=== PATIENT | female | born 1965 | race Two or more races ===

== ENCOUNTER → 2022-01-16 15:04 | Outpatient (BNVA) | payer OTHER, SELFPAY | PROVIDERS: PCP Internal Medicine; Referring Provider Internal Medicine; Visit Provider Internal Medicine | DX: R07.2 Precordial pain (principal); R00.2 Palpitations; I10 Essential (primary) hypertension; E11.8 Type 2 diabetes mellitus with unspecified complications; E78.5 Hyperlipidemia, unspecified; G47.33 Obstructive sleep apnea (adult) (pediatric); E66.01 Morbid (severe) obesity due to excess calories; Z68.31 Body mass index [BMI] 31.0-31.9, adult | CPT/HCPCS: 93005 ==

== ENCOUNTER 2022-09-25 13:35 | Outpatient (REF) | payer OTHER, SELFPAY ==
--- NOTE | ~2022-09-25 | US_ITS ---
EXAMINATION: US ABDOMEN COMPLETE CLINICAL INFORMATION: Right upper quadrant pain, flank pain. COMPARISON: X-ray abdomen complete 04/15/2018. US abdomen complete with liver elastography 12/25/2016. Ultrasound abdomen complete 10/18/2013. TECHNIQUE: Real-time imaging of the abdominal viscera. FINDINGS: PANCREAS: Normal. ABDOMINAL AORTA: The proximal, mid, and distal segments are normal in caliber. INFERIOR VENA CAVA: Visualized portions are normal. LIVER: Liver is enlarged measuring 18.0 cm. The liver contour is normal. Diffuse increased echogenicity of the liver parenchyma. No focal hepatic lesion. There is no intrahepatic biliary duct dilatation seen. GALLBLADDER: The gallbladder is contracted.. Multiple mobile gallstones are present. No evidence of gallbladder wall thickening or pericholecystic fluid. COMMON BILE DUCT: Normal in caliber measuring 0.7 cm in diameter. RIGHT KIDNEY: Punctate 4 mm cortical calcification. No hydronephrosis. No renal calculi or focal parenchymal lesions. The kidney measures 11.2 cm in maximum dimension. LEFT KIDNEY: Normal. No hydronephrosis. No renal calculi or focal parenchymal lesions. The kidney measures 10.8 cm in maximum dimension. SPLEEN: Normal. The spleen measures 12.1 cm in maximum dimension. FREE FLUID: None. US/US abdomen complete IMPRESSION: Hepatic steatosis with hepatomegaly. Next Cholelithiasis, no sonographic findings findings of acute cholecystitis.
== END 2022-09-25 13:36 | disposition home or self-care (01) ==
LOC: HO.US 13:35
PROVIDERS: Visit Provider Internal Medicine
DX: R10.11 Right upper quadrant pain (principal)
CPT/HCPCS: 76700

== ENCOUNTER 2023-02-19 10:47 | Outpatient (REF) | payer OTHER, SELFPAY ==
[2023-02-20 08:12] LABS: Hepatitis A Antibody IgG REACTIVE (Nonreactive); ~Hepatitis A Antibody IgG 10.84 S/CO (0.00-0.99)
[2023-02-20 08:13] LABS: HBsAGNum1 0.38 S/CO (0.00-0.99); Hepatitis B Core Antibody Nonreactive (Nonreactive); Hepatitis B Surface Antigen Negative (Negative); ~HepC Num1 0.31 S/CO (0.00-0.79); ~Hepatitis B Surface Antibody REACTIVE (Nonreactive); ~Hepatitis C Antibody Nonreactive (Nonreactive)
[2023-02-23 15:48] LABS: Anti Nuclear Antibody Screen NEGATIVE (NEGATIVE)
[2023-02-23 15:52] LABS: FIB-ALT 27 U/L (6-29); FIB-Alpha-2-Macroglobulin 163 mg/dL (106-279); FIB-Apolipoprotein A1 177 mg/dL (101-198); FIB-GGT 167 U/L (3-70); FIB-Haptoglobin 183 mg/dL (43-212); FIB-Total Bilirubin 0.8 mg/dL (0.2-1.2); Liver Fibrosis Score 0.24; Liver Fibrosis Stage F0-F1; Nec Inflam Act Grade A0; Nec Inflam Act Score 0.12
[2023-02-23 19:03] LABS: Alpha 1 Anti-trypsin 132 mg/dL (83-199)
[2023-02-24 11:08] LABS: Mitochondrial Antibodies NEGATIVE (NEGATIVE)
== END 2023-02-19 10:48 | disposition home or self-care (01) ==
LOC: HO.LAB 10:47
PROVIDERS: PCP Internal Medicine; Visit Provider Internal Medicine
DX: R79.89 Other specified abnormal findings of blood chemistry (principal)
CPT/HCPCS: 36415; 80076; 81596; 82103; 82728; 83540; 85025; 85610; 86038; 86255; 86256; 86704; 86706; 86708; 86803; 87340

== ENCOUNTER 2023-02-26 11:30 | Outpatient (AMB) | payer OTHER, SELFPAY ==
--- NOTE | 2023-02-26 11:38 | A.OFFVIS_ITS ---
Intake Vital Signs 02/26/23 11:40 Height 5 ft 6 in Weight 172 lb BMI 27.8 BP 118/64 Blood Pressure Location Rt brachial Position Sitting Pulse 80 Intake Visit Reasons: gallstones Intake Note: This patient presents for an assessment for gallstones. Patient c/o; intermittent RUQ pain radiates towards back, occasional nausea, denies vomiting, describes diarrhea. Beauty Counselor Required: No Accompanied by: Self / Same As Patient Allergies No Known Allergies [No Known Allergies*] Allergy (Verified 02/26/23 11:39) Medication List - Last Reconciled 02/26/23 by Steve Armas MD atorvastatin 20 mg PO DAILY cholecalciferol (vitamin D3) 50 mcg PO DAILY empagliflozin (Jardiance) 10 mg PO DAILY gabapentin 600 mg PO BEDTIME hydrochlorothiazide 50 mg PO DAILY metformin 1,000 mg PO BID propranolol ER 60 mg PO BEDTIME rizatriptan 10 mg PO DAILY PRN ropinirole 0.5 mg PO BEDTIME tirzepatide (Mounjaro) mg subcut QWEEK HPI gallstones HPI Details A 58-year-old female referred for gallstones. She had an ultrasound last September, showing gallstones without cholecystitis. She says that since August,, she has been having right-sided abdominal pain, radiating to the back. She thinks that this worse with intake of particular heavy meals.. She denies any other GI complaints. She had a history of morbid obesity had undergone gastric bypass in 2018. She also had a tummy tuck after that. [facility] Medical History (Updated 02/26/23 @ 11:51 by Steve Armas MD) Essential hypertension Gallstones Morbid obesity ARLEY (obstructive sleep apnea) Other and unspecified hyperlipidemia RUQ pain Type 2 diabetes mellitus with unspecified complications Surgical History History of bilateral knee replacement Family History Mother Asthma Father Hypertension Social History Alcohol intake: current Alcohol intake frequency: holidays/special occasions only Patient Tobacco Use Status: Never used Tobacco Review of Systems Const Denies chills and Denies fever(s) Card Denies chest pain, Denies dyspnea and Denies dyspnea on exertion Resp Denies cough, Denies dyspnea and Denies dyspnea on exertion GI Denies hematochezia and Denies change in bowel habits Denies hematuria Musc Denies back pain and Denies limited range of motion Neuro Denies focal weakness and Denies convulsions Psych Denies depression and Denies mood swings Physical Exam Vital Signs: Last Vital Signs Pulse 80 02/26/23 11:40 BP 118/64 02/26/23 11:40 BMI result Body Mass Index 27.8 Const General: comfortable and no acute distress Orientation/consciousness: patient oriented x3 Neck Neck: Yes no lymphadenopathy Resp Auscultation: clear to auscultation bilaterally Cardio Rhythm: regular rhythm GI Palpation (GI): Soft to palpation, nontender and no guarding Neuro General: patient oriented x3 Assessment & Plan Assessment & Plan (1) RUQ pain: Code(s): R10.11 - Right upper quadrant pain (2) Gallstones: Code(s): K80.20 - Calculus of gallbladder without cholecystitis without obstruction Plan: She has had right upper quadrant pain radiating to the back for about 6 months. She says that this does not happen often. She had gallstones on ultrasound last September. I explained to her the option of proceeding with cholecystectomy. I discussed the technique of laparoscopic cholecystectomy and possible open cholecystectomy. I reviewed the risks including but not limited to bleeding, infection, bile leak, retained stones, inherent risks of anesthesia, as well as the benefits and alternatives. She says that she had been told that she had some liver disease . She is quite anxious about proceeding with surgery at this time and says she would like to repeat imaging studies. I told her that we may be able to schedule her for a CT scan to evaluate her liver as well. She had some abnormal LFTs on blood tests last week but she does fatty liver disease from before. I will discuss her CAT scan findings with her and review her option of surgery. Orders: Orders CT abdomen pelvis w IV con 02/26/23 R10.11 - Right upper quadrant pain Blood Urea Nitrogen 02/26/23 R10.11 - Right upper quadrant pain Creatinine 02/26/23 R10.11 - Right upper quadrant pain Coding Level of Care Code New Pt Level 3 (62847) Diagnoses RUQ pain R10.11 Gallstones K80.20
[2023-02-26 11:40] VITALS: BP 118/64; PULSE 80; BMI 27.8
== END 2023-02-26 11:55 | disposition home or self-care (01) ==
PROVIDERS: PCP Internal Medicine; Referring Provider Internal Medicine; Visit Provider Surgery
DX: R10.11 Right upper quadrant pain (principal); K80.20 Calculus of gallbladder without cholecystitis without obstruction
CPT/HCPCS: 99203

== ENCOUNTER 2023-02-26 11:30 | Outpatient (REF) | payer OTHER, SELFPAY ==
[2023-02-26 14:23] LABS: Blood Urea Nitrogen 14 mg/dL (9-16); Estimated Glomerular Filt Rate > 60
== END 2023-02-26 11:31 | disposition home or self-care (01) ==
LOC: HO.LAB 11:30
PROVIDERS: PCP Internal Medicine; Referring Provider Internal Medicine; Visit Provider Surgery
DX: R10.11 Right upper quadrant pain (principal); K80.20 Calculus of gallbladder without cholecystitis without obstruction; E66.01 Morbid (severe) obesity due to excess calories; Z98.84 Bariatric surgery status; Z79.899 Other long term (current) drug therapy
CPT/HCPCS: 36415; 82565; 84520

== ENCOUNTER 2023-04-13 13:25 | Outpatient (REF) | payer OTHER, SELFPAY ==
[2023-04-13 14:28] LABS: Blood Urea Nitrogen 11 mg/dL (9-16); Estimated Glomerular Filt Rate > 60
== END 2023-04-13 13:26 | disposition home or self-care (01) ==
LOC: HO.LAB 13:25
PROVIDERS: PCP Internal Medicine; Visit Provider Surgery
DX: K80.20 Calculus of gallbladder without cholecystitis without obstruction (principal); R10.11 Right upper quadrant pain
CPT/HCPCS: 36415; 82565; 84520

== ENCOUNTER 2023-04-14 09:27 | Outpatient (REF) | payer OTHER, SELFPAY ==
--- NOTE | ~2023-04-14 | CT_ITS ---
EXAMINATION: CT ABDOMEN WITH CONTRAST CLINICAL INFORMATION: Right upper quadrant pain COMPARISON: Previous abdominal ultrasound most recent from September 2022 TECHNIQUE: Contiguous axial thin section helical images of the abdomen were performed following the administration of oral contrast and 85 mL of Omnipaque 350 intravenous contrast. The data set was reformatted in the coronal and sagittal planes and reviewed on an independent workstation. This CT examination was performed using dose optimization techniques as appropriate, variously including the following: *Automated exposure control *Adjustment of mA and/or kV according to patient size (this includes techniques or standardized protocols for targeted exams where dose is matched to indication/reason for exam; i.e. extremities or head) *Use of iterative reconstruction technique DLP: 211 mGy-cm FINDINGS: LUNG BASES: The lung bases are clear. LIVER, GALLBLADDER, AND BILIARY TREE: There is intra and extrahepatic biliary duct dilatation. The common bile duct is dilated measuring up to 1.4 cm. The common bile left is dilated down to the head of the pancreas. No common bile duct stone is appreciated by CT. The gallbladder is normal in size. There is increased attenuation seen in the fundus of the gallbladder questionable for small stones or possibly polyps or sludge. The gallbladder wall is upper normal in thickness. There is question of increased enhancement of the gallbladder wall. No pericholecystic fluid is seen. The fat surrounding the gallbladder is normal. The liver is normal in size, shape and attenuation. PANCREAS: Normal SPLEEN: Normal ADRENAL GLANDS AND KIDNEYS: There is a small 1 cm left adrenal nodule. The right adrenal gland is normal. No imaging follow-up recommended.. There is a small cyst in the right kidney. No imaging follow-up recommended. The kidneys are otherwise normal. BOWEL LOOPS: There are postsurgical changes from gastric bypass. There is mild diverticulosis of the colon. LYMPH NODES: Normal. VASCULAR: Unremarkable. BONES: Degenerative changes of the spine. CT/CT abdomen w IV con IMPRESSION: Intra and extrahepatic biliary duct dilatation. The common bile duct measures up to 1.4 cm and is dilated down to the head of the pancreas. No common bile duct stone seen by CT. Increased attenuation in the gallbladder. Differential would include gallstones, polyps and sludge. Question increased gallbladder wall enhancement. Postoperative changes from gastric bypass. Fleischner guidelines were followed.
[2023-04-14] MEDS: iohexoL 350 MG/ML 100 ML INFUS..BTL IV (10:04)
== END 2023-04-14 09:28 | disposition home or self-care (01) ==
LOC: HO.CT 09:27
PROVIDERS: Visit Provider Surgery
DX: R10.11 Right upper quadrant pain (principal); K80.20 Calculus of gallbladder without cholecystitis without obstruction
CPT/HCPCS: 74160; Q9967

== ENCOUNTER 2023-04-27 10:58 | Outpatient (AMB) | payer OTHER, SELFPAY ==
--- NOTE | 2023-04-27 11:02 | MHC.OFFVIS ---
Intake Intake Visit Reasons: Follow Up CT scan Intake Note: This patient presents for follow-up assessment for Ct-Scan results. Patient c/o; reports no changes or complaints at this time. It Sales Executive Required: No Accompanied by: Self / Same As Patient Allergies No Known Allergies [No Known Allergies*] Allergy (Verified 04/27/23 11:07) Medication List - Last Reconciled 04/27/23 by Steve Armas MD atorvastatin 20 mg PO DAILY cholecalciferol (vitamin D3) 50 mcg PO DAILY empagliflozin (Jardiance) 10 mg PO DAILY gabapentin 600 mg PO BEDTIME hydrochlorothiazide 50 mg PO DAILY metformin 1,000 mg PO BID propranolol ER 60 mg PO BEDTIME rizatriptan 10 mg PO DAILY PRN ropinirole 0.5 mg PO BEDTIME tirzepatide (Mounjaro) mg subcut QWEEK HPI Follow Up CT scan HPI Details She is here for a follow-up after her CT scan. I had actually seen her in February, as she had been referred because of gallstones seen on ultrasound. She was being followed by GI because of her a fatty liver. She otherwise says that she feels well overall. She says that she has occasional mild right-sided pain. She has good oral intake. [facility] Medical History Gallstones RUQ pain Morbid obesity ARLEY (obstructive sleep apnea) Other and unspecified hyperlipidemia Essential hypertension Type 2 diabetes mellitus with unspecified complications Surgical History History of bilateral knee replacement Family History Mother Asthma Father Hypertension Social History Alcohol intake: current Alcohol intake frequency: holidays/special occasions only Patient Tobacco Use Status: Never used Tobacco Review of Systems Const Denies chills and Denies fever(s) Card Denies chest pain, Denies dyspnea and Denies dyspnea on exertion Resp Denies cough, Denies dyspnea and Denies dyspnea on exertion GI Denies hematochezia and Denies change in bowel habits Denies hematuria Musc Denies back pain, Reports arthralgias and Reports limited range of motion Neuro Denies focal weakness and Denies convulsions Psych Denies depression and Denies mood swings Physical Exam Const General: comfortable and no acute distress Orientation/consciousness: patient oriented x3 Eyes Other: Nonicteric sclerae Neck Neck: Yes no lymphadenopathy Resp Auscultation: clear to auscultation bilaterally Cardio Rhythm: regular rhythm GI Palpation (GI): Soft to palpation, nontender and no guarding Neuro General: patient oriented x3 Assessment & Plan Assessment & Plan (1) Gallstones: Code(s): K80.20 - Calculus of gallbladder without cholecystitis without obstruction Plan: She describes mild occasional right upper quadrant pain. I have reviewed her CAT scan and this shows to 1.[address] to the head of the pancreas She does have a history of slightly abnormal LFTs in the past I am going to send her for an MRI to rule out a etiology that may explain her CBD dilatation She overall looks well. I will see her in the office after her MRI to discuss the findings and to decide on the next step in her care. She understands and is comfortable with the plan. Orders: Orders MR MRCP Today K80.20 - Calculus of gallbladder without cholecystitis without obstruction Coding Level of Care Code Est Pt Level 3 (10258) Diagnoses Gallstones K80.20
== END 2023-04-27 11:14 | disposition home or self-care (01) ==
PROVIDERS: PCP Internal Medicine; Visit Provider Surgery
DX: K80.20 Calculus of gallbladder without cholecystitis without obstruction (principal)
CPT/HCPCS: 99213

== ENCOUNTER → 2023-04-27 10:58 | Outpatient (BNVA) | payer OTHER, SELFPAY | PROVIDERS: PCP Internal Medicine; Visit Provider Surgery ==

== ENCOUNTER 2023-05-07 09:20 | Outpatient (REF) | payer OTHER, SELFPAY ==
--- NOTE | ~2023-05-07 | XR_ITS ---
EXAMINATION: XR CHEST CLINICAL INFORMATION: Hypertension COMPARISON: 04/15/2018 TECHNIQUE: 2 views of the chest were obtained. FINDINGS: Heart size normal. Central pulmonary vascular congestion seen previously is no longer present. There is no evidence of CHF. No infiltrates, effusions or lung masses are seen. Again seen are multiple surgical clips in the left upper quadrant XR/XR chest 2V IMPRESSION: No acute intrathoracic disease.
--- NOTE | ~2023-05-07 | XR_ITS ---
EXAMINATION: XR HAND, BILATERAL CLINICAL INFORMATION: Bilateral hand pain COMPARISON: Right hand 03/28/2019 TECHNIQUE: 3 views of each hand FINDINGS: Right hand: Severe osteoarthritis of the 1st CMC joint. Moderate arthritis of the 2nd and 5th DIP joints, possibly chronic erosive osteoarthritis. Overall, no significant change. Left hand: Severe 1st CMC joint osteoarthritis. 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 Cannot exclude an active inflammatory component at the 2nd DIP joint. Correlate clinically. XR/XR hand LT min 3V IMPRESSION: RIGHT HAND: Severe 1st CMC joint osteoarthritis. 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 Cannot exclude active inflammation of the 2nd DIP joint. Correlate clinically.
--- NOTE | ~2023-05-07 | XR_ITS ---
EXAMINATION: XR HAND, BILATERAL CLINICAL INFORMATION: Bilateral hand pain COMPARISON: Right hand 03/28/2019 TECHNIQUE: 3 views of each hand FINDINGS: Right hand: Severe osteoarthritis of the 1st CMC joint. Moderate arthritis of the 2nd and 5th DIP joints, possibly chronic erosive osteoarthritis. Overall, no significant change. Left hand: Severe 1st CMC joint osteoarthritis. 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 Cannot exclude an active inflammatory component at the 2nd DIP joint. Correlate clinically. XR/XR hand RT min 3V IMPRESSION: RIGHT HAND: Severe 1st CMC joint osteoarthritis. 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 Cannot exclude active inflammation of the 2nd DIP joint. Correlate clinically.
[2023-05-08 08:20] LABS: ~Hepatitis B Surface Antibody REACTIVE (Nonreactive)
[2023-05-09 06:24] LABS: Varicella IgG Antibody >4000.00 index
[2023-05-09 16:28] LABS: TS Negative Control Passed; TS Panel A 3; TS Panel B 1; TS Positive Control Passed; TSpotTB Negative (Negative)
== END 2023-05-07 09:21 | disposition home or self-care (01) ==
LOC: HO.HMGCX 09:20
PROVIDERS: PCP Internal Medicine; Visit Provider Internal Medicine
DX: Z11.1 Encounter for screening for respiratory tuberculosis (principal); I10 Essential (primary) hypertension; M79.641 Pain in right hand; M79.642 Pain in left hand; Z00.00 Encounter for general adult medical examination without abnormal findings
CPT/HCPCS: 36415; 71046; 73130; 86481; 86706; 86762; 86787

== ENCOUNTER 2023-05-20 07:25 | Outpatient (REF) | payer OTHER, SELFPAY | END 2023-05-20 07:26 | disposition home or self-care (01) | LOC: HO.MRI 07:25 | PROVIDERS: PCP Internal Medicine; Visit Provider Surgery | DX: K80.20 Calculus of gallbladder without cholecystitis without obstruction (principal) | CPT/HCPCS: 74181 ==

== ENCOUNTER 2023-06-08 15:37 | Outpatient (AMB) | payer OTHER, SELFPAY ==
--- NOTE | 2023-06-08 15:41 | A.OFFVIS_ITS ---
Intake Vital Signs 06/08/23 15:41 Height 5 ft 6 in Intake Visit Reasons: Gallstones - MRCP results Intake Note: This patient presents for a follow-up for MRCP results. Patient c/o; reports no changes. Blacksmith Assistant Required: No Accompanied by: Grand Child Allergies No Known Allergies [No Known Allergies*] Allergy (Verified 06/23/23 12:33) Medication List - Last Reconciled 06/09/23 by Steve Armas MD atorvastatin 20 mg PO DAILY cholecalciferol (vitamin D3) 50 mcg PO DAILY empagliflozin (Jardiance) 10 mg PO DAILY gabapentin 600 mg PO BEDTIME hydrochlorothiazide 50 mg PO DAILY metformin 1,000 mg PO BID propranolol ER 60 mg PO BEDTIME rizatriptan 10 mg PO DAILY PRN ropinirole 0.5 mg PO BEDTIME tirzepatide (Mounjaro) mg subcut QWEEK HPI Gallstones - MRCP results HPI Details 58-year-old female here for follow-up fo r gallstones. I had sent her for an MRCP because of a dilated common bile duct on previous imaging. She does state that she has occasional symptoms of her gallstones with right upper quadrant pain. She has good oral intake. She does have a history of laparoscopic gastric bypass in 2018. She also had a panniculectomy at that time. [facility] Medical History Gallstones RUQ pain Morbid obesity ARLEY (obstructive sleep apnea) Other and unspecified hyperlipidemia Essential hypertension Type 2 diabetes mellitus with unspecified complications Surgical History History of bilateral knee replacement Family History Mother Asthma Father Hypertension Social History Alcohol intake: current Alcohol intake frequency: holidays/special occasions only Patient Tobacco Use Status: Never used Tobacco Review of Systems Const Denies chills and Denies fever(s) Card Denies chest pain, Denies dyspnea and Denies dyspnea on exertion Resp Denies cough, Denies dyspnea and Denies dyspnea on exertion GI Denies hematochezia and Denies change in bowel habits Denies hematuria Musc Denies back pain and Denies limited range of motion Neuro Denies focal weakness and Denies convulsions Psych Denies depression and Denies mood swings Physical Exam Const General: comfortable and no acute distress Orientation/consciousness: patient oriented x3 Neck Neck: Yes no lymphadenopathy Resp Auscultation: clear to auscultation bilaterally Cardio Rhythm: regular rhythm GI Palpation (GI): Soft to palpation, nontender and no guarding Neuro General: patient oriented x3 Assessment & Plan Assessment & Plan (1) Gallstones: Code(s): K80.20 - Calculus of gallbladder without cholecystitis without obstruction Plan: I have reviewed her MRCP. Despite the common bile duct dilatation, there is no filling defect nor any mass that may suggest common bile duct obstruction. I have ordered for her to undergo follow-up liver panel. I explained to her the technique of laparoscopic cholecystectomy and possible conversion to open. I reviewed with her the risks including but not limited to bleeding, infections, injury to other organs including bowel, liver and the bile duct, blood clots, pneumonia, inherent risks of anesthesia, retained stones, leak, as well as the benefits and alternatives. Orders: Orders Liver Panel 06/08/23 K80.20 - Calculus of gallbladder without cholecystitis without obstruction Coding Level of Care Code Est Pt Level 3 (98368) Diagnoses Gallstones K80.20
== END 2023-06-08 16:00 | disposition home or self-care (01) ==
PROVIDERS: PCP Internal Medicine; Referring Provider Internal Medicine; Visit Provider Surgery
DX: K80.20 Calculus of gallbladder without cholecystitis without obstruction (principal)
CPT/HCPCS: 99213

== ENCOUNTER → 2023-06-08 15:37 | Outpatient (BNVA) | payer OTHER, SELFPAY | PROVIDERS: PCP Internal Medicine; Visit Provider Surgery ==

== ENCOUNTER 2023-06-23 10:59 | Outpatient (AMB) | payer OTHER, SELFPAY ==
[2023-06-23 12:11] VITALS: BP 120/82; PULSE 90; TEMP 36.7; O2SAT 97; BMI 27.3
--- NOTE | 2023-06-23 12:11 | AM.OFFWIN_ITS ---
Intake Vital Signs 06/23/23 12:11 Height 5 ft 6 in Weight 169 lb BMI 27.3 BP 120/82 Blood Pressure Location Rt brachial Position Sitting Pulse 90 Pulse Source Pulse Oximeter Temp 98.1 F Temp Source Oral Pulse Oximetry (%) 97 Oxygen Delivery Method Room Air Intake Visit Reasons: EP, hearing plug stuck, burning with urination Patient Tobacco Use Status: Never used Tobacco Allergies No Known Allergies [No Known Allergies*] Allergy (Verified 06/23/23 12:33) Medication List - Last Reconciled 06/23/23 by Tr Norris MD atorvastatin 20 mg PO DAILY cholecalciferol (vitamin D3) 50 mcg PO DAILY empagliflozin (Jardiance) 10 mg PO DAILY gabapentin 600 mg PO BEDTIME hydrochlorothiazide 50 mg PO DAILY metformin 1,000 mg PO BID propranolol ER 60 mg PO BEDTIME ropinirole 0.5 mg PO BEDTIME tirzepatide (Mounjaro) mg subcut QWEEK Do you need a note to return to daycare/school/sports/work: No HPI EP, hearing plug stuck, burning with urination HPI Details 58-year-old female presents to the [facility] for a sick visit. She has 2 complaints. Patient has a stuck hearing aid tip in the left ear. When she removed the hearing aid at night, she realized the tip is still remaining. Also reporting symptoms of increased frequency of urination and burning. Patient is a known diabetic. Symptoms of burning and increased frequency present for the past few days. [facility] Medical History Gallstones RUQ pain Morbid obesity ARLEY (obstructive sleep apnea) Other and unspecified hyperlipidemia Essential hypertension Type 2 diabetes mellitus with unspecified complications Surgical History History of bilateral knee replacement Family History Mother Asthma Father Hypertension Social History Alcohol intake: current Alcohol intake frequency: holidays/special occasions only Patient Tobacco Use Status: Never used Tobacco Physical Exam Vital Signs: Last Vital Signs Temp 98.1 F 06/23/23 12:11 Pulse 90 06/23/23 12:11 BP 120/82 06/23/23 12:11 Pulse Ox 97 06/23/23 12:11 Oxygen Delivery Method Room Air 06/23/23 12:11 BMI result Body Mass Index 27.3 Const General: cooperative and healthy appearing Nutritional Appearance: well nourished Orientation/consciousness: patient oriented x3 Limitations: no limitations HEENT Other: Left ear: Ear canal: Plastic foreign body seen. Head: Yes normal to inspection Eyes General: appearance normal, both eyes and all related structures Neck Neck: Yes normal visual inspection Chest Chest palpation & inspection: normal palpation of entire chest wall Resp Effort & Inspection: normal respiratory effort General: Yes bladder normal to palpation and Yes no CVA tenderness Bimanual exam- vagina & uterus: bladder normal to palpation Back/Spine/Pelvis Back: no CVA tenderness Neuro General: patient oriented x3 Office Procedures Foreign Body Removal 21953-[id number] body removal, simple 66305 - Foreign body removal, external auditory canal Additional procedure code (CPT) needed Results AMB Urinalysis, Automated UA Leukoctes 125 Noemy/uL Last Edit by Yudi Winchester CMA on 06/23/23 12:21 UA Nitrite Negative Last Edit by Yudi Winchester CMA on 06/23/23 12:21 UA Urobilinogen 0.2 mg/dL Last Edit by Yudi Winchester CMA on 06/23/23 12:21 UA Protein 100 mg/dL Last Edit by Yudi Winchester CMA on 06/23/23 12:21 UA pH 6.0 Last Edit by Yudi Winchester CMA on 06/23/23 12:21 UA Blood 200 Moy/uL Last Edit by Yudi Winchester CMA on 06/23/23 12:21 UA Specific Silvis 1.030 Last Edit by Yudi Winchester CMA on 06/23/23 12:21 UA Ketone Negative Last Edit by Yudi Winchester CMA on 06/23/23 12:21 UA Bilirubin 1 mg/dL Last Edit by Yudi Winchester CMA on 06/23/23 12:21 UA Glucose 1000 mg/dL Last Edit by Yudi Winchester CMA on 06/23/23 12:21 Results Reviewed Results Reviewed: Laboratory Last Values Urine pH (Auto) 6.0 06/23/23 12:18 Specific Silvis (Auto) 1.030 06/23/23 12:18 Urine Protein (Auto) 100 mg/dL 06/23/23 12:18 Glucose (UA)(Auto) 1000 mg/dL 06/23/23 12:18 Urine Ketones (Auto) Negative 06/23/23 12:18 Urine Blood (Auto) 200 Moy/uL 06/23/23 12:18 Urine Nitrite (Auto) Negative 06/23/23 12:18 Urine Bilirubin (Auto) 1 mg/dL 06/23/23 12:18 Urine Urobilinogen (Auto) 0.2 mg/dL 06/23/23 12:18 Leukocyte Esterase (Auto) 125 Noemy/uL 06/23/23 12:18 Assessment & Plan Assessment & Plan (1) Foreign body in ear: Code(s): T16.9XXA - Foreign body in ear, unspecified ear, initial encounter Plan: Patient tolerated the procedure well (2) Urinary tract infection: Code(s): N39.0 - Urinary tract infection, site not specified Plan: Take antibiotics and Pyridium as directed. Increase fluid intake. If symptoms of burning persist, new onset of fever or lower back pain, to follow-up at the [facility]. Orders: Orders AMB Urinalysis Automated Today Z13.9 - Encounter for screening, unspecified Ruel Cronin MD AMB Removal of foreign body Today T16.9XXA - Foreign body in ear, unspecified ear, initial encounter Tr Norris MD Coding Level of Care Code Est Pt Level 4 (64884) Diagnoses Foreign body in ear T16.9XXA Urinary tract infection N39.0 CPT Codes Details - Foreign body simple: [id number] body removal, simple ([id number])
== END 2023-06-23 12:46 | disposition home or self-care (01) ==
PROVIDERS: PCP Internal Medicine; Visit Provider Internal Medicine
DX: T16.2XXA Foreign body in left ear, initial encounter (principal); N39.0 Urinary tract infection, site not specified; R35.0 Frequency of micturition
CPT/HCPCS: 10120; 81003; 99214

== ENCOUNTER 2023-10-26 12:23 | Outpatient (REF) | payer OTHER, SELFPAY ==
[2023-10-26 12:51] LABS: MANUAL DIFF FLAG NO
[2023-10-26 13:32] LABS: Basophils Percent Auto 0.5 % (0-2); Eosinophils Absolute Auto 0.1 X10*3/uL (0.0-0.4); Eosinophils Percent Auto 1.7 % (0-4); Hematocrit 34.4 % (37.0-47.0); Hemoglobin 11.1 g/dl (12.0-16.0); Imm Gran Abs Auto 0.03 X10*3/uL (0.00-0.03); Imm Gran Pct Auto 0.5 % (0.0-0.4); Lymphocytes Absolute Auto 1.9 X10*3/uL (1.2-4.9); Lymphocytes Percent Auto 31.9 % (20-40); Mean Corpuscular HGB Conc 32.3 g/dl (31.0-35.0); Mean Corpuscular Hemoglobin 26.2 pg (27.0-33.0); Mean Corpuscular Volume 81.3 fL (80.0-98.0); Mean Platelet Volume 10.9 fL (9.4-12.3); Monocytes Absolute Auto 0.4 X10*3/uL (0.1-1.2); Monocytes Percent Auto 5.8 % (2-11); Neutrophils Absolute Auto 3.6 x10*3/uL (2.0-8.3); Neutrophils Percent Auto 59.6 % (45-73); Platelet Count 263 X10*3/uL (160-400); Red Blood Count 4.23 X10*6/uL (4.20-5.50); Red Cell Distribution Width 14.6 % (11.0-16.0); White Blood Count 6.1 X10*3/uL (4.8-10.8)
[2023-10-26 14:34] LABS: Alanine Aminotransferase 13 U/L (0-31); Albumin Level 3.9 g/dL (3.5-5.0); Alkaline Phosphatase 144 U/L (39-117); Aspartate Amino Transferase 15 U/L (5-31); Bilirubin Direct 0.3 mg/dL (0.0-0.5); Bilirubin Total 0.8 mg/dL (0.0-1.0); Gamma Glutamyl Transpeptidase 70 U/L (7-33); Iron 36 mcg/dL (30-160); Percent Iron Saturation 9 % (15-50); Total Iron Binding Capacity 380 mcg/dL (228-428); Total Protein 7.3 g/dL (6.5-8.0); Unsaturated Iron Binding 344 ug/dL
[2023-10-26 14:50] LABS: Ferritin 6 ng/mL (10-250)
[2023-10-26 14:51] LABS: Folate 12.5 ng/mL (> or = 4.0); Vitamin B12 161 pg/mL (200-900)
[2023-10-31 06:09] LABS: Alk.Phos Iso. Macrohepatic 0 % (<=0); Alk.Phos Isoenzymes Bone 31 % (28-66); Alk.Phos Isoenzymes Intest 0 % (1-24); Alk.Phos Isoenzymes Liver 69 % (25-69); Alk.Phos Isoenzymes Placental 0 % (<=0); Alk.Phos Isoenzymes Total 133 U/L (37-153)
== END 2023-10-26 12:24 | disposition home or self-care (01) ==
LOC: HO.LAB 12:23
PROVIDERS: PCP Internal Medicine; Visit Provider Internal Medicine
DX: R74.8 Abnormal levels of other serum enzymes (principal); D50.9 Iron deficiency anemia, unspecified
CPT/HCPCS: 36415; 80076; 82607; 82728; 82746; 82977; 83540; 84080; 85025

== ENCOUNTER 2023-10-28 09:04 | Outpatient (AMB) | payer OTHER, SELFPAY ==
[2023-10-28 13:13] VITALS: BMI 27.9
--- NOTE | 2023-10-28 13:13 | MHC.OFFVISWM ---
Intake VS Expanded 10/28/23 13:13 Height 5 ft 6 in Weight 173 lb BMI 27.9 Intake Visit Reasons: TV Gallstones - PO LRYGB 04/14/18 Allergies No Known Allergies [No Known Allergies*] Allergy (Verified 10/28/23 13:14) Medication List - Last Reconciled 10/28/23 by Bon Mac MD atorvastatin 20 mg PO DAILY cholecalciferol (vitamin D3) 50 mcg PO DAILY empagliflozin (Jardiance) 10 mg PO DAILY gabapentin 600 mg PO BEDTIME metformin 500 mg PO BID propranolol ER 60 mg PO BEDTIME ropinirole 0.5 mg PO BEDTIME tirzepatide (Mounjaro) mg subcut QWEEK HPI TV Gallstones - PO LRYGB 04/14/18 HPI Details Start time: 1.07pm, End time: 1.37pm ?I spent 25 minutes speaking with the patient on the phone plus an additional 5 minutes reviewing and updating records for a total of 30 minutes HPI Comments History of Present Illness Details Has peristent RUQ pain Abdominal US from 10/09 is consistent with choelithiasis and hepatomegaly MRCP was performed on 06/08 due to CBD dilation but no CBD stones were found. [facility] Medical History (Updated 10/28/23 @ 13:30 by Bon Mac MD) Neuropathy Gallstones RUQ pain Morbid obesity ARLEY (obstructive sleep apnea) Other and unspecified hyperlipidemia Essential hypertension Type 2 diabetes mellitus with unspecified complications Surgical History (Updated 10/28/23 @ 13:18 by Bon Mac MD) S/P panniculectomy Gastric bypass status for obesity History of bilateral knee replacement Family History Mother Asthma Father Hypertension Social History Alcohol intake: current Alcohol intake frequency: holidays/special occasions only Patient Tobacco Use Status: Never used Tobacco Assessment & Plan Assessment & Plan (1) Gallstones: Code(s): K80.20 - Calculus of gallbladder without cholecystitis without obstruction Plan: 1. The patient has symptomatic cholelithiasis with right upper quadrant pain. We discussed in detail the importance of this finding in relation to the type of bariatric surgery that will be chosen. Because gastric bypass alters the anatomy of the UGI tract, it will limit our ability for non-surgical interventions related to potential complications of cholelithiasis or cholecystectomy such as ERCP and for this reason we recommend elective removal. We discussed in detail the potential complications and their management including bleeding, bile leak, pancreatitis and major bile duct injury. 2. Avoid any aspirin, motrin, aleve, naproxyn, advil and similar medications 3. Stop food and bars as of tomorrow 10/29/23 and continue with 2 Celebrate REBUILD protein shakes (HALF scoop EACH in 8oz almond milk) at 8am-10am and 11am-1pm and 2 Celebrate protein bars at 2pm-4pm and 5pm-7pm and one more Celebrate protein shake with ONE scoop in 8oz of almond milk at 8pm-10pm. Orders: Orders Type and Screen Today K80.20 - Calculus of gallbladder without cholecystitis without obstruction Prothrombin Time INR Today K80.20 - Calculus of gallbladder without cholecystitis without obstruction Partial Thromboplastin Time Today K80.20 - Calculus of gallbladder without cholecystitis without obstruction ECG 12 lead EKG Today K80.20 - Calculus of gallbladder without cholecystitis without obstruction Telehealth Telehealth Location of provider rendering services: practice address Location of patient: address on file Patient Identification confirmed using: Name, : Yes Telehealth method: voice only Patient verbally consented to treatment: Yes Patient verbally consented to billing insurance company: Yes Patient informed of any privacy concerns related to visit: Yes Minutes spent on Phone/Video with Pt.: 30 Coding Level of Care Code Tele Est Pt Level 4 (11401) Diagnoses Gallstones K80.20 Time Spent (min) 30
== END 2023-10-28 13:39 | disposition home or self-care (01) ==
LOC: HO.HBS 09:05
PROVIDERS: PCP Internal Medicine; Visit Provider Surgery
DX: K80.20 Calculus of gallbladder without cholecystitis without obstruction (principal); Z98.84 Bariatric surgery status
CPT/HCPCS: 99214

== ENCOUNTER → 2023-10-28 09:04 | Outpatient (BNVA) | payer OTHER, SELFPAY | PROVIDERS: PCP Internal Medicine; Visit Provider Surgery ==

== ENCOUNTER → 2023-11-04 10:23 | Outpatient (BNV) | payer OTHER, SELFPAY | PROVIDERS: PCP Internal Medicine; Visit Provider Internal Medicine | DX: I10 Essential (primary) hypertension (principal) | CPT/HCPCS: 93010 ==

== ENCOUNTER 2023-11-10 10:37 | Day surgery (SDC) | payer OTHER, SELFPAY ==
--- NOTE | 2023-11-04 10:23 | ECG_ITS ---
Test Reason : calculus of kidney Blood Pressure : / mmHG Vent. Rate : 078 BPM Atrial Rate : 078 BPM P-R Int : 192 ms QRS Dur : 082 ms QT Int : 380 ms P-R-T Axes : 060 035 054 degrees QTc Int : 433 ms Normal sinus rhythm Normal ECG When compared with ECG of 14-APR-2018 23:05, No significant change was found Referred By: Bon Mac Electronically Signed By:MONIE JACOB
--- NOTE | 2023-11-06 15:18 | HO.ANESPROP2 ---
Documented by User: Zuleyka Robins NP 11/06/23 15:20 HPI - Anesthesia Eval Consult details Narrative: 58yo F for Cholecystectomy Laparoscopic Anesthesia Pre-Procedure Meds Is the patient on any of the following meds?: Any other SGL-1 drugs or drugs that delay gastric emptying (Jardiance, Tirzepatide) PMFSH Active Problems Active Problems: All Active Problems (Updated 10/28/23 @ 13:30 by Bon Mac MD) Neuropathy (Acute) Overweight (Acute) Gallstones (Acute) RUQ pain (Acute) Morbid obesity (Acute) ARLEY (obstructive sleep apnea) (Acute) Other and unspecified hyperlipidemia (Acute) Essential hypertension (Acute) Type 2 diabetes mellitus with unspecified complications (Acute) Palpitations (Acute) Precordial chest pain (Acute) Past Medical History Medical History Neuropathy Gallstones RUQ pain Morbid obesity ARLEY (obstructive sleep apnea) Other and unspecified hyperlipidemia Essential hypertension Type 2 diabetes mellitus with unspecified complications Family History Family History Mother Asthma Father Hypertension Surgical History Surgical History S/P panniculectomy Gastric bypass status for obesity History of bilateral knee replacement Social History Social History Alcohol intake: current Alcohol intake frequency: holidays/special occasions only Patient Tobacco Use Status: Never used Tobacco Use of substances other than those prescribed or required for medical reasons: No Are you DNR?: No Advance Directives: No Advance Directives Information Provided: Yes Meds Allergies Allergy/AdvReac Type Severity Reaction Status Date / Time No Known Allergies Allergy Verified 11/10/23 11:25 [No Known Allergies*] Home Medications Medication Instructions Recorded Confirmed Last Taken Type atorvastatin 20 mg tablet 20 mg PO DAILY 01/16/22 11/10/23 11/09/23 History cholecalciferol (vitamin D3) 50 50 mcg PO DAILY 01/16/22 11/10/23 11/09/23 History mcg (2,000 unit) capsule gabapentin 300 mg capsule 600 mg PO BEDTIME 01/16/22 11/10/23 11/09/23 History propranolol 60 mg capsule,24 60 mg PO BEDTIME 01/16/22 11/10/23 11/09/23 History hr,extended release ropinirole 0.5 mg tablet 0.5 mg PO BEDTIME 01/16/22 11/10/23 11/09/23 History empagliflozin 10 mg tablet 10 mg PO DAILY 07/08/22 11/10/23 11/07/23 History (Jardiance) tirzepatide 5 mg/0.5 mL 5 mg subcut QWEEK 07/08/22 11/10/23 11/03/23 History subcutaneous pen injector (Mounjaro) metformin 1,000 mg tablet 500 mg PO BID 10/28/23 11/10/23 11/09/23 History Exam Pertinent Lab Results Pertinent Lab Results: Laboratory Tests 11/04/23 10:20 PT 12.0 INR 1.0 APTT 32.0 Blood Type A Negative Antibody Screen NEGATIVE Laboratory Tests 10/26/23 12:49 WBC 6.1 Hgb 11.1 L Hct 34.4 L Plt Count 263 Narrative Narrative: EKG 10/2023 Vent. Rate : 078 BPM Atrial Rate : 078 BPM P-R Int : 192 ms QRS Dur : 082 ms QT Int : 380 ms P-R-T Axes : 060 035 054 degrees QTc Int : 433 ms Normal sinus rhythm Normal ECG When compared with ECG of 14-APR-2018 23:05, No significant change was found Assessment and Plan Assessment Anesthesia Assessment: Chart Reviewed Documented by User: Noelle Moon MD 11/10/23 14:07 HPI - Anesthesia Eval Anesthesia Pre-Procedure Meds If Yes to any meds - educate patient: Pt education - increased risk of aspiration and Pt education - possibility of cancelled proc at provider's discretion PMFSH Past Medical History Medical History Neuropathy Gallstones RUQ pain Morbid obesity ARLEY (obstructive sleep apnea) Other and unspecified hyperlipidemia Essential hypertension Type 2 diabetes mellitus with unspecified complications Family History Family History Mother Asthma Father Hypertension Family history of problems with anesthesia: No Surgical History Surgical History S/P panniculectomy Gastric bypass status for obesity History of bilateral knee replacement History of Problems with Anesthesia: No Social History Social History Alcohol intake: current Alcohol intake frequency: holidays/special occasions only Patient Tobacco Use Status: Never used Tobacco Use of substances other than those prescribed or required for medical reasons: No Are you DNR?: No Advance Directives: No Advance Directives Information Provided: Yes Meds Allergies Allergy/AdvReac Type Severity Reaction Status Date / Time No Known Allergies Allergy Verified 11/10/23 11:25 [No Known Allergies*] Home Medications Medication Instructions Recorded Confirmed Last Taken Type atorvastatin 20 mg tablet 20 mg PO DAILY 01/16/22 11/10/23 11/09/23 History cholecalciferol (vitamin D3) 50 50 mcg PO DAILY 01/16/22 11/10/23 11/09/23 History mcg (2,000 unit) capsule gabapentin 300 mg capsule 600 mg PO BEDTIME 01/16/22 11/10/23 11/09/23 History propranolol 60 mg capsule,24 60 mg PO BEDTIME 01/16/22 11/10/23 11/09/23 History hr,extended release ropinirole 0.5 mg tablet 0.5 mg PO BEDTIME 01/16/22 11/10/23 11/09/23 History empagliflozin 10 mg tablet 10 mg PO DAILY 07/08/22 11/10/23 11/07/23 History (Jardiance) tirzepatide 5 mg/0.5 mL 5 mg subcut QWEEK 07/08/22 11/10/23 11/03/23 History subcutaneous pen injector (Mounjaro) metformin 1,000 mg tablet 500 mg PO BID 10/28/23 11/10/23 11/09/23 History Exam Airway Heart: rrr Lungs: cta Assessment and Plan Assessment Anesthesia Assessment: Anesthesia Plan Discussed Final Anesthetic Review Family History of Problems with Anesthesia: No History of Problems with Anesthesia: No NPO: Yes ASA Class: III Final Preanesthetic Review: No Changes in Pt Med Stat, Meds/Allgs Chart Reviewed, Consent Obtained/Reviewed and Anes Risks/Benef Reviewed Patient Risk: Intermediate Procedure Risk: Intermediate Anesthetic Plan Anesthetic Plan: GA Disposition: Standard PACU
[2023-11-10] VITALS (17 sets, daily range): BP systolic 123–141; BP diastolic 52–82; PULSE 89–105; RESP 16–20; TEMP 35.8–37.4; O2SAT 94–100; BMI 29.0
[2023-11-10] MEDS: Lactated Ringers 1,000 ML 100 ML IVCONT (11:14)
[2023-11-10 11:50] LABS: Glucose, Whole Blood 80 mg/dL (60-115)
--- NOTE | 2023-11-10 12:43 | P.BOP_ITS ---
Brief Operative Note Date of Service: 11/10/23 Pre-op diagnosis: Symptomatic cholelithiasis Post-op diagnosis: same Procedure: PROCEDURE DATE: 11/10/2023 PREOPERATIVE DIAGNOSIS: Symptomatic cholelithiasis, mid epigastric and right upper quadrant abdominal pain POSTOPERATIVE DIAGNOSIS: Same as above. PROCEDURE: Upper endoscopy and laparoscopic cholecystectomy Surgeon: Ajay Mac M.D.. Ph.D. Turbo Electric Operator: Gianna Overton PA-C Anesthesia: General endotracheal anesthesia Estimated blood loss: Minimal FINDINGS AND PROCEDURE: OPERATIVE INDICATIONS: The patient is a 58 year old female known to me who underwent a laparoscopic Michelle-en-Y gastric bypass. The patient had remarkable weight loss so far and had a completely uneventful recovery. The patient was doing very well but has recently been complaining of persistent mid epigastric and right upper quadrant abdominal pain which is mostly postprandial. Ultrasound of the abdomen and pelvis was consistent with cholelithiasis. Based on this information we recommended laparoscopic cholecystectomy, upper endoscopy to evaluate the patient's symptoms. In addition to that the plan was also to examine the gastric bypass at the same time. Risks and complications of the surgery were discussed with the patient in advance particularly the possibility of conversion to an open surgery, bleeding, infection, obstruction, deep vein thrombosis or pulmonary embolism, bile leak or major bile duct injury that may require surgical intervention. The patient understood the risks and was in agreement with the plan. PROCEDURE: After informed consent was obtained by the patient, the patient was transferred to the Operating Room and was placed in the supine position. The patient was given preoperative antibiotics and after successful induction of general anesthesia, pneumatic compression devices were placed. An upper endoscopy was performed next, the oropharynx and esophagus appeared within the normal limits. There was no hiatal hernia. The small pouch was entered, appeared to be of normal size, there was no gastritis and the gastrojejunostomy was patent, there was no anastomotic ulcer. The proximal Michelle limb appeared to be normal as well. At that point the Michelle limb and the pouch was decompressed and the scope was withdrawn from the patient's mouth. The patient was then prepped and draped in the usual sterile manner and abdominal access was established with the Jose technique. The abdomen was insufflated with C02 to a pressure of 15 mmHg. A 5 mm Versi-step port was placed, slightly to the right and superior from the umbilicus. The 5 mm camera was introduced. We inspected the area where the port had been placed and there was no injury. The patient was then placed initially in a steep reverse Trendelenburg position and three additional ports were placed, specifically a 12 mm Versi-step port just to the right of the midline below the xiphoid process and two 5 mm Versi-step ports at the right upper quadrant and right flank. The patient was then placed back in the supine position and we examined the bypass by retracting the transverse mesocolon and the omentum cephalad. The jejunostomy was identified, it appeared to be normal. There was no dilation of the anastomosis. The small bowel mesenteric defect was closed and there was no internal hernia. The biliopancreatic limb was traced back to the ligament of Treitz and the Rodrigues's defect was completely closed as well as the mesocolic defect. At that point we positioned back the transverse colon and the omentum above the small intestine and then the patient was placed in a steep reverse Trendelenburg position tilted to the left side. The gallbladder was retracted cephalad and laterally. There were adhesions between the omentum and thegallbladder wall that were taken down. The peritoneal attachments of the gallbladder at the triangle of Calot posteriorly and anteriorly were taken down. The cystic duct and artery were both seen. They were completely dissected free, skeletonized all the way to the infundibulum of the gallbladder . In a similar fashion we also cleaned the liver bed just behind the cystic artery to make sure there was no additional structures in this area. Once we confirmed that both structures were entering into the gallbladder and there were no other structures in the area, they were both clipped with two clips proximally, one distally and were cut in-between. We then using the electrocautery we slowly took down the gallbladder from the liver bed. Small areas of bleeding from the liver parenchyma were controlled with the cautery. There was a small vein at the mid-body of the gallbladder which was clipped with one clip distally and one proximally and was cut in between. After the gallbladder was completely detached from the liver bed, it was placed in an EndoCatch bag and was removed without difficulty from the xyphoid port. We then inspected the clips at the cystic duct and artery and were both in place. There was no active bleeding from the liver bed. We thoroughly irrigated the right upper quadrant and we removed all fluid until clear. At that point the patient was placed in supine position, we deflated the abdomen and we removed all ports under direct vision and no bleeding was noted from any of the port sites. The fascia of the 12 mm port was closed using a #1 Polysorb suture. 30cc of Ropivacaine plain were used to infiltrate the fascial closure as well as all skin incisions. The wounds were irrigated with saline mixed with antibiotic solution and then the skin was closed with 4-0 Monocryl subcuticular sutures antibiotic-coated. Steri-strips and OpSites were used to cover all incisions. The patient extubated and was transferred in stable condition to the Recovery Room for further care. I was present and performed all steps of the procedure. Ms. Carrollson was the virtual assistant. There were no residents to assist with this case. Ajay Mac M.D., Ph.D., F.A.C.S. Surgeon: Bon Mac MD Anesthesia: GETA and local Was an Turbo Electric Operator used for this Procedure?: No Turbo Electric Operator: Gianna Overton Estimated blood loss (mL): 20 IV fluids (mL): 1,500 Urine output (mL): 0 (No Madrigal to record output) Pathology: other (Gallbladder) Condition: stable Disposition: PACU
--- NOTE | 2023-11-10 12:43 | MHC.SHP ---
Pre-Procedural Eval Section A - 24 Hr Update-Section A only Date of Service: 11/10/23 The patient is an INPATIENT: No The patient has been examined within 24 hours of the surgical procedure. The History & Physical has been completed within 30 days and I have reviewed it.: Yes Section B - Complete if H&P > 30 days Chief Complaint: Calculus of gallbladder without cholecystitis with Relevant Family History (Specify if Yes): No Relevant Social History: None Present Medications: None Medical History: No relevant PMH History of Previous Operations: Relevant previous surgery/procedure and date(s) (Laparoscopic gastric bypass) Allergies: Allergies Allergy/AdvReac Type Severity Reaction Status Date / Time No Known Allergies Allergy Verified 11/10/23 11:25 [No Known Allergies*] Review of Systems Sugical H&P ROS: Negative: Constitution, Cardiovascular, Respiratory, Neurological, Psychiatric, Hem-Onc, Allergic/Immunologic, Genitourinary, Musculoskeletal, Integumentary, Endocrine and Eyes/Ears/Nose/Throat and Yes, Specify: Gastrointestinal (abdominal pain) Exam Surgical H&P Exam: Normal: HEENT, Normal: Heart, Normal: Lungs, Normal: Extremities, Normal: Abdomen, Normal: Skin and Normal: Neurological Plan Diagnosis/Plan: Unchanged I have reviewed the history and physical and performed a pertinent physical examination on my patient. No changes have occurred unless specified. Time Spent With Patient Time: Total time managing care of this patient today ____ minutes.
[2023-11-10 12:46] LABS: Anion Gap 12 (12-20); Blood Urea Nitrogen 9 mg/dL (9-16); Calcium 9.5 mg/dL (8.4-10.2); Carbon Dioxide 26 mmol/L (22-29); Chloride 106 mmol/L (96-108); Creatinine Clr Calc Pharmacy 98.3; Estimated Glomerular Filt Rate > 60; Glucose Fasting 82 mg/dL (60-99); Potassium 3.7 mmol/L (3.3-5.1); Sodium 140 mmol/L (135-145)
[2023-11-10] MEDS: Cyanocobalamin (Vitamin B-12) 1,000 MCG/ML VIAL 1000 MCG IM (15:20)
[2023-11-10] MEDS: HYDROmorphone HCl 0.5 MG/0.5 ML SYRINGE 0.25 MG IVPUSH ×2 (15:45→15:55)
[2023-11-10] MEDS: Iron Sucrose Complex 400 MG in 0.9 % Sodium Chloride 250 ML 180 MG IV (16:03)
== END 2023-11-10 18:00 | disposition home or self-care (01) ==
PROVIDERS: Nurse Practitioner; PCP Internal Medicine; Visit Provider Surgery
PROC: 0FT44ZZ Resection of Gallbladder, Percutaneous Endoscopic Approach (ICD-10-PCS; CPT 47562; principal; 2023-11-10 12:30)
DX: K80.10 Calculus of gallbladder with chronic cholecystitis without obstruction (principal); K82.8 Other specified diseases of gallbladder; R10.13 Epigastric pain; Z98.84 Bariatric surgery status; E66.9 Obesity, unspecified; Z68.27 Body mass index [BMI] 27.0-27.9, adult; G62.9 Polyneuropathy, unspecified; G47.33 Obstructive sleep apnea (adult) (pediatric); I10 Essential (primary) hypertension; E78.5 Hyperlipidemia, unspecified; E11.9 Type 2 diabetes mellitus without complications; Z79.84 Long term (current) use of oral hypoglycemic drugs; Z79.899 Other long term (current) drug therapy
CPT/HCPCS: 47562; 43235; 36415; 80048; 82947; 85610; 85730; 86850; 86900; 86901; 88304; 93005; J0131; J0690; J1100; J1170; J1756; J2250; J2371; J2405; J2704; J2795; J3010; J3420

== ENCOUNTER → 2023-11-10 10:37 | Outpatient (BNV) | payer OTHER, SELFPAY | PROVIDERS: PCP Internal Medicine; Visit Provider Surgery | DX: K80.20 Calculus of gallbladder without cholecystitis without obstruction (principal); Z98.84 Bariatric surgery status; K66.0 Peritoneal adhesions (postprocedural) (postinfection) | CPT/HCPCS: 43239; 47562 ==

== ENCOUNTER 2023-11-18 12:51 | Outpatient (AMB) | payer OTHER, SELFPAY ==
--- NOTE | 2023-11-18 13:07 | MHC.OFFVISWM ---
Intake VS Expanded 11/18/23 13:12 BP 121/61 Blood Pressure Location Rt brachial Blood Pressure Position Sitting Pulse Source Pulse Oximeter Temp 97.0 F Temperature Source Tympanic Pulse Oximetry 94 Oxygen Delivery Method Room Air Weight 169 lb 5.04 oz Intake Visit Reasons: (OV) PO Lap Franci 11/10/23 Allergies No Known Allergies [No Known Allergies*] Allergy (Verified 11/10/23 11:25) HPI HPI Comments History of Present Illness Details Pleasant 58-year-old female, status post gastric bypass in 2017 presented with abdominal pain, found to have cholelithiasis. She underwent laparoscopic cholecystectomy on 11/10/2023. Pathology revealed: Chronic cholecystitis with focal cholesterolosis, and cholelithiasis. She has been following the meal plan as directed by Dr. Mac. She offers no complaints at today's visit. [facility] Medical History Neuropathy Gallstones RUQ pain Morbid obesity ARLEY (obstructive sleep apnea) Other and unspecified hyperlipidemia Essential hypertension Type 2 diabetes mellitus with unspecified complications Surgical History S/P panniculectomy Gastric bypass status for obesity History of bilateral knee replacement Family History Mother Asthma Father Hypertension Social History Alcohol intake: current Alcohol intake frequency: holidays/special occasions only Patient Tobacco Use Status: Never used Tobacco Physical Exam GI Inspection: Yes incision (Incisions are clean, dry, intact.) Assessment & Plan Assessment & Plan (1) S/P cholecystectomy: Code(s): Z90.49 - Acquired absence of other specified parts of digestive tract Plan: Patient is doing well. She was educated on gallbladder physiology as well as potential for loose stools with fatty foods post cholecystectomy. She has been encouraged to continue to follow the plans as laid out by Dr. Mac. She will follow up in the office for her history of gastric bypass performed in March 2018. She was instructed no lifting greater than 10 lb for 2 weeks and she will return to work in approximately 1 month. Coding Level of Care Code Global (85491) Diagnoses S/P cholecystectomy Z90.49
[2023-11-18 13:12] VITALS: BP 121/61; TEMP 36.1; O2SAT 94
== END 2023-11-18 13:25 | disposition home or self-care (01) ==
PROVIDERS: PCP Internal Medicine; Visit Provider Physician Assistant Surgical
DX: Z90.49 Acquired absence of other specified parts of digestive tract (principal)
CPT/HCPCS: 99024

== ENCOUNTER → 2023-11-18 12:51 | Outpatient (BNVA) | payer OTHER, SELFPAY | PROVIDERS: PCP Internal Medicine; Visit Provider Physician Assistant Surgical ==

== ENCOUNTER 2023-12-21 10:42 | Outpatient (AMB) | payer OTHER, SELFPAY ==
--- NOTE | 2023-12-21 10:35 | A.OFFVIS_ITS ---
Intake Visit Reasons: (TV) PO LRYGB 04/14/18 Allergies No Known Allergies [No Known Allergies*] Allergy (Verified 11/10/23 11:25) Medication List - Last Reconciled 12/21/23 by GUS Alvarez atorvastatin 20 mg PO DAILY cholecalciferol (vitamin D3) 50 mcg PO DAILY empagliflozin (Jardiance) 10 mg PO DAILY gabapentin 600 mg PO BEDTIME metformin 500 mg PO BID propranolol ER 60 mg PO BEDTIME ropinirole 0.5 mg PO BEDTIME tirzepatide (Mounjaro) 5 mg subcut QWEEK HPI Comments Details: Pt is 6 weeks s/p cholecystectomy 11/10/2023. Since last visit pt has done well. No pain, N/V. No fevers at home. Has resumed her usual meal plan- will have shakes and regular food as well. Takes [facility]. [facility] Medical History Neuropathy Gallstones RUQ pain Morbid obesity ARLEY (obstructive sleep apnea) Other and unspecified hyperlipidemia Essential hypertension Type 2 diabetes mellitus with unspecified complications Surgical History S/P panniculectomy Gastric bypass status for obesity History of bilateral knee replacement Family History Mother Asthma Father Hypertension Social History Alcohol intake: current Alcohol intake frequency: holidays/special occasions only Patient Tobacco Use Status: Never used Tobacco Telehealth Telehealth Telehealth Platform: Telephone Location of provider rendering services: practice address Location of patient: address on file Patient Identification confirmed using: Name, : Yes Telehealth method: voice only Patient verbally consented to treatment: Yes Patient verbally consented to billing insurance company: Yes Patient informed of any privacy concerns related to visit: Yes Minutes spent on Phone/Video with Pt.: 12 Assessment & Plan Assessment & Plan (1) S/P cholecystectomy: Code(s): Z90.49 - Acquired absence of other specified parts of digestive tract Category: Surgical (2) Overweight: Code(s): E66.3 - Overweight Category: Medical Plan Pt doing well after cholecystectomy with no recurrence of pain. Tolerating her usual meal plan. Will follow up in March for her annual visit, check labs at that time. Patient is s/p lap aris and is considered stable at this time. I spent a total of 30 minutes reviewing/updating records, examining the patient and counseling the patient on weight management as detailed above.
== END 2023-12-21 11:13 | disposition home or self-care (01) ==
LOC: HO.HBS 10:42
PROVIDERS: PCP Internal Medicine; Visit Provider Physician Assistant Surgical
DX: E66.3 Overweight (principal); Z90.49 Acquired absence of other specified parts of digestive tract
CPT/HCPCS: 99024

== ENCOUNTER → 2023-12-21 10:42 | Outpatient (BNVA) | payer OTHER, SELFPAY | PROVIDERS: PCP Internal Medicine; Visit Provider Physician Assistant Surgical ==

== ENCOUNTER 2024-01-25 09:38 | Day surgery (SDC) | payer OTHER, SELFPAY ==
[2024-01-21 14:28] VITALS: BMI 28.2
--- NOTE | 2024-01-22 10:03 | HO.ANESPROP2 ---
Documented by User: Zuleyka Robins NP 01/22/24 10:03 HPI - Anesthesia Eval Consult details Narrative: 59yo F for Upper Endoscopy and Colonoscopy Anesthesia Pre-Procedure Meds Is the patient on any of the following meds?: GLP1/DPP4 and SGLT2 Inhib PMFSH Active Problems Active Problems: All Active Problems S/P cholecystectomy (Acute) Overweight (Acute) Palpitations (Acute) Precordial chest pain (Acute) Neuropathy (Acute) Gallstones (Acute) RUQ pain (Acute) Morbid obesity (Acute) ARLEY (obstructive sleep apnea) (Acute) Other and unspecified hyperlipidemia (Acute) Essential hypertension (Acute) Type 2 diabetes mellitus with unspecified complications (Acute) Past Medical History Medical History Neuropathy Gallstones RUQ pain Morbid obesity ARLEY (obstructive sleep apnea) Other and unspecified hyperlipidemia Essential hypertension Type 2 diabetes mellitus with unspecified complications Family History Family History Mother Asthma Father Hypertension Family history of problems with anesthesia: No Surgical History Surgical History (Updated 01/21/24 @ 14:27 by Poornima Alvarez RN) Hx laparoscopic cholecystectomy S/P panniculectomy Gastric bypass status for obesity History of bilateral knee replacement History of Problems with Anesthesia: No Social History Social History Alcohol intake: current Alcohol intake frequency: holidays/special occasions only Patient Tobacco Use Status: Never used Tobacco Use of substances other than those prescribed or required for medical reasons: No Are you DNR?: No Advance Directives: No Advance Directives Information Provided: Yes Meds Allergies Allergy/AdvReac Type Severity Reaction Status Date / Time No Known Allergies Allergy Verified 11/10/23 11:25 [No Known Allergies*] Home Medications ?Medication ?Instructions ?Recorded ?Confirmed ?Last Taken ?Type atorvastatin 20 mg tablet 20 mg PO DAILY 01/16/22 01/21/24 01/23/24 History cholecalciferol (vitamin D3) 50 50 mcg PO DAILY 01/16/22 01/21/24 01/23/24 History mcg (2,000 unit) capsule gabapentin 300 mg capsule 600 mg PO BEDTIME 01/16/22 01/21/24 01/23/24 History propranolol 60 mg capsule,24 60 mg PO BEDTIME 01/16/22 01/21/24 01/23/24 History hr,extended release ropinirole 0.5 mg tablet 0.5 mg PO BEDTIME 01/16/22 01/21/24 01/23/24 History empagliflozin 10 mg tablet 10 mg PO DAILY 07/08/22 01/25/24 01/21/24 History (Jardiance) tirzepatide 5 mg/0.5 mL 5 mg subcut QWEEK 07/08/22 01/21/24 01/17/24 History subcutaneous pen injector (Mounjaro) metformin 1,000 mg tablet 500 mg PO BID 10/28/23 01/21/24 01/23/24 History ferrous sulfate 325 mg PO DAILY 01/25/24 01/25/24 01/21/24 History Exam Height,Weight and Vital Signs: Height 5 ft 5 in Weight 76.827 kg Assessment and Plan Assessment Anesthesia Assessment: Chart Reviewed Final Anesthetic Review Family History of Problems with Anesthesia: No History of Problems with Anesthesia: No Documented by User: Abdi Hamm MD 01/25/24 11:14 PMFSH Past Medical History Medical History Neuropathy Gallstones RUQ pain Morbid obesity ARLEY (obstructive sleep apnea) Other and unspecified hyperlipidemia Essential hypertension Type 2 diabetes mellitus with unspecified complications Family History Family History Mother Asthma Father Hypertension Surgical History Surgical History (Updated 01/21/24 @ 14:27 by Poornima Alvarez RN) Hx laparoscopic cholecystectomy S/P panniculectomy Gastric bypass status for obesity History of bilateral knee replacement Social History Social History Alcohol intake: current Alcohol intake frequency: holidays/special occasions only Patient Tobacco Use Status: Never used Tobacco Use of substances other than those prescribed or required for medical reasons: No Are you DNR?: No Advance Directives: No Advance Directives Information Provided: Yes Meds Allergies Allergy/AdvReac Type Severity Reaction Status Date / Time No Known Allergies Allergy Verified 11/10/23 11:25 [No Known Allergies*] Home Medications ?Medication ?Instructions ?Recorded ?Confirmed ?Last Taken ?Type atorvastatin 20 mg tablet 20 mg PO DAILY 01/16/22 01/21/24 01/23/24 History cholecalciferol (vitamin D3) 50 50 mcg PO DAILY 01/16/22 01/21/24 01/23/24 History mcg (2,000 unit) capsule gabapentin 300 mg capsule 600 mg PO BEDTIME 01/16/22 01/21/24 01/23/24 History propranolol 60 mg capsule,24 60 mg PO BEDTIME 01/16/22 01/21/24 01/23/24 History hr,extended release ropinirole 0.5 mg tablet 0.5 mg PO BEDTIME 01/16/22 01/21/24 01/23/24 History empagliflozin 10 mg tablet 10 mg PO DAILY 07/08/22 01/25/24 01/21/24 History (Jardiance) tirzepatide 5 mg/0.5 mL 5 mg subcut QWEEK 07/08/22 01/21/24 01/17/24 History subcutaneous pen injector (Mounjaro) metformin 1,000 mg tablet 500 mg PO BID 10/28/23 01/21/24 01/23/24 History ferrous sulfate 325 mg PO DAILY 01/25/24 01/25/24 01/21/24 History Exam Airway Mallampati Class: I TM Dist: >3cm Neck ROM: Full Loose/Missing/Broken Teeth: No Heart: rrr Lungs: cta Assessment and Plan Assessment Anesthesia Assessment: Anesthesia Plan Discussed and Chart Reviewed Final Anesthetic Review NPO: Yes ASA Class: III Final Preanesthetic Review: No Changes in Pt Med Stat, Meds/Allgs Chart Reviewed, Consent Obtained/Reviewed and Anes Risks/Benef Reviewed Patient Risk: Intermediate Procedure Risk: Intermediate Anesthetic Plan Anesthetic Plan: TIVA Disposition: Standard PACU
[2024-01-25 09:44] VITALS: BMI 26.6
[2024-01-25 10:06] VITALS: BP 122/65; PULSE 83; RESP 16; TEMP 36.1; O2SAT 100
[2024-01-25] MEDS: Lactated Ringers 1,000 ML 100 ML IVCONT (10:08)
[2024-01-25 10:15] LABS: Glucose, Whole Blood 92 mg/dL (60-115)
[2024-01-25 12:20] VITALS: BP 110/64; PULSE 80; RESP 17; TEMP 36.2; O2SAT 97
--- NOTE | 2024-01-25 12:27 | PM.OP ---
Brief Operative Note Date of Service: 01/25/24 Pre-op diagnosis: Anemia, Screening Post-op diagnosis: other (R/O celiac disease, Diverticulosis) Procedure: EGD with biopsies, Colonoscopy to the cecum and TI Surgeon: Dmitri Torres MD Anesthesia: MAC Was an Licensed Esthetician used for this Procedure?: No Licensed Esthetician: Gianna Overton Estimated blood loss (mL): 2.0 IV fluids (mL): 1,500 Urine output (mL): 0 (No Madrigal to record output) Pathology: other (A. Small intestine) Condition: stable Disposition: PACU
[2024-01-25 12:35] VITALS: BP 135/78; PULSE 76; RESP 20; TEMP 36.4; O2SAT 100
--- NOTE | 2024-01-25 13:06 | OP_ITS ---
DATE OF SERVICE: 01/25/2024 SURGEON: Dmitri Torres MD INDICATIONS: The patient presents for evaluation of iron-deficiency anemia, B12 deficiency, and colorectal cancer screening. Full consent has been obtained from her for this, including risks of bleeding and perforation. PREOPERATIVE DIAGNOSIS: POSTOPERATIVE DIAGNOSIS: PROCEDURE PERFORMED: Esophagogastroduodenoscopy with biopsies, and colonoscopy to cecum and terminal ileum. ESTIMATED BLOOD LOSS: COMPLICATIONS: ANESTHESIA: Monitored anesthesia care. ASSISTANTS: SPECIMENS: PREOPERATIVE DIAGNOSES: Iron-deficiency anemia, B12 deficiency, and colorectal cancer screening. POSTOPERATIVE DIAGNOSES: Iron-deficiency anemia, B12 deficiency, colorectal cancer screening, minimal hiatal hernia, normal gastric bypass anastomosis, rule out celiac disease, diverticulosis, and internal hemorrhoids. DESCRIPTION OF PROCEDURE: The patient was placed in the left lateral decubitus position. The Olympus video gastroscope was passed in the posterior oropharynx and upper esophagus under direct vision. The scope was passed slowly into the distal esophagus. The gastroesophageal junction appeared at 36 cm. This appeared normal without any sign of esophagitis nor Rubio esophagus. The scope entered the stomach. There was a minimal hiatal hernia. The anastomosis from her previous gastric bypass was seen at approximately 40 cm. The anastomosis appeared normal without ulceration nor stricture. The small bowel was easily cannulated and appeared normal for at least 20 cm. Biopsies were obtained. The scope was withdrawn back into the gastric remnant. The gastric remnant appeared normal both in the forward viewing and retroflexed positions. Again, the anastomosis was normal and widely patent. The scope was withdrawn back in the esophagus. The esophageal mucosa appeared normal. The scope was withdrawn from the patient. She was turned around for the colonoscopy. The digital rectal exam revealed no abnormalities. The Olympus video pediatric colonoscope was then entered into the rectum and advanced easily to the cecum. Once in the cecum, I did identify normal-appearing cecal pouch with appendiceal orifice and a normal-appearing ileocecal valve. The terminal ileum was cannulated and appeared normal. The scope was withdrawn back in the colon. The entire cecum and ileocecal valve appeared normal. The scope was slowly withdrawn assessing all mucosal surfaces carefully. Preparation was excellent. I did not visualize any sign of polyps, colitis, or angiodysplasias. There was a scattering of diverticula in the ascending and transverse colon. There was a mild diverticulosis in the sigmoid colon. In the rectum, the scope was retroflexed visualizing internal hemorrhoids, but no other pathology. The rectal mucosa appeared normal. The scope was straightened and withdrawn from the patient. She tolerated the procedure well and was returned to the recovery area in stable condition. IMPRESSION: 1. Diverticulosis. 2. Internal hemorrhoids. 3. Minimal hiatal hernia. 4. Rule out celiac disease. PLAN: The results of the pathology will be checked. I would recommend a repeat colonoscopy in 10 years for further screening given the negative colonoscopy. She will continue her iron. She will, otherwise, see me on a p.r.n. basis. MD RABIA Burnham/MAGED / [phone]
== END 2024-01-25 13:10 | disposition home or self-care (01) ==
PROVIDERS: PCP Internal Medicine; Visit Provider Internal Medicine
PROC: (CPT 45378; principal; 2024-01-25 09:40)
DX: Z12.11 Encounter for screening for malignant neoplasm of colon (principal); K57.30 Diverticulosis of large intestine without perforation or abscess without bleeding; K64.8 Other hemorrhoids; D50.9 Iron deficiency anemia, unspecified; E53.8 Deficiency of other specified B group vitamins; K44.9 Diaphragmatic hernia without obstruction or gangrene; I10 Essential (primary) hypertension; E11.9 Type 2 diabetes mellitus without complications; Z98.84 Bariatric surgery status
CPT/HCPCS: 45378; 43239; 82947; 88305; J2704

== ENCOUNTER 2024-01-27 14:27 | Outpatient (REF) | payer OTHER, SELFPAY ==
--- NOTE | ~2024-01-27 | XR_ITS ---
EXAMINATION: XR CHEST CLINICAL INFORMATION: Cough for 2 months COMPARISON: Chest x-ray on 05/07/2023 TECHNIQUE: 2 views of the chest were obtained. FINDINGS: No significant abnormality is noted involving the heart, lungs, mediastinum, bony thorax or soft tissues. XR/XR chest 2V IMPRESSION: Unremarkable examination.
--- NOTE | 2024-01-27 14:52 | ECG_ITS ---
Test Reason : TYPE II DM Blood Pressure : / mmHG Vent. Rate : 068 BPM Atrial Rate : 068 BPM P-R Int : 198 ms QRS Dur : 082 ms QT Int : 394 ms P-R-T Axes : 062 045 060 degrees QTc Int : 418 ms Normal sinus rhythm Normal ECG When compared with ECG of 04-NOV-2023 10:25, No significant change was found Referred By: Dmitri Armas Electronically Signed By:MONIE JACOB
[2024-01-27 14:53] LABS: MANUAL DIFF FLAG NO
[2024-01-27 15:27] LABS: Prothrombin Time 11.9 SEC (11.1-13.3)
[2024-01-27 15:28] LABS: Estimated Average Glucose 114 mg/dL; Hemoglobin A1C 121.9326 umol/L; Hemoglobin A1c % 5.6 % (<6.0)
[2024-01-27 15:29] LABS: Partial Thromboplastin Time 32.7 SEC (26.0-36.8)
[2024-01-27 15:56] LABS: Basophils Absolute Auto 0.1 X10*3/uL (0.0-0.2); Basophils Percent Auto 0.8 % (0-2); Eosinophils Absolute Auto 0.2 X10*3/uL (0.0-0.4); Eosinophils Percent Auto 2.1 % (0-4); Hematocrit 35.5 % (37.0-47.0); Hemoglobin 11.7 g/dl (12.0-16.0); Imm Gran Abs Auto 0.02 X10*3/uL (0.00-0.03); Imm Gran Pct Auto 0.3 % (0.0-0.4); Lymphocytes Absolute Auto 2.7 X10*3/uL (1.2-4.9); Lymphocytes Percent Auto 37.1 % (20-40); Mean Corpuscular Hemoglobin 27.8 pg (27.0-33.0); Mean Corpuscular Volume 84.3 fL (80.0-98.0); Mean Platelet Volume 10.9 fL (9.4-12.3); Monocytes Absolute Auto 0.4 X10*3/uL (0.1-1.2); Neutrophils Absolute Auto 3.9 x10*3/uL (2.0-8.3); Neutrophils Percent Auto 54.7 % (45-73); Platelet Count 279 X10*3/uL (160-400); Red Blood Count 4.21 X10*6/uL (4.20-5.50); Red Cell Distribution Width 13.8 % (11.0-16.0); White Blood Count 7.2 X10*3/uL (4.8-10.8)
[2024-01-27 16:01] LABS: Alanine Aminotransferase 62 U/L (0-31); Albumin Level 3.9 g/dL (3.5-5.0); Alkaline Phosphatase 270 U/L (39-117); Anion Gap 9 (12-20); Aspartate Amino Transferase 26 U/L (5-31); Bilirubin Total 0.7 mg/dL (0.0-1.0); Blood Urea Nitrogen 11 mg/dL (9-16); Calcium 9.7 mg/dL (8.4-10.2); Carbon Dioxide 29 mmol/L (22-29); Chloride 106 mmol/L (96-108); Estimated Glomerular Filt Rate > 60; Glucose Random 83 mg/dL (60-115); HCG Quantitative < 2 mIU/mL; Potassium 3.6 mmol/L (3.3-5.1); Sodium 140 mmol/L (135-145); Total Protein 7.2 g/dL (6.5-8.0)
[2024-01-28 08:08] LABS: HIV AB/AG Nonreactive (Nonreactive); HIV Num 1 0.05 S/CO (0.00-0.99)
== END 2024-01-27 14:28 | disposition home or self-care (01) ==
LOC: HO.LAB 14:27
PROVIDERS: PCP Internal Medicine; Visit Provider Internal Medicine
DX: E11.40 Type 2 diabetes mellitus with diabetic neuropathy, unspecified (principal); I10 Essential (primary) hypertension
CPT/HCPCS: 36415; 71046; 80053; 83036; 84702; 85025; 85610; 85730; 87389; 93005

== ENCOUNTER → 2024-01-27 14:52 | Outpatient (BNV) | payer OTHER, SELFPAY | PROVIDERS: PCP Internal Medicine; Visit Provider Internal Medicine | DX: E11.40 Type 2 diabetes mellitus with diabetic neuropathy, unspecified (principal) | CPT/HCPCS: 93010 ==

== ENCOUNTER 2024-04-29 08:39 | Outpatient (REF) | payer OTHER, SELFPAY ==
[2024-04-29 08:58] LABS: MANUAL DIFF FLAG NO
[2024-04-29 09:24] LABS: Basophils Absolute Auto 0.1 X10*3/uL (0.0-0.2); Basophils Percent Auto 0.8 % (0-2); Eosinophils Absolute Auto 0.2 X10*3/uL (0.0-0.4); Eosinophils Percent Auto 2.3 % (0-4); Hematocrit 36.3 % (37.0-47.0); Hemoglobin 11.9 g/dl (12.0-16.0); Imm Gran Abs Auto 0.03 X10*3/uL (0.00-0.03); Imm Gran Pct Auto 0.4 % (0.0-0.4); Lymphocytes Absolute Auto 2.4 X10*3/uL (1.2-4.9); Lymphocytes Percent Auto 30.5 % (20-40); Mean Corpuscular HGB Conc 32.8 g/dl (31.0-35.0); Mean Corpuscular Hemoglobin 28.4 pg (27.0-33.0); Mean Corpuscular Volume 86.6 fL (80.0-98.0); Mean Platelet Volume 10.5 fL (9.4-12.3); Monocytes Absolute Auto 0.4 X10*3/uL (0.1-1.2); Neutrophils Absolute Auto 4.8 x10*3/uL (2.0-8.3); Platelet Count 279 X10*3/uL (160-400); Red Blood Count 4.19 X10*6/uL (4.20-5.50); Red Cell Distribution Width 13.2 % (11.0-16.0); White Blood Count 7.8 X10*3/uL (4.8-10.8)
[2024-04-29 09:55] LABS: Alanine Aminotransferase 28 U/L (0-31); Albumin Level 3.9 g/dL (3.5-5.0); Alkaline Phosphatase 282 U/L (39-117); Amylase 36 U/L (28-100); Aspartate Amino Transferase 16 U/L (5-31); Bilirubin Direct 0.5 mg/dL (0.0-0.5); Bilirubin Total 1.1 mg/dL (0.0-1.0); Lipase 21 U/L (8-78); Total Protein 7.2 g/dL (6.5-8.0)
== END 2024-04-29 08:40 | disposition home or self-care (01) ==
LOC: HO.LAB 08:39
PROVIDERS: PCP Internal Medicine; Visit Provider Internal Medicine
DX: R79.89 Other specified abnormal findings of blood chemistry (principal); R10.10 Upper abdominal pain, unspecified; Z90.49 Acquired absence of other specified parts of digestive tract
CPT/HCPCS: 36415; 80076; 82150; 83690; 85025

== ENCOUNTER 2024-05-02 10:03 | Outpatient (AMB) | payer OTHER, SELFPAY ==
--- NOTE | 2024-05-02 10:07 | A.OFFVIS_ITS ---
VS Expanded 05/02/24 10:12 BP 135/78 Blood Pressure Location Rt brachial Blood Pressure Position Sitting Pulse 87 Pulse Source Pulse Oximeter Temp 97.4 F Temperature Source Temporal Artery Scan Pulse Oximetry 94 Oxygen Delivery Method Room Air Height 5 ft 5 in Weight 159 lb 6.4 oz BMI 26.5 Body Fat % 31.5 Body Fat Mass 50.2 Fat Free Mass 109.2 Visceral Fat Rating 8.0 Body Water % 48.4 Body Water Mass 77.2 Muscle Mass/Score 103.6 Basal Metabolic Rate/Score 1,459 Intake Visit Reasons: OV PO LRYGB 04/14/18 Allergies No Known Allergies [No Known Allergies*] Allergy (Verified 05/02/24 10:14) Medication List - Last Reconciled 05/02/24 by GUS Alvarez atorvastatin 20 mg PO DAILY cholecalciferol (vitamin D3) 50 mcg PO DAILY empagliflozin (Jardiance) 10 mg PO DAILY [ferrous sulfate 325 mg PO DAILY] gabapentin 600 mg PO BEDTIME propranolol ER 60 mg PO BEDTIME ropinirole 0.5 mg PO BEDTIME tirzepatide (Mounjaro) 5 mg subcut QWEEK HPI Comments Details: This?is a?59?yo female who is s/p RYGB 04/14/2018. Presents for 6 year post op visit. Also underwent lap aris 6 months ago. No complaints of nausea, emesis, a bdominal pain or reflux, or constipation. Pt reports she recently was worked up for residual stones after cholecystectomy. She had MRCP imaging done which confirmed stones still present in ducts. They are planning on a procedure soon to resolve this. Pt on Mounjaro for about a year, was started on it for blood sugar control. Also stopped metformin. Present meal plan includes: 1 protein shake per day 2 food based meals takes MVI Exercise routine includes: walking every other day PFSH Medical History Neuropathy Gallstones RUQ pain Morbid obesity ARLEY (obstructive sleep apnea) Other and unspecified hyperlipidemia Essential hypertension Type 2 diabetes mellitus with unspecified complications Surgical History Hx laparoscopic cholecystectomy S/P panniculectomy Gastric bypass status for obesity History of bilateral knee replacement Family History Mother Asthma Father Hypertension Social History Alcohol intake: current Alcohol intake frequency: holidays/special occasions only Patient Tobacco Use Status: Never used Tobacco Physical Exam Vital Signs: Last Vital Signs Temp 97.4 F 05/02/24 10:12 Pulse 87 05/02/24 10:12 BP 135/78 05/02/24 10:12 Pulse Ox 94 05/02/24 10:12 Oxygen Delivery Method Room Air 05/02/24 10:12 BMI result Body Mass Index 26.5 Assessment & Plan Assessment & Plan (1) Overweight: Code(s): E66.3 - Overweight Category: Medical (2) History of gastric bypass: Code(s): Z98.84 - Bariatric surgery status Category: Surgical (3) S/P cholecystectomy: Code(s): Z90.49 - Acquired absence of other specified parts of digestive tract Category: Surgical Plan Pt will let us know if her pain does not resolve after GI procedure- may also need endoscopy. In the meantime advised her to stick to high protein choices like shakes which are less likely to cause episodes of pain. Labs ordered. RTC 1 year. I spent a total of 30 minutes reviewing/updating records, examining the patient and counseling the patient on weight management as detailed above. Orders: Orders Hemoglobin A1c Today Z98.84 - Bariatric surgery status IRON PROFILE Today Z98.84 - Bariatric surgery status Comprehensive Met. Panel Today Z98.84 - Bariatric surgery status Vitamin B12 and Folate Today Z98.84 - Bariatric surgery status Zinc Today Z98.84 - Bariatric surgery status C Reactive Protein Today Z98.84 - Bariatric surgery status Vitamin B1 Today Z98.84 - Bariatric surgery status Vitamin A Today Z98.84 - Bariatric surgery status TSH reflex Free T4 Today Z98.84 - Bariatric surgery status Insulin Today Z98.84 - Bariatric surgery status Complete Blood Count Auto Diff Today Z98.84 - Bariatric surgery status Lipid Panel Today Z98.84 - Bariatric surgery status Ferritin Today Z98.84 - Bariatric surgery status Vitamin D 25-OH Total Today Z98.84 - Bariatric surgery status
[2024-05-02 10:12] VITALS: BP 135/78; PULSE 87; TEMP 36.3; O2SAT 94; BMI 26.5
== END 2024-05-02 10:38 | disposition home or self-care (01) ==
PROVIDERS: PCP Internal Medicine; Visit Provider Physician Assistant Surgical
DX: E66.3 Overweight (principal); Z98.84 Bariatric surgery status; Z90.49 Acquired absence of other specified parts of digestive tract
CPT/HCPCS: 99214

== ENCOUNTER → 2024-05-02 10:03 | Outpatient (BNVA) | payer OTHER, SELFPAY | PROVIDERS: PCP Internal Medicine; Visit Provider Physician Assistant Surgical ==

== ENCOUNTER 2024-10-26 09:41 | Outpatient (AMB) | payer OTHER, SELFPAY ==
--- NOTE | 2024-10-26 09:26 | A.OFFPC_ITS ---
Vital Signs 10/26/24 09:42 Height 5 ft 3.75 in Weight 165 lb BMI 28.5 BP 122/62 Blood Pressure Location Rt brachial Position Left Lateral Pulse 92 Pulse Source Pulse Oximeter Temp 97.2 F Pulse Oximetry (%) 97 Intake Visit Reasons: 6 month follow up Intake Note: seeing Dr. Cabrera for her stomach but no other issues Allergies No Known Allergies [No Known Allergies*] Allergy (Verified 10/26/24 13:24) Medication List - Last Reconciled 10/26/24 by Graciela Goddard PA-C amoxicillin 500 mg PO Q8H 10 days atorvastatin 20 mg PO DAILY cholecalciferol (vitamin D3) 50 mcg PO DAILY empagliflozin (Jardiance) 10 mg PO DAILY gabapentin 600 mg PO BEDTIME hyoscyamine sulfate 0.125 mg PO QID lisinopril 10 mg PO DAILY ondansetron 4 mg PO Q6H propranolol ER 60 mg PO BEDTIME rizatriptan take 1 tab at onset of headache; if no relief may repeat 1 tab after at least 2 hrs; max = 3 tabs/24 hr PO ropinirole 0.5 mg PO BEDTIME tirzepatide (Mounjaro) 5 mg subcut QWEEK PFSH Medical History (Updated 10/26/24 @ 13:27 by Graciela Goddard PA-C) Anemia Deviated septum General medical exam Asthma Neuropathy Gallstones RUQ pain Morbid obesity ARLEY (obstructive sleep apnea) Other and unspecified hyperlipidemia Essential hypertension Type 2 diabetes mellitus with unspecified complications Surgical History Hx laparoscopic cholecystectomy S/P panniculectomy Gastric bypass status for obesity History of bilateral knee replacement Family History Mother Asthma Father Hypertension Social History Alcohol intake: current Alcohol intake frequency: holidays/special occasions only Patient Tobacco Use Status: Never used Tobacco Physical exam (Primary Care) Vital Signs: Last Vital Signs Temp 97.2 F 10/26/24 09:42 Pulse 92 10/26/24 09:42 BP 122/62 10/26/24 09:42 Pulse Ox 97 10/26/24 09:42 Care Plan Goal for BP management: <130/80 at Goal BMI result Body Mass Index 28.5 BMI Assessment/Plan discussion: High BMI High, discussed plan: lifestyle, weight reduction, dietary, physical activity and alcohol moderation Tobacco/Smoking Status: Tobacco use Status Patient Tobacco Use Status Never used Tobacco 10/26/24 09:44 Coding Level of Care Code Est Pt Level 4 (91316) Complex EM visit Add On G2211 Diagnoses Neuropathy G62.9 Morbid obesity E66.01 Essential hypertension I10 Type 2 diabetes mellitus with unspecified complications E11.8 ARLEY (obstructive sleep apnea) G47.33 Asthma J45.909 History of gastric bypass Z98.84 Other and unspecified hyperlipidemia E78.5 Anemia D64.9 Assessment & Plan Assessment & Plan (1) Neuropathy: Code(s): G62.9 - Polyneuropathy, unspecified Category: Medical Plan: Patient to continue gabapentin 600 mg at bedtime. Condition is chronic and stable continue to monitor. (2) Morbid obesity: Code(s): E66.01 - Morbid (severe) obesity due to excess calories Category: Medical Plan: Patient is a improve her diet and exercise regimen. Condition is chronic and stable continue to monitor. (3) Essential hypertension: Code(s): I10 - Essential (primary) hypertension Category: Medical Plan: Patient to continue atorvastatin 20 mg daily, lisinopril 10 mg daily, propranolol 60 mg extended release at bedtime. Condition is chronic and stable continue to monitor. (4) Type 2 diabetes mellitus with unspecified complications: Code(s): E11.8 - Type 2 diabetes mellitus with unspecified complications Category: Medical Plan: Go A1c level less than 7.0. Last A1c was on 01/27/2024 of 5.6. Will continue current regimen of Jardiance 10 mg daily, along with monitor 5 mg subQ weekly. Condition is chronic and stable will continue to monitor. (5) ARLEY (obstructive sleep apnea): Code(s): G47.33 - Obstructive sleep apnea (adult) (pediatric) Category: Medical Plan: Patient with obstructive sleep apnea. Condition is chronic and stable continue to monitor. (6) Asthma: Code(s): J45.909 - Unspecified asthma, uncomplicated Category: Medical Plan: Condition is chronic and stable continue to monitor. (7) History of gastric bypass: Code(s): Z98.84 - Bariatric surgery status Category: Surgical Plan: Patient to continue being followed by GI and continue hyoscyamine sulfate 0.125 mg p.o. q.i.d.. Along with Zofran 4 mg as needed. Condition is chronic and stable continue to monitor. (8) Other and unspecified hyperlipidemia: Code(s): E78.5 - Hyperlipidemia, unspecified Category: Medical Plan: LDL level goal <70. Patient to continue atorvastatin 20 mg daily. Condition is chronic and stable continue to monitor. (9) Anemia: Code(s): D64.9 - Anemia, unspecified Category: Medical Plan: Patient with H&H on 04/29/2020 12/04/2010 0.9 and 36.3. Condition is chronic and stable continue to monitor. Plan Plan Patient was informed and verbally consented to the use of an ambient scribe for clinic note documentation during this visit. 1. Gastroesophageal Reflux Disease Gerd Persist with acid suppression therapy and dietary/lifestyle adjustments to manage symptoms. 2. Chronic Abdominal Pain Manage symptomatically with hyoscyamine; consult if needed for inadequate pain control. 3. Hearing Loss ENT evaluation to address restored hearing, devising suitable interventions. 4. Anemia, Unspecified Conduct iron studies; address underlying causes or supplement iron as warranted. 5. Bariatric surgery status Monitor for and prevent nutritional deficiencies and postsurgical complications. 6. Restless Legs Syndrome Continue gabapentin, prioritize regular sleep routines to alleviate symptoms. 7. Obstructive Sleep Apnea Schedule comprehensive sleep evaluation and CPAP therapy renewal with quality improvement specialist consult. 8. Essential Hypertension Maintain antihypertensive regimen with follow-up for medication optimization and lifestyle assessment. 9. Migraine Headaches Continue therapeutic regimen, with reevaluation contingent on headache frequency or severity. 10. High Cholesterol Continue atorvastatin, highlighting the importance of continued lipid monitoring and dietary adjustments. 11. Osteoarthritis Continue NSAID therapy; include potential physical therapy if necessary. 13. Diabetes Mellitus Type 2 Continue metabolic therapy; emphasize routine glycemic management and parameter monitoring. Discussion Notes During the visit, we addressed the patient?s management plan for her chronic conditions, which includes hypertension, hyperlipidemia, obstructive sleep apnea, and diabetes. I discussed the uses and side effects of her current medications and the importance of routine follow-ups to monitor their effectiveness. The need for a new pulmonology referral for her sleep apnea and updated sleep study was emphasized, with agreement on pursuing corrective actions for her obstructive sleep issues. Her ENT and GI follow-ups regarding abdominal pain and hearing deficits were also elaborated where she agreed to facilitate further evaluation and potential therapeutic adjustments. We also discussed the requisite lab work, involving comprehensive panels to assess her diabetes control, anemia status, and other health metrics. She was advised to ensure differentiation in the lab communication reflecting her specific blood work requests. Preventative screenings, such as mammograms and colonoscopy, were encouraged, recognizing the schedules for existing screenings. Orders: Orders Comprehensive [place]. Panel Fast Today Z00.00 - Encounter for general adult medical examination without abnormal findings C Reactive Protein Today Z00.00 - Encounter for general adult medical examination without abnormal findings Hemoglobin A1c Today Z00.00 - Encounter for general adult medical examination without abnormal findings Lipid Panel Today Z00.00 - Encounter for general adult medical examination without abnormal findings Magnesium Today Z00.00 - Encounter for general adult medical examination without abnormal findings Vitamin D 25-OH Total Today Z00.00 - Encounter for general adult medical examination without abnormal findings Microalbumin, Random (w Creat) Today E11.9 - Type 2 diabetes mellitus without complications Lyme IgG/IgM w/reflex to WB Today Z00.00 - Encounter for general adult medical examination without abnormal findings Complete Blood Count Auto Diff Today Z00.00 - Encounter for general adult medical examination without abnormal findings Liver Panel Today Z00.00 - Encounter for general adult medical examination without abnormal findings Vitamin B12 and Folate Today Z00.00 - Encounter for general adult medical examination without abnormal findings TSH reflex Free T4 Today Z00.00 - Encounter for general adult medical examination without abnormal findings Vitamin B1 Today Z00.00 - Encounter for general adult medical examination without abnormal findings IRON PROFILE Today D64.9 - Anemia, unspecified Zinc Today Z00.00 - Encounter for general adult medical examination without abnormal findings Referrals Ear/Nose/Throat Referral J34.2 - Deviated nasal septum Medications: New hyoscyamine sulfate 0.125 mg PO QID 90 days 360 tabs 1RF tirzepatide (Mounjaro) 5 mg (0.5 mL) subcut QWEEK 2 mL 3RF Refilled amoxicillin 500 mg PO Q8H 10 days 30 tabs 1RF Patient Instructions: Patient Instructions - Take all medications as prescribed. - Schedule a sleep study and bioinformatics associate visit to address obstructive sleep apnea issues. - Keep track of blood pressure regularly and report any significant changes. - Continue taking atorvastatin and maintain healthy dietary habits to manage cholesterol. - Follow up with your ENT specialist regarding hearing issues and possible sept um complications. - Complete the ordered lab tests and communicate they are for Graciela's bloodwork. - Maintain regular appointments with specialists, including GI and OB. - Go for mammograms and colonoscopy as per schedule. - Ensure regular diabetic follow-up with monitoring of glucose levels. - Return for follow-up visit in six months unless symptoms change or worsen sooner. Scribe Plan - Not visible on output: History of Present Illness The patient is a 59-year-old female presenting for a six-month follow-up of her chronic medical conditions. She has a well-documented history of essential hypertension, for which she is under active management. Her history includes obstructive sleep apnea, previously managed with CPAP, though she has expe rienced a disruption in care. Her chronic abdominals issues follow gastric bypass and cholecystectomy with ongoing medical oversight. The patient manages hyperlipidemia with atorvastatin, supported by dietary and lifestyle amendments. Additionally, she suffers from type 2 diabetes, effectively regulated with oral hypoglycemics like Jardiance, with regular assessments of her metabolic and glycemic control. Her medical history further includes GERD and osteoarthritis, which she consistently manages with medications. Chronic anemia remains under surveillance with periodic blood work. Restless legs syndrome impacts her quality of sleep; gabapentin is part of her therapeutic regimen. Historical procedures such as cholecystectomy and repairment of her deviated nasal septum continue to influence her current medical conditions, notably the chronic abdominal and nasal complaints. The patient's preliminary ENT and GI referrals are considered but no updates were noted since the referrals. Disc ussion of essential further diagnostics for anemia, diabetics, and monitoring of her current status aligned with routine engagement in clinical follow-up settings. Social History - Denies smoking - Use of hearing aids - Due for a dentist appointment - Regular follow-up with OB, GI, and former bioinformatics associate - Ensures regular mammogram and colonoscopy screening Review of Systems - HEENT: Reports none - Respiratory: Denies COPD, reports no difficulty breathing, though congested from deviated septum - Cardiovascular: Denies chest pain - Gastrointestinal: Reports chronic abdominal pain - Musculoskeletal: Denies leg swelling, has history of plantar fasciitis Physical Exam Appearance: Alert. Oriented X3. No acute distress. Head: Normal external exam. Normocephalic. Atraumatic. Eyes: Pupils are equal, round, and reactive to light. Extraocular movements intact. Conjunctiva and sclera normal. Eyelids normal. Ears: External auditory canal normal. Tympanic membranes normal. Patient reports using hearing aids. Throat: Pharynx normal. Uvula midline. Moist mucous membranes. Neck: Normal inspection. Neck supple. Full range of motion. No adenopathy. Thyroid Normal. No meningeal signs. No neck mass noted. Cardiovascular: Normal heart rate and rhythm. Heart sound normal. No murmurs noted. Pulses normal throughout. Respiratory: No respiratory distress. Painless inspiration. Breath sounds nor mal. No wheezes/rales/rhonchi noted. Chest nontender. No accessory muscle usage noted or decreased air movement noted. Abdomen: Soft and nontender. Bowel sounds normal in all 4 quadrants. No distention noted. No organomegaly noted. No visible injury noted. Back: No costovertebral angle tenderness. Full range of motion noted. Skin: Skin warm and dry. Normal skin color. Normal skin turgor. No rashes /lesions/lacerations noted. Extremities: No lower extremity edema. Extremities exhibit normal range of motion. Extremities nontender. No leg swelling noted. Neuro: Oriented X 3. No motor deficit. No sensory deficit. Reflexes normal. Results - Labs: Recent hemoglobin A1c at 5.6, prior elevated liver enzymes - Tests and Diagnostics: Blood work in April indicative of anemia, awaiting updated comprehensive metabolic panels
[2024-10-26 09:42] VITALS: BP 122/62; PULSE 92; TEMP 36.2; O2SAT 97; BMI 28.5
--- OUTSIDE RECORDS SUMMARY | 2024-10-26 10:40 | XMS_ITS | Clinical Summary ---
Author Organization [employer] [facility] Address [address] [place] [id number] Care Team Providers Care Repair Specialist Name Role Phone Dmitri Armas DO Primary Care Provider [phone] Allergies No known active allergies Medications Medication Sig Dispensed Refills Start Date End Date Status lisinopril (PRINIVIL,ZESTRIL) tablet 10 mg Take 10 mg by mouth daily. 0 Active dulaglutide (Trulicity) 0.75 MG/0.5ML subcutaneous pen-injector Inject under the skin once a week. 0 Active VITAMIN D PO Take by mouth daily. 0 Active metFORMIN (GLUCOPHAGE) tablet 1000 mg Take 1,000 mg by mouth 2 (two) times a day with meals. 0 Active hydroCHLOROthiazide (HYDRODIURIL) 50 MG tablet Take 50 mg by mouth daily. 0 Active propranolol (INDERAL LA) 60 MG 24 hr capsule Take 60 mg by mouth every night at bedtime. 0 Active atorvastatin (LIPITOR) tablet 10 mg Take 10 mg by mouth daily. 0 Active gabapentin (NEURONTIN) 300 MG capsule Take 300 mg by mouth every night at bedtime. 0 Active empagliflozin (JARDIANCE) tablet 10 mg Take by mouth daily. 0 Active Social History Tobacco Use Types Packs/Day Years Used Date Smoking Tobacco: Never Smokeless Tobacco: Never Alcohol Use Standard Drinks/Week Comments Yes 0 (1 standard drink = 0.6 oz pur e alcohol) 2x/year Sex and Gender Information Value Date Recorded Sex Assigned at Female 04/14/2022 3:27 PM EDT Gender Identity Not on file Sexual Orientation Not on file Job Start Date Occupation Industry Not on file Not on file Not on file Last Filed Vital Signs Vital Sign Reading Time Taken Comments Blood Pressure 126/70 04/30/2022 4:12 PM EDT Pulse 107 04/30/2022 4:12 PM EDT Temperature 36.7 ??C (98 ??F) 04/30/2022 4:12 PM EDT Respiratory Rate 22 04/30/2022 4:12 PM EDT Oxygen Saturation 97% 04/30/2022 4:12 PM EDT Inhaled Oxygen Concentration - - Weight 72.8 kg (160 lb 9.6 oz) 04/29/2022 8:37 P M EDT Height 165.1 cm (5' 5 ) 04/29/2022 8:37 PM EDT Body Mass Index 26.73 04/29/2022 8:37 PM EDT Plan of Treatment Health Maintenance Due Date Last Done Comments Hepatitis C Screening 1965 COVID-19 Vaccine (#1) 1965 Depression Screening 1976 BMI Counseling 01/18/1982 Preventative Health Evaluation 01/18/1982 DTap / Tdap / Td (1 - Tdap) 01/18/1983 Cervical Cancer Screening (P ap Smear) 01/18/1985 Colon Cancer Screening (Colonoscopy) 01/18/2009 Breast Cancer Screening (Mammogram) 01/18/2014 Shingrix-Zoster Vaccine (1 of 2) 01/18/2014 Influenza Vaccine (#1) 2024 RSV Adult > 60+ Yrs or Pregn ant (1 - 1-dose 75+ series) 01/18/2039 Hepatitis B Vaccines Aged Out No long er eligible based on patient's age to complete this topic Pneumococcal Vaccine Aged Out No long er eligible based on patient's age to complete this topic RSV Ped < 20 months Aged Out No longe r eligible based on patient's age to complete this topic Medical Devices Implanted Type Area Mission Manager Device Identifier Shelf Expiration Date Model / Serial / Lot Sealant Fibrin Vistaseal 4[facility] [id number] - [id number] Implanted:Qt y: 2 on 04/29/2022 by Bryon Blevins MD at [facility] Hemostatic Agent N/A: Abdomen [facility] [employer] 10/23/2023 [id number] / / [id number] Sealant Fibrin Vistaseal 4ml [facility] [id number] - [id number] Implanted:Qt y: 1 on 04/29/2022 by Bryon Blevins MD at [facility] Hemostatic Agent N/A: Abdomen [employer] 10/16/2023 VST04 / / [id number] Advance Directives For more information, please contact: [phone] Latest Code Status on File Code Status Date Activated Date Inactivated Comments Full Code 04/29/2022 7:32 PM 05/01/2022 1:25 AM This code status was ascertained in the following way: discussion with patient . Care Teams Repair Specialist Relationship Specialty Start Date End Date Dmitri Armas DO [address] [place] [phone] PCP - General Internal Medicine 04/14/22
--- OUTSIDE RECORDS SUMMARY | 2024-10-26 10:40 | XMS_ITS ---
Author Organization [facility] Address [address] [place] [id number] Care Team Providers Care Boxing And Pressing Supervisor Name Role Phone Chanda (RETIRED) Dmitri MILLER Primary Care Provid er Unavailable Dmitri Torres Unavailable [phone] REASON FOR VISIT Common bile duct stone Problems Problem Type SNOMED Code ICD Code Onset Dates Problem Status W/U Status Risk Notes Problem Elevated liver enzymes level (802761884) Elevated LFTs (R79.89) Active confirmed Problem Upper abdominal pain (79295824) Upper abdominal pain (R10.10) Active confirmed Problem History of excision of intestinal structure (982881377) History of laparoscopic cholecystectomy (Z90.49) Active confirmed Encounters Encounter Location Date Provider Diagnosis [facility] [address] [place] [phone] 04/21/2024 Dmitri Torres Elevated LFTs R79.89 ; Upper abdominal pain R10.10 and History of laparoscopic cholecystectomy Z90.49 Assessments Encounter Date Diagnosis (ICD Code) Assessment Notes Treatment Notes Treatment Clinical Notes Section Notes 04/21/2024 Elevated LFTs (ICD-10 - R79.89) 04/21/2024 Upper abdominal pain (ICD-10 - R10.10) 04/21/2024 History of laparoscopic cholecystectomy (ICD-10 - Z90.49) Plan Of Treatment Pending Test Test Name Order Date LIVER PROFILE 04/21/2024 CBC w DIFF 04/21/2024 MRI ABD NO CONTRAST (MRCP) 04/21/2024 Amylase 04/21/2024 Lipase 04/21/2024 Progress Notes * ARNOLDO IBARRASHELLEYADOB:11/1964 (59 yo F)Acc No.[id number]:04/21/2024 Patient:?YUNIOR MILLER :1965???Age:59 Y???Sex:Female Address:[address] [place] [address], [place], [address] Subjective: * Chief Complaints: * ???Common bile duct stone * Medical History:? * Surgical History:? * Hospitalization/Major Diagno stic Procedure:? * Medications:? Objective: Assessment: * Assessment: 1.?Elevated LFTs - R79.89?2. ?Upper abdominal pain - R10.10?3.?History of laparoscopic cholecystectomy - Z90.49? Plan: * Treatment: * 2.?Upper abdominal pain?LAB: LIVER PROFILE ?LAB: CBC w DIFF ?LAB: Amylase ?LAB: Lipase ?Imaging: MRI ABD NO CONTRAST (MRCP)* R/O CBD stones, STAT reading approval -[id number],Evelyn 04/22/2024 10:02:09 AM EDT > sched at [facility] for 04/28/24 arrival at 8:30 pm w/ STAT read, they will call pt with sooner appt per [facility] * 3.?History of laparoscopic cholecystectomy?LAB: LIVER PROFILE ?LAB: CBC w DIFF ?LAB: Amylase ?LAB: Lipase ?Imaging: MRI ABD NO CONTRAST (MRCP)* R/O CBD stones, STAT reading approval -[id number],Evelyn 04/22/2024 10:02:09 AM EDT > sched at [facility] for 04/28/24 arrival at 8:30 pm w/ STAT read, they will call pt with sooner appt per [facility] * * Procedure Codes:? * true * Date:? Generated for Davyi ng/Faxing/eTransmitting on:?10/26/2024 10:40 AM EDT
--- OUTSIDE RECORDS SUMMARY | 2024-10-26 10:40 | XMS_ITS ---
Author Organization [facility] Address [address] [place] [address] Care Team Providers Care Sas Programmer Name Role Phone Dmitri Armas DO Primary Care Provider Unavail able Mony Munoz Unavailable [phone] Allergies No Known Allergies Results Component Value Reference Range Notes Urinalysis Reviewed date:12/30/2023 10:34:12 AM Interpretation: Performing Lab: Notes/Report: PH 5.0 PROTEIN Trace WBC Large GLUCOSE Large BLOOD Large Urinalysis, Complete-[id number] Reviewed date:01/12/2024 11:32:57 AM Interpretation: Performing Lab:[facility], [address] [facility], Phone - [phone], Director - Edward Notes/Report: Specific [place] 1.027 1.005-1.030 pH 5.5 5.0-7.5 Urine-Color Yellow Yellow Appearance Cloudy Clear WBC Esterase 2+ Negative Protein Trace Negative/Trace Glucose 2+ Negative Ketones Negative Negative Occult Blood 2+ Negative Bilirubin Negative Negative Urobilinogen,Semi-Qn 0.2 0.2-1.0 mg/dL Nitrite, Urine Positive Negative Microscopic Examination See below: Micr oscopic was indicated and was performed. WBC 11-30 0 - 5 /hpf RBC 3-10 0 - 2 /hpf Epithelial Cells (non renal) 0-10 0 - 10 /hpf Casts None seen None seen /lpf Bacteria Many None seen/Few Urine Culture, Routine-[id number] Reviewed date:01/04/2024 09:12:16 AM Interpretation: Performing Lab:[facility], [address] [facility], [place], Phone - [phone], Director - Edward Notes/Report: Clinical Information:SRC:UR Clinical Information:SRC:UR Urine Culture, Routine Final report Result 1 Greater than 2 organisms recovered, none predominant. Please submit another sample if clinically indicated. 50,000-100,000 colony forming units per mL [id number] IGP No Culture 30 Plus Reviewed date:01/05/2024 09:14:57 AM Interpretation: Performing Lab:Yuri Mann, [address], [address], [place], Phone - [phone], Director - [facility] Notes/Report: Clinical Information:Vaginal/Cervical, LMP: Non e with IUD Source.............Cervix;Vagina Dates / Results....06/24/21 NIL, Neg HPV Other..............IUD No. of containers..01 ThinPrep Vial DIAGNOSIS: NEGATIVE FOR IN TRAEPITHELIAL LESION OR MALIGNANCY. Specimen adequacy: Satisfact ory for evaluation. No endocervical component is identified. Clinician provided ICD10: Z0 1.419 Performed by: Blas funes [employer] Recovery Shift Engineer ([facility]) . . Note: The Pap smear is a screening test designed to aid in the detection of premalignant and malignant conditions of the uterine cervix. It is not a diagnostic procedure and should not be used as the sole means of detecting cervical cancer. Both false-positive and false-negative reports do occur. . Test Methodology: This liquid based ThinPrep(R) pap test was screened with the use of an image guided system. HPV Aptima Negative Negative This nucleic acid amplification test detects fourteen high-risk HPV types (16,18,31,33,35,39,45,51,52,56 ,58,59,66,68) without differentiation. HPV Genotype Reflex Criteria not met, HPV Genotype not performed. PDF Report Reviewed date:12/31/2023 08:25:05 AM Interpretation: Performing Lab:Yuri Velazquez, [address] [facility], Phone - [phone], Director - Edward Notes/Report: FSH+LH+E2 Reviewed date:01/01/2024 09:16:07 AM Interpretation: Performing Lab:Yuri Velazquez, [address] [facility], Phone - [phone], Director - Edward Notes/Report: LH 25.4 Adult Female Range Follicular phase 2.4 - 12.6 Ovulation phase 14.0 - 95.6 Luteal phase 1.0 - 11.4 Postmenopausal 7.7 - 58.5 FSH 37.8 Adult Female Range Follicular phase 3.5 - 12.5 Ovulation phase 4.7 - 21.5 Luteal phase 1.7 - 7.7 Postmenopausal 25.8 - 134.8 Estradiol 7.8 Adult Female Range Follicular phase 12.5 - 166.0 Ovulation phase 85.8 - 498.0 Luteal phase 43.8 - 211.0 Postmenopausal <6.0 - 54.7 1st trimester 215.0 - >4300.0 Yonas ECLIA methodology REASON FOR VISIT Annual AUTOGRAPHER Physical, Annual AUTOGRAPHER Physical 50-59* Medications Medication SIG (Take, Route, Frequency, Duration) Notes Start Date End Date Status Bactrim DS 800-160 MG 1 tablet Orally TW ICE A DAY for 7 days 12/30/2023 Active Lisinopril 12/30/2023 Active Gabapentin 300 MG 1 capsule Orally Onc e a day for 90 days Active Vitamin B12 1000 MCG 1 tablet Orally Onc e a day for 30 day(s) Active Atorvastatin Calcium 20 MG 1 tablet Orally Once a day Active Mounjaro 5 MG/0.5ML 1 INJECTION UNDER TH E SKIN EVERY WEEK DIRECTED Subcutaneous for 28 Active rOPINIRole HCl 0.5 MG 1 tablet 1 to 3 ho urs before bedtime Orally Once a day for 30 day(s) 12/30/2023 Active metFORMIN HCl 500 MG 1 Orally twice daily 10/25/19 14 Active Jardiance 10 MG TAKE 1 TABLET BY MOUTH EVERY DAY Oral for 90 Active Vitamin D3 Active Mirena 20 MCG/24HR Intrauterine inserted 12/01/2016 Active Iron Active Social History Tobacco Use: Social History Observation Description Date Details (start date - stop date) Never Smoker NA - NA Tobacco Use/Smoking Question Answer Notes Are you a nonsmoker Alcohol Screen (Audit-C) Question Answer Notes Did you have a drink containing alcohol in the p ast year? No Points 0 Interpretation Negative AUDIT-C (Standard) Question Answer Notes Did you have a drink contain ing alcohol in the past year? Yes How often did you have six o r more drinks on one occasion in the past year? Never (0 point) How many drinks did you have on a typical day when you were drinking in the past year? 1 or 2 drinks (0 point) How often did you have a dri nk containing alcohol in the past year? Monthly or less (1 point) Points 1 Interpretation Negative Problems Problem Type SNOMED Code ICD Code Onset Dates Problem Status W/U Status Risk Notes Problem Type II diabetes mellitus without complication (708567056) Type 2 diabetes mellitus without complications (E11.9) Active confirmed Vital Signs Temperature 97.9 degrees Fahrenheit 12/30/19 24 Blood pressure systolic 140 mm Hg 12/30/19 24 Blood pressure diastolic 86 mm Hg 024 Height 64.5 in 12/30/2023 Weight 174 lbs 12/30/2023 BMI 29.4 kg/m2 12/30/2023 Encounters Encounter Location Date Provider Diagnosis [address] [address] 12/30/2023 Mony Munoz Encounter for gynecological examination (general) (routine) without abnormal findings Z01.419 ; Encounter for screening mammogram for malignant neoplasm of breast Z12.31 ; Menopausal and female climacteric states N95.1 ; Urinary tract infection, site not specified N39.0 ; Unspecified urinary incontinence R32 ; Encounter for routine checking of intrauterine contraceptive device Z30.431 ; Dense breasts, unspecified R92.30 and Type 2 diabetes mellitus without complications E11.9 Assessments Encounter Date Diagnosis (ICD Code) Assessment Notes Treatment Notes Treatment Clinical Notes Section Notes 12/30/2023 Encounter for gynecological examination (general) (routine) without abnormal findings (ICD-10 - Z01.419) PAP TEST WITH HPV TYPING WAS OBTAINED. 12/30/2023 Encounter for screening mammogram for malignant neoplasm of breast (ICD-10 - Z12.31) REGULAR MAMMOGRAMS AND SBE'S WERE RECOMMENDED. 12/30/2023 Menopausal and female climacteric states (ICD-10 - N95.1) DISCUSSED MENOPAUSE AND SYMPTOMS ASSOCIATED WITH THIS. CHECK FSH, LH AND ESTRADIOL AND IF MENOPAUSE IS CONFIRMED, PAT WILL RETURN FOR IUD REMOVAL. 12/30/2023 Urinary tract infection, site not specified (ICD-10 - N39.0) OFFICIAL UA AND URINE C/S. WILL TREAT PAT WITH BACTRIM DS. IF BETTER IN 3 DAYS, DECEMBER D/C. RX AND INSTRUCTIONS WERE GIVEN. 12/30/2023 Unspecified urinary incontinence (ICD-10 - R32) DISCUSSED COMMON TYPES OF URINARY INCONTINENCE INCLUDING STRESS INCONTINENCE AND ITS PATHOPHYSIOLOGY. REFER TO DR PARRA FOR FURTHER EVALUATION AND MX. 12/30/2023 Encounter for routine checking of intrauterine contraceptive device (ICD-10 - Z30.431) DISCUSSED MIRENA IUD AND HOW THIS HAS HELPED STOP HER HEAVY BLEEDING AND ALLOWED HER TO ENTER MENOPAUSE GRACEFULLY. CHECK FSH, LH AND ESTRADIOL LEVELS AND IF MENOPAUSE IS CONFIRMED, WILL REMOVE IUD. 12/30/2023 Dense breasts, unspecified (ICD-10 - R92.30) DISCUSSED DENSE BREASTS ON MAMMOGRAM AND ITS IMPLICATIONS. 3D MAMMOGRAMS WERE RECOMMENDED. 12/30/2023 Type 2 diabetes mellitus without complications (ICD-10 - E11.9) CONTINUE CARE WITH PCP. Plan Of Treatment Medication Medication Name Sig Start Date Stop Date Notes Bactrim DS 800-160 MG 1 tablet Orally TW ICE A DAY for 7 days 12/30/2023 Treatment Notes Assessment Notes Encounter for gynecological examination (general) (routine) without abnormal findings PAP TEST WITH HPV TYPING WAS OBTAINED. Encounter for screening mamm ogram for malignant neoplasm of breast REGULAR MAMMOGRAMS AND SBE'S WERE RECOMMENDED. Menopausal and female climacteric states DISCUSSED MENOPAUSE AND SYMPTOMS ASSOCIATED WITH THIS. CHECK FSH, LH AND ESTRADIOL AND IF MENOPAUSE IS CONFIRMED, PAT WILL RETURN FOR IUD REMOVAL. Urinary tract infection, site not specif ied OFFICIAL UA AND URINE C/S. WILL TREAT PAT WITH BACTRIM DS. IF BETTER IN 3 DAYS, DECEMBER D/C. RX AND INSTRUCTIONS WERE GIVEN. Unspecified urinary incontinence DISCUSSED COMMON TYPES OF URINARY INCONTINENCE INCLUDING STRESS INCONTINENCE AND ITS PATHOPHYSIOLOGY. REFER TO DR PARRA FOR FURTHER EVALUATION AND MX. Encounter for routine checki ng of intrauterine contraceptive device DISCUSSED MIRENA IUD AND HOW THIS HAS HELPED STOP HER HEAVY BLEEDING AND ALLOWED HER TO ENTER MENOPAUSE GRACEFULLY. CHECK FSH, LH AND ESTRADIOL LEVELS AND IF MENOPAUSE IS CONFIRMED, WILL REMOVE IUD. Dense breasts, unspecified DISCUSSED DENSE BREASTS ON MAMMOGRAM AND ITS IMPLICATIONS. 3D MAMMOGRAMS WERE RECOMMENDED. Type 2 diabetes mellitus wit hout complications CONTINUE CARE WITH PCP. Pending Test Test Name Order Date MM Digital Mammo Screening 12/30/2023 Next Appt Details Follow Up: 1 Year, Reason: Provider Name:Mony dumont, 01/04/2025 09:00:00 AM, [address], [address], [place], [address], Progress Notes * SHELLEY MILLERADOB:11/1964 (58 yo F)Acc No.[id number]:12/30/2023 PROGRESS NOTES Patient:?YUNIOR MILLER Appointment Provider:?Mony dumont M.D. :1965???Age:58 Y???Sex:Female D ate:12/30/2023 Address:[address] [place], [place] [id number] Pcp:Dmitri Armas, DO Subjective: * Chief Complaints: * ???Annual AUTOGRAPHER PhysicalAnnual AUTOGRAPHER Physical 50-59* * HPI: ???New/Follow-up Patient Consult:? MIRENA IUD WAS INSERTED IN NOVEMBER 2016 TO DECREASE MENORRHAGIA.? SHE HAS NOT HAD ANY BLEEDING SINCE THEN.? SHE HAS NOTED TOLERABLE HOT FLASHES AND NIGHT SWEATS.?? SHE? C/O DYSURIA, URGENCY AND FREQUENCY OF A FEW DAYS DURATION. SHE C/O WORSENING URINARY INCONTINENCE.? SHE LOSES URINE WHEN SHE COUGHS OR LAUGHS AND HAS TO WEAR PADS CONSTANTLY.? SHE HAS BEEN PERFORMING KEGEL EXERCISES WITH NO RELIEF OF SYMPTOMS. SHE IS KNOWN TO HAVE TYPE 2 DIABETES AND HAS BEEN ON JARDIANCE FOR SEVERAL MONTHS.?? SHE HAD GASTRIC BYPASS SURGERY IN 2017 AND LOST MORE THAN 50 LBS AND HAS KEPT THIS OFF.? SHE HAD RIGHT KNEE REPLACEMENT IN 2019 AND ALSO HAD RIGHT BREAST BIOPSY WITH BENIGN FINDINGS ON THE SAME YEAR.? SHE HAD ABDOMINOPLATY DONE IN 2021 AND HAD CHOLECYSTECTOMY DONE IN OCTOBER 2023. HER LAST MAMMOGRAM DONE IN JANUARY 2023 SHOWED DENSE BREASTS AND WAS NORMAL.? SHE HAS NO FAMILY HX OF BREAST, OVARIAN, COLON OR UTERINE CA. HER LAST PAP TEST IN 2020 WAS NEGATIVE AND HPV NEGATIVE. SHE HAD A COLONOSCOPY DONE IN 2013 AND HAS AN APPT FOR COLONOSCOPY IN JANUARY 2024. MODERNA? X 3. ???Annual:? Patient presents for annual exam, ages 50-59. ?General Health Maintenance:?Current breast complaints:?no breast pain, mass, discharge, or skin changes ?Urinary problems:?patient reports no urinary health problems or bowel health problems ?Calcium intake:?takes adequate calcium via diet and supplementation ?Significant AUTOGRAPHER problems:?no significant data management consultant symptoms or problems * ROS:?general:?no?chest pain.?no?palpitations.?no?headache.?no?cough.?no?shortness of breath.?no?fever.?no?unexplained weight loss.?no?nausea/vomiting.?no?change in bowel movements.?no blood in stool.?no?genitourinary complaints.?no?skin complaints.? * Medical History:? 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 02/02/14, 50-75% density.?LMP and menses?No Menses with IUD, Inserted 11/21/16.? Control:?Mirena intrauterine device.?Colonoscopy?2013.? * OB History:?Total pregnancies?3.?Total living children?3.?NVD?3.? * Surgical History:?Right Knee Surgery/Total Knee Replacement Colonoscopy Right Breast Biopsy 08/31/19Cholecystectomy 10/2023 * Hospitalization/Major Diagno stic Procedure:?3 Vaginal Deliveries See Surgical Hx * Family History:?Mother: sindi denis, well.?Father: .?Paternal aunt: Lung Cancer, Smoker.? * Social History:?Tobacco Use:?Tobacco Use/Smoking?Are you a?nonsmoker ???Sexual History:?Sexual History?Had sex in the past 12 months (vaginal, oral, or anal)?: Yes, Prevention strategies discussed:: Other.?Details of Sexual History?Are you sexually active??Yes ???Drugs/Alcohol:?Drugs?Have you used drugs other than those for medical reasons in the past 12 months??No ?Alcohol Screen (Audit-C)?Did you have a drink containing alcohol in the past year??No ?Points?0 ?Interpretation?Negative ???Drug/Alcohol:?AUDIT-C (Standard)?Did you have a drink containing alcohol in the past year??Yes ?How often did you have six or more drinks on one occasion in the past year??Never (0 point) ?How many drinks did you have on a typical day when you were drinking in the past year??1 or 2 drinks (0 point) ?How often did you have a drink containing alcohol in the past year??Monthly or less (1 point) ?Points?1 ?Interpretation?Negative * Medications:?TakingIron Tea min D3 Mirena 20 MCG/24HR Intrauterine Device Intrauterine , Notes to Pharmacist: inserted 12/01/2016metFORMIN HCl 500 MG Tablet 1 Orally twice daily Jardiance 10 MG Tablet TAKE 1 TABLET BY MOUTH EVERY DAY Oral Mounjaro 5 MG/0.5ML Solution Pen-injector 1 INJECTION UNDER THE SKIN EVERY WEEK DIRECTED Subcutaneous rOPINIRole HCl 0.5 MG Tablet 1 tablet 1 to 3 hours before bedtime Orally Once a day Atorvastatin Calcium 20 MG Tablet 1 tablet Orally Once a day Gabapentin 300 MG Capsule 1 capsule Orally Once a day Vitamin B12 1000 MCG Tablet Extended Release 1 tablet Orally Once a day Lisinopril Taking Iron Taking Vitamin D3 Taking Mirena 20 MCG/24HR Intrauterine Device Intrauterine , Notes to Pharmacist: inserted 12/01/2016Taking metFORMIN HCl 500 MG Tablet 1 Orally twice daily Taking Jardiance 10 MG Tablet TAKE 1 TABLET BY MOUTH EVERY DAY Oral Taking Mounjaro 5 MG/0.5ML Solution Pen-injector 1 INJECTION UNDER THE SKIN EVERY WEEK DIRECTED Subcutaneous Taking rOPINIRole HCl 0.5 MG Tablet 1 tablet 1 to 3 hours before bedtime Orally Once a day Taking Atorvastatin Calcium 20 MG Tablet 1 tablet Orally Once a day Taking Gabapentin 300 MG Capsule 1 capsule Orally Once a day Taking Vitamin B12 1000 MCG Tablet Extended Release 1 tablet Orally Once a day Taking Lisinopril DiscontinuedhydroCHLOROthiazide 50 MG Tablet 1 tablet Orally Once a day Propranolol HCl ER 60 MG Capsule Extended Release 24 Hour TAKE ONE CAPSULE BY MOUTH EVERY DAY Oral Rizatriptan Benzoate 10 MG Tablet Oral Multivitamins 30 1 ORAL daily Vitamin C 500 MG Capsule as directed Orally Terazol 3 0.8 % Cream 1 application at bedtime Vaginal EVERY NIGHT X 3 Medication List reviewed and reconciled with the patientDiscontinued hydroCHLOROthiazide 50 MG Tablet 1 tablet Orally Once a day Discontinued Propranolol HCl ER 60 MG Capsule Extended Release 24 Hour TAKE ONE CAPSULE BY MOUTH EVERY DAY Oral Discontinued Rizatriptan Benzoate 10 MG Tablet Oral Discontinued Multivitamins 30 1 ORAL daily Discontinued Vitamin C 500 MG Capsule as directed Orally Discontinued Terazol 3 0.8 % Cream 1 application at bedtime Vaginal EVERY NIGHT X 3 Medication List reviewed and reconciled with the patient * Allergies:?N.K.D.A.no[Allerg ies Verified] Objective: * Vitals:?Ht: 64.5 in, Wt:174l bs, BMI:29.4Index, BP:140/86mm Hg, Temp:97.9F. * Examination: ???General Exam: ?CONSTITUTIONAL:?General Appearance:?alert, in no acute distress, normal, well nourished ?NECK/THYROID:?Inspection/Palpation:?normal ?Thyroid:?normal size and shape ?RESPIRATORY:?Auscultation: clear to auscultation bilaterally, Respiratory Effort: normal.?CARDIOVASCULAR:?Auscultation: regular rate and rhythm.?BREAST, Right:?Inspection/Palpation:?no discharge, no masses present, no nipple retraction, no skin changes, no skin dimpling, no tenderness, no lymphadenopathy, no axillary mass, no axillary tenderness ?BREAST, Left:?Inspection/Palpation:?no discharge, no masses present, no nipple retraction, no skin changes, no skin dimpling, no tenderness, no lymphadenopathy, no axillary mass, no axillary tenderness ?GASTROINTESTINAL:?Abdomen:?no masses, nontender, nondistended ?Liver and Spleen:?normal ?Hernias:?no hernias present, no inguinal adenopathy ?MUSCULOSKELETAL:?Inspection/Palpation:?no clubbing, cyanosis, or edema ?SKIN:?Skin:?normal ?NEURO/PSYCH:?Orientation:?time , place, person ?Mood/Affect:?normal?Genitourinary: ?EXTERNAL GENITALIA:?External Genitalia:?normal, no lesions ?VAGINA:?Vagina:?normal appearance, no abnormal discharge, no lesions ?BLADDER:?Bladder:?no mass, nontender ?URETHRA:?Urethra:?no erythema or lesions present ?CERVIX:?Cervix:?no lesions, nontender ?UTERUS:?Uterus:?nontender, normal contour, normal mobility, normal size ?ADNEXA:?Adnexa:?no masses, no tenderness ?ANUS AND PERINEUM:?Anus/Perineum:?visually normal??? Assessment: * Assessment: 1.?Encounter for gynecologic al examination (general) (routine) without abnormal findings - Z01.419?2.?Encounter for screening mammogram for malignant neoplasm of breast - Z12.31?3.?Menopausal and female climacteric states - N95.1?4.?Urinary tract infection, site not specified - N39.0?5.?Unspecified urinary incontinence - R32?6.?Encounter for routine checking of intrauterine contraceptive device - Z30.431?7.?Dense breasts, unspecified - R92.30?8.?Type 2 diabetes mellitus without complications - E11.9? Plan: * Treatment: ? Value Reference Range ?PH 5.0 * ?PROTEIN Trace * ?WBC Large * ?GLUCOSE Large * ?BLOOD Large * DEZRA Crabtree 12/30/2023 10:02:17 AM EDT > On Jardiance Notes: PAP TEST WITH HPV TYPING WAS OBTAINED.??2.?Encounter for screening mammogram for malignant neoplasm of breast?Imaging: MM Digital Mammo Screening Notes: REGULAR MAMMOGRAMS AND SBE'S WERE RECOMMENDED.??3.?Menopausal and female climacteric states?LAB: FSH+LH+E2 Notes: DISCUSSED MENOPAUSE AND SYMPTOMS ASSOCIATED WITH THIS. CHECK FSH, LH AND ESTRADIOL AND IF MENOPAUSE IS CONFIRMED, PAT WILL RETURN FOR IUD REMOVAL.? 4.?Urinary tract infection, site not specified? Start Bactrim DS Tablet, 800-160 MG, 1 tablet, Orally, TWICE A DAY, 7 days, 14 Tablet, Refills 0. ? Notes: OFFICIAL UA AND URINE C/S. WILL TREAT PAT WITH BACTRIM DS. IF BETTER IN 3 DAYS, MAY D/C. RX AND INSTRUCTIONS WERE GIVEN.??5.?Unspecified urinary incontinence? Notes: DISCUSSED COMMON TYPES OF URINARY INCONTINENCE INCLUDING STRESS INCONTINENCE AND ITS PATHOPHYSIOLOGY. REFER TO DR PARRA FOR FURTHER EVALUATION AND MX.??6.?Encounter for routine checking of intrauterine contraceptive device? Notes: DISCUSSED MIRENA IUD AND HOW THIS HAS HELPED STOP HER HEAVY BLEEDING AND ALLOWED HER TO ENTER MENOPAUSE GRACEFULLY. CHECK FSH, LH AND ESTRADIOL LEVELS AND IF MENOPAUSE IS CONFIRMED, WILL REMOVE IUD.??7.?Dense breasts, unspecified? Notes: DISCUSSED DENSE BREASTS ON MAMMOGRAM AND ITS IMPLICATIONS. 3D MAMMOGRAMS WERE RECOMMENDED.??8.?Type 2 diabetes mellitus without complications? Notes: CONTINUE CARE WITH PCP.?? * Labs:? * ?Lab: Urinalysis, Ortega -[id number] ?Lab: Urine Culture, Haim stephens-[id number] * Procedure Codes:? * Preventive Medicine:? ??YOUR PREVENTIVE WELLNESS PLAN:?Osteoporosis prevention?Calcium, D, strength training.?Breast Cancer Screening (Mammogram):?annually.?Cervical Cancer Screening (Pap Smear):?q 3 years with HPV screen.?Colorectal Cancer Screening:?q 10 years.? * Follow Up:?1 Year * Images: Billing Information: * Visit Code:? 78799 Preventive Care New Pt. Age 40-64. 87078 Preventive Care Est Pt. Age 40-64. * Procedure Codes:? * Sign off status: Completed true * Appointment Provider:?Mony Munoz M.D. Date:?12/30/2023 Generated for Siomara navarro/Taylor/eTphillysmitting on:?10/26/2024 10:39 AM EDT History and Physical Notes * HPI (History of Present Illness) Category Sub-Category Detail Notes Category Not es New/Follow-up Patient Consult MIRENA IUD WAS INSERTED IN NOVEMBER 2016 TO DECREASE MENORRHAGIA. SHE HAS NOT HAD ANY BLEEDING SINCE THEN. SHE HAS NOTED TOLERABLE HOT FLASHES AND NIGHT SWEATS. SHE C/O DYSURIA, URGENCY AND FREQUENCY OF A FEW DAYS DURATION. SHE C/O WORSENING URINARY INCONTINENCE. SHE LOSES URINE WHEN SHE COUGHS OR LAUGHS AND HAS TO WEAR PADS CONSTANTLY. SHE HAS BEEN PERFORMING KEGEL EXERCISES WITH NO RELIEF OF SYMPTOMS. SHE IS KNOWN TO HAVE TYPE 2 DIABETES AND HAS BEEN ON JARDIANCE FOR SEVERAL MONTHS. SHE HAD GASTRIC BYPASS SURGERY IN 2017 AND LOST MORE THAN 50 LBS AND HAS KEPT THIS OFF. SHE HAD RIGHT KNEE REPLACEMENT IN 2019 AND ALSO HAD RIGHT BREAST BIOPSY WITH BENIGN FINDINGS ON THE SAME YEAR. SHE HAD ABDOMINOPLATY DONE IN 2021 AND HAD CHOLECYSTECTOMY DONE IN OCTOBER 2023. HER LAST MAMMOGRAM DONE IN JANUARY 2023 SHOWED DENSE BREASTS AND WAS NORMAL. SHE HAS NO FAMILY HX OF BREAST, OVARIAN, COLON OR UTERINE CA. HER LAST PAP TEST IN 2020 WAS NEGATIVE AND HPV NEGATIVE. SHE HAD A COLONOSCOPY DONE IN 2013 AND HAS AN APPT FOR COLONOSCOPY IN JANUARY 2024. MODERNA X 3. Annual General Health Maintenance: Current breast complaints:: no breast pain, mass, discharge, or skin changes Urinary problems:: patient r eports no urinary health problems or bowel health problems Calcium intake:: takes adequ ate calcium via diet and supplementation Significant AUTOGRAPHER problems:: n o significant data management consultant symptoms or problems Examination Category Sub-Category Detail Notes Category Not es General Exam CONSTITUTIONAL: General Appearan ce:: alert, in no acute distress, normal, well nourished NECK/THYROID: Thyroid:: normal size and shape Inspection/Palpation:: normal RESPIRATORY: Auscultation: clear to auscultation bilaterally, Respiratory Effort: normal CARDIOVASCULAR: Auscultation: regula r rate and rhythm GASTROINTESTINAL: Hernias:: no hernias present, no inguinal adenopathy Liver and Spleen:: normal Abdomen:: no masses, nontender, nondiste nded MUSCULOSKELETAL: Inspection/Palpation:: no clubb ing, cyanosis, or edema SKIN: Skin:: normal NEURO/PSYCH: Mood/Affect:: normal Orientation:: time , place, person BREAST, Right: Inspection/Palpation :: no discharge, no masses present, no nipple retraction, no skin changes, no skin dimpling, no tenderness, no lymphadenopathy, no axillary mass, no axillary tenderness BREAST, Left: Inspection/Palpation :: no discharge, no masses present, no nipple retraction, no skin changes, no skin dimpling, no tenderness, no lymphadenopathy, no axillary mass, no axillary tenderness Genitourinary EXTERNAL GENITALIA: External Genitalia:: nor mal, no lesions VAGINA: Vagina:: normal appearance, no a bnormal discharge, no lesions BLADDER: Bladder:: no mass, nontender URETHRA: Urethra:: no erythema or lesions present CERVIX: Cervix:: no lesions, nontender UTERUS: Uterus:: nontender, normal conto ur, normal mobility, normal size ADNEXA: Adnexa:: no masses, no tendernes s ANUS AND PERINEUM: Anus/Perineum:: visually norm al
--- OUTSIDE RECORDS SUMMARY | 2024-10-26 10:40 | XMS_ITS | Patient Health Record ---
Author Organization [facility] Address [address] [place] [address] Care Team Providers Care Out And Out Cigar Maker Hand Name Role Phone Dmitri Armas DO Primary Care Provider Unavail able Mony Munoz Unavailable [phone] Allergies No Known Allergies Results Component Value Reference Range Notes Urinalysis Reviewed date:12/30/2023 10:34:12 AM Interpretation: Performing Lab: Notes/Report: PH 5.0 PROTEIN Trace WBC Large GLUCOSE Large BLOOD Large Urinalysis, Complete-[id number] Reviewed date:01/12/2024 11:32:57 AM Interpretation: Performing Lab:[facility], [address] [facility], Phone - [phone], Director - Edward Notes/Report: Specific Holcomb 1.027 1.005-1.030 pH 5.5 5.0-7.5 Urine-Color Yellow [...] /lpf Bacteria Many None seen/Few Urine Culture, Routine-[id number] Reviewed date:01/04/2024 09:12:16 AM Interpretation: Performing Lab:[facility], [address] [facility], [place], Phone - [phone], Director - Edward Notes/Report: Clinical Information:SRC:UR Clinical Information:SRC:UR Urine Culture, Routine Final report Result 1 Greater than 2 organisms recovered, none predominant. Please submit another sample if clinically indicated. 50,000-100,000 colony forming units per mL [id number] IGP No Culture 30 Plus Reviewed date:01/05/2024 09:14:57 AM Interpretation: Performing Lab:Yuri Mann, Radha Patel, [address], [place], Phone - [phone], Director - [facility] Notes/Report: Clinical Information:Vaginal/Cervical, LMP: Non e with IUD Source.............Cervix;Vagina Dates / Results....06/24/21 NIL, Neg HPV Other..............IUD No. of containers..01 ThinPrep Vial DIAGNOSIS: NEGATIVE FOR IN TRAEPITHELIAL LESION OR MALIGNANCY. Specimen adequacy: Satisfact ory for evaluation. No endocervical component is identified. Clinician provided ICD10: Z0 1.419 Performed by: Blas funes, Asphalt Screed Operator (ASCP) . . Note: The Pap smear is [...] 08:25:05 AM Interpretation: Performing Lab:Yuri Velazquez, [address] [facility], [place], Phone - [phone], Director - Edward Notes/Report: FSH+LH+E2 Reviewed date:01/01/2024 09:16:07 AM Interpretation: Performing Lab:Yuri Velazquez, [address] [facility], [place], Phone - [phone], Director - Edward Notes/Report: LH 25.4 Adult [...] trimester 215.0 - >4300.0 Yonas ECLIA methodology Urinalysis Reviewed date:01/04/2024 11:47:35 AM Interpretation: Performing Lab: Notes/Report: NITRITE NEG PH 5.0 PROTEIN MOD S.G 1.025 WBC LG GLUCOSE LG KETONES NEG UROBILINOGEN NEG BILIRUBIN TR BLOOD LG Urinalysis, Complete-[id number] Reviewed date:01/13/2024 01:51:39 PM Interpretation: Performing Lab:Mape Marcus, [address] [place] [address], Phone - [phone], Director - MDJodry Notes/Report: Specific Holcomb >=1.030 1.005-1.030 pH 5.5 5.0-7.5 Urine-Color Yellow Yellow Appearance Clear Clear WBC Esterase Negative Negative Protein 1+ Negative/Trace Glucose 3+ Negative Ketones Negative Negative Occult Blood Trace Negative Bilirubin Negative Negative Urobilinogen,Semi-Qn 0.2 0.2-1.0 mg/dL Nitrite, Urine Negative Negative Microscopic Examination See below: Micr oscopic was indicated and was performed. WBC 0-5 0 - 5 /hpf RBC 11-30 0 - 2 /hpf Epithelial Cells (non renal) 0-10 0 - 10 /hpf Casts None seen None seen /lpf Bacteria None seen None seen/Few Urine Culture, Routine-[id number] Reviewed date:01/06/2024 08:24:06 AM Interpretation: Performing Lab:[facility]az[facility], [address] [place] [address], [place], Phone - [phone], Director - Edward Notes/Report: Urine Culture, Routine Final report Result 1 No growth PDF Report Reviewed date:01/06/2024 08:23:56 AM Interpretation: Performing Lab:Mape Marcus, [address] [place] [address], Phone - [phone], Director - Edward Notes/Report: Urine Culture, Routine-[id number] Reviewed date:01/06/2024 02:51:50 PM Interpretation: Performing Lab:[facility], [address] [place] [address], Phone - [phone], Director - Edward Notes/Report: Urine Culture, Routine Final report Result 1 Mixed urogenital charito 25,000-50,000 colony forming units per mL PDF Report Reviewed date:01/01/2024 08:27:05 AM Interpretation: Performing Lab:[facility] [place], [address] [place] [address], Phone - [phone], Director - Edward Notes/Report: Clinical Information:SRC:UR PDF Report Reviewed date:01/05/2024 09:16:42 AM Interpretation: Performing Lab:[facility], Radha Patel, [address], [place], Phone - [phone], Director - Collin Notes/Report: Clinical Information:Vaginal/Cervical, LMP: Non e with IUD Source.............Cervix;Vagina Dates / Results....06/24/21 NIL, Neg HPV Other..............IUD No. of containers..01 ThinPrep Vial PDF Report Reviewed date:01/06/2024 02:54:02 PM Interpretation: Performing Lab:[facility], [address] [place] [address], Phone - [phone], Director Yared Leon Notes/Report: Reason For Referral No Information Medications Medication SIG (Take, Route, Frequency, Duration) Notes Start Date End Date Status Vitamin D3 Active Mirena 20 MCG/24HR Intrauterine inserted 12/01/2016 Active Lisinopril 12/30/2023 Active Iron Active Bactrim DS 800-160 MG 1 tablet Orally TW ICE A DAY for 7 days 12/30/2023 Active Gabapentin 300 MG 1 capsule Orally Onc e a day for 90 days Active Vitamin B12 1000 MCG 1 tablet Orally Onc e a day for 30 day(s) Active rOPINIRole HCl 0.5 MG 1 tablet 1 to 3 ho urs before bedtime Orally Once a day for 30 day(s) 12/30/2023 Active Atorvastatin Calcium 20 MG 1 tablet Orally Once a day Active Jardiance 10 MG TAKE 1 TABLET BY MOUTH EVERY DAY Oral for 90 Active Mounjaro 5 MG/0.5ML 1 INJECTION UNDER TH E SKIN EVERY WEEK DIRECTED Subcutaneous for 28 Active metFORMIN HCl 500 MG 1 Orally twice daily 10/25/19 14 Active Social History Tobacco Use: Social History [...] Problem Status W/U Status Risk Notes Problem Urinary incontinence (911583286) Unspecified urinary incontinence (R32) Active confirmed Problem Type II diabetes mellitus without complication (111072163) Type 2 diabetes mellitus without complications (E11.9) Active confirmed Problem Unspecified menopausal and perimenopausal disorder (N95.9) Active confirmed Problem Menopause (745711124) Menopausal and female climacteric states (N95.1) Active confirmed Problem Candidal vulvovaginitis (61596617) Candidiasis of vulva and vagina (112.1) Active confirmed Diag Problem Migraine (disorder) (83255184) Migraine, unspecified without mention of intractable migraine without mention of status migrainosus (346.90) Active confirmed Major Problem Benign essential hypertension (9533110) Essential hypertension, benign (401.1) Active confirmed Major Problem Excessive and frequent menstruation (847081282) Excessive or frequent menstruation (626.2) Active confirmed Major Problem Gynecological examination normal (755982081077462) Routine gynecological examination (V72.31) Active confirmed Major Problem Insertion of intrauterine contraceptive device (24618489) Insertion of intrauterine contraceptive device (V25.1) Active confirmed Major Problem Surveillance of intrauterine device contraception done (697119505634462) Surveillance of previously prescribed intrauterine contraceptive device (V25.42) Active confirmed Other Problem Dietary management surveillance (005923625) Dietary surveillance and counseling (V65.3) Active confirmed Diag Vital Signs Temperature 97.3 degrees Fahrenheit 01/04/2024 Blood pressure diastolic 82 mm Hg 01/04/2024 Height 64.5 in 01/04/2024 Blood pressure systolic 130 mm Hg 01/04/2024 Weight 174 lbs 01/04/2024 BMI 29.4 kg/m2 01/04/2024 Encounters Encounter Location Date Provider Diagnosis Total [place] [address] [facility] [address] [address] 12/30/2023 Mony Munoz Encounter for gynecological examination [...] Type 2 diabetes mellitus without complications E11.9 [place] [address] [facility] [address] [address] 01/04/2024 Mony Munoz Encounter for routin e checking of intrauterine contraceptive device Z30.431 and Menopausal and female climacteric states N95.1 [address] [address] 01/22/2024 Mony Munoz Frequency of micturition R35.0 Assessments Encounter Date Diagnosis (ICD Code) Assessment Notes Treatment Notes Treatment Clinical Notes Section Notes 12/30/2023 Encounter for gynecological examination (general) (routine) without abnormal findings (ICD-10 - Z01.419) PAP TEST WITH HPV TYPING WAS OBTAINED. 01/04/2024 Encounter for routine checking of intrauterine contraceptive device (ICD-10 - Z30.431) REASSURED PAT THAT IUD IS IN PLACE AND SINCE THIS CAN SAFELY STAY IN PLACE OFR 8 YEARS, WE WILL REMOVE NEXT YEAR. 01/04/2024 Menopausal and female climacteric states (ICD-10 - N95.1) DISCUSSED MENOPAUSE AND SYMPTOMS ASSOCIATED WITH THIS. 01/22/2024 Frequency of micturition (ICD-10 - R35.0) 12/30/2023 Encounter for screening mammogram for malignant [...] CONTINUE CARE WITH PCP. Plan Of Treatment Pending Test Test Name Order Date Test, Urine 11/21/2016 MAMMOGRAM, SCREENING 05/25/2015 Urinalysis 06/15/2020 COMPLETE URINALYSIS 07/01/2021 THIN PREP,HPV,LAURY IF HPV+ (>29YR)(SCRN) 12/23/2017 URINE CULTURE 07/01/2021 MM Digital Mammo Screening 02/18/2019 MM Digital Mammo Screening 06/24/2021 MM Digital Mammo Screening 09/25/2022 MM Digital Mammo Screening 12/30/2023 US Breast Left Limited 08/07/2017 Urinalysis, Complete-[id number] 01/22/2024 Urine Culture, Routine-[id number] 01/22/2024 Next Appt Details Provider Name:Mony dumont, 01/04/2025 09:00:00 AM, [address], [address], [place], [address], Insurance Providers Payer Name Payer Address Payer Phone Subscriber Number Group Number Insured Name Patient Relationship to Insured Coverage Start Date Coverage End Date [employer] [address] PRIYANKA DEVRIES [id number] GREGORIO MILLER Self - patient is the insured Medical (General) History Medical History History ICD Code Excessive and frequent menstruation with regular cycle N92.0 Essential (primary) hypertension I10 Migraine, unspecified, not intractable, without status migrainosus G43.909 Type 2 diabetes mellitus with unspecifie d complications E11.8 Solitary cyst of left breast N60.02 Inconclusive mammogram R92.2 Unspecified urinary incontinence R32 Unspecified lump in the right breast, up per outer quadrant N63.11 Unspecified menopausal and perimenopausa l disorder N95.9 Mammographic heterogeneous density, bila teral breasts R92.333 Surgical History Surgery Date(Month/Year) Right Knee Surgery/Total Knee Replacemen t Colonoscopy Right Breast Biopsy 08/31/19 Cholecystectomy 10/2023 Hospitalization History Reason Date(Month/Year) See Surgical Hx 3 Vaginal Deliveries
--- OUTSIDE RECORDS SUMMARY | 2024-10-26 10:40 | XMS_ITS ---
Author Organization [facility] Address [address] [facility] [facility] [address] [place] [address] Care Team Providers Care Scientific Informatics Analyst Name Role Phone Dmitri Armas DO Primary Care Provider Unavail able Mony Munoz Unavailable [phone] Allergies No Known Allergies Results Component Value Reference Range Notes Urinalysis Reviewed date:01/04/2024 11:47:35 AM Interpretation: Performing Lab: Notes/Report: NITRITE NEG PH 5.0 PROTEIN MOD S.G 1.025 WBC LG GLUCOSE LG KETONES NEG UROBILINOGEN NEG BILIRUBIN TR BLOOD LG Urinalysis, Complete-[id number] Reviewed date:01/13/2024 01:51:39 PM Interpretation: Performing Lab:Yuri Velazquez, [address] [place] [address], Phone - [phone], Director - Edward Notes/Report: Specific Walton >=1.030 1.005-1.030 pH 5.5 5.0-7.5 Urine-Color Yellow [...] Bacteria None seen None seen/Few Urine Culture, Routine-[id number] Reviewed date:01/06/2024 08:24:06 AM Interpretation: Performing Lab:Yuri Velazquez, [address] [place] [address], Phone - [phone], Director - Edward Notes/Report: Urine Culture, Routine Final report Result 1 No growth PDF Report Reviewed date:01/06/2024 08:23:56 AM Interpretation: Performing Lab:[facility], [place], Phone - [phone], Director - Edward Notes/Report: REASON FOR VISIT IUD REMOVAL/Repeat UA/C+S Medications Medication SIG (Take, Route, Frequency, Duration) Notes Start Date End Date Status Vitamin D3 Active Mirena 20 MCG/24HR Intrauterine inserted 12/01/2016 Active Iron Active Bactrim DS 800-160 MG 1 tablet Orally TW ICE A DAY for 7 days 12/30/2023 Active metFORMIN HCl 500 MG 1 Orally twice daily 10/25/19 14 Active Lisinopril 12/30/2023 Active Gabapentin 300 MG [...] EVERY WEEK DIRECTED Subcutaneous for 28 Active Social History Tobacco Use: Social History [...] less (1 point) Points 1 Interpretation Negative Vital Signs Temperature 97.3 degrees Fahrenheit 01/04/20 24 Blood pressure systolic 130 mm Hg 01/04/20 24 Blood pressure diastolic 82 mm Hg 024 Height 64.5 in 01/04/2024 Weight 174 lbs 01/04/2024 BMI 29.4 kg/m2 01/04/2024 Encounters Encounter Location Date Provider Diagnosis Total [facility] [address] [facility] [address] [place] [address] 01/04/2024 Mony Munoz Encounter for routin e checking of intrauterine contraceptive device Z30.431 and Menopausal and female climacteric states N95.1 Assessments Encounter Date Diagnosis (ICD Code) Assessment Notes Treatment Notes Treatment Clinical Notes Section Notes 01/04/2024 Encounter for routine checking of intrauterine contraceptive device (ICD-10 - Z30.431) REASSURED PAT THAT IUD IS IN PLACE AND SINCE THIS CAN SAFELY STAY IN PLACE OFR 8 YEARS, WE WILL REMOVE NEXT YEAR. 01/04/2024 Menopausal and female climacteric states (ICD-10 - N95.1) DISCUSSED MENOPAUSE AND SYMPTOMS ASSOCIATED WITH THIS. Plan Of Treatment Treatment Notes Assessment Notes Encounter for routine checki ng of intrauterine contraceptive device REASSURED PAT THAT IUD IS IN PLACE AND SINCE THIS CAN SAFELY STAY IN PLACE OFR 8 YEARS, WE WILL REMOVE NEXT YEAR. Menopausal and female climacteric states DISCUSSED MENOPAUSE AND SYMPTOMS ASSOCIATED WITH THIS. Next Appt Details Follow Up: 1 Year, Reason: Provider Name:Mony dumont, 01/04/2025 09:00:00 AM, [address] [facility] [facility], [address], [place], [address], Progress Notes * JAMIR MILLERB:11/1964 (58 yo F)Acc No.[id number]:01/04/2024 Progress Note Patient:?ARNOLDO YUNIOR IBARRA Appointment Provider:?Mony dumont M.D. :1965???Age:58 Y???Sex:Female D ate:01/04/2024 Address:[address] [place], [place] [id number] Pcp:Dmitri Armas, DO Subjective: * Chief Complaints: * ???IUD REMOVAL/Repeat UA/C+S * HPI: ???New/Follow-up Patient Consult:? MIRENA IUD WAS INSERTED IN NOVEMBER 2016 TO DECREASE MENORRHAGIA.? SHE HAS NOT HAD ANY BLEEDING SINCE THEN AND EVEN HER MENOPAUSAL SYMPTOMS WERE VERY MILD.? HORMONE EVALUATION SHOWED SHE IS POST MENOPAUSE.? SHE IS HERE FOR IUD REMOVAL BUT ON QUESTIONING PAT, SHE IS WORRIED THAT HER HOT FLASHES AND NIGHT SWEATS WILL WORSEN WHEN WE REMOVE THE IUD, WE DECIDED TO KEEP THE IUD ANOTHER YEAR SINCE MIRENA IUD NOW CAN BE KEPT IN PLACE FOR 8 YEARS. OFFICIAL UA AND URINE C/S WERE DONE AGAIN.? HER PREVIOUS SAMPLE WAS CONTAMINATED. * ROS:?general:?no?chest pain.?no?palpitations.?no?headache.?no?cough.?no?shortness of breath.?no?fever.?no?unexplained weight loss.?no?nausea/vomiting.?no?change in bowel movements.?no blood in stool.?no?genitourinary complaints.?no?skin complaints.? * Medical History:? * Engine Repair Supervisor History:?/ Para?10/17.?Sexual activity?currently sexually active.?Last Pap Smear:?12/30/23 (Pending) 06/24/21 NIL, NEG HPV, 12/23/17 NIL NEG HRHPV, [...] alcohol in the past year??No ?Points?0 ?Interpretation?Negative ???Miscellaneous:?Children: yes, 3. ?Domestic violence: no. ?Exercise: no. ?Home smoke detector use: yes. ?Living with: spouse. ?Marital status: . ?Natural support system: yes. ?Occupation: Retired law Inforcement. ?Sexual abuse: no. ?Sexually active: yes, monogamous relationship. ?Verbal abuse: no. ???Drug/Alcohol:?AUDIT-C (Standard)?Did you have a drink containing [...] 1 tablet Orally Once a day Lisinopril Bactrim DS 800-160 MG Tablet 1 tablet Orally TWICE A DAY Medication List reviewed and reconciled with the patientTaking Iron Taking Vitamin D3 Taking Mirena 20 [...] tablet Orally Once a day Taking Lisinopril Taking Bactrim DS 800-160 MG Tablet 1 tablet Orally TWICE A DAY Medication List reviewed and reconciled with the patient * Allergies:?N.K.D.A.no[Allerg ies Verified] Objective: * Vitals:?Ht: 64.5 in, Wt:174l bs, BMI:29.4Index, BP:130/82mm Hg, Temp:97.3F. * Examination: ???SOLAR SALES ADVISOR exam: ?EXTERNAL GENITALIA:?Normal female. No lesions, erythema or discharge.?VAGINA:?pink horne. No discharge or lesions. No cystocele or rectocele.?CERVIX:?No cervical motion tenderness, discharge or lesions, IUD strings are in place.? Assessment: * Assessment: 1.?Encounter for routine atilio cking of intrauterine contraceptive device - Z30.431 (Primary)?2.?Menopausal and female climacteric states - N95.1? Plan: * Treatment: 2.?Menopausal and female cli macteric states? Notes: DISCUSSED MENOPAUSE AND SYMPTOMS ASSOCIATED WITH THIS.?? * Labs:? * ?Lab: Urinalysis, Ortega -[id number] ?Lab: Urine Culture, Haim stephens-[id number] ?[facility] - [facility] ? Value Reference Range ?NITRITE NEG * ?PH 5.0 * ?PROTEIN MOD * ?S.G 1.025 * ?WBC LG * ?GLUCOSE LG * ?KETONES NEG * ?UROBILINOGEN NEG * ?BILIRUBIN TR * ?BLOOD LG * Procedure Codes:? * Follow Up:?1 Year * Images: Billing Information: * Visit Code:? * Procedure Codes:? * Sign off status: Completed true * Appointment Provider:?Mony Munoz M.D. Date:?01/04/2024 Generated for Siomara navarro/Taylor/eTkenishaitting on:?10/26/2024 10:39 AM EDT History and Physical Notes * HPI (History of Present Illness) Category Sub-Category Detail Notes Category Not es New/Follow-up Patient Consult MIRENA IUD WAS INSERTED IN NOVEMBER 2016 TO DECREASE MENORRHAGIA. SHE HAS NOT HAD ANY BLEEDING SINCE THEN AND EVEN HER MENOPAUSAL SYMPTOMS WERE VERY MILD. HORMONE EVALUATION SHOWED SHE IS POST MENOPAUSE. SHE IS HERE FOR IUD REMOVAL BUT ON QUESTIONING PAT, SHE IS WORRIED THAT HER HOT FLASHES AND NIGHT SWEATS WILL WORSEN WHEN WE REMOVE THE IUD, WE DECIDED TO KEEP THE IUD ANOTHER YEAR SINCE MIRENA IUD NOW CAN BE KEPT IN PLACE FOR 8 YEARS. OFFICIAL UA AND URINE C/S WERE DONE AGAIN. HER PREVIOUS SAMPLE WAS CONTAMINATED. Examination Category Sub-Category Detail Notes Category Not es SOLAR SALES ADVISOR exam CERVIX: No cervical chris on tenderness, discharge or lesions, IUD strings are in place VAGINA: pink horne. No disch arge or lesions. No cystocele or rectocele EXTERNAL GENITALIA: Normal female. No le sions, erythema or discharge
--- OUTSIDE RECORDS SUMMARY | 2024-10-26 10:40 | XMS_ITS ---
Author Organization [facility] Address [address] [place] [address] Care Team Providers Care Mine Car Repairer Name Role Phone Chanda (RETIRED) Dmitri MILLER Primary Care Provid er Unavailable Dmitri Torres Unavailable [phone] REASON FOR VISIT r/s for jul 20 Encounters Encounter Location Date Provider Diagnosis [facility] [address] [place] [address] 07/09/2024 Dmitri Torres Plan Of Treatment No Information Progress Notes * SHELLEY MILLERADOB:11/1964 (59 yo F)Acc No.[id number]:07/09/2024 Patient:?YUNIOR MILLER :1965???Age:59 Y???Sex:Female Address:[address] [place] [address] [place], [address] * true * Date:? Generated for Siomara navarro/Taylor/eTransmitting on:?10/26/2024 10:39 AM EDT
--- OUTSIDE RECORDS SUMMARY | 2024-10-26 10:40 | XMS_ITS | Patient Health Record ---
Author Organization [facility] Address [address] [place] [address] Care Team Providers Care Lamp Replacer Name Role Phone Chanda (RETIRED) Dmitri MILLER Primary Care Provid er Unavailable Dmitri Torres Unavailable [phone] Allergies No Known Allergies Results Component Value Reference Range Notes Glucose, Whole Blood Reviewed date:01/25/2024 11:38:43 PM Interpretation: Performing Lab:[facility], [address] [place] [phone] Notes/Report: Glucose, Whole Blood 92 60-115 mg/dL METER # : [id number] Pathology Reviewed date:04/28/2024 07:06:32 PM Interpretation: Performing Lab:[facility], [address] [place] [phone] Notes/Report: Name: Gregorio Miller Age/Sex: 59/F : 1965 Unit#: [id number] Attend Dr: Dmitri Torres Re01/25/24 Status: [facility] Location: [facility] Disch: SPEC : [id number] RECD: 01/25/24 STATUS: ROBBIE ADORNO NUM: [id number] RAMO: 01/25/[address] [facility] [address]: Dmitri Torres ENTERED: 01/25/24 SP TYPE: Surgical OTHR DR: Dmitri Armas DO ORDERED: HE Stain/3, Gross Micro L4 Diagnosis Small bowel, biopsy: Small intestinal mucosa within normal limits; negative for celiac disease. Clinical History Pre-Op Dx: Screening, anemia Post-Op Dx: Upper: hiatal hernia; Lower: diverticulosis, hemorrhoids Microscopic Description Microscopic sections reviewed. Material Received Biopsy of small intestine, r/o celiac disease Gross Description Received in formalin labeled ?biopsy of small intestine, rule out celiac disease? are 6 velvety, schultz-pink irregular tissue fragments ranging from 0.2 to 0.35 cm, submitted in toto in a cassette labeled A. CEDS Copies To: Dmitri Armas DO [address] [place] [phone] Dmitri Torres [address] [place] [address] [phone] PRIYANKA Mann [id number] Signed (signature on file) Christos Swan MD 01/26/24 0430 END OF REPORT Complete Blood Count Auto Di ff Reviewed date:05/01/2024 05:13:29 PM Interpretation: Performing Lab:[facility], [address] [place] [phone] Notes/Report: White Blood Count 7.8 4.8-10.8 X10*3/uL Red Blood Count 4.19 4.20-5.50 X10*6/uL Hemoglobin 11.9 12.0-16.0 g/dl Hematocrit 36.3 37.0-47.0 % Mean Corpuscular Volume 86.6 80.0-98.0 fL Mean Corpuscular Hemoglobin 28.4 27.0-33.0 pg Mean Corpuscular HGB Conc 32.8 31.0-35.0 g/dl Red Cell Distribution Width 13.2 11.0-16.0 % Platelet Count 279 160-400 X10*3/uL Mean Platelet Volume 10.5 9.4-12.3 fL Neutrophils Percent Auto 61.0 45-73 % Imm Gran Pct Auto 0.4 0.0-0.4 % Lymphocytes Percent Auto 30.5 20-40 % Monocytes Percent Auto 5.0 2-11 % Eosinophils Percent Auto 2.3 0-4 % Basophils Percent Auto 0.8 0-2 % NRBC Pct Auto 0.0 0.0-0.2 /100WBC Neutrophils Absolute Auto 4.8 2.0-8.3 x10*3/u L Imm Gran Abs Auto 0.03 0.00-0.03 X10*3/uL Lymphocytes Absolute Auto 2.4 1.2-4.9 X10*3/u L Monocytes Absolute Auto 0.4 0.1-1.2 X10*3/uL Eosinophils Absolute Auto 0.2 0.0-0.4 X10*3/u L Basophils Absolute Auto 0.1 0.0-0.2 X10*3/uL NRBC Abs Auto 0.000 0.0-0.012 X10*3/uL Liver Panel Reviewed date:05/01/2024 05:13:40 PM Interpretation: Performing Lab:[facility], [address] [place] [phone] Notes/Report: Bilirubin Total 1.1 0.0-1.0 mg/dL Bilirubin Direct 0.5 0.0-0.5 mg/dL Aspartate Amino Transferase 16 5-31 U/L Alanine Aminotransferase 28 0-31 U/L Total Protein 7.2 6.5-8.0 g/dL Albumin Level 3.9 3.5-5.0 g/dL Alkaline Phosphatase 282 39-117 U/L Amylase Reviewed date:05/01/2024 05:13:46 PM Interpretation: Performing Lab:[facility], [address] [place] [phone] Notes/Report: Amylase 36 28-100 U/L Lipase Reviewed date:05/01/2024 05:13:57 PM Interpretation: Performing Lab:[facility], [address] [place] [phone] Notes/Report: Lipase 21 8-78 U/L Reason For Referral Referring Provider First Name Dmitri Referring Provider Last Name Chanda (RE TIRED) Referring Provider Speciality Internal M edicine Referred Organization [facility] Referred Provider Dmitri Torres Referred Address [address] [place] [address],[address],[address], Referred Provider Specialty Gastroentero logy General Notes Robina Garcia 024 11:38:23 AM EDT > [phone] Armas's to request a [facility] referral for egd/colon with Dr. Torres on 2024 Referral Priority Routine Medications Medication SIG (Take, Route, Frequency, Duration) Notes Start Date End Date Status Jardiance 10 MG Oral for 90 Ac tive Rizatriptan Benzoate 10 MG Oral for 30 Active Atorvastatin Calcium 20 MG Oral for 90 Active metFORMIN HCl 1000 MG Oral for 90 Active Lisinopril 10 MG Oral for 90 A ctive Vitamin D3 50 MCG (1999) Oral for 90 Active Biotin Active Mounjaro 5 MG/0.5ML Subcutaneous for 28 Active rOPINIRole HCl 0.5 MG Oral for 29 Active Propranolol HCl ER 60 MG Oral for 90 Active Gabapentin 300 MG Oral for 90 Active Immunizations Vaccine Route Administration Date Status Comme nts Influenza Unknown 07/17/2023 Administered Social History Tobacco Use: Social History Observation Description Date Details (start date - stop date) Never Smoker NA - NA Tobacco Use/Smoking Question Answer Notes Patient is a nonsmoker Alcohol Screen Question Answer Notes Did you have a drink contain ing alcohol in the past year? Yes How often did you have a dri nk containing alcohol in the past year? Monthly or less (1 point) How many drinks did you have on a typical day when you were drinking in the past year? 1 or 2 drinks (0 point) How often did you have 6 or more drinks on one occasion in the past year? 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 confirmed Problem Diverticular disease of colon (904077337) Diverticulosis of large intestine without perforation or abscess without bleeding (K57.30) Active confirmed Problem 96620737 Calculus of gallbladder without cholecystitis without obstruction (K80.20) Active confirmed Problem History of gastrointestinal tract bypass (001493449) Intestinal bypass and anastomosis status (Z98.0) Active confirmed Problem Elevated liver enzymes level (811863967) Elevated LFTs (R79.89) Active confirmed Problem 312887880 Elevated liver function tests (R79.89) Active confirmed Problem 574012836 Elevated liver enzymes (R74.8) Active confirmed Problem 205011378 Fatty liver (K76.0) Active confirmed Problem 282426212 Gallstones (K80.20) Active confirmed Problem 813616225 B12 deficiency (E53.8) Active confirmed Problem 98365264 Iron deficiency anemia, unspecified iron deficiency anemia type (D50.9) Active confirmed Problem Upper abdominal pain (81893692) Upper abdominal pain (R10.10) Active confirmed Problem History of excision of intestinal structure (082386357) History of laparoscopic cholecystectomy (Z90.49) Active confirmed Encounters Encounter Location Date Provider Diagnosis [facility] [address] [place] [phone] 01/25/2024 Dmitri Torres Encounter for screen ing colonoscopy Z12.11 ; Diverticulosis of large intestine without perforation or abscess without bleeding K57.30 ; Other hemorrhoids K64.8 ; Iron deficiency anemia secondary to blood loss (chronic) D50.0 ; Hiatal hernia K44.9 and Intestinal bypass and anastomosis status Z98.0 [facility] [address] [place] [address] 11/06/2023 Dmitri Torres Iron deficiency anem ia, unspecified iron deficiency anemia type D50.9 [facility] [address] [place] [address] 11/16/2023 Dmitri Torres B12 deficiency E53.8 [facility] [address] [place] [address] 11/23/2023 Dmitri Torres B12 deficiency E53.8 [facility] [address] [place] [address] 12/09/2023 Dmitri Torres B12 deficiency E53.8 [facility] [address] [place] [address] 02/05/2024 Dmitri Torres [facility] [address] [place] [address] 08/08/2024 Dmitri Torres B12 deficiency E53.8 [facility] [address] [place] [address] 11/02/2023 Dmitri Torres [facility] [address] [place] [address] 04/21/2024 Dmitri Torres Elevated LFTs R79.89 ; Upper abdominal pain R10.10 and History of laparoscopic cholecystectomy Z90.49 [facility] [address] [place] [address] 07/09/2024 Dmitri Torres Assessments Encounter Date Diagnosis (ICD Code) Assessment Notes Treatment Notes Treatment Clinical Notes Section Notes 01/25/2024 Encounter for screening colonoscopy (ICD-10 - Z12.11) 01/25/2024 Diverticulosis of large intestine without perforation or abscess without bleeding (ICD-10 - K57.30) 11/06/2023 Iron deficiency anemia, unspecified iron deficiency anemia type (ICD-10 - D50.9) Start a daily Iron pill for the anemia 11/16/2023 B12 deficiency (ICD-10 - E53.8) 11/23/2023 B12 deficiency (ICD-10 - E53.8) 12/09/2023 B12 deficiency (ICD-10 - E53.8) 08/08/2024 B12 deficiency (ICD-10 - E53.8) 04/21/2024 Elevated LFTs (ICD-10 - R79.89) 01/25/2024 Other hemorrhoids (ICD-10 - K64.8) 04/21/2024 Upper abdominal pain (ICD-10 - R10.10) 01/25/2024 Iron deficiency anemia secondary to blood loss (chronic) (ICD-10 - D50.0) 04/21/2024 History of laparoscopic cholecystectomy (ICD-10 - Z90.49) 01/25/2024 Hiatal hernia (ICD-10 - K44.9) 01/25/2024 Intestinal bypass and anastomosis status (ICD-10 - Z98.0) Plan Of Treatment Pending Test Test Name Order Date LIVER PROFILE 08/13/2023 LIVER PROFILE 04/21/2024 LIVER PROFILE 02/13/2023 IRON + IBC (FE) 08/13/2023 IRON + IBC (FE) 02/13/2023 VITAMIN B12 AND FOLATE 08/13/2023 CBC w DIFF 02/13/2023 CBC w DIFF 08/13/2023 CBC w DIFF 04/21/2024 MRI ABD NO CONTRAST (MRCP) 04/21/2024 FLUOR. ANTINUCLEAR AB SCREEN (MELVA) 01/17 Prothrombin Time INR 02/13/2023 Ferritin 08/13/2023 Ferritin 02/13/2023 Gamma Glutamyl Transpeptidase 08/13/2023 Amylase 04/21/2024 Lipase 04/21/2024 Alpha 1 Anti-trypsin 02/13/2023 Alkaline Phosphatase Isoenzyme Liver Fibrosis Pnl 02/13/2023 Mitochondrial Antibody 02/13/2023 Smooth Muscle Antibody 02/13/2023 Hepatitis B,C Profile 02/13/2023 Future Test Test Name Order Date UPPER GI ENDOSCOPY 08/13/2023 COLONOSCOPY 08/13/2023 Insurance Providers Payer Name Payer Address Payer Phone Subscriber Number Group Number Insured Name Patient Relationship to Insured Coverage Start Date Coverage End Date [employer] [address] PRIYANKA DEVRIES [phone] [id number] GREGORIO MILLER Self - patient is the insured Medications Administered Medication Instructions Date of Administration Dosage Notes B12 11/06/2023 1000 ug B12 11/16/2023 1000 ug B-12 11/23/2023 1000 ug B-12 12/09/2023 1000 ug B12 08/08/2024 1000 mL Medical (General) History Medical History History ICD Code NIDDM HTN Gallstones--she did have anna e borderline extrahepatic bile duct dilatation, but MRCP was negative for choledocholithiasis--she was referred to see Dr. Armas and Dr. Mac in regard to surgery in 2022 Obesity for which she underw ent gastric bypass surgery in 2017 and lost 60 pounds Hyperlipidemia Denies [place],CVA,Lung disease,renal disease Fatty liver with an otherwis e negative liver workup in 2022, including iron studies, alpha-1 antitrypsin level, viral serologies, and autoimmune studies. Her liver fibrosis or score was between F0-F1. Imaging studies were negative for any sign of significant liver disease nor portal hypertension Surgical History Surgery Date(Month/Year) Left/right knee replacement Gastric bypass with Dr. Mac 03/18 Panniculectomy
--- OUTSIDE RECORDS SUMMARY | 2024-10-26 10:40 | XMS_ITS ---
Author Organization [facility] Address [address] [place] [address] Care Team Providers Care Spectral Scientist Name Role Phone Chanda (RETIRED) Dmitri MILLER Primary Care Provid er Unavailable Dmitri Torres Unavailable [phone] REASON FOR VISIT b12 Medications Medication SIG (Take, Route, Frequency, Duration) Notes Start Date End Date Status metFORMIN HCl 1000 MG Oral for 90 Active Lisinopril 10 MG Oral for 90 A ctive Vitamin D3 50 MCG (1999) Oral for 90 Active Biotin Active Mounjaro 5 MG/0.5ML Subcutaneous for 28 Active Jardiance 10 MG Oral for 90 Ac tive Rizatriptan Benzoate 10 MG Oral for 30 Active Atorvastatin Calcium 20 MG Oral for 90 Active Propranolol HCl ER 60 MG Oral for 90 Active Gabapentin 300 MG Oral for 90 Active rOPINIRole HCl 0.5 MG Oral for 29 Active Encounters Encounter Location Date Provider Diagnosis [facility] [address] [place] [address] 08/08/2024 Dmitri Torres B12 deficiency E53.8 Assessments Encounter Date Diagnosis (ICD Code) Assessment Notes Treatment Notes Treatment Clinical Notes Section Notes 08/08/2024 B12 deficiency (ICD-10 - E53.8) Plan Of Treatment No Information Medications Administered Medication Instructions Date of Administration Dosage Notes B12 08/08/2024 1000 mL Progress Notes * ALICJA MILLERNENOADOB:11/1964 (59 yo F)Acc No.[id number]:08/08/2024 SHOT Patient:?FRANC YUNIOR IBARRA DA Provider:?Dmitri Torres MD :1965???Age:59 Y???Sex:Female D ate:08/08/2024 Address:[address] [place] [address], [place] Pcp:Dmitri Armas, DO Subjective: * Chief Complaints: * ???1. B12. * Medical History:? * Medications:?Taking Biotin , Taking Mounjaro 5 MG/0.5ML Solution Pen-injector Subcutaneous , Taking rOPINIRole HCl 0.5 MG Tablet Oral , Taking Propranolol HCl ER 60 MG Capsule Extended Release 24 Hour Oral , Taking Gabapentin 300 MG Capsule Oral , Taking Jardiance 10 MG Tablet Oral , Taking Rizatriptan Benzoate 10 MG Tablet Oral , Taking Atorvastatin Calcium 20 MG Tablet Oral , Taking metFORMIN HCl 1000 MG Tablet Oral , Taking Lisinopril 10 MG Tablet Oral , Taking Vitamin D3 50 MCG (1999) Capsule Oral Objective: Assessment: * Assessment: 1.?B12 deficiency - E53.8? Plan: * Treatment: * Therapeutic Injections:? B12 : 1000 mL (Dose No:1) (Route: Intramuscular) given by Zuleyka Montgomery on right arm intramuscular * Procedure Codes:?J3420 INJ V IT B-12 CYNOCOBLMN TO 1000 MCG, [address] THER/PROPH/DIAG INJ, SC/IM * * Sign off status: Completed true * Provider:?Dmitri Torres MD Date:? 024 Generated for Siomara navarro/Taylor/eTransmitting on:?10/26/2024 10:40 AM EDT
--- OUTSIDE RECORDS SUMMARY | 2024-10-26 10:40 | XMS_ITS | Clinical Summary ---
Author Organization [address] Address [address] [place] [phone] Phone Care Team Providers Care Icu Staff Nurse Name Role Phone Dmitri Armas DO Primary Care Provider [phone] Encounters Date Type Department Care Team Description 10/19/2024 Lab Requisition [facility] [address] [place] [phone] Prince Fonseca MD Urinary tract infection, site not specified from Last 3 Months Surgical History Surgery Date Site/Laterality Comments TOTAL KNEE ARTHROPLASTY Bilateral PROCEDURE:TOTAL KNEE ARTHROPLASTY BARIATRIC SURGERY 2017 PROCEDURE:BARIATRIC SURGERY;COMMENT:gastric bypass RHINOPLASTY 04/29/2022 Bilateral PROCEDURE:RHINOPLASTY;COMMENT:Proce dure: SECONDARY EXTERNAL RHINOPLASTY; Surgeon: Bryon Blevins MD; Location: [facility] MAIN OPERATING ROOM; Service: Plastics; Laterality: Bilateral; OTHER SURGICAL HISTORY 04/29/2022 Bilateral PROCEDURE:ABDOMINOPLASTY;COMMENT:Pr ocedure: ABDOMINOPLASTY, MONSPLASTY; Surgeon: Bryon Blevins MD; Location: [facility] MAIN OPERATING ROOM; Service: Plastics; Laterality: Bilateral; Medical History Medical History Date Comments Osteoporosis DX:Osteoporosis Prophylactic antibiotic DX:Proph ylactic antibiotic;COMMENT: knee replacement 2014 Hypertension DX:Hypertension Hyperlipidemia DX:Hyperlipidemi a Migraine headache DX:Migraine he adache Sleep apnea, obstructive DX:Slee p apnea, obstructive;COMMENT:tested but never treated Snores DX:Snores Diabetes mellitus, type II (CMS/HCC) DX:Diabetes mellitus, type II (HCC) Social History Tobacco Use Types Packs/Day Years Used Date Smoking Tobacco: Never Smokeless Tobacco: Never Alcohol Use Standard Drinks/Week Comments Yes 0 (1 standard drink = 0.6 oz pur e alcohol) Comments Unknown Sex and Gender Information Value Date Recorded Sex Assigned at Not on file Legal Sex Female 6:12 AM EST Gender Identity Not on file Sexual Orientation Not on file Obstetrics History Plan of Treatment Health Maintenance Due Date Last Done Comments Breast Cancer Screening 1965 DTaP,Tdap,and Td Vaccines (1 - Tdap) 01/18/1983 Cervical Cancer Screening: P ap Smear 01/18/1985 Pneumococcal Vaccine: 50+ Ye ars (1 of 1 - PCV) 01/18/2014 Zoster Vaccines (1 of 2) 01/18/2014 Colorectal Cancer Screening: Colonoscopy 07/20/2022 Depression Screening 07/20/2022 HIV Screening 07/20/2022 Hepatitis C Screening 07/20/2022 Medicare Annual Wellness Visit 07/20/2022 Social Influencers of Health Screening 07/20/2022 COVID-19 Vaccine ( - 2023-2 5 season) 2024 Influenza Vaccine (#1) 2024 RSV Immunization Patients 60 + Years Old (1 - 1-dose 75+ series) 01/18/2039 HIB Vaccines Aged Out No longer eligi ble based on patient's age to complete this topic HPV Vaccines Aged Out No longer eligi ble based on patient's age to complete this topic Hepatitis A Vaccines Aged Out No long er eligible based on patient's age to complete this topic Hepatitis B Vaccines Aged Out No long er eligible based on patient's age to complete this topic IPV Vaccines Aged Out No longer eligi ble based on patient's age to complete this topic MMR Vaccines Aged Out No longer eligi ble based on patient's age to complete this topic Meningococcal ACWY Vaccine Aged Out N o longer eligible based on patient's age to complete this topic Meningococcal B Vacine Aged Out No lo nger eligible based on patient's age to complete this topic Pneumococcal Vaccine: Pediat rics (0 to 5 Years) and At-Risk Patients (6 to 64 Years) Aged Out No longer eligible b ased on patient's age to complete this topic RSV Immunization Patients Un domingo 20 months Aged Out No longer eligible b ased on patient's age to complete this topic Varicella Vaccines Aged Out No longer eligible based on patient's age to complete this topic Medical Devices Implanted Type Area Cost Consultant Device Identifier Shelf Expiration Date Model / Serial / Lot Sealant Fibrin Vistaseal 4ml [facility] [id number] Implanted:Qty : 2 on 04/29/2022 by Bryon Blevins MD Implants N/A: Abdomen [employer] 10/23/2023 VST04 / / [id number] Sealant Fibrin Vistaseal 4ml [facility] [id number] Implanted:Qty : 1 on 04/29/2022 by Bryon Blevins MD Implants N/A: Abdomen [employer] 10/16/2023 VST04 / / [id number] Procedures Procedure Name Priority Date/Time Associated Diagnosis Comments CULTURE URINE Routine 10/19/2024 12:00 AM EST Urinary tract infection, site not specified from Last 3 Months Results * (ABNORMAL) Culture urine (10/19/2024 12:00 AM EST) Culture, Urine 10,000-49,000 CFU/mL Klebsiella pneumoniae ssp pneumoniae(A) CARYN 10/22/2024 11:44 AM EST [facility] Comment: The organism value for this result has been updated. These results have been appended to the previously preliminary verified report. This is an edited result. Previous organism was Gram negative bacilli on 10/21/2024 at 1418 EST. Urine Urine specimen obtained by clean catch procedure / Unknown 10/19/2024 10/19/2024 2:28 PM EST Narrative [facility] - 10/22/2024 11:44 AM EST Additional colony types present in insignificant amounts. Organism Antibiotic Method Susceptibility Klebsiella pneumoniae ssp pneumoniae Amoxicillin/Clavulanate CARYN 8 ug/ml: Susceptible Klebsiella pneumoniae ssp pneumoniae Ampicillin/Sulbactam CARYN 8 ug/ml: Susceptible Klebsiella pneumoniae ssp pneumoniae Piperacillin/Tazobactam CARYN <=4 ug/ml: Susceptible Klebsiella pneumoniae ssp pneumoniae Cefazolin (Urine) CARYN 2 ug/ml: Susceptible Klebsiella pneumoniae ssp pneumoniae Cefoxitin CARYN <=4 ug/ml: Susceptible Klebsiella pneumoniae ssp pneumoniae Ceftazidime CARYN <=0.5 ug/ml: Susceptible Klebsiella pneumoniae ssp pneumoniae Ceftriaxone CARYN <=0.25 ug/ml: Susceptible Klebsiella pneumoniae ssp pneumoniae Cefepime CARYN <=0.12 ug/ml: Susceptible Klebsiella pneumoniae ssp pneumoniae Meropenem CARYN <=0.25 ug/ml: Susceptible Klebsiella pneumoniae ssp pneumoniae Amikacin CARYN <=1 ug/ml: Susceptible Klebsiella pneumoniae ssp pneumoniae Gentamicin CARYN <=1 ug/ml: Susceptible Klebsiella pneumoniae ssp pneumoniae Ciprofloxacin CARYN <=0.06 ug/ml: Susceptible Klebsiella pneumoniae ssp pneumoniae Levofloxacin CARYN <=0.12 ug/ml: Susceptible Klebsiella pneumoniae ssp pneumoniae Nitrofurantoin CARYN 32 ug/ml: Susceptible Klebsiella pneumoniae ssp pneumoniae Trimethoprim/Sulfamethoxazo le CARYN <=20 ug/ml: Susceptible us Prince Fonseca MD LAB MICROBIOLOGY - NERAL ORDERABLES Final Result [facility] [address] [place] [address], [place] [phone] from Last 3 Months Insurance [employer] MEDICARE [facility] Care Teams Icu Staff Nurse Relationship Specialty Start Date End Date Dmitri Armas DO [address] [place] [phone] PCP - General Internal Medicine 04/14/22
--- OUTSIDE RECORDS SUMMARY | 2024-10-26 10:40 | XMS_ITS ---
Author Organization [employer] [facility] [address] [address] Care Team Providers Care Lmft Name Role Phone Dmitri Armas DO Primary Care Provider Mony Angeles Unavailable [phone] REASON FOR VISIT MEDS/UTI Encounters Encounter Location Date Provider Diagnosis [employer] [facility] [address] 01/22/2024 Mony Munoz Frequency of micturition R35.0 Assessments Encounter Date Diagnosis (ICD Code) Assessment Notes Treatment Notes Treatment Clinical Notes Section Notes 01/22/2024 Frequency of micturition (ICD-10 - R35.0) Plan Of Treatment Pending Test Test Name Order Date Urinalysis, Complete-[id number] 01/22/2024 Urine Culture, Routine-[id number] 01/22/2024 Next Appt Details Provider Name:Mony dumont, 01/04/2025 09:00:00 AM, [address] [place] [address], [place], [address], Progress Notes * SHELLEY MILLERADOB:11/1964 (59 yo F)Acc No.[id number]:01/22/2024 Patient:?YUNIOR MILLER :1965???Age:59 Y???Sex:Female Address:[address] [place] [address], [address] Subjective: * Chief Complaints: * ???MEDS/UTI * Medical History:? * Surgical History:? * Hospitalization/Major Diagno stic Procedure:? * Medications:? Objective: * Vitals:? * Physical Examination:? Assessment: * Assessment: 1.?Frequency of micturition - R35.0? Plan: * Treatment: * Procedure Codes:? * true * Date:? Generated for Siomara navarro/Taylor/Morales on:?10/26/2024 10:40 AM EDT
--- OUTSIDE RECORDS SUMMARY | 2024-10-26 10:40 | XMS_ITS | Encounter Summary ---
Author Organization [facility] Address [address] [place] [address] Care Team Providers Care Exhibit Designer Name Role Phone Dmitri Armas DO Primary Care Provider [phone] Encounter Details Date Type Department Care Team (Late st Contact Info) Description 10/19/2024 Lab Requisition [facility] - Main Lab 299 [facility] [place] [phone] Prince Fonseca MD [address] [facility] 120 [place], [place] [phone] Urinary tract infection, site not specified Social History Tobacco Use Types Packs/Day Years Used Date Smoking Tobacco: Never Smokeless Tobacco: Never Alcohol Use Standard Drinks/Week Comments Yes 0 (1 standard drink = 0.6 oz pur e alcohol) Comments Unknown Sex and Gender Information Value Date Recorded Sex Assigned at Not on file Legal Sex Female 6:12 AM EST Gender Identity Not on file Sexual Orientation Not on file documented as of this encounter Plan of Treatment Not on file documented as of this encounter Procedures Procedure Name Priority Date/Time Associated Diagnosis Comments CULTURE URINE Routine 10/19/2024 12:00 AM EST Urinary tract infection, site not specified documented in this encounter Results * (ABNORMAL) Culture urine (10/19/2024 12:00 AM EST) Culture, Urine 10,000-49,000 CFU/mL Klebsiella pneumoniae ssp pneumoniae(A) CARYN 10/22/2024 11:44 AM EST [facility] Comment: The organism value for this result has been updated. These results have been appended to the previously preliminary verified report. This is an edited result. Previous organism was Gram negative bacilli on 10/21/2024 at 1418 EST. Urine Urine specimen obtained by clean catch procedure / Unknown 10/19/2024 10/19/2024 2:28 PM EST Narrative [facility] [place] ([facility] - 10/22/2024 11:44 AM EST [...] pneumoniae Trimethoprim/Sulfamethoxazo le CARYN <=20 ug/ml: Susceptible Prince Fonseca MD LAB MICROBIOLOGY - [facility] ORDERABLES Final Result [facility] [address] [place] [address], documented in this encounter Visit Diagnoses Diagnosis Urinary tract infection, site not specified documented in this encounter Care Teams Exhibit Designer Relationship Specialty Start Date End Date Dmitri Armas DO [address] [place] [phone] PCP - General Internal Medicine 04/14/22 documented as of this encounter
== END 2024-10-26 10:09 | disposition home or self-care (01) ==
LOC: HO.HMCSH 09:41
PROVIDERS: PCP Internal Medicine; Visit Provider Physician Assistant Medical
DX: G62.9 Polyneuropathy, unspecified (principal); E66.01 Morbid (severe) obesity due to excess calories; I10 Essential (primary) hypertension; E11.8 Type 2 diabetes mellitus with unspecified complications; G47.33 Obstructive sleep apnea (adult) (pediatric); J45.909 Unspecified asthma, uncomplicated; Z98.84 Bariatric surgery status; E78.5 Hyperlipidemia, unspecified; D64.9 Anemia, unspecified

== ENCOUNTER → 2024-10-26 09:41 | Outpatient (BNVA) | payer OTHER, SELFPAY | PROVIDERS: PCP Internal Medicine; Visit Provider Physician Assistant Medical ==

== ENCOUNTER 2024-11-25 08:56 | Outpatient (REF) | payer OTHER, SELFPAY ==
--- OUTSIDE RECORDS SUMMARY | 2024-11-25 09:10 | XMS_ITS | Encounter Summary ---
Author Organization [facility] Address [address] [place] [address] Care Team Providers Care Stringing Machine Tender Name Role Phone Dmitri Armas DO Primary Care Provider [phone] Encounter Details Date Type Department Care Team (Late st Contact Info) Description 10/19/2024 Lab Requisition [facility] - Main Lab 299 [facility] [place] [phone] Prince Fonseca MD [address] [facility] 120 [place], [place] [phone] Urinary tract infection, site not specified Social [...] ssp pneumoniae(A) CARYN 10/22/2024 11:44 AM EST [facility] Comment: The organism value for this result has been updated. These results have been appended to the previously preliminary verified report. This is an edited result. Previous organism was Gram negative bacilli on 10/21/2024 at 1418 EST. Urine Urine specimen obtained by clean catch procedure / Unknown 10/19/2024 10/19/2024 2:28 PM EST Narrative [facility] [place] ([facility]) [facility] - 10/22/2024 11:44 AM EST Additional [...] Susceptible Prince Fonseca MD LAB MICROBIOLOGY - [facility] ORDERABLES Final Result [facility] [address] [place] [address], documented in this encounter Visit Diagnoses Diagnosis Urinary tract infection, site not specified documented in this encounter Care Teams Stringing Machine Tender Relationship Specialty Start Date End Date Dmitri Armas DO [address] [place] [phone] PCP - General Internal Medicine 04/14/22 documented as of this encounter
--- OUTSIDE RECORDS SUMMARY | 2024-11-25 09:10 | XMS_ITS | Clinical Summary ---
Author Organization [employer] [facility] Address [address] [place] [address] Care Team Providers Care Real Estate Account Executive Name Role Phone Dmitri Armas DO Primary Care Provider [phone] Allergies No known active allergies Medications Medication [...] this topic Medical Devices Implanted Type Area Slot Machine Department Floorperson Device Identifier Shelf Expiration Date Model / Serial / Lot Sealant Fibrin Vistaseal [facility]ml [facility] [id number] - [id number] Implanted:Qt y: 2 on 04/29/2022 by Bryon Blevins MD at [facility] Med Hemostatic Agent N/A: Abdomen [facility] [employer] 10/23/2023 VST04 / / [id number] Sealant Fibrin Vistaseal 4ml [facility] [id number] - [id number] Implanted:Qt y: 1 on 04/29/2022 by Bryon Blevins MD at [facility] and Med Hemostatic Agent N/A: Abdomen [employer] 10/16/2023 VST04 / / [id number] Advance Directives For more information, please contact: [phone] Latest Code Status on File Code Status Date Activated Date Inactivated Comments Full Code 04/29/2022 7:32 PM 05/01/2022 1:25 AM This code status was ascertained in the following way: discussion with patient . Care Teams Real Estate Account Executive Relationship Specialty Start Date End Date Dmitri Armas DO [address] [place] [phone] PCP - General Internal Medicine 04/14/22
--- OUTSIDE RECORDS SUMMARY | 2024-11-25 09:11 | XMS_ITS ---
Author Organization [facility] Address [address] [place] [address] Care Team Providers Care Body Maker Machine Setter Name Role Phone Chanda (RETIRED) Dmitri MILLER Primary Care Provid er Unavailable Dmitri Torres Unavailable [phone] REASON FOR VISIT b12 Medications Medication SIG [...] Active Encounters Encounter Location Date Provider Diagnosis [facility] [address] [place] [address] 08/08/2024 Dmitri Torres B12 deficiency E53.8 Assessments Encounter Date Diagnosis (ICD Code) Assessment Notes Treatment Notes Treatment Clinical Notes Section Notes 08/08/2024 B12 deficiency (ICD-10 - E53.8) Plan Of Treatment No Information Medications Administered Medication Instructions Date of Administration Dosage Notes B12 08/08/2024 1000 mL Progress Notes * ALICJA MILLERNENOADOB:11/1964 (59 yo F)Acc No.[id number]:08/08/2024 SHOT Patient:?FRANC YUNIOR IBARRA DA Provider:?Dmitri Torres MD :1965???Age:59 Y???Sex:Female D ate:08/08/2024 Address:[address] [place] [address], [phone] Pcp:Dmitri Armas, DO Subjective: * Chief Complaints: [...] V IT B-12 CYNOCOBLMN TO [address] [place], [address] THER/PROPH/DIAG INJ, SC/IM * * Sign off status: Completed true * Provider:?Dmitri Torres MD Date:? 024 Generated for Siomara navarro/Taylor/eTransmitting on:?11/25/2024 09:11 AM EDT
--- OUTSIDE RECORDS SUMMARY | 2024-11-25 09:11 | XMS_ITS | Clinical Summary ---
Author Organization [address] Address [address] [place] [phone] Phone Care Team Providers Care Drawing Tender Name Role Phone Dmitri Armas DO Primary Care Provider [phone] Encounters Date Type Department Care Team Description 10/19/2024 Lab Requisition [facility] - Main Lab 299 [place] [phone] Prince Fonseca MD Urinary tract infection, site not specified from Last 3 Months Surgical History Surgery Date Site/Laterality Comments TOTAL KNEE ARTHROPLASTY Bilateral PROCEDURE:TOTAL KNEE ARTHROPLASTY BARIATRIC SURGERY 2017 PROCEDURE:BARIATRIC SURGERY;COMMENT:gastric bypass RHINOPLASTY 04/29/2022 Bilateral PROCEDURE:RHINOPLASTY;COMMENT:Proce dure: SECONDARY EXTERNAL RHINOPLASTY; Surgeon: Bryon Blevins MD; Location: [facility] MAIN OPERATING ROOM; Service: Plastics; Laterality: Bilateral; OTHER SURGICAL HISTORY 04/29/2022 Bilateral PROCEDURE:ABDOMINOPLASTY;COMMENT:Pr ocedure: ABDOMINOPLASTY, MONSPLASTY; Surgeon: Bryon Blevins MD; Location: [facility] MAIN OPERATING ROOM; Service: Plastics; Laterality: Bilateral; Medical History Medical History Date Comments Osteoporosis DX:Osteoporosis Prophylactic antibiotic DX:Proph ylactic antibiotic;COMMENT: knee replacement 2014 Hypertension DX:Hypertension Hyperlipidemia DX:Hyperlipidemi a Migraine headache DX:Migraine he adache Sleep apnea, obstructive DX:Slee p apnea, obstructive;COMMENT:tested but never treated Snores DX:Snores Diabetes mellitus, type II ( CMS/HCC V24, CMS/HCC V28) DX:Diabetes mellitus, type I I ([facility]) Social History Tobacco Use Types Packs/Day Years [...] - 2023-2 5 season) 2024 Influenza Vaccine (Season Ended) 2025 RSV Immunization Adult Patie nts (1 - 1-dose 75+ series) 01/18/2039 HIB [...] age to complete this topic Meningococcal B Vaccine Aged Out No l onger eligible based on patient's age to complete [...] this topic Medical Devices Implanted Type Area Rolling Machine Operator Automatic Device Identifier Shelf Expiration Date Model / Serial / Lot Sealant Fibrin Vistaseal 4ml [facility] [id number] Implanted:Qty : 2 on 04/29/2022 by Bryon Blevins MD Implants N/A: Abdomen [employer] 10/23/2023 VST04 / / [id number] Sealant Fibrin Vistaseal 4ml [facility] [id number] Implanted:Qty : 1 on 04/29/2022 by Bryon Blveins MD Implants N/A: Abdomen [employer] 10/16/2023 VST04 / / [id number] Procedures Procedure Name Priority Date/Time Associated Diagnosis Comments CULTURE URINE Routine 10/19/2024 12:00 AM EST Urinary tract infection, site not specified from Last 3 Months Results * (ABNORMAL) Culture urine (10/19/2024 12:00 AM EST) Culture, Urine 10,000-49,000 CFU/mL Klebsiella pneumoniae ssp pneumoniae(A) CARYN 10/22/2024 11:44 AM EST [facility] Comment: The organism value for this result has been updated. These results have been appended to the previously preliminary verified report. This is an edited result. Previous organism was Gram negative bacilli on 10/21/2024 at 1418 EST. Urine Urine specimen obtained by clean catch procedure / Unknown 10/19/2024 10/19/2024 2:28 PM EST Narrative [facility] - 10/22/2024 11:44 AM EST Additional [...] Susceptible Prince Fonseca MD LAB MICROBIOLOGY - [facility] ORDERABLES Final Result [facility] ([facility]) [facility] [address] [place] [address], from Last 3 Months Insurance [employer] MED[employer]ARE [facility] Care Teams Drawing Tender Relationship Specialty Start Date End Date Dmitri Armas DO [address] [place] [phone] PCP - General Internal Medicine 04/14/22
--- OUTSIDE RECORDS SUMMARY | 2024-11-25 09:11 | XMS_ITS ---
Author Organization [facility] Address [address] [place] [address] Care Team Providers Care Cow Tester Name Role Phone Chanda (RETIRED) Dmitri MILLER Primary Care Provid er Unavailable Dmitri Torres Unavailable [phone] REASON FOR VISIT Common bile duct stone Problems Problem Type SNOMED Code ICD Code Onset Dates Problem Status W/U Status Risk Notes Problem Elevated liver enzymes level (866092866) Elevated LFTs (R79.89) Active confirmed Problem Upper abdominal pain (20910336) Upper abdominal pain (R10.10) Active confirmed Problem History of excision of intestinal structure (897865146) History of laparoscopic cholecystectomy (Z90.49) Active confirmed Encounters Encounter Location Date Provider [facility] [address] [place] [phone] 04/21/2024 Dmitri Torres Elevated LFTs R79.89 ; [...] Notes * ARNOLDO IBARRASHELLEYADOB:11/1964 (59 yo F)Acc No.[id number]:04/21/2024 Patient:?YUNIOR MILLER :1965???Age:59 Y???Sex:Female Address:[address] [place] [address], [place], [address] Subjective: * Chief Complaints: * ???Common bile [...] (MRCP)* R/O CBD stones, STAT reading approval -[id number],Evelyn 04/22/2024 10:02:09 AM EDT > sched at [facility] MRI for 04/28/24 arrival at 8:30 pm w/ STAT read, they will call pt with sooner appt per Hilton * 3.?History of laparoscopic cholecystectomy?LAB: LIVER PROFILE ?LAB: CBC w DIFF ?LAB: Amylase ?LAB: Lipase ?Imaging: MRI ABD NO CONTRAST (MRCP)* R/O CBD stones, STAT reading approval -[id number],Evelyn 04/22/2024 10:02:09 AM EDT > sched at [facility] for 04/28/24 arrival at 8:30 pm w/ STAT read, they will call pt with sooner appt per Hilton * * Procedure Codes:? * true * Date:? Generated for Davyi ng/Fakarig/eTransmitting on:?11/25/2024 09:10 AM EDT
--- OUTSIDE RECORDS SUMMARY | 2024-11-25 09:11 | XMS_ITS ---
Author Organization [facility] Address [address] [place] [phone] Care Team Providers Care Salon Designer Name Role Phone Chanda (RETIRED) Dmitri MILLER Primary Care Provid er Unavailable Dmitri Torres Unavailable [phone] REASON FOR VISIT r/s for jul 20 Encounters Encounter Location Date Provider Diagnosis [facility] [address] [place] [phone] 07/09/2024 Dmitri Torres Plan Of Treatment No Information Progress Notes * SHELLEY MILLERADOB:11/1964 (59 yo F)Acc No.[id number]:07/09/2024 Patient:?YUNIOR MILLER :1965???Age:59 Y???Sex:Female Address:[address] [place] [address] [place], [address] * true * Date:? Generated for Siomara navarro/Taylor/eTransmitting on:?11/25/2024 09:11 AM EDT
--- OUTSIDE RECORDS SUMMARY | 2024-11-25 09:11 | XMS_ITS | Patient Health Record ---
Author Organization [facility] Address [address] [place] [address] Care Team Providers Care Specialized Developer Name Role Phone Chanda (RETIRED) Dmitri MILLER Primary Care Provid er Unavailable Dmitri Torres Unavailable [phone] Allergies No Known Allergies Results Component Value Reference Range Notes Glucose, Whole Blood Reviewed date:01/25/2024 11:38:43 PM Interpretation: Performing Lab:[facility], [address] [place] [phone] Notes/Report: Glucose, Whole Blood 92 60-115 mg/dL METER # : [id number] Pathology Reviewed date:04/28/2024 07:06:32 PM Interpretation: Performing Lab:[facility], [address] [place] [phone] Notes/Report: Name: Gregorio Miller Age/Sex: 59/F : 1965 Unit#: [id number] Attend Dr: Dmitri Torres Re01/25/24 Status: [facility] Location: [facility] Disch: SPEC : [id number] RECD: 01/25/24 STATUS: ROBBIE ADORNO NUM: [id number] RAMO: 01/25/[address] [facility] [address]: Dmitri Torres ENTERED: 01/25/24 SP TYPE: [...] A. CEDS Copies To: Dmitri Armas DO [address] [place] [phone] Dmitri Torres [address] [place] [address] [phone] [place] [phone] Signed (signature on file) Christos Swan MD 01/26/24 2480 END OF REPORT Complete Blood Count Auto Di ff Reviewed date:05/01/2024 05:13:29 PM Interpretation: Performing Lab:[facility], [address] [place] [phone] Notes/Report: White Blood Count 7.8 4.8-10.8 X10*3/uL [...] Panel Reviewed date:05/01/2024 05:13:40 PM Interpretation: Performing Lab:[facility], [address] [place] [phone] Notes/Report: Bilirubin Total 1.1 0.0-1.0 mg/dL Bilirubin Direct 0.5 0.0-0.5 mg/dL Aspartate Amino Transferase 16 5-31 U/L Alanine Aminotransferase 28 0-31 U/L Total Protein 7.2 6.5-8.0 g/dL Albumin Level 3.9 3.5-5.0 g/dL Alkaline Phosphatase 282 39-117 U/L Amylase Reviewed date:05/01/2024 05:13:46 PM Interpretation: Performing Lab:[facility], [address] [place] [phone] Notes/Report: Amylase 36 28-100 U/L Lipase Reviewed date:05/01/2024 05:13:57 PM Interpretation: Performing Lab:[facility], [address] [place] [phone] Notes/Report: Lipase 21 8-78 U/L Reason For Referral Referring Provider First Name Dmitri Referring Provider Last Name Chanda (RE TIRED) Referring Provider Speciality Internal M edicine Referred Organization [facility] Referred Provider Dmitri Torres Referred Address [address] [place] [address],[address],[phone], Referred Provider Specialty Gastroentero logy General Notes Robina Garcia 024 11:38:23 AM EDT > [phone] Armas's to request a [facility] referral for egd/colon with Dr. Torres on [...] Problem Status W/U Status Risk Notes Problem 706908038 Colon cancer screening (Z12.11) Active confirmed Problem Anemia due to chronic blood loss (disorder) (960477736) Iron deficiency anemia secondary to blood loss (chronic) (D50.0) Active confirmed Problem Diverticular disease of colon (967162286) Diverticulosis of large intestine without perforation or abscess without bleeding (K57.30) Active confirmed Problem 29073271 Calculus of gallbladder without cholecystitis without obstruction (K80.20) Active confirmed Problem History of gastrointestinal tract bypass (649606177) Intestinal bypass and anastomosis status (Z98.0) Active confirmed Problem Elevated liver enzymes level (177434457) Elevated LFTs (R79.89) Active confirmed Problem 407644718 Elevated liver function tests (R79.89) Active confirmed Problem 709278576 Elevated liver enzymes (R74.8) Active confirmed Problem 089076820 Fatty liver (K76.0) Active confirmed Problem 210202515 Gallstones (K80.20) Active confirmed Problem 595182679 B12 deficiency (E53.8) Active confirmed Problem 22835095 Iron deficiency anemia, unspecified iron deficiency anemia type (D50.9) Active confirmed Problem Upper abdominal pain (95259960) Upper abdominal pain (R10.10) Active confirmed Problem History of excision of intestinal structure (980931498) History of laparoscopic cholecystectomy (Z90.49) Active confirmed Encounters Encounter Location Date Provider Diagnosis [facility] Outpatient [address] [place] [phone] 01/25/2024 Dmitri Torres Encounter for screen ing colonoscopy Z12.11 ; Diverticulosis of large intestine without perforation or abscess without bleeding K57.30 ; Other hemorrhoids K64.8 ; Iron deficiency anemia secondary to blood loss (chronic) D50.0 ; Hiatal hernia K44.9 and Intestinal bypass and anastomosis status Z98.0 [facility] [address] [place] [phone] 12/09/2023 Dmitri Torres B12 deficiency E53.8 [facility] [address] [place] [phone] 02/05/2024 Dmitri Torres [facility] [address] [place] [phone] 08/08/2024 Dmitri Torres B12 deficiency E53.8 [facility] [address] [place] [phone] 04/21/2024 Dmitri Torres Elevated LFTs R79.89 ; Upper abdominal pain R10.10 and History of laparoscopic cholecystectomy Z90.[address] [address] 07/09/2024 Dmitri Torres Assessments Encounter Date Diagnosis (ICD Code) Assessment Notes Treatment Notes Treatment Clinical Notes Section Notes 01/25/2024 Encounter for screening colonoscopy (ICD-10 - Z12.11) 01/25/2024 Diverticulosis of large intestine without perforation or abscess without bleeding (ICD-10 - K57.30) 12/09/2023 B12 deficiency (ICD-10 - E53.8) 08/08/2024 [...] Test Name Order Date LIVER PROFILE 04/21/2024 LIVER PROFILE 02/13/2023 LIVER PROFILE 08/13/2023 IRON + IBC (FE) 08/13/2023 IRON + IBC (FE) 02/13/2023 VITAMIN B12 AND FOLATE 08/13/2023 CBC w DIFF 08/13/2023 CBC w DIFF 04/21/2024 CBC w DIFF 02/13/2023 MRI ABD NO CONTRAST (MRCP) 04/21/2024 FLUOR. ANTINUCLEAR AB SCREEN (MELVA) 01/17 Prothrombin Time INR 02/13/2023 Ferritin 02/13/2023 Ferritin 08/13/2023 Gamma Glutamyl Transpeptidase 08/13/2023 Amylase 04/21/2024 Lipase [...] Insured Coverage Start Date Coverage End Date [place] [employer] [id number] [place]IYANKA DEVRIES [phone] [id number] GREGORIO MILLER Self - patient is the [...] she underw ent gastric bypass surgery in 2018 and lost 60 pounds Hyperlipidemia Denies [place],CVA,Lung disease,renal disease Fatty liver with an otherwis [...]
[2024-11-25 10:45] LABS: MANUAL DIFF FLAG NO
[2024-11-25 10:48] LABS: Creatinine Urine 83.67 mg/dL; Microalbum/Creatinine Ratio Ur 87.2 ug/mg cr (<30)
[2024-11-25 10:54] LABS: Basophils Absolute Auto 0.1 X10*3/uL (0.0-0.2); Eosinophils Absolute Auto 0.2 X10*3/uL (0.0-0.4); Eosinophils Percent Auto 2.9 % (0-4); Hematocrit 38.9 % (37.0-47.0); Hemoglobin 13.1 g/dl (12.0-16.0); Imm Gran Abs Auto 0.02 X10*3/uL (0.00-0.03); Imm Gran Pct Auto 0.3 % (0.0-0.4); Lymphocytes Absolute Auto 2.1 X10*3/uL (1.2-4.9); Lymphocytes Percent Auto 35.6 % (20-40); Mean Corpuscular HGB Conc 33.7 g/dl (31.0-35.0); Mean Corpuscular Hemoglobin 27.8 pg (27.0-33.0); Mean Corpuscular Volume 82.6 fL (80.0-98.0); Mean Platelet Volume 10.6 fL (9.4-12.3); Monocytes Absolute Auto 0.4 X10*3/uL (0.1-1.2); Monocytes Percent Auto 6.7 % (2-11); Neutrophils Absolute Auto 3.2 x10*3/uL (2.0-8.3); Neutrophils Percent Auto 53.5 % (45-73); Platelet Count 242 X10*3/uL (160-400); Red Blood Count 4.71 X10*6/uL (4.20-5.50); Red Cell Distribution Width 13.2 % (11.0-16.0)
[2024-11-25 11:07] LABS: Estimated Average Glucose 126 mg/dL; Hemoglobin A1C 147.6244 umol/L; Total Hemoglobin (HGBA1C) 3511.8205 umol/L
[2024-11-25 11:19] LABS: Alanine Aminotransferase 28 U/L (0-31); Albumin Level 4.2 g/dL (3.5-5.0); Alkaline Phosphatase 163 U/L (39-117); Anion Gap 11 (12-20); Aspartate Amino Transferase 30 U/L (5-31); Bilirubin Direct 0.3 mg/dL (0.0-0.5); Bilirubin Total 1.2 mg/dL (0.0-1.0); Blood Urea Nitrogen 14 mg/dL (9-16); C Reactive Protein 0.39 mg/dL (< or = 0.50); Calcium 9.5 mg/dL (8.4-10.2); Carbon Dioxide 27 mmol/L (22-29); Chloride 107 mmol/L (96-108); Cholesterol 141 mg/dL (<200); Estimated Glomerular Filt Rate > 60; Glucose Fasting 111 mg/dL (60-99); HDL Cholesterol 61 mg/dL (>40); Iron 73 mcg/dL (30-160); LDL Cholesterol Calculated 66 mg/dL (<100); Percent Iron Saturation 20 % (15-50); Sodium 141 mmol/L (135-145); Total Iron Binding Capacity 366 mcg/dL (228-428); Total Protein 7.4 g/dL (6.5-8.0); Triglycerides 73 mg/dL (<150); Unsaturated Iron Binding 293 ug/dL
[2024-11-25 11:34] LABS: TSH reflex Free T4 0.62 uIU/mL (0.32-4.0); Vitamin D 25-OH Total 35.4 ng/mL (>30)
[2024-11-25 11:41] LABS: Folate 14.3 ng/mL (> or = 4.0); Vitamin B12 564 pg/mL (200-900)
[2024-11-28 17:18] LABS: Lyme Abs Screen <0.90 index
[2024-11-28 23:43] LABS: Zinc 65 mcg/dL (60-130)
[2024-12-06 15:18] LABS: Vitamin B1 12 nmol/L (8-30)
== END 2024-11-25 08:57 | disposition home or self-care (01) ==
LOC: HO.HMGCLDS 08:56
PROVIDERS: PCP Internal Medicine; Visit Provider Physician Assistant Medical
DX: Z00.00 Encounter for general adult medical examination without abnormal findings (principal); E11.9 Type 2 diabetes mellitus without complications; D64.9 Anemia, unspecified
CPT/HCPCS: 36415; 80053; 80061; 80076; 82043; 82248; 82306; 82570; 82607; 82746; 83036; 83540; 83735; 84425; 84443; 84630; 85025; 86140; 86617; 86618

== ENCOUNTER 2024-12-15 10:04 | Outpatient (AMB) | payer OTHER, SELFPAY ==
--- NOTE | 2024-12-15 10:07 | A.OFFVIS_ITS ---
Vital Signs 12/15/24 10:08 Height 5 ft 5 in Weight 168 lb 10.458 oz BMI 28.1 BP 120/74 Blood Pressure Location Rt brachial Position Sitting Pulse 96 Pulse Source Pulse Oximeter Pulse Oximetry (%) 100 Oxygen Delivery Method Room Air Intake Visit Reasons: Obstructive sleep apnea Allergies No Known Allergies [No Known Allergies*] Allergy (Verified 12/15/24 10:32) Medication List - Last Reconciled 12/15/24 by Raisa Regan MD atorvastatin 20 mg PO DAILY cholecalciferol (vitamin D3) 50 mcg PO DAILY empagliflozin (Jardiance) 10 mg PO DAILY gabapentin 600 mg PO BEDTIME hyoscyamine sulfate 0.125 mg PO QID 90 days lisinopril 10 mg PO DAILY ondansetron 4 mg PO Q6H propranolol ER 60 mg PO BEDTIME rizatriptan take 1 tab at onset of headache; if no relief may repeat 1 tab after at least 2 hrs; max = 3 tabs/24 hr PO ropinirole 0.5 mg PO BEDTIME tirzepatide (Mounjaro) 5 mg (0.5 mL) subcut QWEEK Do you need a note to return to daycare/school/sports/work: No HPI HPI Obstructive sleep apnea: Details: GREGORIO IS 59 YEARS OLD FEMALE, BEING SEEN FOR THE 1ST TIME, FOR POSSIBLE SLEEP APNEA. SHE HAS HISTORY OF BEING DIAGNOSED TO HAVE OBSTRUCTIVE SLEEP APNEA ABOUT 20 YEARS AGO BY A LAB BASED SLEEP STUDY IN [place]. SHE WAS STARTED ON THE CPAP THERAPY, WHICH SHE USED FOR A FEW YEARS AND THEN HER SLEEP DOCTOR HAD RETIRED AND SHE DID NOT GO TO ANYONE ELSE FOR FOLLOW-UP. HER CPAP DEVICE BROKE DOWN AND SHE HAS NOT USED IT FOR MANY YEARS. SHE HAS ALWAYS HAD SNORING AT NIGHT HAS TOLD BY HER , BUT LATELY HER SNORING IS WORSE . SHE DOES WAKE UP A FEW TIMES DURING THE NIGHT WITH SOME SHORTNESS OF BREATH, NOT REALLY GASPING FOR AIR. SHE THINKS SHE IS NOT GETTING ENOUGH SLEEP AT NIGHT SO SHE REMAINS SLEEPY AND TIRED DURING THE DAYTIME. SHE TENDS TO DOZE OFF IF SHE IS READING A BOOK OR NEWSPAPER OR WATCHING TV OR SITTING IN A PUBLIC PLACE. A PASSENGER IN THE CAR GOING ON A LONG DISTANCE SHE DEFINITELY GOES TO SLEEP. IN THE AFTERNOON ESPECIALLY AFTER LUNCH SHE HAS A DESIRE TO FALL ASLEEP AND TAKE A NAP. EPWORTH SLEEPINESS SCALE IS CHECKED AND IT COMES TO . SHE IS SLIGHTLY OVERWEIGHT, HAS TYPE 2 DIABETES MELLITUS, HYPERTENSION AND HISTORY OF RESTLESS LEGS, WHICH MAY BE DUE TO PERIPHERAL NEUROPATHY. CURRENTLY SHE HAS BEEN STARTED ON MOUNJARO INJECTION Q 1 WEEK. PATIENT IS NONSMOKER AND ALSO DENIES ANY DRINKING OF ALCOHOL. SHE HAS HAD NO CHRONIC PULMONARY DISEASE. [facility] Medical History (Updated 12/15/24 @ 10:50 by Raisa Regan MD) Somnolence, daytime Restless leg syndrome Plantar fasciitis Osteoarthritis Migraine headache Mild hypercholesterolemia GERD (gastroesophageal reflux disease) History of mammogram (~12/19/21) Anemia Deviated septum General medical exam Asthma Neuropathy Gallstones RUQ pain Morbid obesity ARLEY (obstructive sleep apnea) Other and unspecified hyperlipidemia Essential hypertension Type 2 diabetes mellitus with unspecified complications Surgical History History of colonoscopy (~01/25/24) Hx laparoscopic cholecystectomy S/P panniculectomy Gastric bypass status for obesity History of bilateral knee replacement Family History Mother Asthma Father Hypertension Social History Alcohol intake: current Alcohol intake frequency: holidays/special occasions only Patient Tobacco Use Status: Never used Tobacco Review of Systems Eyes Reports no additional complaints ENT Reports nasal congestion (MILD CONGESTION OF AND ON) and Reports other (HISTORY OF SEPTOPLASTY IN THE PAST) Card Denies chest pain, Denies syncope, Denies irregular heart rhythm and Denies leg edema Resp Reports as per HPI GI Reports no additional complaints Reports nocturia Musc Reports no additional complaints Skin/Breast Reports system reviewed and no additional complaints, except as documented Neuro Reports no additional complaints and Denies syncope Psych Reports no additional complaints Endo Reports other (BEING TREATED FOR DIABETES MELLITUS) Aller/Immun Reports no additional complaints Physical Exam Vital Signs: Last Vital Signs Pulse 96 12/15/24 10:08 BP 120/74 12/15/24 10:08 Pulse Ox 100 12/15/24 10:08 Oxygen Delivery Method Room Air 12/15/24 10:08 BMI result Body Mass Index 28.1 Const General: healthy appearing, comfortable, no acute distress, alert and awake Orientation/consciousness: patient oriented x3 HEENT Head: Yes normal to inspection General nose exam: No nasal polyps present and No nasal discharge present Face and sinus: Yes sinuses nontender Mouth: oropharynx abnormals (TONGUE BASE IS CONVEX ,MODERATE NARROWING AND CROWDING, MALLAMPATI -3) Teeth and gingiva: other (MILD DEGREE OF RETROGNATHIA OF THE LOWER JAW IS NOTED.) Throat: Yes posterior oropharynx normal Eyes General: appearance normal, both eyes and all related structures Neck Neck: Yes normal visual inspection, Yes no lymphadenopathy, Yes trachea midline and Yes no JVD Thyroid: Thyroid normal Chest Chest palpation & inspection: normal inspection of the chest, normal palpation of entire chest wall and no tenderness Resp Effort & Inspection: normal respiratory effort Auscultation: clear to auscultation bilaterally, no crackles, no rales and no wheezes Cardio Palpation: normal PMI Rate: regular rate Rhythm: regular rhythm Heart sounds: no gallops and no murmurs Peripheral pulses: Peripheral pulses 2+ throughout GI Palpation (GI): Soft to palpation, nontender, No hepatosplenomegaly present and no masses Auscultation: normal bowel sounds Back/Spine/Pelvis Thoracic/Lumbar Spine: thoracic and lumbar spine normal to inspection Skin General skin exam: no rashes or lesions noted Neuro General: patient oriented x3 and no focal motor deficits Cranial nerves: Yes CN's II-XII intact bilaterally Extrem General: Yes normal to inspection, Yes no clubbing, cyanosis or edema and Yes no calf tenderness Psych Appearance: grossly normal Speech and movement: Normal speech and movement present Results Reviewed Results Reviewed: EPWORTH SLEEPINESS SCALE = 13/24 Assessment & Plan Assessment & Plan (1) Overweight: Comment: THIS PATIENT IS SLIGHTLY OVERWEIGHT AT THIS TIME WITH BMI 28. SHE HAS HISTORY OF BEING OBESE IN THE PAST. SHE HAS HISTORY OF GASTRO-PLASTY IN THE PAST. CURRENTLY BEING TREATED WITH TIRZEPATIDE ( MOUNJARO ) Code(s): E66.3 - Overweight Category: Medical Plan: MADE AWARE OF BEING OVERWEIGHT. SHE COULD LOSE ABOUT 10 LB OF WEIGHT AND WOULD FEEL BETTER. (2) ARLEY (obstructive sleep apnea): Comment: SHE HAS HISTORY VERY MUCH SUGGESTIVE OF OBSTRUCTIVE SLEEP APNEA DIAGNOSED ABOUT 20 YEARS AGO. SHE LOST FOLLOW-UP FOR SLEEP APNEA, AND LOST HER CPAP DEVICE MANY YEARS AGO. SHE MAY HAVE OBSTRUCTIVE SLEEP APNEA ON BASIS OF MILD OBESITY AND ALSO CONTRIBUTED BY MILD DEGREE OF RETROGNATHIA OF THE LOWER JAW Code(s): G47.33 - Obstructive sleep apnea (adult) (pediatric) Category: Medical Plan: EXPLAINED THAT SHE WOULD NEED A SLEEP STUDY, WHICH CAN BE DONE AT HOME. SHE IS HAPPY ABOUT DOING THIS OUTPATIENT. I A.M. PUTTING AN ORDER FOR HOME-BASED SLEEP STUDY. (3) Asthma: Comment: THERE IS A MENTION OF POSSIBLE ASTHMA THAT SHE MAY HAVE HAD IN THE PAST. BUT CURRENTLY SHE DENIES ANY COUGH OR WHEEZING. Code(s): J45.909 - Unspecified asthma, uncomplicated Category: Medical Plan: NO TREATMENT NEEDED FOR ASTHMA (4) Somnolence, daytime: Comment: SHE DOES HAVE DAYTIME SLEEPINESS. ESS SCORE IS 13/24 Code(s): R40.0 - Somnolence Category: Medical Plan: NOTED ABOVE SHE WOULD NEED A HOME-BASED SLEEP STUDY TO CHECK FOR SLEEP APNEA Orders: Orders RT home sleep study Today G47.33 - Obstructive sleep apnea (adult) (pediatric), R40.0 - Somnolence Coding Level of Care Code New Pt Level 4 (40269) Diagnoses Overweight E66.3 ARLEY (obstructive sleep apnea) G47.33 Asthma J45.909 Somnolence, daytime R40.0
[2024-12-15 10:08] VITALS: BP 120/74; PULSE 96; O2SAT 100; BMI 28.1
--- OUTSIDE RECORDS SUMMARY | 2024-12-15 11:23 | XMS_ITS | Encounter Summary ---
Author Organization [facility] Address [address] [place] [address] Care Team Providers Care Pulverizer Operator Name Role Phone Dmitri Armas DO Primary Care Provider [phone] Encounter Details Date Type Department Care Team (Late st Contact Info) Description 10/19/2024 Lab Requisition [facility] Main Lab [address] [facility] [place] [id number] Prince Fonseca MD [address] [facility] [address] [place], [place] [id number] Urinary tract infection, site not specified Social [...] pneumoniae(A) CARYN 10/22/2024 11:44 AM EST [facility] ([facility] Comment: The organism value for this result has been updated. These results have been appended to the previously preliminary verified report. This is an edited result. Previous organism was Gram negative bacilli on 10/21/2024 at 1418 EST. Urine Urine specimen obtained by clean catch procedure / Unknown 10/19/2024 10/19/2024 2:28 PM EST Narrative [facility] ([facility]) [facility] - 10/22/2024 11:44 AM EST Additional [...] Susceptible Prince Fonseca MD LAB MICROBIOLOGY - [facility] ORDERABLES Final Result [facility] [address] [place] [address], documented in this encounter Visit Diagnoses Diagnosis Urinary tract infection, site not specified documented in this encounter Care Teams Pulverizer Operator Relationship Specialty Start Date End Date Dmitri Armas DO [address] [place] [phone] PCP - General Internal Medicine 04/14/22 documented as of this encounter
--- OUTSIDE RECORDS SUMMARY | 2024-12-15 11:23 | XMS_ITS ---
Author Organization [employer] [facility] Address [address] [facility] [address] [place] [address] Care Team Providers Care Lip Cutter And Scorer Name Role Phone Dmitri Armas DO Primary Care Provider Unavail able Mony Munoz Unavailable [phone] Allergies No Known Allergies Results Component Value Reference Range Notes Urinalysis Reviewed date:01/04/2024 11:47:35 AM Interpretation: Performing Lab: Notes/Report: NITRITE NEG PH 5.0 PROTEIN MOD S.G 1.025 WBC LG GLUCOSE LG KETONES NEG UROBILINOGEN NEG BILIRUBIN TR BLOOD LG Urinalysis, Complete-[id number] Reviewed date:01/13/2024 01:51:39 PM Interpretation: Performing Lab:Yuri Velazquez, [address] [place] [address], Phone - [phone], Director - Edward Notes/Report: Specific [place] >=1.030 1.005-1.030 pH 5.5 5.0-7.5 Urine-Color Yellow [...] Bacteria None seen None seen/Few Urine Culture, Routine-[id number] Reviewed date:01/06/2024 08:24:06 AM Interpretation: Performing Lab:Yuri Velazquez, [address] [place] [address], Phone - [phone], Director - Edward Notes/Report: Urine Culture, Routine Final report Result 1 No growth PDF Report Reviewed date:01/06/2024 08:23:56 AM Interpretation: Performing Lab:[facility] [place], [place], Phone - [phone], Director - Edward Notes/Report: REASON FOR VISIT [...] Encounters Encounter Location Date Provider Diagnosis [facility] [address] [facility] [address] [place] [address] 01/04/2024 Mony Munoz Encounter for routin e [...] dumont, 01/04/2025 09:00:00 AM, [address] [facility], [address], [place], [address], Progress Notes * JAMIR MILLERB:11/1964 (58 yo F)Acc No.[id number]:01/04/2024 Progress Note Patient:?ARNOLDO YUNIOR IBARRA Appointment Provider:?Mony dumont M.D. :1965???Age:58 Y???Sex:Female D ate:01/04/2024 Address:[address] [place], [place] [id number] Pcp:Dmitri Armas, DO Subjective: * Chief Complaints: [...] stool.?no?genitourinary complaints.?no?skin complaints.? * Medical History:? * Splitting Machine Operator History:?/ Para?10/17.?Sexual activity?currently sexually active.?Last Pap Smear:?12/30/23 [...] bs, BMI:29.4Index, BP:130/82mm Hg, Temp:97.3F. * Examination: ???ROAD PRODUCTION GENERAL MANAGER exam: ?EXTERNAL GENITALIA:?Normal female. No lesions, erythema [...] THIS.?? * Labs:? * ?Lab: Urinalysis, Ortega -[id number] ?Lab: Urine Culture, Haim stephens-[id number] ?[facility] [...] Munoz M.D. Date:?01/04/2024 Generated for Siomara navarro/Taylor/eTkenishaitting on:?12/15/2024 11:22 AM EDT History and Physical Notes * [...] Category Sub-Category Detail Notes Category Not es ROAD PRODUCTION GENERAL MANAGER exam CERVIX: No cervical chris on tenderness, discharge or lesions, IUD strings are in place VAGINA: pink horne. No disch arge or lesions. No cystocele or rectocele EXTERNAL GENITALIA: Normal female. No le sions, erythema or discharge
--- OUTSIDE RECORDS SUMMARY | 2024-12-15 11:23 | XMS_ITS | Patient Health Record ---
Author Organization [employer] [facility] Address [address] [facility] [address] [place] [address] Care Team Providers Care Telecommunication Equipment Repairer Name Role Phone Dmitri Armas DO Primary Care Provider Unavail able Mony Munoz Unavailable [phone] Allergies No Known Allergies Results Component Value Reference Range Notes PDF Report Reviewed date:12/31/2023 08:25:05 AM Interpretation: Performing Lab:[facility], [address] [facility], Phone - [phone], Director - Edward Notes/Report: Urinalysis Reviewed date:01/04/2024 11:47:35 AM Interpretation: Performing Lab: Notes/Report: NITRITE NEG PH 5.0 PROTEIN MOD S.G 1.025 WBC LG GLUCOSE LG KETONES NEG UROBILINOGEN NEG BILIRUBIN TR BLOOD LG Urinalysis, Complete-[id number] Reviewed date:01/13/2024 01:51:39 PM Interpretation: Performing Lab:[facility] [place], [address] [facility], Phone - [phone], Director - Edward Notes/Report: Specific [place] >=1.030 1.005-1.030 pH 5.5 5.0-7.5 Urine-Color Yellow [...] Bacteria None seen None seen/Few Urine Culture, Routine-[id number] Reviewed date:01/06/2024 08:24:06 AM Interpretation: Performing Lab:Yuri Velazquez, [facility], Phone - [phone], Director - Edward Notes/Report: Urine Culture, Routine Final report Result 1 No growth PDF Report Reviewed date:01/06/2024 08:23:56 AM Interpretation: Performing Lab:Yuri Velazquez, [address] [place] [address], Phone - [phone], Director - Edward Notes/Report: Urine Culture, Routine-[id number] Reviewed date:01/06/2024 02:51:50 PM Interpretation: Performing Lab:Yuri Velazquez [address] [place] [address] [place], Phone - [phone], Director - Edward Notes/Report: Urine Culture, Routine Final report Result 1 Mixed urogenital charito 25,000-50,000 colony forming units per mL PDF Report Reviewed date:01/01/2024 08:27:05 AM Interpretation: Performing Lab:Yuri Velazquez, [address] [place] [address], Phone - [phone], Director - Edward Notes/Report: Clinical Information:SRC:UR PDF Report Reviewed date:01/05/2024 09:16:42 AM Interpretation: Performing Lab:Radha Saavedra, [address], [place], Phone - [phone], Director - [facility] Notes/Report: Clinical Information:Vaginal/Cervical, LMP: Non e with IUD Source.............Cervix;Vagina Dates / Results....06/24/21 NIL, Neg HPV Other..............IUD No. of containers..01 ThinPrep Vial PDF Report Reviewed date:01/06/2024 02:54:02 PM Interpretation: Performing Lab:Yuri Velazquez Al[facility], [place], Phone - [phone], - Edward Notes/Report: FSH+LH+E2 Reviewed date:01/01/2024 09:16:07 AM Interpretation: Performing Lab:[facility], Phone - [phone], Director - Edward Notes/Report: LH 25.4 Adult [...] trimester 215.0 - >4300.0 Yonas ECLIA methodology [id number] IGP No Culture 30 Plus Reviewed date:01/05/2024 09:14:57 AM Interpretation: Performing Lab:[facility] [place], Radha Patel, [address], [place], Phone - [phone], Director - [facility] Notes/Report: Clinical Information:Vaginal/Cervical, LMP: Non e with IUD Source.............Cervix;Vagina Dates / Results....06/24/21 NIL, Neg HPV Other..............IUD No. of containers..01 ThinPrep Vial DIAGNOSIS: NEGATIVE FOR IN TRAEPITHELIAL LESION OR MALIGNANCY. Specimen adequacy: Satisfact ory for evaluation. No endocervical component is identified. Clinician provided ICD10: Z0 1.419 Performed by: Blas funes, Orthoptist ([facility]) . . Note: The Pap smear [...] Criteria not met, HPV Genotype not performed. Urine Culture, Routine-[id number] Reviewed date:01/04/2024 09:12:16 AM Interpretation: Performing Lab:[facility] [place], [address] [facility], [place], Phone - [phone], Director - Edward Notes/Report: Clinical Information:SRC:UR Clinical Information:SRC:UR Urine Culture, Routine Final report Result 1 Greater than 2 organisms recovered, none predominant. Please submit another sample if clinically indicated. 50,000-100,000 colony forming units per mL Urinalysis, Complete-[id number] Reviewed date:01/12/2024 11:32:57 AM Interpretation: Performing Lab:[facility] [place], [address] [facility], [place], Phone - [phone], Director - Edward Notes/Report: Specific [place] 1.027 1.005-1.030 pH 5.5 5.0-7.5 Urine-Color Yellow [...] None seen /lpf Bacteria Many None seen/Few Urinalysis Reviewed date:12/30/2023 10:34:12 AM Interpretation: Performing Lab: Notes/Report: PH 5.0 PROTEIN Trace WBC Large GLUCOSE Large BLOOD Large Reason For Referral No Information Medications Medication [...] W/U Status Risk Notes Problem Urinary incontinence (734760154) Unspecified urinary incontinence (R32) Active confirmed Problem Type II diabetes mellitus without complication (025631831) Type 2 diabetes mellitus without complications (E11.9) Active confirmed Problem Unspecified menopausal and perimenopausal disorder (N95.9) Active confirmed Problem Menopause (644166133) Menopausal and female climacteric states (N95.1) Active confirmed Problem Candidal vulvovaginitis (68432334) Candidiasis of vulva and vagina (112.1) Active confirmed Diag Problem Migraine (disorder) (31844432) Migraine, unspecified without mention of intractable migraine without mention of status migrainosus (346.90) Active confirmed Major Problem Benign essential hypertension (8488169) Essential hypertension, benign (401.1) Active confirmed Major Problem Excessive and frequent menstruation (590165509) Excessive or frequent menstruation (626.2) Active confirmed Major Problem Gynecological examination normal (863777325088007) Routine gynecological examination (V72.31) Active confirmed Major Problem Insertion of intrauterine contraceptive device (74946768) Insertion of intrauterine contraceptive device (V25.1) Active confirmed Major Problem Surveillance of intrauterine device contraception done (175955916704331) Surveillance of previously prescribed intrauterine contraceptive device (V25.42) Active confirmed Other Problem Dietary management surveillance (833459315) Dietary surveillance and counseling (V65.3) Active confirmed Diag Vital Signs Temperature 97.3 degrees Fahrenheit 01/04/2024 Blood pressure diastolic 82 mm Hg 01/04/2024 Height 64.5 in 01/04/2024 Blood pressure systolic 130 mm Hg 01/04/2024 Weight 174 lbs 01/04/2024 BMI 29.4 kg/m2 01/04/2024 Encounters Encounter Location Date Provider Diagnosis [facility] [place] [address] [facility] [address] [address] 12/30/2023 Mony Munoz Encounter for gynecological examination [...] Type 2 diabetes mellitus without complications E11.9 [place] [address] [facility] [address] [address] 01/04/2024 Mony Munoz Encounter for routin e checking of intrauterine contraceptive device Z30.431 and Menopausal and female climacteric states N95.1 [address] [address] 01/22/2024 Mony Munoz Frequency of micturition R35.0 [...] 12/30/2023 US Breast Left Limited 08/07/2017 Urinalysis, Complete-[id number] 01/22/2024 Urine Culture, Routine-[id number] 01/22/2024 Next Appt Details Provider Name:Mony dumont, 01/04/2025 09:00:00 AM, [address], [address], [place], [address], Insurance Providers Payer Name Payer Address Payer Phone Subscriber Number Group Number Insured Name Patient Relationship to Insured Coverage Start Date Coverage End Date [employer] [address] PRIYANKA DEVRIES [id number] GREGORIO MILLER Self - patient is the [...]
--- OUTSIDE RECORDS SUMMARY | 2024-12-15 11:23 | XMS_ITS ---
Author Organization [employer] Address [facility] [address] [address] Care Team Providers Care Sharepoint Administrator Name Role Phone Dmitri Armas DO Primary Care Provider Mony Angeles Unavailable [phone] REASON FOR VISIT MEDS/UTI Encounters Encounter Location Date Provider Diagnosis [employer] [facility] [address] [address] 01/22/2024 Mony Munoz Frequency of micturition R35.0 Assessments Encounter Date Diagnosis (ICD Code) Assessment Notes Treatment Notes Treatment Clinical Notes Section Notes 01/22/2024 Frequency of micturition (ICD-10 - R35.0) Plan Of Treatment Pending Test Test Name Order Date Urinalysis, Complete-[id number] 01/22/2024 Urine Culture, Routine-[id number] 01/22/2024 Next Appt Details Provider Name:Mony dumont, 01/04/2025 09:00:00 AM, [address] [place] [address], [place], [address], Progress Notes * SHELLEY MILLERADOB:11/1964 (59 yo F)Acc No.[id number]:01/22/2024 Patient:?YUNIOR MILLER :1965???Age:59 Y???Sex:Female Address:[address] [place] [address], [address] Subjective: * Chief Complaints: * ???MEDS/UTI * Medical History:? * Surgical History:? * Hospitalization/Major Diagno stic Procedure:? * Medications:? Objective: * Vitals:? * Physical Examination:? Assessment: * Assessment: 1.?Frequency of micturition - R35.0? Plan: * Treatment: * Procedure Codes:? * true * Date:? Generated for Siomara navarro/Taylor/Morales on:?12/15/2024 11:23 AM EDT
--- OUTSIDE RECORDS SUMMARY | 2024-12-15 11:23 | XMS_ITS | Clinical Summary ---
Author Organization [address] Address [address] [place] [phone] Phone Care Team Providers Care Instructor Physical Name Role Phone Dmitri Armas DO Primary Care Provider [phone] Encounters Date Type Department Care Team Description 10/19/2024 Lab Requisition [facility] - Main Lab [address] [place] [phone] Prince Fonseca MD Urinary tract infection, site not specified from Last 3 Months Surgical History Surgery Date Site/Laterality Comments TOTAL KNEE ARTHROPLASTY Bilateral PROCEDURE:TOTAL KNEE ARTHROPLASTY BARIATRIC SURGERY 2017 PROCEDURE:BARIATRIC SURGERY;COMMENT:gastric bypass RHINOPLASTY 04/29/2022 Bilateral PROCEDURE:RHINOPLASTY;COMMENT:Proce dure: SECONDARY EXTERNAL RHINOPLASTY; Surgeon: Bryon Blevins MD; Location: [facility] MAIN OPERATING ROOM; Service: Plastics; Laterality: Bilateral; OTHER SURGICAL HISTORY 04/29/2022 Bilateral PROCEDURE:ABDOMINOPLASTY;COMMENT:Pr ocedure: ABDOMINOPLASTY, MONSPLASTY; Surgeon: Bryon Blevins MD; Location: [facility] MAIN OPERATING ROOM; Service: Plastics; Laterality: Bilateral; Medical History Medical History Date Comments Osteoporosis DX:Osteoporosis Prophylactic antibiotic DX:Proph ylactic antibiotic;COMMENT: knee replacement 2014 Hypertension DX:Hypertension Hyperlipidemia DX:Hyperlipidemi a Migraine headache DX:Migraine he adache Sleep apnea, obstructive DX:Slee p apnea, obstructive;COMMENT:tested but never treated Snores DX:Snores Diabetes mellitus, type II ( CMS/HCC V24, CMS/HCC V28) DX:Diabetes mellitus, type I I ([facility]) Social History Tobacco Use Types Packs/Day Years [...] this topic Medical Devices Implanted Type Area Industrial Technologist Device Identifier Shelf Expiration Date Model / Serial / Lot Sealant Fibrin Vistaseal 4ml [facility] [id number] Implanted:Qty : 2 on 04/29/2022 by Bryon Blevins MD Implants N/A: Abdomen [employer] 10/23/2023 VST04 / / [id number] 1 Sealant Fibrin Vistaseal 4ml [facility] [id number] Implanted:Qty : 1 on 04/29/2022 by Bryon Blevins MD Implants N/A: Abdomen [employer] 10/16/2023 VST04 / / [id number] Procedures Procedure Name Priority Date/Time Associated [...] Unknown 10/19/2024 10/19/2024 2:28 PM EST Narrative [facility] - 10/22/2024 11:44 AM EST Additional [...] LAB MICROBIOLOGY - NERAL ORDERABLES Final Result [facility] [address] [place] [address], from Last 3 Months Insurance [facility] Care Teams Instructor Physical Relationship Specialty Start Date End Date Dmitri Armas DO [address] [place] [phone] PCP - General Internal Medicine 04/14/22
--- OUTSIDE RECORDS SUMMARY | 2024-12-15 11:23 | XMS_ITS ---
Author Organization [facility] Address [address] [facility] [address] [place] [address] Care Team Providers Care Branch Service Representative Name Role Phone Dmitri Armas DO Primary Care Provider Unavail able Mony Munoz Unavailable [phone] Allergies No Known Allergies Results Component Value Reference Range Notes Urinalysis Reviewed date:12/30/2023 10:34:12 AM Interpretation: Performing Lab: Notes/Report: PH 5.0 PROTEIN Trace WBC Large GLUCOSE Large BLOOD Large Urinalysis, Complete-[id number] Reviewed date:01/12/2024 11:32:57 AM Interpretation: Performing Lab:[facility], [address] [facility], Phone - [phone], Director - Edward Notes/Report: Specific Holden 1.027 1.005-1.030 pH 5.5 5.0-7.5 Urine-Color Yellow [...] /lpf Bacteria Many None seen/Few Urine Culture, Routine-[id number] 7 Reviewed date:01/04/2024 09:12:16 AM Interpretation: Performing Lab:[facility], [address] [facility] [place], Phone - [phone], Director - Edward Notes/Report: Clinical Information:SRC:UR Clinical Information:SRC:UR Urine Culture, Routine Final report Result 1 Greater than 2 organisms recovered, none predominant. Please submit another sample if clinically indicated. 50,000-100,000 colony forming units per mL [id number] IGP No Culture 30 Plus Reviewed date:01/05/2024 09:14:57 AM Interpretation: Performing Lab:[facility] Mann, [address], [address], [place], Phone - [phone], Director - [facility] Notes/Report: Clinical Information:Vaginal/Cervical, LMP: Non e with IUD Source.............Cervix;Vagina Dates / Results....06/24/21 NIL, Neg HPV Other..............IUD No. of containers..01 ThinPrep Vial DIAGNOSIS: NEGATIVE FOR IN TRAEPITHELIAL LESION OR MALIGNANCY. Specimen adequacy: Satisfact ory for evaluation. No endocervical component is identified. Clinician provided ICD10: Z0 1.419 Performed by: Blas funes Chiropractic Doctor ([facility]) . . Note: The Pap smear [...] 08:25:05 AM Interpretation: Performing Lab:Yuri Velazquez, [address] [facility], Phone - [phone], Director - Edward Notes/Report: FSH+LH+E2 Reviewed date:01/01/2024 09:16:07 AM Interpretation: Performing Lab:[facility]uri Velazquez, [address] [facility], Phone - [phone], Director - Edward Notes/Report: LH 25.4 Adult [...] Yonas ECLIA methodology REASON FOR VISIT Annual SIMULATION ANALYST Physical, Annual SIMULATION ANALYST Physical 50-59* Medications Medication SIG (Take, Route, [...] Problem Type II diabetes mellitus without complication (623149174) Type 2 diabetes mellitus without complications (E11.9) Active confirmed Vital Signs Temperature 97.9 degrees Fahrenheit 12/30/19 24 Blood pressure systolic 140 mm Hg 12/30/19 24 Blood pressure diastolic 86 mm Hg 024 Height 64.5 in 12/30/2023 Weight 174 lbs 12/30/2023 BMI 29.4 kg/m2 12/30/2023 Encounters Encounter Location Date Provider Diagnosis [address] [phone] 12/30/2023 Mony Munoz Encounter for gynecological examination [...] Provider Name:Mony dumont, 01/04/2025 09:00:00 AM, [address], [address], [place], [address], Progress Notes * SHELLEY MILLERADOB:11/1964 (58 yo F)Acc No.[id number]:12/30/2023 PROGRESS NOTES Patient:?YUNIOR MILLER Appointment Provider:?Mony dumont M.D. :1965???Age:58 Y???Sex:Female D ate:12/30/2023 Address:[address] [place], [place] [phone] Pcp:Dmitri Armas, DO Subjective: * Chief Complaints: * ???Annual SIMULATION ANALYST PhysicalAnnual SIMULATION ANALYST Physical 50-59* * HPI: ???New/Follow-up Patient Consult:? [...] adequate calcium via diet and supplementation ?Significant SIMULATION ANALYST problems:?no significant turbine assembler symptoms or problems * ROS:?general:?no?chest pain.?no?palpitations.?no?headache.?no?cough.?no?shortness of breath.?no?fever.?no?unexplained weight loss.?no?nausea/vomiting.?no?change in bowel movements.?no blood in stool.?no?genitourinary complaints.?no?skin complaints.? * Medical History:? 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 * Labs:? * ?Lab: Urinalysis, Ortega -[id number] ?Lab: Urine Culture, Haim stephens-[id number] * Procedure Codes:? * Preventive Medicine:? ??YOUR PREVENTIVE WELLNESS PLAN:?Osteoporosis prevention?Calcium, D, strength training.?Breast Cancer Screening (Mammogram):?annually.?Cervical Cancer Screening (Pap Smear):?q 3 years with HPV screen.?Colorectal Cancer Screening:?q 10 years.? * Follow Up:?1 Year * Images: Billing Information: * Visit Code:? 58373 Preventive Care New Pt. Age 40-64. 43458 Preventive Care Est Pt. Age 40-64. * Procedure Codes:? * Sign off status: Completed true * Appointment Provider:?Mony Munoz M.D. Date:?12/30/2023 Generated for Siomara navarro/Taylor/eTransmitting on:?12/15/2024 11:23 AM EDT History and Physical Notes * [...] ate calcium via diet and supplementation Significant SIMULATION ANALYST problems:: n o significant turbine assembler symptoms or problems Examination Category Sub-Category Detail [...]
--- OUTSIDE RECORDS SUMMARY | 2024-12-15 11:23 | XMS_ITS | Clinical Summary ---
Author Organization [facility] Address [address] [place] [address] Care Team Providers Care Binder Caser Name Role Phone Dmitri Armas DO Primary Care Provider [phone] Allergies No known active allergies Medications Medication [...] this topic Medical Devices Implanted Type Area National Sales Executive Device Identifier Shelf Expiration Date Model / Serial / Lot Sealant Fibrin Vistaseal 4ml [facility] [id number] - [id number] Implanted:Qt y: 2 on 04/29/2022 by Bryon Blevins MD at [facility] and Med Hemostatic Agent N/A: Abdomen [facility] [employer] 10/23/2023 VST04 / / [id number] 1 Sealant Fibrin Vistaseal 4ml [facility] [id number] - [id number] Implanted:Qt y: 1 on 04/29/2022 by Bryon Bleivns MD at [facility] and Med Hemostatic Agent N/A: Abdomen [employer] 10/16/2023 VST04 / / [id number] Advance Directives For more information, please contact: [phone] Latest Code Status on File Code Status Date Activated Date Inactivated Comments Full Code 04/29/2022 7:32 PM 05/01/2022 1:25 AM This code status was ascertained in the following way: discussion with patient . Care Teams Binder Caser Relationship Specialty Start Date End Date Dmitri Armas DO [address] [place] [phone] PCP - General Internal Medicine 04/14/22
== END 2024-12-15 10:33 | disposition home or self-care (01) ==
LOC: HO.HPS 10:05
PROVIDERS: PCP Internal Medicine; Referring Provider Internal Medicine; Visit Provider Internal Medicine
DX: E66.3 Overweight (principal); G47.33 Obstructive sleep apnea (adult) (pediatric); J45.909 Unspecified asthma, uncomplicated; R40.0 Somnolence
CPT/HCPCS: 99204

== ENCOUNTER → 2024-12-15 10:04 | Outpatient (BNVA) | payer OTHER, SELFPAY | PROVIDERS: PCP Internal Medicine; Referring Provider Internal Medicine; Visit Provider Internal Medicine ==

== ENCOUNTER → 2025-02-23 10:48 | Outpatient (REF) | payer OTHER, SELFPAY ==
--- OUTSIDE RECORDS SUMMARY | 2025-02-23 11:30 | XMS_ITS | Clinical Summary ---
Author Organization [employer] [facility] Address [address] [place] [address] Care Team Providers Care Washing And Screening Plant Supervisor Name Role Phone Dmitri Armas DO Primary Care Provider [phone] Allergies No known active allergies Medications Medication [...] 107 04/30/2022 4:12 PM EDT Temperature 36.7 C (98 F) 04/30/2022 4:12 PM EDT Respiratory Rate 22 [...] (1 of 2) 01/18/2014 Influenza Vaccine (#1) 2025 RSV Adult > 60+ Yrs or Pregn [...] this topic Medical Devices Implanted Type Area Last Putter Away Device Identifier Shelf Expiration Date Model / Serial / Lot Sealant Fibrin Vistaseal 4ml [employer] [id number] - [id number] Implanted:Qt y: 2 on 04/29/2022 by Bryon Blevins MD at [facility] [place] and Med Hemostatic Agent N/A: Abdomen [facility] [employer] 10/23/2023 VST04 / / [id number] 1 Sealant Fibrin Vistaseal 4ml [facility] [id number] - [id number] Implanted:Qt y: 1 on 04/29/2022 by Bryon Blevins MD at [facility] [place] and Med Hemostatic Agent N/A: Abdomen [employer] 10/16/2023 VST04 / / [id number] Advance Directives For more information, please contact: [phone] Latest Code Status on File Code Status Date Activated Date Inactivated Comments Full Code 04/29/2022 7:32 PM 05/01/2022 1:25 AM This code status was ascertained in the following way: discussion with patient . Care Teams Washing And Screening Plant Supervisor Relationship Specialty Start Date End Date Dmitri Armas DO [address] [place] [phone] PCP - General Internal Medicine 04/14/22
--- OUTSIDE RECORDS SUMMARY | 2025-02-23 11:30 | XMS_ITS | Encounter Summary ---
Author Organization [facility] Address [address] [place] [address] Care Team Providers Care Braid Pattern Setter Name Role Phone Dmitri Armas DO Primary Care Provider [phone] Encounter Details Date Type Department Care Team (Late st Contact Info) Description 10/19/2024 Lab Requisition [facility] - Main Lab [address] [facility] [place] [phone] Prince Fonseca MD [address] [facility] [address] [place], [place] [phone] Urinary tract infection, site not specified Social [...] pneumoniae(A) CARYN 10/22/2024 11:44 AM EST [facility] Comment: The organism value for this result has been updated. These results have been appended to the previously preliminary verified report. This is an edited result. Previous organism was Gram negative bacilli on 10/21/2024 at 1418 EST. Urine Urine specimen obtained by clean catch procedure / Unknown 10/19/2024 10/19/2024 2:28 PM EST Narrative [facility] ([facility]) [facility] - 10/22/2024 11:44 AM EST [...] Susceptible Prince Fonseca MD LAB MICROBIOLOGY - [facility] ORDERABLES [facility] [address] [place] [address], documented in this encounter Visit Diagnoses Diagnosis Urinary tract infection, site not specified documented in this encounter Care Teams Braid Pattern Setter Relationship Specialty Start Date End Date Dmitri Armas DO [address] [place] [phone] PCP - General Internal Medicine 04/14/22 documented as of this encounter
== END ==
LOC: HO.SL 10:48
PROVIDERS: PCP Internal Medicine; Visit Provider Internal Medicine
DX: Z13.89 Encounter for screening for other disorder (principal)

== ENCOUNTER 2025-04-18 09:53 | Outpatient (AMB) | payer OTHER, SELFPAY ==
--- NOTE | 2025-04-18 09:56 | A.OFFVIS_ITS ---
VS Expanded 04/18/25 10:10 BP 133/60 Blood Pressure Location Rt brachial Blood Pressure Position Sitting Pulse 84 Pulse Source Pulse Oximeter Temp 97.2 F Temperature Source Temporal Artery Scan Pulse Oximetry 97 Oxygen Delivery Method Room Air Height 5 ft 5 in Weight 168 lb 12.8 oz BMI 28.1 Body Fat % 30.6 Body Fat Mass 51.6 Fat Free Mass 117.0 Visceral Fat Rating 8.0 Body Water % 49.2 Body Water Mass 82.8 Muscle Mass/Score 111.2 Basal Metabolic Rate/Score 1,557 Intake Visit Reasons: OV PO LRYGB 04/14/18 Allergies No Known Allergies (No Known Allergies*) Allergy (Verified 04/18/25 10:00) Medication List - Last Reconciled 04/18/25 by GUS Alvarez atorvastatin 20 mg PO DAILY cholecalciferol (vitamin D3) 50 mcg PO DAILY empagliflozin (Jardiance) 10 mg PO DAILY gabapentin 600 mg PO BEDTIME lisinopril 10 mg PO DAILY propranolol ER 60 mg PO BEDTIME rizatriptan take 1 tab at onset of headache; if no relief may repeat 1 tab after at least 2 hrs; max = 3 tabs/24 hr PO ropinirole 0.5 mg PO BEDTIME tirzepatide (Mounjaro) 5 mg (0.5 mL) subcut QWEEK HPI Comments Details: This?is a?59?yo female who is s/p RYGB 04/14/2018. Presents for 7 year post op visit. No complaints of nausea, emesis, abdominal pain or reflux, or constipation. Was able to have a procedure to remove residual gallstones. Pt on Mounjaro for about 2 years, was started on it for blood sugar control. Also stopped metformin. Planning to stop Jardiance and increase Mounjaro to 7.5mg. Did not have bloodwork done but planning to go after visit. Present meal plan includes: 1 protein shake per day 2 food based meals takes MVI Exercise routine includes: walking every other day Have you been diagnosed with reflux (GERD)? Score 0-5: 0=no symptoms, 1=noticeable but not bothersome (slight or occasional), 2=noticeable, bothersome but not daily, 3=bothersome and daily, 4=affects daily activities, 5=incapacitating, unable to do daily activities How bad is the heartburn: 1 Heartburn when lying down: 0 Heartburn when standing up: 1 Heartburn after meals: 2 Does heartburn change your diet: 5 Does heartburn wake you up from sleep: 0 Do you have difficulty swallowin Do you have pain with swallowin If you take medication for reflux, does this affect your daily life: 0 Total score: 9 Pt has excess skin of arms and legs that has become bothersome. Regarding skin of legs, pt has developed chafing due to friction between legs. Has used topical oil to try to relieve this without effect. When she walks, the skin rubs together and causes discomfort. It is difficult to find pants that fit well and comfortably; if they fit in the waist, they do not fit around the legs. Regarding skin of arms, pt notes chafing due to skin rubbing against torso. She has to wear longer sleeves to protect the skin; cannot wear sleeveless shirts or tank tops. Skin sometimes gets pinched in bra straps. [facility] Medical History (Updated 04/18/25 @ 10:08 by GUS Alvarez) Somnolence, daytime Restless leg syndrome Plantar fasciitis Osteoarthritis Migraine headache Mild hypercholesterolemia GERD (gastroesophageal reflux disease) History of mammogram (~12/19/21) Anemia Deviated septum General medical exam Asthma Neuropathy Gallstones RUQ pain Morbid obesity ARLEY (obstructive sleep apnea) Other and unspecified hyperlipidemia Essential hypertension Type 2 diabetes mellitus with unspecified complications Surgical History History of colonoscopy (~01/25/24) Hx laparoscopic cholecystectomy S/P panniculectomy Gastric bypass status for obesity History of bilateral knee replacement Family History Mother Asthma Father Hypertension Social History Alcohol intake: current Alcohol intake frequency: holidays/special occasions only Patient Tobacco Use Status: Never used Tobacco Assessment & Plan Assessment & Plan (1) Overweight: Code(s): E66.3 - Overweight Category: Medical (2) History of gastric bypass: Code(s): Z98.84 - Bariatric surgery status Category: Surgical Plan Target weight 162lbs prior to skin removal surgery. Gave RightBMI irene info and pt was very happy with this. Rx pantoprazole as well as Zofran to help with nausea likely related to Mounjaro. Pt will have labs done. RTC 3-4mo to monitor weight loss progress. Medications: New ondansetron 4 mg PO Q8H PRN 30 tabs 1RF nausea and vomiting pantoprazole 40 mg PO DAILY 90 tabs 3RF
[2025-04-18 10:10] VITALS: BP 133/60; PULSE 84; TEMP 36.2; O2SAT 97; BMI 28.1
--- OUTSIDE RECORDS SUMMARY | 2025-04-18 11:09 | XMS_ITS | Clinical Summary ---
Author Organization [facility] Address [address] [place] [address] Care Team Providers Care Lab Pack Chemist Name Role Phone Dmitri Armas DO Primary Care Provider [phone] Allergies No known active allergies Medications Medication [...] this topic Medical Devices Implanted Type Area Living Supervisor Device Identifier Shelf Expiration Date Model / Serial / Lot Sealant Fibrin Vistaseal 4ml [employer] [id number] - [id number] Implanted:Qt y: 2 on 04/29/2022 by Broyn Blevins MD [place] [facility] [place] Hemostatic Agent N/A: Abdomen [facility] [employer] 10/23/2023 VST04 / / [id number] 1 Sealant Fibrin Vistaseal 4ml [facility] [id number] - [id number] Implanted:Qt y: 1 on 04/29/2022 by Bryon Blevins MD at [facility] Med Hemostatic Agent N/A: Abdomen [employer] 10/16/2023 VST04 / / [id number] Advance Directives For more information, please contact: [phone] Latest Code Status on File Code Status Date Activated Date Inactivated Comments Full Code 04/29/2022 7:32 PM 05/01/2022 1:25 AM This code status was ascertained in the following way: discussion with patient . Care Teams Lab Pack Chemist Relationship Specialty Start Date End Date Dmitri Armas DO [address] [place] [phone] PCP - General Internal Medicine 04/14/22
--- OUTSIDE RECORDS SUMMARY | 2025-04-18 11:09 | XMS_ITS | Encounter Summary ---
Author Organization [facility] Address [address] [place] [address] Phone Care Team Providers Care Insemination Worker Name Role Phone Unavailable Primary Care Provider Unavailabl e Reason for Referral * MRI/CAT Scan - New Request Specialty Diagnoses / Procedures Referred By Florentin chino Referred To Contact Radiology Diagnoses Other chronic sinusitis Procedures CT Face Dewey Hicks DO [address], [facility] [address] [place] [address] Phone: tel: fax: [email or web address] Referral ID Status Reason Start Date Expiration Date V isits Requested Visits Authorized [id number] New Request 04/11/2025 1 1 Encounter Details Date Type Department Care Team (Latest Contact Info) Description 04/11/2025 Transcribe Orders Virtual Department [address] [place] [address] Dewey Hicks DO [address], [address] [place] [address] [email or web address] Other chronic sinusitis (Primary Dx) Social History Tobacco Use Types Packs/Day Years Used Date Smoking Tobacco: Never Assessed Comments Unknown Sex and Gender Information Value Date Recorded Sex Assigned at Not on file Legal Sex Female 6:25 PM EST Gender Identity Not on file Sexual Orientation Not on file documented as of this encounter Plan of Treatment Scheduled Orders Name Type Priority Associated Diagnoses Orde r Schedule CT Face Imaging Routine Other chronic sinusitis Expected: 04/11/2025, Expires: 04/11/2026 documented as of this encounter Visit Diagnoses Diagnosis Other chronic sinusitis- Primary documented in this encounter Additional Source Comments The information contained in this document represents components of the legal health record. It is not the complete legal health record.[facility]
--- OUTSIDE RECORDS SUMMARY | 2025-04-18 11:09 | XMS_ITS | Clinical Summary ---
Author Organization [address] Address [address] [place] [phone] Phone Care Team Providers Care Broadcast Designer Name Role Phone Dmitri Armas DO Primary Care Provider [phone] Surgical History Surgery Date Site/Laterality Comments TOTAL KNEE ARTHROPLASTY Bilateral PROCEDURE:TOTAL KNEE ARTHROPLASTY BARIATRIC SURGERY 2017 PROCEDURE:BARIATRIC SURGERY;COMMENT:gastric bypass RHINOPLASTY 04/29/2022 Bilateral PROCEDURE:RHINOPLASTY;COMMENT:Proce dure: SECONDARY EXTERNAL RHINOPLASTY; Surgeon: Bryon Blevins MD; Location: [facility] MAIN OPERATING ROOM; Service: Plastics; Laterality: Bilateral; OTHER SURGICAL HISTORY 04/29/2022 Bilateral PROCEDURE:ABDOMINOPLASTY;COMMENT:Pr ocedure: ABDOMINOPLASTY, MONSPLASTY; Surgeon: Bryon Blevins MD; Location: [facility] MAIN [facility]PERATING ROOM; Service: Plastics; Laterality: Bilateral; Medical History Medical History Date Comments Osteoporosis DX:Osteoporosis Prophylactic antibiotic DX:Proph ylactic antibiotic;COMMENT: knee replacement 2014 Hypertension DX:Hypertension Hyperlipidemia DX:Hyperlipidemi a Migraine headache DX:Migraine he adache Sleep apnea, obstructive DX:Slee p apnea, obstructive;COMMENT:tested but never treated Snores DX:Snores Diabetes mellitus, type II ( CMS/HCC V24, CMS/HCC V28) DX:Diabetes mellitus, type I I ([facility]) Social History Tobacco Use Types Packs/Day Years [...] ars (1 of 1 - PCV) 01/18/2014 Colorectal Cancer Screening: Colonoscopy 07/20/2022 HIV Screening 07/20/2022 Hepatitis C Screening 07/20/2022 Medicare Annual Wellness Visit 07/20/2022 Social Influencers of Health Screening 07/20/2022 Zoster Vaccines (1 of 2) 02/12/2024 12/18/2023 Depression Screening 08/17/2024 COVID-19 Vaccine (1 - 2023-2 5 season) 2025 Influenza Vaccine (#1) 2025 06/26/2006 RSV Immunization Adult Patie nts (1 - 1-dose 75+ series) 01/18/2039 Meningococcal ACWY Vaccine Aged Out 12/18/2023 N o longer eligible based on patient's age to complete this topic Varicella Vaccines Aged Out 12/18/2023 No longer eligible based on patient's age to complete this topic HIB Vaccines Aged Out No longer eligi [...] this topic Medical Devices Implanted Type Area Clinical Tech Device Identifier Shelf Expiration Date Model / Serial / Lot Sealant Fibrin Vistaseal 4ml [facility] [id number] Implanted:Qty : 2 on 04/29/2022 by Bryon Blevins MD Implants N/A: Abdomen [facility] [employer] 10/23/2023 VST04 / / [id number] Sealant Fibrin Vistaseal 4ml [employer] [id number] Implanted:Qty : 1 on 04/29/2022 by Bryon Blevins MD Implants N/A: Abdomen [employer] 10/16/2023 VST04 / / [id number] Insurance [employer] MEDICARE [address] Care Teams Broadcast Designer Relationship Specialty Start Date End Date Dmitri Armas DO [address] [place] [phone] PCP - General Internal Medicine 04/14/22
--- OUTSIDE RECORDS SUMMARY | 2025-04-18 11:09 | XMS_ITS | Encounter Summary ---
Author Organization [facility] Address [address] [place] [address] Care Team Providers Care Kettle Skimmer Name Role Phone Dmitri Armas DO Primary Care Provider [phone] Encounter Details Date Type Department Care Team (Late st Contact Info) Description 10/19/2024 Lab Requisition [facility] - Main Lab [address] [facility] [place] [id number] Prince Fonseca MD [address] [facility] [address] [place], [place] [id number] Urinary tract infection, site not specified Social [...] ssp pneumoniae(A) CARYN 10/22/2024 11:44 AM EST [facility] ([facility]) [facility] Comment: The organism value for this result has been updated. These results have been appended to the previously preliminary verified report. This is an edited result. Previous organism was Gram negative bacilli on 10/21/2024 at 1418 EST. Urine Urine specimen obtained by clean catch procedure / Unknown 10/19/2024 10/19/2024 2:28 PM EST Narrative [facility] ([facility]) [facility] - 10/22/2024 11:44 [...] Susceptible Prince Fonseca MD LAB MICROBIOLOGY - [facility] ORDERABLES Final Result [facility] [address] [place] [address], documented in this encounter Visit Diagnoses Diagnosis Urinary tract infection, site not specified documented in this encounter Care Teams Kettle Skimmer Relationship Specialty Start Date End Date Dmitri Armas DO [address] [place] [phone] PCP - General Internal Medicine 04/14/22 documented as of this encounter
--- OUTSIDE RECORDS SUMMARY | 2025-04-18 11:09 | XMS_ITS | Clinical Summary ---
Author Organization [facility] Address [address] [place] [phone] Phone Care Team Providers Care Director Cardiovascular Name Role Phone Unavailable Primary Care Provider Unavailabl e Encounters Date Type Department Care Team Description 04/11/2025 Transcribe Orders Virtual Department [address] [place] [address] Dewey Hicks DO Other chronic sinusitis (Primary Dx) from Last 3 Months Social History Tobacco Use Types Packs/Day Years Used Date Smoking Tobacco: Never Assessed Comments Unknown Sex and Gender Information Value Date Recorded Sex Assigned at Not on file Legal Sex Female 6:25 PM EST Gender Identity Not on file Sexual Orientation Not on file Plan of Treatment Not on file Medical Devices Not on file Additional Source Comments The information contained in this document represents components of the legal health record. It is not the complete legal health record.[facility]
== END 2025-04-18 10:29 | disposition home or self-care (01) ==
LOC: HO.HBS 09:54
PROVIDERS: PCP Internal Medicine; Visit Provider Physician Assistant Surgical
DX: E66.3 Overweight (principal); Z98.84 Bariatric surgery status
CPT/HCPCS: 99214

== ENCOUNTER 2025-05-03 09:10 | Outpatient (AMB) | payer OTHER, SELFPAY ==
--- NOTE | 2025-05-03 09:23 | MHC.PC.OV ---
Vital Signs 05/03/25 09:28 Height 5 ft 4.02 in Weight 170 lb BMI 29.2 BP 136/80 Blood Pressure Location Lt brachial Position Sitting Pulse 77 Pulse Source Pulse Oximeter Temp 97.4 F Temp Source Temporal Artery Scan Pulse Oximetry (%) 99 Oxygen Delivery Method Room Air Intake Visit Reasons: 6 month f/u Road Freight Brake Coupler Required: No Accompanied by: Self / Same As Patient Allergies No Known Allergies (No Known Allergies*) Allergy (Verified 05/03/25 10:16) Medication List - Last Reconciled 05/03/25 by Graciela Goddard PA-C amoxicillin 2,000 mg (4 x 500 mg) PO Q12H atorvastatin 20 mg PO DAILY cholecalciferol (vitamin D3) 50 mcg PO DAILY empagliflozin (Jardiance) 10 mg PO DAILY gabapentin 600 mg PO BEDTIME lisinopril 10 mg PO DAILY ondansetron 4 mg PO Q8H PRN pantoprazole 40 mg PO DAILY propranolol ER 60 mg PO BEDTIME rizatriptan take 1 tab at onset of headache; if no relief may repeat 1 tab after at least 2 hrs; max = 3 tabs/24 hr PO ropinirole 0.5 mg PO BEDTIME tirzepatide (Mounjaro) mg subcut QWEEK Tobacco use date assessed: 05/03/25 Dental Screening Dental Screen Date: 05/03/25 Did you have a dental visit in the last 12 months?: Yes Did you have a dental problem in the last 6 months where you did not have access to dental care?: No Was dental information given to patient?: Patient has dentist HPI 6 month f/u HPI Details The patient is a 60-year-old female presenting with a six-month follow-up visit. She has a history of Type 2 Diabetes Mellitus, which is well-controlled with Jardiance and Mounjaro, with her last hemoglobin A1c recorded at 6.0 in November. The patient is also on atorvastatin for hyperlipidemia, lisinopril for hypertension, and pantoprazole for gastroesophageal reflux disease. She experiences migraines for which she takes rizatriptan, and she has restless legs syndrome managed with ropinirole. The patient reports chronic fatigue and episodes of feeling very tired, which have been concerning for her. She underwent sacral nerve stimulation on February 09 to aid with urinary issues, but reports persistent back pain since the procedure. The site of the stimulator does not appear infected, but she is advised to monitor for any changes. Preventative care measures include receiving a flu vaccination during this visit. [facility] Medical History (Updated 05/03/25 @ 10:19 by Graciela Goddard PA-C) Influenza vaccine administered Chronic fatigue Intermittent chest pain Sacral nerve stimulator present Somnolence, daytime Restless leg syndrome Plantar fasciitis Osteoarthritis Migraine headache Mild hypercholesterolemia GERD (gastroesophageal reflux disease) History of mammogram (~12/19/21) Anemia Deviated septum General medical exam Asthma Neuropathy Gallstones RUQ pain Morbid obesity ARLEY (obstructive sleep apnea) Other and unspecified hyperlipidemia Essential hypertension Type 2 diabetes mellitus with unspecified complications Surgical History History of colonoscopy (~01/25/24) Hx laparoscopic cholecystectomy S/P panniculectomy Gastric bypass status for obesity History of bilateral knee replacement Family History Mother Asthma Father Hypertension Social History Housing: House Alcohol intake: current Alcohol intake frequency: holidays/special occasions only Patient Tobacco Use Status: Never used Tobacco service: Yes Current occupational status: retired Cognitive needs: No Hearing needs: Yes (b/l hearing aids) Vision needs: Yes (reading glasses) Questionnaire PHQ-9 Over the last 2 weeks, how often have you been bothered by any of the following problems? 1. Little interest or pleasure in doing things: not at all 2. Feeling down, depressed, or hopeless: not at all 3. Trouble falling or staying asleep, or sleeping too much: not at all 4. Feeling tired or having little energy: not at all 5. Poor appetite or overeating: not at all 6. Feeling bad about yourself - or that you are a failure or have let yourself or your family down: not at all 7. Trouble concentrating on things, such as reading the newspaper or watching television: not at all 8. Moving or speaking so slowly that other people could have noticed. Or the opposite - being so fidgety or restless that you have been moving around a lot more than usual: not at all 9. Thoughts that you would be better off or of hurting yourself in some way: not at all Total score: 0 Depression Screening Interpretation: Negative Depression Screening Done: Yes 95053 - PHQ-9 Billing: Yes Source: Developed by Drs. Dmitri Murcia, Melony Loco, Bandar Rodriguez and colleagues, with an educational thanh from [employer]. Thrive Questionnaire Date Thrive assessed: 05/03/25 I am a: Patient What is your living situation today?: I have a steady place to live Within the past 12 months, did the food you bought not last and you didn't have the money to get more?: Never true Within the past 12 months, did you worry whether your food would run out before you got money to buy more?: Never true Do you have trouble paying for medicines?: No Do you have trouble getting transportation to medical appointments?: No Do you have trouble paying your heating and electricity bill?: No Do you have trouble taking care of your child, family member or friend?: No Do you have trouble with day-to-day activities such as bathing, preparing meals, shopping, managing finances, etc.?: No Are you currently unemployed and looking for a job?: No Are you interested in more education?: No Please select the resources that you would like help with: None THRIVE Score: 0 AUDIT C Alcohol Use Questionnaire (AUDIT-C) 1. How often do you have a drink containing alcohol?: Monthly or less 2. How many drinks containing alcohol do you have on a typical day when you are drinking?: 1 or 2 3. How often do you have six or more drinks on one occasion?: Never Total Score: 1 Score Reviewed/Action Taken: No RADHA-7 AMB Questionnaire RADHA-7 Date RADHA - 7 assessed: 05/03/25 Feeling nervous, anxious, or on edge: 0 = Not at all Not being able to stop or control worryin = Not at all Worrying too much about different things: 0 = Not at all Trouble relaxin = Not at all Being so restless that it is hard to sit still: 0 = Not at all Becoming easily annoyed or irritable: 0 = Not at all Feeling afraid as if something awful might happen: 0 = Not at all Total RADHA-7 score (0-4 normal; 5-9 mild; 10-14 moderate; 15-21 severe): 0 Source: Developed by Drs. Dmitri Murcia, Melony Loco, Bandar Rodriguez and colleagues, with an educational thanh from [employer]. RADHA-7 Assessment Billing RADHA-7 Assessment Tool: RADHA-7 Assessment 98103 Review of Systems Const Details: - Cardiovascular: Reports occasional pressure on the left side of the chest, lasting less than a minute, occurring about once a week. Denies any correlation with activity or stress. - Neurological: Reports chronic fatigue and episodes of feeling very tired. - Musculoskeletal: Reports persistent back pain since sacral nerve stimulation procedure. All systems reviewed & are unremarkable except as noted in HPI and below Physical exam (Primary Care) Vital Signs: Last Vital Signs Temp 97.4 F 05/03/25 09:28 Pulse 77 05/03/25 09:28 BP 136/80 05/03/25 09:28 Pulse Ox 99 05/03/25 09:28 Oxygen Delivery Method Room Air 05/03/25 09:28 Care Plan Goal for BP management: <140/90 at Goal BMI result Body Mass Index 29.2 BMI Assessment/Plan discussion: High BMI High, discussed plan: lifestyle, weight reduction, dietary, physical activity, alcohol moderation and other Tobacco/Smoking Status: Tobacco use Status Tobacco use date assessed 05/03/25 05/03/25 09:37 Patient Tobacco Use Status Never used Tobacco 05/03/25 09:36 PHQ-9: PHQ-9 Score PHQ-9: Total score 0 05/03/25 09:37 Depression Screening Interpretation: Negative Thrive Assessment: Date of Thrive Assessment Date Thrive assessed 05/03/25 05/03/25 09:37 Const Other: Appearance: Alert. Oriented X3. No acute distress. Head: Normal external exam. Normocephalic. Atraumatic. Eyes: Pupils are equal, round, and reactive to light. Extraocular movements intact. Conjunctiva and sclera normal. Eyelids normal. Throat: Pharynx normal. Uvula midline. Moist mucous membranes. Neck: Normal inspection. Neck supple. Full range of motion. Cardiovascular: Normal heart rate and rhythm. Heart sound normal. No murmurs noted. Pulses normal throughout. Respiratory: No respiratory distress. Painless inspiration. Breath sounds normal. No wheezes/rales/rhonchi noted. Chest nontender. No accessory muscle usage noted or decreased air movement noted. Back: No costovertebral angle tenderness. Full range of motion noted. Patient reports soreness in the back, possibly related to sacral nerve stimulation procedure. Skin: Skin warm and dry. Normal skin color. Normal skin turgor. No rashes/lesions/lacerations noted. Extremities: No lower extremity edema. Extremities exhibit normal range of motion. Neuro: Oriented X 3. No motor deficit. No sensory deficit. Reflexes normal. Office Procedures Flu Questionnaire Does the patient have a severe egg allergy?: No Does the patient have severe life threatening allergies?: No Does the patient have a fever or illness today?: No Has the patient ever had Guillain-Alpine Syndrome?: No Has the patient ever had any past reaction to a flu shot?: No Results AMB Hemoglobin A1c AMB Hemoglobin A1c 6.3 % Last Edit by BUFFY Villanueva on 05/03/25 09:56 Immunizations Fluarix [id number] (PF) 45 mcg (15 mcg x 3)/0.5 mL IM syringe Performing Provider: Graciela Goddard PA-C [facility] Administered by: BUFFY Villanueva on 05/03/25 09:57 Dose Route Admin Location Dispensed Lot Number Expiration Date [facility] Deputy Chief Sheriff 0.5 mL IM Left Deltoid 0.5 mL [id number] 02/13/25 89320-698-03 [employer] VIS Given Date VIS Provided VIS Publication Date 05/03/25 Single Vaccine 24 Eligibility Eligibility Date Funding Source Not [facility] Eligible 05/03/25 Private Results Reviewed Results Reviewed: - Labs: Hemoglobin A1c was 6.0 in November, CBC normal, kidney function normal, sodium and potassium levels normal, alkaline phosphatase 163, total bilirubin slightly elevated at 1.2. Coding Level of Care Code Est Pt Level 4 (29704) Complex EM visit Add On G2211 Diagnoses Type 2 diabetes mellitus with unspecified complications E11.8 Essential hypertension I10 Mild hypercholesterolemia E78.00 GERD (gastroesophageal reflux disease) K21.9 Migraine headache G43.909 Restless leg syndrome G25.81 Chronic fatigue R53.82 Sacral nerve stimulator present Z96.82 Influenza vaccine administered Z23 Additional Codes PHQ-9 - 38665 - PHQ-9 Billing: Yes ([id number]) RADHA-7 Assessment Billing - RADHA-7 Assessment Tool: RADHA-7 Assessment 85850 ([id number]) Time Spent (min) 45 Assessment & Plan Assessment & Plan (1) Type 2 diabetes mellitus with unspecified complications: Code(s): E11.8 - Type 2 diabetes mellitus with unspecified complications Category: Medical Plan: The patient's Type 2 Diabetes Mellitus is well-controlled with Jardiance and Mounjaro, with a recent hemoglobin A1c of 6.0. The plan is to discontinue Jardiance and continue with Mounjaro 7.5 mg weekly to maintain glycemic control. (2) Essential hypertension: Code(s): I10 - Essential (primary) hypertension Category: Medical Plan: Hypertension is managed with lisinopril 20 mg daily. (3) Mild hypercholesterolemia: Code(s): E78.00 - Pure hypercholesterolemia, unspecified Category: Medical Plan: Hyperlipidemia is managed with atorvastatin 20 mg daily. (4) GERD (gastroesophageal reflux disease): Code(s): K21.9 - Gastro-esophageal reflux disease without esophagitis Category: Medical Plan: GERD is managed with pantoprazole 40 mg daily. (5) Migraine headache: Code(s): G43.909 - Migraine, unspecified, not intractable, without status migrainosus Category: Medical Plan: Migraine is managed with rizatriptan as needed. (6) Restless leg syndrome: Code(s): G25.81 - Restless legs syndrome Category: Medical Plan: Restless Legs Syndrome is managed with ropinirole. (7) Chronic fatigue: Code(s): R53.82 - Chronic fatigue, unspecified Category: Medical Plan: The patient reports chronic fatigue and episodes of feeling very tired, which are being monitored. (8) Sacral nerve stimulator present: Code(s): Z96.82 - Presence of neurostimulator Category: Medical Plan: The patient underwent sacral nerve stimulation for urinary issues, with persistent back pain noted post-procedure. The site is not infected, and the patient is advised to monitor for any changes. (9) Influenza vaccine administered: Code(s): Z23 - Encounter for immunization Category: Medical Plan: The patient received a flu vaccination during this visit. Plan Plan Patient was informed and verbally consented to the use of an ambient scribe for clinic note documentation during this visit. 1. Type 2 Diabetes Mellitus The patient's Type 2 Diabetes Mellitus is well-controlled with Jardiance and Mounjaro, with a recent hemoglobin A1c of 6.0. The plan is to discontinue Jardiance and continue with Mounjaro 7.5 mg weekly to maintain glycemic control. 2. Hypertension Hypertension is managed with lisinopril 20 mg daily. 3. Hyperlipidemia Hyperlipidemia is managed with atorvastatin 20 mg daily. 4. Gastroesophageal Reflux Disease (Gerd) GERD is managed with pantoprazole 40 mg daily. 5. Migraine Migraine is managed with rizatriptan as needed. 6. Restless Legs Syndrome Restless Legs Syndrome is managed with ropinirole. 7. Chronic Fatigue The patient reports chronic fatigue and episodes of feeling very tired, which are being monitored. 8. Sacral Nerve Stimulation The patient underwent sacral nerve stimulation for urinary issues, with persistent back pain noted post-procedure. The site is not infected, and the patient is advised to monitor for any changes. 9. Preventative Care: Flu Vaccination The patient received a flu vaccination during this visit. During the visit, we discussed the management of the patient's Type 2 Diabetes Mellitus, including the decision to discontinue Jardiance and continue with Mounjaro 7.5 mg weekly. We also reviewed her hypertension, hyperlipidemia, GERD, migraine, and restless legs syndrome management. The patient was advised to monitor her back pain post-sacral nerve stimulation and report any changes. Preventative care measures, including the flu vaccination, were also addressed. We planned for a follow-up in three months to reassess her conditions and ensure the effectiveness of the current management plan. Orders: Orders Influenza [id number] Immunization Today Z23 - Encounter for immunization NM cardiolite stress test Today I51.89 - Other ill-defined heart diseases AMB Hemoglobin A1c Today E11.8 - Type 2 diabetes mellitus with unspecified complications CA echo transthoracic complete Today R07.9 - Chest pain, unspecified CA stress test Today R07.9 - Chest pain, unspecified ECG 3 day holter monitor Today R07.9 - Chest pain, unspecified Medications: New amoxicillin 2,000 mg (4 x 500 mg) PO Q12H 4 tabs 3RF pre dental procedure cholecalciferol (vitamin D3) 50 mcg PO DAILY 90 caps 3RF atorvastatin 20 mg PO DAILY 90 tabs 3RF Changed From lisinopril 10 mg PO DAILY 90 tabs 1RF To lisinopril 20 mg PO DAILY 90 tabs 3RF Patient Instructions: - Continue taking Mounjaro 7.5 mg weekly for diabetes management. - Monitor for any changes in back pain and report if symptoms worsen. - Follow up in three months for reassessment of conditions. - Seek immediate medical attention if experiencing persistent chest pain or unusual symptoms.
[2025-05-03 09:28] VITALS: BP 136/80; PULSE 77; TEMP 36.3; O2SAT 99; BMI 29.2
--- OUTSIDE RECORDS SUMMARY | 2025-05-03 10:45 | XMS_ITS | Clinical Summary ---
Author Organization [address] Address [address] [place] [phone] Phone Care Team Providers Care Final Canoe Inspector Name Role Phone Dmitri Armas DO Primary Care Provider [phone] Surgical History Surgery Date Site/Laterality Comments TOTAL [...] CMS/HCC V28) DX:Diabetes mellitus, type I I ([facility]) Social History Tobacco Use Types Packs/Day Years [...] this topic Medical Devices Implanted Type Area Test Skein Winder Device Identifier Shelf Expiration Date Model / Serial / Lot Sealant Fibrin Vistaseal 4ml [facility] [id number] Implanted:Qty : 2 on 04/29/2022 by Bryon Blevins MD Implants N/A: Abdomen [facility] [employer] [employer] 10/23/2023 VST04 / / [id number] Sealant Fibrin Vistaseal 4ml [employer] [id number] Implanted:Qty : 1 on 04/29/2022 by Bryon Blevins MD Implants N/A: Abdomen [employer] 10/16/2023 VST04 / / [id number] Insurance [employer] MEDICARE [address] Care Teams Final Canoe Inspector Relationship Specialty Start Date End Date Dmitri Armas DO [address] [place] [phone] PCP - General Internal Medicine 04/14/22
--- OUTSIDE RECORDS SUMMARY | 2025-05-03 10:45 | XMS_ITS | Encounter Summary ---
Author Organization [facility] Address [address] [place] [address] Care Team Providers Care Sales Representative Trainee Name Role Phone Dmitri Armas DO Primary Care Provider [phone] Encounter Details Date Type Department Care Team (Late st Contact Info) Description 10/19/2024 Lab Requisition [facility] - Main Lab [address] [facility] [place] [phone] Prince Fonseca MD [address] [facility] [address] [place], [place] [phone] Urinary tract infection, site not specified Social [...] pneumoniae(A) CARYN 10/22/2024 11:44 AM EST [facility] ([facility]) [facility] Comment: The organism value for this result has been updated. These results have been appended to the previously preliminary verified report. This is an edited result. Previous organism was Gram negative bacilli on 10/21/2024 at 1418 EST. Urine Urine specimen obtained by clean catch procedure / Unknown 10/19/2024 10/19/2024 2:28 PM EST Narrative [facility] [place] ([facility]) [facility] - 10/22/2024 11:44 AM EST [...] Susceptible Prince Fonseca MD LAB MICROBIOLOGY - [facility] ORDERABLES Final Result [facility] ([facility] [address] [place] [address], documented in this encounter Visit Diagnoses Diagnosis Urinary tract infection, site not specified documented in this encounter Care Teams Sales Representative Trainee Relationship Specialty Start Date End Date Dmitri Armas DO [address] [place] [phone] PCP - General Internal Medicine 04/14/22 documented as of this encounter
--- OUTSIDE RECORDS SUMMARY | 2025-05-03 10:45 | XMS_ITS | Clinical Summary ---
Author Organization [facility] [facility] Address [address] [place] [address] Care Team Providers Care Outpatient Physical Therapist Name Role Phone Dmitri Armas DO Primary Care Provider [phone] Allergies No known active allergies Medications Medication [...] this topic Medical Devices Implanted Type Area Inside Sales Agent Device Identifier Shelf Expiration Date Model / Serial / Lot Sealant Fibrin Vistaseal 4ml [employer] [id number] - [id number] Implanted:Qt y: 2 on 04/29/2022 by Bryon Blevins MD at [facility] and Med Hemostatic Agent N/A: Abdomen [facility] [employer] 10/23/2023 VST04 / / [id number] Sealant Fibrin Vistaseal 4ml [facility] [id number] - [id number] Implanted:Qt y: 1 on 04/29/2022 by Bryon Blevins MD at [facility] and Med Hemostatic Agent N/A: Abdomen [employer] 10/16/2023 VST04 / / [id number] Advance Directives For more information, please contact: [phone] Latest Code Status on File Code Status Date Activated Date Inactivated Comments Full Code 04/29/2022 7:32 PM 05/01/2022 1:25 AM This code status was ascertained in the following way: discussion with patient . Care Teams Outpatient Physical Therapist Relationship Specialty Start Date End Date Dmitri Armas DO [address] [place] [phone] PCP - General Internal Medicine 04/14/22
--- OUTSIDE RECORDS SUMMARY | 2025-05-03 10:45 | XMS_ITS | Clinical Summary ---
Author Organization [facility] Address [address] [place] [address] Phone Care Team Providers Care Instrumentation Fitter Name Role Phone Tr Norris MD Primary Care Provid er Encounters Date Type Department Care Team Description 04/11/2025 Transcribe Orders Virtual Department [address] [place] [address] Dewey Hicks, Other chronic sinusitis (Primary Dx) from Last 3 Months Social History Tobacco Use Types Packs/Day Years Used Date Smoking Tobacco: Never Assessed Education Answer Date Recorded Are you interested in more education? Not on amandeep e 04/19/2025 Are you concerned about learning? Not on file 04/19/2025 No 04/19/2025 No 04/19/2025 Digital Access Answer Date Recorded No 04/19/2025 No 04/19/2025 Reliable internet access at home? Not on file 04/19/2025 Device with a working camera? Not on file Comments Unknown Sex and Gender Information Value Date Recorded Sex Assigned at Not on file Legal Sex Female 6:25 PM EST Gender Identity Not on file Sexual Orientation Not on file Plan of Treatment Upcoming Encounters Date Type Department Care Team (Late st Contact Info) Description 04/11/2025 Procedure Pass [facility], [address] [address] 05/12/2025 8:30 AM EDT Appointment [facility], [address] [address] Dewey Hicks, DO [address], [address] [place] [address] [email or web address] Medical Devices Not on file [place] [address] EXPLORER POS [employer] POS [employer] POS [employer] POS [employer]PL[employer] POS [employer] EXPLORER POS Care Teams Instrumentation Fitter Relationship Specialty Start Date End Date Tr Norris MD [address] [place] [address] PCP - General Internal Medicine 04/19/25 Additional Source Comments The information contained in this document represents components of the legal health record. It is not the complete legal health record.[facility]
--- OUTSIDE RECORDS SUMMARY | 2025-05-03 10:45 | XMS_ITS | Encounter Summary ---
Author Organization [facility] Address [email or web address] [place] [address] Phone Care Team Providers Care Maternal Fetal Physician Name Role Phone Tr Norris MD Primary Care Provid er Reason for Referral * MRI/CAT Scan - Authorized Specialty Diagnoses / Procedures Referred By Florentin chino Referred To Contact Radiology Diagnoses Other chronic sinusitis Procedures CT Face CHG CT SCAN,MAXILLOFACIAL AREA,W/O CONTRAST CHG CT SCAN, FACE/JAW CONTRAST CHG CT SCANS FACE/JAW COMBO MA ALAN CT TISS CHARAC I&R W/CNCRNT CT EXAM Dewey Hicks DO 100 [facility], [address] [place] [address] Phone: tel: fax: [email or web address] Referral ID Status Reason Start Date Expiration Date V isits Requested Visits Authorized [id number] Authorized 04/20/2025 06/19/2025 1 1 Encounter Details Date Type Department Care Team (Latest Contact Info) Description 04/11/2025 Transcribe Orders Virtual Department [address] [place] [address] Dewey Hicks DO 100 [facility], [address] [place] [address] [email or web address] Other chronic sinusitis (Primary Dx) Social History Tobacco Use Types Packs/Day Years Used Date Smoking Tobacco: Never Assessed Comments Unknown Sex and Gender Information Value Date Recorded Sex Assigned at Not on file Legal Sex Female 6:25 PM EST Gender Identity Not on file Sexual Orientation Not on file documented as of this encounter Plan of Treatment Upcoming Encounters Date Type Department Care Team (Late st Contact Info) Description 04/11/2025 Procedure Pass [facility], Ct Scan [address] [address] 05/12/2025 8:30 AM EDT Appointment [facility], [address] [address] Dewey Hicks, DO [address] [facility] [address] [place] [address] [email or web address] Scheduled Orders Name Type Priority Associated Diagnoses Orde r Schedule CT Face Imaging Routine Other chronic sinusitis Expected: 04/11/2025, Expires: 04/11/2026 documented as of this encounter Visit Diagnoses Diagnosis Other chronic sinusitis- Primary documented in this encounter Care Teams Maternal Fetal Physician Relationship Specialty Start Date End Date Tr Norris MD [address] [place] [address] PCP - General Internal Medicine 04/19/25 documented as of this encounter Additional Source Comments The information contained in this document represents components of the legal health record. It is not the complete legal health record.[facility]
== END 2025-05-03 10:00 | disposition home or self-care (01) ==
LOC: HO.HMCSH 09:10
PROVIDERS: PCP Internal Medicine; Visit Provider Physician Assistant Medical
DX: E11.8 Type 2 diabetes mellitus with unspecified complications (principal); I10 Essential (primary) hypertension; E78.00 Pure hypercholesterolemia, unspecified; K21.9 Gastro-esophageal reflux disease without esophagitis; G43.909 Migraine, unspecified, not intractable, without status migrainosus; G25.81 Restless legs syndrome; R53.82 Chronic fatigue, unspecified; Z96.82 Presence of neurostimulator; Z23 Encounter for immunization

== ENCOUNTER → 2025-05-03 09:10 | Outpatient (BNVA) | payer OTHER, SELFPAY | PROVIDERS: PCP Internal Medicine; Visit Provider Physician Assistant Medical | DX: E11.9 Type 2 diabetes mellitus without complications (principal); I10 Essential (primary) hypertension; K21.9 Gastro-esophageal reflux disease without esophagitis; G43.909 Migraine, unspecified, not intractable, without status migrainosus; E78.00 Pure hypercholesterolemia, unspecified; G25.81 Restless legs syndrome; R53.82 Chronic fatigue, unspecified; Z23 Encounter for immunization; Z96.82 Presence of neurostimulator; Z79.899 Other long term (current) drug therapy | CPT/HCPCS: 83036; 90471; 90656; 96127 ==

== ENCOUNTER → 2025-05-17 08:59 | Outpatient (REF) | payer OTHER, SELFPAY ==
--- OUTSIDE RECORDS SUMMARY | 2025-05-12 08:07 | XMS_ITS | Encounter Summary ---
Author Organization [facility] Address [address] [place] [address] Phone Care Team Providers Care Network Systems Operator Name Role Phone Tr Norris MD Primary Care Provid er Reason for Referral * MRI/CAT Scan - Closed Specialty Diagnoses / Procedures Referred By Florentin chino Referred To Contact Radiology Diagnoses Other chronic sinusitis Procedures CT Face CHG CT SCAN,MAXILLOFACIAL AREA,W/O CONTRAST CHG CT SCAN, FACE/JAW CONTRAST CHG CT SCANS FACE/JAW COMBO [place] ALAN CT TISS CHARAC I&R W/CNCRNT CT EXAM Dewey Hicks DO [address] [employer], [address] [place] [address] Phone: tel: fax: [email or web address] Referral ID Status Reason Start Date Expiration Date Visits Re quested Visits Authorized [id number] Closed 04/20/2025 06/19/2025 1 1 Reason for Visit * MRI/CAT Scan - Closed Specialty Diagnoses / Procedures Referred By Florentin chino Referred To Contact Radiology Diagnoses Other chronic sinusitis Procedures CT Face CHG CT SCAN,MAXILLOFACIAL AREA,W/O CONTRAST CHG CT SCAN, FACE/JAW CONTRAST CHG CT SCANS FACE/JAW COMBO NM ALAN CT TISS CHARAC I&R W/CNCRNT CT EXAM Dewey Hicks DO [address], [address] [place] [address] Phone: tel: fax: mailto:[email or web address] Referral ID Status Reason Start Date Expiration Date Visits Re quested Visits Authorized [id number] Closed 04/20/2025 06/19/2025 1 1 Encounter Details Date Type Department Care Team (Latest Contact Info) Description 05/12/2025 8:07 AM EDT - 05/12/2025 11:59 PM EDT Hospital Encounter [facility], Ct Scan - [facility] [address] [place] [address] Dewey Hicks, DO [address] [facility] [address] [place] [address] [email or web address] Discharge Disposition: Home or Self Care Social History Tobacco Use Types Packs/Day Years [...] Procedure Name Priority Date/Time Associated Diagnosis Comments CT FACE (SINUS) WITHOUT CONTRAST Routine 05/12/2025 8:24 AM EDT Other chronic sinusitis documented in this encounter Results * CT FACE (SINUS) WITHOUT CONTRAST (05/12/2025 8:24 AM EDT) Anatomical Region Laterality Modality Face Computed Tomogra phy 05/12/2025 10:0 1 AM EDT Impressions 05/12/2025 10:18 AM EDT Clear paranasal sinuses. Narrative 05/12/2025 10:[address] FACE (SINUS) WITHOUT CONTRAST Referring clinician's provided indication for this examination in [facility]: Outside Radiology Order; chronic sinusitis TECHNIQUE: Multidetector-row CT of the sinuses was performed without intravenous contrast using tailored dose modulation techniques. Images were reconstructed in the axial, coronal, and sagittal planes. COMPARISON: None. FINDINGS: Frontal sinuses and frontoethmoidal junctions: Normal. Clear. Anterior and posterior ethmoid air cells: Normal. Clear. Maxillary sinuses and infundibula: Normal. Clear. Sphenoid sinuses and sphenoethmoidal recesses: Normal. Clear. Nasal cavity: Leftward nasal septal deviation with a leftward facing spur. Right middle turbinate paola bullosa. Imaged maxillary teeth: Partially edentulous. Mastoid air cells and middle ear cavities: Partial left mastoid effusion. Temporomandibular joints: Normal. No significant degenerative remodeling. Brain: Images of the brain parenchyma are not of diagnostic quality for the soft tissues. No focal abnormality is visible with this technique. Orbits and globes: Normal. No abnormality. Procedure Note Jhony Paris MD - 05/12/2025 CT FACE (SINUS) WITHOUT CONTRAST Referring clinician's provided indication for this examination in Epic:Outside Radiology Order; chronic sinusitis TECHNIQUE: Multidetector-row CT of the sinuses was performed withoutintravenous contrast using tailored dose modulation techniques. Imageswere reconstructed in the axial, coronal, and sagittal planes. COMPARISON: None. FINDINGS: Frontal sinuses and frontoethmoidal junctions: Normal. Clear. Anterior and posterior ethmoid air cells: Normal. Clear. Maxillary sinuses and infundibula: Normal. Clear. Sphenoid sinuses and sphenoethmoidal recesses: Normal. Clear. Nasal cavity: Leftward nasal septal deviation with a leftward facing spur.Right middle turbinate paola bullosa. Imaged maxillary teeth: Partially edentulous. Mastoid air cells and middle ear cavities: Partial left mastoideffusion. Temporomandibular joints: Normal. No significant degenerativeremodeling. Brain: Images of the brain parenchyma are not of diagnostic quality forthe soft tissues. No focal abnormality is visible with this technique. Orbits and globes: Normal. No abnormality. IMPRESSION: Clear paranasal sinuses. Dewey Hicks DO IMG CT HEAD/NECK Final Resul t documented in this encounter Visit Diagnoses Diagnosis Other chronic sinusitis documented in this encounter Care Teams Network Systems Operator Relationship Specialty Start Date End Date Tr Norris MD [address] [place] [address] PCP - General Internal Medicine 04/19/25 documented as of this encounter Additional Source Comments The information contained in this document represents components of the legal health record. It is not the complete legal health record.[facility]
--- OUTSIDE RECORDS SUMMARY | 2025-05-17 09:38 | XMS_ITS | Encounter Summary ---
Author Organization [facility] Address [address] [place] [address] Phone Care Team Providers Care Software Support Technician Name Role Phone Tr Norris MD Primary Care Provid er Reason for Referral * MRI/CAT Scan - Closed Specialty Diagnoses / Procedures Referred By Florentin chino Referred To Contact Radiology Diagnoses Other chronic sinusitis Procedures CT Face CHG CT SCAN,MAXILLOFACIAL AREA,W/O CONTRAST CHG CT SCAN, FACE/JAW CONTRAST CHG CT SCANS FACE/JAW COMBO ID ALAN CT TISS CHARAC I&R W/CNCRNT CT EXAM Dewey Hciks DO 100 [facility], [facility] 100 [place] [address] Phone: tel: fax: mailto:[email or web address] Referral ID Status Reason Start Date Expiration Date Visits Re quested Visits Authorized [id number] Closed 04/20/2025 06/19/2025 1 1 Encounter Details Date Type Department Care Team (Latest Contact Info) Description 04/11/2025 Transcribe Orders Virtual Department 30 [place] [address] Dewey Hicks DO 100 [facility], [address] [place] [address] [email or web address] Other chronic sinusitis (Primary Dx) Social History [...] on file documented as of this encounter Results * CT FACE (SINUS) WITHOUT CONTRAST (05/12/2025 8:24 AM EDT) Anatomical Region Laterality Modality Face Computed Tomogra phy 05/12/2025 10:0 1 AM EDT Impressions 05/12/2025 10:18 AM EDT Clear paranasal sinuses. Narrative 05/12/2025 10:[address] FACE (SINUS) WITHOUT CONTRAST Referring clinician's provided indication for this examination in Epic: Outside Radiology Order; chronic sinusitis TECHNIQUE: Multidetector-row [...] Visit Diagnoses Diagnosis Other chronic sinusitis- Primary Other chronic sinusitis documented in this encounter Care Teams Software Support Technician Relationship Specialty Start Date End Date Tr Norris MD [address] [place] [address] PCP - General Internal Medicine 04/19/25 documented as of this encounter Additional Source Comments The information contained in this document represents components of the legal health record. It is not the complete legal health record.[facility]
--- OUTSIDE RECORDS SUMMARY | 2025-05-17 09:38 | XMS_ITS | Encounter Summary ---
Author Organization [facility] Address [address] [place] [address] Care Team Providers Care Contact Lens Manufacturer Name Role Phone Dmitri Armas DO Primary Care Provider [phone] Encounter Details Date Type Department Care Team (Late st Contact Info) Description 10/19/2024 Lab Requisition [facility] - Main Lab [address] [facility] [place] [phone] Prnice Fonseca MD [address] [facility] 120 [place], [place] [phone] Urinary tract infection, site not specified Social [...] ssp pneumoniae(A) CARYN 10/22/2024 11:44 AM EST [facility] ([facility] Comment: The organism value for this result has been updated. These results have been appended to the previously preliminary verified report. This is an edited result. Previous organism was Gram negative bacilli on 10/21/2024 at 1418 EST. Urine Urine specimen obtained by clean catch procedure / Unknown 10/19/2024 10/19/2024 2:28 PM EST Narrative [facility] ([facility]) [facility] - 10/22/2024 11:44 AM EST Additional [...] Susceptible Prince Fonseca MD LAB MICROBIOLOGY - [facility] ORDERABLES Final Result [facility] ([facility]) [facility] [address] [place] [address], documented in this encounter Visit Diagnoses Diagnosis Urinary tract infection, site not specified documented in this encounter Care Teams Contact Lens Manufacturer Relationship Specialty Start Date End Date Dmitri Armas DO [address] [place] [phone] PCP - General Internal Medicine 04/14/22 documented as of this encounter
--- OUTSIDE RECORDS SUMMARY | 2025-05-17 09:38 | XMS_ITS | Clinical Summary ---
Author Organization [facility] Address [address] [place] [address] Care Team Providers Care Senior Manager Creative Services Name Role Phone Dmitri Armas DO Primary Care Provider [phone] Allergies No known active allergies Medications Medication [...] this topic Medical Devices Implanted Type Area Supervisor Painting Device Identifier Shelf Expiration Date Model / Serial / Lot Sealant Fibrin Vistaseal 4ml [employer] [id number] - [id number] Implanted:Qt y: 2 on 04/29/2022 by Bryon Blevins MD at [facility] and Med Hemostatic Agent N/A: Abdomen [facility] [employer] 10/23/2023 VST04 / / [id number] Sealant Fibrin Vistaseal 4ml [facility] [id number] - [id number] Implanted:Qt y: 1 on 04/29/2022 by Bryon Blevins MD at [facility] and Med Hemostatic Agent N/A: Abdomen [employer] 10/16/2023 VST04 / / [id number] Advance Directives For more information, please contact: [phone] Latest Code Status on File Code Status Date Activated Date Inactivated Comments Full Code 04/29/2022 7:32 PM 05/01/2022 1:25 AM This code status was ascertained in the following way: discussion with patient . Care Teams Senior Manager Creative Services Relationship Specialty Start Date End Date Dmitri Armas DO [address] [place] [phone] PCP - General Internal Medicine 04/14/22
--- OUTSIDE RECORDS SUMMARY | 2025-05-17 09:38 | XMS_ITS | Clinical Summary ---
Author Organization [address] Address [address] [place] [phone] Phone Care Team Providers Care Pediatric Cns Name Role Phone Dmitri Armas DO Primary Care Provider [phone] Surgical History Surgery Date Site/Laterality Comments TOTAL KNEE ARTHROPLASTY Bilateral PROCEDURE:TOTAL KNEE ARTHROPLASTY BARIATRIC SURGERY 2017 PROCEDURE:BARIATRIC SURGERY;COMMENT:gastric bypass RHINOPLASTY 04/29/2022 Bilateral PROCEDURE:RHINOPLASTY;COMMENT:Proce dure: SECONDARY EXTERNAL RHINOPLASTY; Surgeon: Bryon Blevins MD; Location: [facility] MAIN OPERATING ROOM; Service: Plastics; Laterality: Bilateral; OTHER SURGICAL HISTORY 04/29/2022 Bilateral PROCEDURE:ABDOMINOPLASTY;COMMENT:Pr ocedure: ABDOMINOPLASTY, MONSPLASTY; Surgeon: Bryon Blevins MD; Location: [facility] MAIN OPERATING ROOM; Service: Plastics; Laterality: Bilateral; Medical History Medical History Date Comments Osteoporosis DX:Osteoporosis Prophylactic antibiotic DX:Proph ylactic antibiotic;COMMENT: knee replacement 2014 Hypertension DX:Hypertension Hyperlipidemia DX:Hyperlipidemi a Migraine headache DX:Migraine he adache Sleep apnea, obstructive DX:Slee p apnea, obstructive;COMMENT:tested but never treated Snores DX:Snores Diabetes mellitus, type II ( CMS/HCC V24, CMS/HCC V28) DX:Diabetes mellitus, type I I ([facility]) Social History Tobacco Use Types Packs/Day Years [...] Last Done Comments Breast Cancer Screening 1964 Colorectal Cancer Screening: Colonoscopy 1964 DTaP,Tdap,and Td Vaccines (1 - Tdap) 01/18/1983 Cervical Cancer Screening: P ap Smear 01/18/1985 Pneumococcal Vaccine: 50+ Ye ars (1 of 1 - PCV) 01/18/2014 HIV Screening 07/20/2022 Hepatitis C Screening 07/20/2022 [...] this topic Medical Devices Implanted Type Area Technical Writer Device Identifier Shelf Expiration Date Model / Serial / Lot Sealant Fibrin Vistaseal 4ml [facility] [id number] Implanted:Qty : 2 on 04/29/2022 by Bryon Blevins MD Implants N/A: Abdomen [facility] [employer] 10/23/2023 VST04 / / [id number] Sealant Fibrin Vistaseal 4ml [employer] [id number] Implanted:Qty : 1 on 04/29/2022 by Bryon Blevins MD Implants N/A: Abdomen [employer] 10/16/2023 VST04 / / [id number] Insurance [employer] [address] Care Teams Pediatric Cns Relationship Specialty Start Date End Date Dmitri Armas DO [address] [place] [phone] PCP - General Internal Medicine 04/14/22
--- OUTSIDE RECORDS SUMMARY | 2025-05-17 09:38 | XMS_ITS | Clinical Summary ---
Author Organization [facility] Address [address] [place] [address] Phone Care Team Providers Care Box Office Manager Name Role Phone Tr Norris MD Primary Care Provid er Encounters Date Type Department Care Team Description 05/12/2025 8:07 AM EDT - 05/12/2025 11:59 PM EDT Hospital Encounter [address] [address] Dewey Hicks, DO Discharge Disposition: Home or Self Care 04/11/2025 Procedure Pass [address] [address] 04/11/2025 Transcribe Orders Virtual Department [address] [place] [address] Dewey Hicks, DO Other chronic sinusitis (Primary Dx) from [...] on file Medical Devices Not on file Procedures Procedure Name Priority Date/Time Associated Diagnosis Comments CT FACE (SINUS) WITHOUT CONTRAST Routine 05/12/2025 8:24 AM EDT Other chronic sinusitis from Last 3 Months Results * CT FACE (SINUS) WITHOUT CONTRAST [...] DO IMG CT HEAD/NECK Final Resul t from Last 3 Months Insurance [facility] EXPL[facility] POS [facility] EXPLORER POS [facility] EXPL[facility] POS [facility] EX[facility] POS Care Teams Box Office Manager Relationship Specialty Start Date End Date Tr Norris MD [address] [place] [address] PCP - General Internal Medicine 04/19/25 Additional Source Comments The information contained in this document represents components of the legal health record. It is not the complete legal health record.[facility]
--- OUTSIDE RECORDS SUMMARY | 2025-05-17 09:38 | XMS_ITS | Encounter Summary ---
Author Organization [facility] Address [address] [place] [address] Phone Care Team Providers Care Electrophysiologist Name Role Phone Tr Norris MD Primary Care Provid er Encounter Details Date Type Department Care Team (Late st Contact Info) Description 04/11/2025 Procedure Pass [facility], Ct Scan - [address] [address] Social History Tobacco Use Types Packs/Day Years Used Date Smoking Tobacco: Never Assessed Comments Unknown Sex and Gender Information Value Date Recorded Sex Assigned at Not on file Legal Sex Female 6:25 PM EST Gender Identity Not on file Sexual Orientation Not on file documented as of this encounter Plan of Treatment Not on file documented as of this encounter Visit Diagnoses Not on filedocumented in this encounter Care Teams Electrophysiologist Relationship Specialty Start Date End Date Tr Norris MD [facility] [address] Justyn [address] [place] [address] PCP - General Internal Medicine 04/19/25 documented as of this encounter Additional Source Comments The information contained in this document represents components of the legal health record. It is not the complete legal health record.[facility]
== END ==
LOC: HO.SL 08:59
PROVIDERS: PCP Internal Medicine; Visit Provider Internal Medicine
DX: G47.33 Obstructive sleep apnea (adult) (pediatric) (principal); R40.0 Somnolence
CPT/HCPCS: 95806

== ENCOUNTER → 2025-05-17 09:15 | Outpatient (BNV) | payer OTHER, SELFPAY | PROVIDERS: PCP Internal Medicine; Visit Provider Internal Medicine | DX: G47.33 Obstructive sleep apnea (adult) (pediatric) (principal) | CPT/HCPCS: 95806 ==

== ENCOUNTER 2025-06-20 11:55 | Outpatient (REF) | payer OTHER, SELFPAY ==
[2025-06-20 12:14] LABS: MANUAL DIFF FLAG NO
[2025-06-20 12:35] LABS: Hematocrit 39.5 % (37.0-47.0); Hemoglobin 12.6 g/dl (12.0-16.0); Imm Gran Abs Auto 0.02 X10*3/uL (0.00-0.03); Imm Gran Pct Auto 0.3 % (0.0-0.4); Lymphocytes Absolute Auto 2.2 X10*3/uL (1.2-4.9); Mean Corpuscular HGB Conc 31.9 g/dl (31.0-35.0); Mean Corpuscular Hemoglobin 27.1 pg (27.0-33.0); Mean Corpuscular Volume 84.9 fL (80.0-98.0); NRBC Abs Auto 0.000 X10*3/uL (0.0-0.012); NRBC Pct Auto 0.0 /100WBC (0.0-0.2); Platelet Count 227 X10*3/uL (160-400); Red Blood Count 4.65 X10*6/uL (4.20-5.50); White Blood Count 6.7 X10*3/uL (4.8-10.8)
[2025-06-20 13:20] LABS: Alanine Aminotransferase 15 U/L (0-31); Albumin Level 4.4 g/dL (3.5-5.0); Alkaline Phosphatase 190 U/L (39-117); Aspartate Amino Transferase 20 U/L (5-31); Iron 49 mcg/dL (30-160); Percent Iron Saturation 15 % (15-50); Total Iron Binding Capacity 332 mcg/dL (228-428); Total Protein 7.6 g/dL (6.5-8.0); Unsaturated Iron Binding 283 ug/dL
[2025-06-20 13:35] LABS: Ferritin 45 ng/mL (10-250)
[2025-06-20 13:45] LABS: Vitamin B12 502 pg/mL (200-900)
--- OUTSIDE RECORDS SUMMARY | 2025-06-20 14:45 | XMS_ITS | Encounter Summary ---
Author Organization [facility] Address [address] [place] [address] Phone Care Team Providers Care Brush Painter Name Role Phone Tr Norris MD Primary Care Provid er Reason for Referral * MRI/CAT Scan - Closed Specialty Diagnoses / Procedures Referred By Florentin chino Referred To Contact Radiology Diagnoses Other chronic sinusitis Procedures CT Face CHG CT SCAN,MAXILLOFACIAL AREA,W/O CONTRAST CHG CT SCAN, FACE/JAW CONTRAST CHG CT SCANS FACE/JAW COMBO OK ALAN CT TISS CHARAC I&R W/CNCRNT CT EXAM Dewey Hicks DO [address] [facility] [place] [address] Phone: tel: fax: mailto:[email or web address] Referral ID Status Reason Start Date Expiration Date Visits Re quested Visits Authorized [id number] Closed 04/20/2025 06/19/2025 1 1 Encounter Details Date Type Department Care Team (Latest Contact Info) Description 04/11/2025 Transcribe Orders Virtual Department [address] [place] [address] Dewey Hicks DO [address] [facility], [address] [place] [address] [email or web address] Other chronic sinusitis (Primary Dx) Social History [...] sinusitis documented in this encounter Care Teams Brush Painter Relationship Specialty Start Date End Date Tr Norris MD [address] [place] [address] PCP - General Internal Medicine 04/19/25 documented as of this encounter Additional Source Comments The information contained in this document represents components of the legal health record. It is not the complete legal health record.[facility]
--- OUTSIDE RECORDS SUMMARY | 2025-06-20 14:45 | XMS_ITS | Clinical Summary ---
Author Organization [employer] [facility] Address [address] [place] [address] Care Team Providers Care C.O.D. Biller Name Role Phone Dmitri Armas DO Primary Care Provider [phone] Allergies No known active allergies Medications Medication [...] this topic Medical Devices Implanted Type Area District Engineer Device Identifier Shelf Expiration Date Model / Serial / Lot Sealant Fibrin Vistaseal 4ml [employer] [id number] - [id number] Implanted:Qt y: 2 on 04/29/2022 by Bryon Blevins MD [facility] Hemostatic Agent N/A: Abdomen [facility] [employer] 10/23/2023 VST04 / / [id number] Sealant Fibrin Vistaseal 4ml [facility] [id number] - [id number] Implanted:Qt y: 1 on 04/29/2022 by Bryon Blevins MD at [facility] Hemostatic Agent N/A: Abdomen [employer] 10/16/2023 VST04 / / [id number] Advance Directives For more information, please contact: [phone] Latest Code Status on File Code Status Date Activated Date Inactivated Comments Full Code 04/29/2022 7:32 PM 05/01/2022 1:25 AM This code status was ascertained in the following way: discussion with patient . Care Teams C.O.D. Biller Relationship Specialty Start Date End Date Dmitri Armas DO [address] [place] [phone] PCP - General Internal Medicine 04/14/22
--- OUTSIDE RECORDS SUMMARY | 2025-06-20 14:45 | XMS_ITS | Encounter Summary ---
Author Organization [facility] Address [address] [place] [address] Phone Care Team Providers Care Wellfield Technician Name Role Phone Tr Norris MD Primary Care Provid er Encounter Details Date Type Department Care Team (Late st Contact Info) Description 04/11/2025 Procedure Pass [facility], Ct Scan - [address] [address] Social History Tobacco Use Types Packs/Day Years [...] on filedocumented in this encounter Care Teams Wellfield Technician Relationship Specialty Start Date End Date Tr Norris MD [address] [place] [phone] PCP - General Internal Medicine 04/19/25 documented as of this encounter Additional Source Comments The information contained in this document represents components of the legal health record. It is not the complete legal health record.[facility]
--- OUTSIDE RECORDS SUMMARY | 2025-06-20 14:45 | XMS_ITS | Clinical Summary ---
Author Organization [address] Address [address] [place] [phone] Phone Care Team Providers Care Federal Judicial Law Clerk Name Role Phone Dmitri Armas DO Primary Care Provider [phone] Surgical History Surgery Date Site/Laterality Comments TOTAL KNEE ARTHROPLASTY Bilateral PROCEDURE:TOTAL KNEE ARTHROPLASTY BARIATRIC SURGERY 2017 PROCEDURE:BARIATRIC SURGERY;COMMENT:gastric bypass RHINOPLASTY 04/29/2022 Bilateral PROCEDURE:RHINOPLASTY;COMMENT:Proce dure: SECONDARY EXTERNAL RHINOPLASTY; Surgeon: Bryon Blevins MD; Location: [facility]IN [facility]PER[facility] ROOM; Service: Plastics; Laterality: Bilateral; OTHER SURGICAL HISTORY 04/29/2022 Bilateral PROCEDURE:ABDOMINOPLASTY;COMMENT:Pr ocedure: ABDOMINOPLASTY, MONSPLASTY; Surgeon: Bryon Blevins MD; Location: [facility]; Service: Plastics; Laterality: Bilateral; Medical History Medical History Date Comments Osteoporosis DX:Osteoporosis Prophylactic antibiotic DX:Proph ylactic antibiotic;COMMENT: knee replacement 2014 Hypertension DX:Hypertension Hyperlipidemia DX:Hyperlipidemi a Migraine headache DX:Migraine he adache Sleep apnea, obstructive DX:Slee p apnea, obstructive;COMMENT:tested but never treated Snores DX:Snores Diabetes mellitus, type II ( CMS/HCC V24, CMS/HCC V28) DX:Diabetes mellitus, type I I ([facility]) Social History Tobacco Use Types [...] this topic Medical Devices Implanted Type Area Warehouse Clerk Device Identifier Shelf Expiration Date Model / Serial / Lot Sealant Fibrin Vistaseal 4ml [facility] [id number] Implanted:Qty : 2 on 04/29/2022 by Bryon Blevins MD Implants N/A: Abdomen [facility] [address] [employer] 10/23/2023 VST04 / / [id number] Sealant Fibrin Vistaseal 4ml [employer] [id number] Implanted:Qty : 1 on 04/29/2022 by Bryon Blevins MD Implants N/A: Abdomen [employer] 10/16/2023 VST04 / / [id number] Insurance [employer] [address] Care Teams Federal Judicial Law Clerk Relationship Specialty Start Date End Date Dmitri Armas DO [address] [place] [phone] PCP - General Internal Medicine 04/14/22
--- OUTSIDE RECORDS SUMMARY | 2025-06-20 14:45 | XMS_ITS | Encounter Summary ---
Author Organization [facility] Address [address] [place] [address] Care Team Providers Care Asphalt Machine Operator Name Role Phone Dmitri Armas DO Primary Care Provider [phone] Encounter Details Date Type Department Care Team (Late st Contact Info) Description 10/19/2024 Lab Requisition [facility] - Main Lab [address] [facility] [place] [phone] Prince Fonseca MD [address] [facility] [address] [place], [place] [phone] Urinary tract infection, site not specified Social [...] ssp pneumoniae(A) CARYN 10/22/2024 11:44 AM EST [facility] ([facility]) [facility] Comment: The organism value for this result has been updated. These results have been appended to the previously preliminary verified report. This is an edited result. Previous organism was Gram negative bacilli on 10/21/2024 at 1418 EST. Urine Urine specimen obtained by clean catch procedure / Unknown 10/19/2024 10/19/2024 2:28 PM EST Narrative [facility] ([facility]) [facility] - 10/22/2024 11:44 AM EST [...] Susceptible Prince Fonseca MD LAB MICROBIOLOGY - [facility] ORDERABLES Final Result [facility] [address] [place] [address], documented in this encounter Visit Diagnoses Diagnosis Urinary tract infection, site not specified documented in this encounter Care Teams Asphalt Machine Operator Relationship Specialty Start Date End Date Dmitri Armas DO [address] [place] [phone] PCP - General Internal Medicine 04/14/22 documented as of this encounter
--- OUTSIDE RECORDS SUMMARY | 2025-06-20 14:46 | XMS_ITS | Clinical Summary ---
Author Organization [facility] Address [email or web address] [place] [address] Phone Care Team Providers Care Earring Maker Name Role Phone Tr Norris MD Primary Care Provid er Encounters Date Type Department Care Team Description 05/12/2025 8:07 AM EDT - 05/12/2025 11:59 PM EDT Hospital Encounter [address] [address] Dewey Hicks, DO Discharge Disposition: Home or Self Care 04/11/2025 Procedure Pass [address] [address] 04/11/2025 Transcribe Orders Virtual Department [address] [place] [address] Dewey Hicks, DO Other chronic sinusitis (Primary [...] Resul t from Last 3 Months Insurance [facility] POS Care Teams Earring Maker Relationship Specialty Start Date End Date Tr Norris MD [address] [place] [phone] PCP - General Internal Medicine 04/19/25 Additional Source Comments The information contained in this document represents components of the legal health record. It is not the complete legal health record.[facility]
--- OUTSIDE RECORDS SUMMARY | 2025-06-20 14:46 | XMS_ITS | Data Portability ---
Author Organization [facility] Address [address] [place] [phone] Care Team Providers Care Roving Court Reporter Name Role Phone TR SOLIMAN Primary Care Provider Assessment Encounter Date Assessment Date Assessment LastModified by Organization Details LastModified Time 04/11/2025 04/11/2025 Siria is a 60-year-old female with a history of a rhinoplasty 1 year ago. On examination she has significant scarring of the nasal tip including bilateral nasal valve narrowing and extrusion of a left Prolene suture that was unable to be removed today. It also appears that there was a potential PDS plate that is extruding through the columellar area. I do think she is a candidate for revision rhinoplasty so I will refer her to Dr. Howard for further evaluation. There are pictures in the chart of this. In regards to her sinuses she does have chronic facial pain and pressure with some drainage. I will order a CAT scan for further evaluation, although she does have a form of migraine as well which could be playing a role -CT sinuses -Fluticasone and nasal saline, continue daily -Evaluation by Dr. Howard for revision rhinoplasty -Follow-up with myself in 6 months, will call if CT scan is done sooner to discuss results and next steps [email or web address] Not available 04/11/2025 10:00:16 Plan of Treatment Reminders Order Date Submit Date Provider Last Modified By Organization Details Last Modified Time Details Appointments Test Results 20 2025 01:20P M SERAFIN REYNAGA MD Not available Not available Not available CT Scan 2025 09:00A M [facility] Not available Not available Not available Test Results 15 2025 09:30A M CLAIRE KIM PA-C Not available Not available Not available Lab None recorded. Referral None recorded. Procedures None recorded. Surgeries None recorded. Imaging CT, sinuses, w/o contrast 2024 025 [email or web address] [facility], [address] [facility], [place], [address], 04/20/2025 10:09:06 Medication Orders None recorded. Patient TargetsNo targets recorded. Patient InstructionsNo instructions recorded. Reason for Referral None Reported. 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 Active 2024 Dewey Hicks, [address], [address] [place] [address], [phone], [facility] 23:31:59 Nasal obstruction 230364313 Active 2024 Dewey Hicks [address], [phone], [facility] 23:32:03 Chronic sinusitis 35690960 Active 2024 Dewey Hicks, [address] [place] [address], [phone], [facility] 10:00:22 Problem Notes None recorded. Procedures Surgical History Date Name Laterality Status Provider Name and Address Organization Details Recorded Time 04/11/2025 Nasal Endo DDx_DHL completed Dewey Hicks [address], [phone], [facility] 04/11/2025 09:58:13 Imaging Results None recorded. Procedure Notes None recorded. Medical Equipment None Reported. Allergies No known drug allergies Medications Name Sig Start Date Stop Date Status Note LastModified by Organization Details LastModified Time amoxicillin 500 mg capsule TAKE 1 CAPSULE BY MOUTH EVERY 8 HOURS FOR 10 DAYS 04/11 completed Not Available Not Available Not Available sucralfate 1 gram tablet TAKE 1 TABLET BY MOUTH FOUR TIMES A DAY FOR 30 DAYS 04/11 completed Not Available Not Available Not Available ondansetron HCl 4 mg tablet TAKE 1 TABLET BY MOUTH TWICE A DAY NEEDED FOR 30 DAYS active Not Available Not Available No t Available propranolol ER 60 mg capsule,24 hr,extended release TAKE 1 CAPSULE BY MOUTH AT BEDTIME active Not Available Not Available No t Available sulfamethox azole 800 mg-trimetho prim 160 mg tablet TAKE 1 TABLET BY MOUTH TWICE A DAY FOR 7 DAYS 04/10 completed Not Available Not Available Not Available zolmitripta n 5 mg tablet PLEASE SEE ATTACHED FOR DETAILED DIRECTION S active Not Available Not Available No t Available amoxicillin 500 mg tablet TAKE 1 TABLET BY MOUTH EVERY 8 HOURS FOR 10 DAYS 04/11 completed Not Available Not Available Not Available hydromorpho ne 2 mg tablet TAKE 1 TABLET BY MOUTH EVERY 6 HOURS NEEDED FOR SEVERE PAIN 04/10 completed Not Available Not Available Not Available hyoscyamine 0.125 mg disintegrat ing tablet TAKE 1 TABLET BY MOUTH FOUR TIMES A DAY active Not Available Not Available No t Available cephalexin 500 mg capsule TAKE 1 CAPSULE BY MOUTH 4 TIMES A DAY FOR 7 DAYS 04/11 completed Not Available Not Available Not Available pantoprazol e 40 mg tablet,claus yed release TAKE 1 TABLET BY MOUTH EVERY DAY NEEDED FOR 90 DAYS active Not Available Not Available No t Available hyoscyamine sulfate 0.125 mg tablet TAKE 1 TABLET BY MOUTH FOUR TIMES A DAY NEEDED FOR SPASM 04/10 completed Not Available Not Available Not Available ropinirole 0.5 mg tablet TAKE 1 TABLET BY MOUTH 1 TO 3 HOURS BEFORE BEDTIME DAILY active Not Available Not Available No t Available lisinopril 10 mg tablet TAKE 1 TABLET BY MOUTH EVERY DAY active Not Available Not Available No t Available Gas Relief Extra Strength 125 mg capsule TAKE 1 CAPSULE BY MOUTH UP TO 4 TIMES A DAY NEEDED FOR GAS. 04/11 completed Not Available Not Available Not Available gabapentin 300 mg capsule TAKE 2 CAPSULES BY MOUTH AT BEDTIME AND 1 CAPSULE TWICE DURING THE DAYTIME 04/11 completed Not Available Not Available Not Available amoxicillin 875 mg-potassiu m clavulanate 125 mg tablet TAKE 1 TABLET BY MOUTH EVERY 12 HOURS FOR 7 DAYS 04/11 completed Not Available Not Available Not Available nabumetone 500 mg tablet TAKE 1 TABLET BY MOUTH WITH FOOD NEEDED TWICE A DAY 10 DAYS 04/10 completed Not Available Not Available Not Available oxycodone 5 mg tablet TAKE 1 TABLET BY MOUTH EVERY 6 HOURS NEEDED FOR PAIN 04/10 completed Not Available Not Available Not Available nitrofurant oin monohydrate /macrocryst als 100 mg capsule TAKE 1 CAPSULE BY MOUTH TWICE A DAY FOR 7 DAYS 04/10 completed Not Available Not Available Not Available Jardiance 10 mg tablet TAKE 1 TABLET BY MOUTH EVERY DAY active Not Available Not Available No t Available OneTouch Verio Flex Meter USE DIRECTED DAILY DX: E11.9 04/10 completed Not Available Not Available Not Available Mounjaro 7.5 mg/0.5 mL subcutaneou s pen injector INJECT 1 PEN SUBCUTANE OUSLY WEEKLY active Not Available Not Available No t Available Mounjaro 5 mg/0.5 mL subcutaneou s pen injector INJECT 0.5 ML (5 MG) SUBCUTANE OUSLY WEEKLY 04/11 completed Not Available Not Available Not Available Vitals None Recorded Social History Question Answer Notes LastModified by Organizat ion Details LastModified Time Tobacco Smoking Status Never Smoker Ashley berry [place] - [facility] 04/11/2025 09:22:33 How Many Years Have You Consumed Alcohol? 0 [email or web address] Information not available 04/11/2025 What Type Of Director Validation Do You Use? None [email or web address] Information not available 04/11/2025 How Many Alcoholic Drinks Do You Consume Per Day On Average? 0 [email or web address] Information not available 04/11/2025 Do You Have Any Pets? No [email or web address] Information not available 04/11/2025 Are You Passively Exposed To Smoke? No [email or web address] Information not available 04/11/2025 Are There Any Smokers In Your House? No [email or web address] Information not available 04/11/2025 Sex: Female Functional Status Question Answer Note LastModified by Organization Details LastModified Time How many times per week do you consume alcohol? Less than 1 time per week [email or web address] Inform ation not available 04/11/2025 Do you use any illicit or recreational drugs? No Information not available 04/11/2025 Do you or have you ever used any other forms of tobacco or nicotine? No [email or web address] Information not available 04/11/2025 What is your level of alcohol consumption? Occasional [email or web address] Information not available 04/11/2025 What type of noise exposure are you exposed to? noExposureToExcessiveNoise [email or web address] Infor mation not available 04/11/2025 Mental Status None recorded. Family History Nothing Reported. Medical History Condition Response Allergies/Hayfever N Heart Problems N Anxiety N Tonsil Infections N Emphysema N Migraines Y Thyroid Problems N Glaucoma N Depression N COPD N Developmental Delay N Nasal or Sinus Problems Y Anemia N Immune System Disorder N Anesthesia Complications N Heart Attack (IN) N Other Skin Condition N Diabetes Y Rhinitis N Bleeding Disorder N Food Allergy N Arthritis Y Hearing Loss Y Hyperlipidemia N Cancer N Stroke N Dementia N Nasal polyps N Asthma N High Cholesterol Y Sleep Disorder N GERD/Reflux Y Liver Disease N Headaches Y Fibromyalgia N Hypertension Y Speech Delay N Kidney Disease N Gynecological HistoryNo gynecological history recorded. Obstetrics History GPAL:G 0 P 0 0 0 0 Past Encounters Encounter ID Performer Location Encounter Start Date Encounter Closed Date Diagnosis/Indication Diagnosis SNOMED-CT Code Diagnosis ICD10 Code Diagnosis IMO Codes Diagnosis Note [id number] Dewey Hicks, DO [facility] [address] [phone] 04/11/2025 09:07:06 04/11/2025 09:59:42 Incompetence of nasal valve 363666714 J34.336 [id number] Nasal obstruction 932016 000 J34.89 63203 Chronic sinusitis 597628 00 J32.8 55477 Health Concerns Section Related Observation LastModified by Organization Detai ls LastModified Time None Recorded Concern Status LastModified by Organization Details LastModified Time None Recorded Advance Directives Directive None Recorded Payers Insurance Date Sequence Insurance Name Policy Number Policy Nunez Covered Member ID Nunez Member ID Guarantor Name 04/11/2025 1 [facility] Marti Nannette [id number] Marti Gracia Notes Date Note Type Note Provider Name and Address Organization Details Recorded Time 04/11/2025 text/html ROS as noted in the HPI Ref: Tr Kidd is a 60F presenting for evaluation of nasal obstruction. Prior surgery for deviated septum (Septorhinoplasty) in [place] a year ago. Since then had worsening nasal congestion and her nasal passages feel like is blocked which has progressed. Feels like stitch in the nose is left. She also had a friend of hers tugged on it which did not remove. Notes chronic sinus pressure, pain, and nasal drainage. Feels difficulty with nasal tightness. Also endorses a history of migraines and facial pain. No recurring infections requiring antibiotics or steroids. Is using nasal saline and fluticasone intermittently. Dewey Hicks, DO [address] [facility] [address], [place], [address], [facility] - [facility] 04/11/2025 10:01:08 OBGyn Episode No OBEpisode recorded.
== END 2025-06-20 11:56 | disposition home or self-care (01) ==
LOC: HO.LAB 11:55
PROVIDERS: PCP Internal Medicine; Visit Provider Internal Medicine
DX: E53.8 Deficiency of other specified B group vitamins (principal); K76.0 Fatty (change of) liver, not elsewhere classified; D50.9 Iron deficiency anemia, unspecified
CPT/HCPCS: 36415; 80076; 82607; 82728; 83540; 85025

== ENCOUNTER → 2025-07-25 14:58 | Outpatient (REF) | payer OTHER, SELFPAY ==
--- OUTSIDE RECORDS SUMMARY | 2025-07-25 21:17 | XMS_ITS | Clinical Summary ---
Author Organization [facility] Address [address] [place] [address] Phone Care Team Providers Care Silo Filler Name Role Phone Tr Norris MD Primary Care Provid er Encounters Date Type Department Care Team Description 05/12/2025 8:07 AM EDT - 05/12/2025 11:59 PM EDT Hospital Encounter [facility], [address] [address] Dewey Hicks, DO Discharge Disposition: Home or Self Care 04/11/2025 Procedure Pass [address] [address] from Last 3 Months Social History Tobacco [...] Resul t from Last 3 Months Insurance [facility] POS [facility] POS Care Teams Silo Filler Relationship Specialty Start Date End Date Tr Norris MD [address] [place] [phone] PCP - General Internal Medicine 04/19/25 Additional Source Comments The information contained in this document represents components of the legal health record. It is not the complete legal health record.[facility]
--- OUTSIDE RECORDS SUMMARY | 2025-07-25 21:17 | XMS_ITS | Encounter Summary ---
Author Organization [facility] Address [address] [place] [address] Phone Care Team Providers Care Community Marketing Manager Name Role Phone Tr Norris MD Primary Care Provid er Encounter Details Date Type Department Care Team (Late st Contact Info) Description 04/11/2025 Procedure [facility], Ct Scan - [address] [address] Social History Tobacco Use Types Packs/Day Years [...] on filedocumented in this encounter Care Teams Community Marketing Manager Relationship Specialty Start Date End Date Tr Norris MD [address] Just[place] [address] [place] [phone] PCP - General Internal Medicine 04/19/25 documented as of this encounter Additional Source Comments The information contained in this document represents components of the legal health record. It is not the complete legal health record.[facility]
--- OUTSIDE RECORDS SUMMARY | 2025-07-25 21:17 | XMS_ITS | Clinical Summary ---
Author Organization [address] Address [address] [place] [phone] Phone Care Team Providers Care Lace Weaver Name Role Phone Dmitri Armas DO Primary Care Provider [phone] Surgical History Surgery Date Site/Laterality Comments TOTAL KNEE ARTHROPLASTY Bilateral PROCEDURE:TOTAL KNEE ARTHROPLASTY BARIATRIC SURGERY 2017 PROCEDURE:BARIATRIC SURGERY;COMMENT:gastric bypass RHINOPLASTY 04/29/2022 Bilateral PROCEDURE:RHINOPLASTY;COMMENT:Proce dure: SECONDARY EXTERNAL RHINOPLASTY; Surgeon: Bryon Blevins MD; Location: [facility] MAIN OPERATING ROOM; Service: Plastics; Laterality: Bilateral; OTHER SURGICAL HISTORY 04/29/2022 Bilateral PROCEDURE:ABDOMINOPLASTY;COMMENT:Pr ocedure: ABDOMINOPLASTY, MONSPLASTY; Surgeon: Bryon Blevins MD; Location: [facility] MAIN OPERATING ROOM; Service: Plastics; Laterality: Bilateral; Medical History Medical History Date Comments Osteoporosis DX:Osteoporosis Prophylactic antibiotic DX:Proph ylactic antibiotic;COMMENT: knee replacement 2014 Hypertension DX:Hypertension Hyperlipidemia DX:Hyperlipidemi a Migraine headache DX:Migraine he adache Sleep apnea, obstructive DX:Slee p apnea, obstructive;COMMENT:tested but never treated Snores DX:Snores Diabetes mellitus, type II ( CMS/HCC V24, CMS/HCC V28) DX:Diabetes mellitus, type I I ([facility]) Social History Tobacco Use Types Packs/Day Years [...] Orientation Not on file Plan of Treatment Health Maintenance Due Date [...] Depression Screening 08/17/2024 COVID-19 Vaccine (1 - 2024-2 6 season) 2025 Influenza Vaccine (#1) 2025 06/26/2006 [...] this topic Medical Devices Implanted Type Area Grape Pruner Device Identifier Shelf Expiration Date Model / Serial / Lot Sealant Fibrin Vistaseal 4ml [facility] [id number] Implanted:Qty : 2 on 04/29/2022 by Bryon Blevins MD Implants N/A: Abdomen [facility] [employer] 10/23/2023 VST04 / / [id number] Sealant Fibrin Vistaseal 4ml Jnj[employer]i [id number] Implanted:Qty : 1 on 04/29/2022 by Bryon Blevins MD Implants N/A: Abdomen [employer] 10/16/2023 VST04 / / [id number] Insurance [employer] MEDICARE [address] Care Teams Lace Weaver Relationship Specialty Start Date End Date Dmitri Armas DO [address] [place] [phone] PCP - General Internal Medicine 04/14/22
--- OUTSIDE RECORDS SUMMARY | 2025-07-25 21:17 | XMS_ITS | Clinical Summary ---
Author Organization [facility] Prior to 01/14/[address] [place] [address] Care Team Providers Care International Sales Representative Name Role Phone Dmitri Armas DO Primary Care Provider [phone] Allergies No known active allergies Medications Medication [...] this topic Medical Devices Implanted Type Area Research Instructor Device Identifier Shelf Expiration Date Model / Serial / Lot Sealant Fibrin Vistaseal 4ml [facility] [id number] - [id number] Implanted:Qt y: 2 on 04/29/2022 by Bryon Blevins MD at [facility] Hemostatic Agent N/A: Abdomen [facility] [employer] 10/23/2023 VST04 / / [id number] Sealant Fibrin Vistaseal 4ml [facility] [id number] - [id number] Implanted:Qt y: 1 on 04/29/2022 by Bryon Blevins MD at [facility] Hemostatic Agent N/A: Abdomen [employer] 10/16/2023 VST04 / / [id number] Advance Directives For more information, please contact: [phone] Latest Code Status on File Code Status Date Activated Date Inactivated Comments Full Code 04/29/2022 7:32 PM 05/01/2022 1:25 AM This code status was ascertained in the following way: discussion with patient . Care Teams International Sales Representative Relationship Specialty Start Date End Date Dmitri Armas DO [address] [place] [phone] PCP - General Internal Medicine 04/14/22
--- OUTSIDE RECORDS SUMMARY | 2025-07-25 21:17 | XMS_ITS | Encounter Summary ---
Author Organization [facility] Address [address] [place] [address] Phone Care Team Providers Care Manager Life Name Role Phone Tr Norris MD Primary Care Provid er Reason for Referral * MRI/CAT Scan - Closed Specialty Diagnoses / Procedures Referred By Florentin chino Referred To Contact Radiology Diagnoses Other chronic sinusitis Procedures CT Face CHG CT SCAN,MAXILLOFACIAL AREA,W/O CONTRAST CHG CT SCAN, FACE/JAW CONTRAST CHG CT SCANS FACE/JAW COMBO [place] ALAN CT TISS CHARAC I&R W/CNCRNT CT EXAM Dewey Hicks DO [address] [facility], [facility] 100 [place] [address] Phone: tel: fax: mailto:[email or web address] Referral ID Status Reason Start Date Expiration Date Visits Re quested Visits Authorized [id number] Closed 04/20/2025 06/19/2025 1 1 Encounter Details Date Type Department Care Team (Latest Contact Info) Description 04/11/2025 Transcribe Orders Virtual Department [address] [place] [address] Dewey Hicks DO [address] [facility], [address] [place] [address] [email or web address] Other chronic sinusitis (Primary Dx) Social History [...] sinusitis documented in this encounter Care Teams Manager Life Relationship Specialty Start Date End Date Tr Norris MD [address] [place] [address] PCP - General Internal Medicine 04/19/25 documented as of this encounter Additional Source Comments The information contained in this document represents components of the legal health record. It is not the complete legal health record.[facility]
--- OUTSIDE RECORDS SUMMARY | 2025-07-25 21:17 | XMS_ITS | Data Portability ---
Author Organization [facility], [facility] Address [address] [place] [phone] Care Team Providers Care Plater Helper Name Role Phone TR SOLIMAN Primary Care [...] available Not available Test Results 15 2025 10:00A M CLAIRE KIM PA-C Not available Not available Not available Lab None recorded. Referral None recorded. Procedures None recorded. Surgeries None recorded. Imaging CT, sinuses, w/o contrast 2024 025 [email or web address] [facility], [address] [facility], [place], [address], 04/20/2025 10:09:06 Medication Orders None recorded. Patient TargetsNo targets recorded. Patient InstructionsNo instructions recorded. Reason for Referral None Reported. Problems Name Problem SNOMED Code Status Onset Date Resolution Date Notes Provider Name and Address Organization Details Recorded Time Incompetence of nasal valve 775110809 Active 2024 Dewey Hicks, [address], [address] [place] [address], [phone], [facility] 23:31:59 Nasal obstruction 798578097 Active 2024 Dewey Hicks [address] [place] [address], [phone], [facility] 23:32:03 Chronic sinusitis 02696719 Active 2024 Dewey Hicks, [address] [place] [address], [phone], [facility] 10:00:22 Problem Notes None recorded. Procedures Surgical History Date Name Laterality Status Provider Name and Address Organization Details Recorded Time 04/11/2025 Nasal Endo DDx_DHL completed Dewey Hicks [address], [phone], [facility] 04/11/2025 09:58:13 Imaging Results None recorded. Procedure [...] berry [place] - [facility] 04/11/2025 09:22:33 How Many Years Have You Consumed Alcohol? 0 [email or web address] Information not available 04/11/2025 What Type Of Stamps Or Coins Salesperson Do You Use? None [email or web address] Information not available 04/11/2025 How Many Alcoholic Drinks Do You Consume Per Day On Average? 0 [email or web address] Information not available 04/11/2025 Do You Have Any Pets? No [email or web address] Information not available 04/11/2025 Are You Passively Exposed To Smoke? No [email or web address] Information not available 04/11/2025 Are There Any Smokers In Your House? No [email or web address] Information not available 04/11/2025 Sex: Female Functional Status Question Answer Note LastModified by Organization Details LastModified Time How many times per week do you consume alcohol? Less than 1 time per week Inform ation not available 04/11/2025 Do you use any illicit or recreational drugs? No [email or web address] Information not available 04/11/2025 Do you or have you ever used any other forms of tobacco or nicotine? No [email or web address] Information not available 04/11/2025 What is your level of alcohol consumption? Occasional [email or web address] Information not available 04/11/2025 What type of noise exposure are you exposed to? noExposureToExcessiveNoise [email or web address] Infor mation not available 04/11/2025 Mental Status None recorded. Family History Nothing Reported. Medical History Condition Response Allergies/Hayfever N Heart Problems N Anxiety N Tonsil Infections N Emphysema N Migraines Y Thyroid Problems N COPD N Depression N Developmental Delay N Glaucoma N Nasal or Sinus Problems Y Anemia N Immune System Disorder N Anesthesia Complications N Heart Attack ([place]) N Other Skin Condition N Diabetes Y Rhinitis N Bleeding Disorder N Food Allergy N Hearing Loss Y Arthritis Y Hyperlipidemia N Cancer N Stroke N Dementia N Nasal polyps N Asthma N Sleep Disorder N High Cholesterol Y GERD/Reflux Y Liver Disease N Headaches Y Fibromyalgia N Hypertension Y Speech Delay N Kidney Disease N Gynecological HistoryNo gynecological history recorded. Obstetrics History GPAL:G 0 P 0 0 0 0 Past Encounters Encounter ID Performer Location Encounter Start Date Encounter Closed Date Diagnosis/Indication Diagnosis SNOMED-CT Code Diagnosis ICD10 Code Diagnosis IMO Codes Diagnosis Note [id number] Dewey Hicks, DO [facility] [address] [phone] 04/11/2025 09:07:06 04/11/2025 09:59:42 Incompetence of nasal valve 330687884 J34.291 [id number] Nasal obstruction 419003 000 J34.89 64546 Chronic sinusitis 410089 00 J32.8 18178 Health Concerns Section Related Observation LastModified by Organization Detai ls LastModified Time None Recorded Concern Status LastModified by Organization Details LastModified Time None Recorded Advance Directives Directive None Recorded Payers Insurance Date Sequence Insurance Name Policy Number Policy Nunez Covered Member ID Nunez Member ID Guarantor Name 04/11/2025 1 [facility] Marti Nannette [id number] Marti Gracia Notes Date Note Type Note Provider Name and Address Organization Details Recorded Time 04/11/2025 text/html ROS as noted in the HPI Ref: Tr Kidd is a 60F presenting for evaluation of nasal obstruction. Prior surgery for deviated septum (Septorhinoplasty) in [place] a year ago. Since then had worsening [...] and fluticasone intermittently. Dewey Hicks, DO [address] [facility],[place] [address], [place], [address], [facility] - [facility] 04/11/2025 10:01:08 OBGyn Episode No OBEpisode recorded.
--- OUTSIDE RECORDS SUMMARY | 2025-07-25 21:17 | XMS_ITS | Encounter Summary ---
Author Organization [facility] Address [address] [place] [address] Care Team Providers Care Equipment Tech Name Role Phone Dmitri Armas DO Primary Care Provider [phone] Encounter Details Date Type Department Care Team (Late st Contact Info) Description 10/19/2024 Lab Requisition [facility] - Main Lab [address] [facility] [place] [phone] Prince Fonseca MD 100 [facility] 120 [place], [place] [id number] Urinary tract infection, site not specified Social [...] ssp pneumoniae(A) CARYN 10/22/2024 11:44 AM EST [facility] ([facility]) [facility] Comment: The organism value for this result has been updated. These results have been appended to the previously preliminary verified report. This is an edited result. Previous organism was Gram negative bacilli on 10/21/2024 at 1418 EST. Urine Urine specimen obtained by clean catch procedure / Unknown 10/19/2024 10/19/2024 2:28 PM EST Narrative [place] ([facility]) [facility] - 10/22/2024 11:44 AM EST Additional [...] pneumoniae Trimethoprim/Sulfamethoxazo le CARYN <=20 ug/ml: Susceptible rPince Fonseca MD LAB MICROBIOLOGY - [facility] ORDERABLES Final Result [facility] [address] [place] [address], documented in this encounter Visit Diagnoses Diagnosis Urinary tract infection, site not specified documented in this encounter Care Teams Equipment Tech Relationship Specialty Start Date End Date Dmitri Armas DO [address] [place] [phone] PCP - General Internal Medicine 04/14/22 documented as of this encounter
== END ==
LOC: HO.CARD 14:58
PROVIDERS: PCP Internal Medicine; Visit Provider Physician Assistant Medical
DX: R07.9 Chest pain, unspecified (principal)
CPT/HCPCS: 93242

== ENCOUNTER → 2025-07-25 15:01 | Outpatient (BNV) | payer OTHER, SELFPAY | PROVIDERS: PCP Internal Medicine; Visit Provider Internal Medicine Cardiovascular Disease | DX: R07.89 Other chest pain (principal) | CPT/HCPCS: 93244 ==

== ENCOUNTER 2025-08-02 11:00 | Outpatient (AMB) | payer OTHER, SELFPAY ==
--- NOTE | 2025-08-02 11:04 | A.OFFVIS_ITS ---
VS Expanded 08/02/25 11:14 BP 116/64 Blood Pressure Location Lt brachial Blood Pressure Position Sitting Pulse 96 Pulse Source Pulse Oximeter Temp 97.7 F Temperature Source Temporal Artery Scan Pulse Oximetry 100 Oxygen Delivery Method Room Air Height 5 ft 4 in Weight 161 lb 4 oz BMI 27.7 Body Fat % 31.7 Body Fat Mass 51.2 Fat Free Mass 110.2 Visceral Fat Rating 8.0 Body Water % 48.4 Body Water Mass 78.0 Muscle Mass/Score 104.8 Basal Metabolic Rate/Score 1,473 Intake Visit Reasons: OV PO LRYGB 04/14/18 Allergies No Known Allergies (No Known Allergies*) Allergy (Verified 08/02/25 11:11) Medication List - Last Reconciled 08/02/25 by GUS Alvarez amoxicillin 2,000 mg (4 x 500 mg) PO ONCE atorvastatin 20 mg PO DAILY cholecalciferol (vitamin D3) 50 mcg PO DAILY gabapentin 600 mg PO BEDTIME lisinopril 20 mg PO DAILY ondansetron 4 mg PO Q8H PRN pantoprazole 40 mg PO DAILY propranolol ER 60 mg PO BEDTIME rizatriptan take 1 tab at onset of headache; if no relief may repeat 1 tab after at least 2 hrs; max = 3 tabs/24 hr PO ropinirole 0.5 mg PO BEDTIME tirzepatide (Mounjaro) mg subcut QWEEK HPI Comments Details: This is a 60 yo female who is s/p RYGB 04/14/2018. No complaints of nausea, emesis, abdominal pain or reflux, or constipation. Was able to have a procedure to remove residual gallstones. Pt on Mounjaro for about 2 years, was started on it for blood sugar control. Also stopped metformin and Jardiance; now on Mounjaro 7.5mg. Present meal plan includes: 1 protein shake per day 2 food based meals takes MVI Exercise routine includes: walking every other day Pt has excess skin of arms and legs that has become bothersome. Regarding skin of legs, pt has developed chafing due to friction between legs. Has used topical oil to try to relieve this without effect. When she walks, the skin rubs together and causes discomfort. It is difficult to find pants that fit well and comfortably; if they fit in the waist, they do not fit around the legs. She does experience some knee pain and the weight of the excess skin can worsen this. Regarding skin of arms, pt notes chafing due to skin rubbing against torso. She has to wear longer sleeves to protect the skin; cannot wear sleeveless shirts or tank tops. Skin sometimes gets pinched in bra straps. She finds that lifting her arms over her head for normal daily activities is more difficult and uncomfortable due to the weight of the excess skin. [facility] Medical History Influenza vaccine administered Chronic fatigue Intermittent chest pain Sacral nerve stimulator present Somnolence, daytime Restless leg syndrome Plantar fasciitis Osteoarthritis Migraine headache Mild hypercholesterolemia GERD (gastroesophageal reflux disease) History of mammogram (~12/19/21) Anemia Deviated septum General medical exam Asthma Neuropathy Gallstones RUQ pain Morbid obesity ARLEY (obstructive sleep apnea) Other and unspecified hyperlipidemia Essential hypertension Type 2 diabetes mellitus with unspecified complications Surgical History History of colonoscopy (~01/25/24) Hx laparoscopic cholecystectomy S/P panniculectomy Gastric bypass status for obesity History of bilateral knee replacement Family History Mother Asthma Father Hypertension Social History Housing: House Alcohol intake: current Alcohol intake frequency: holidays/special occasions only Patient Tobacco Use Status: Never used Tobacco service: Yes Current occupational status: retired Cognitive needs: No Hearing needs: Yes (b/l hearing aids) Vision needs: Yes (reading glasses) Physical Exam Vital Signs: Last Vital Signs Temp 97.7 F 08/02/25 11:14 Pulse 96 08/02/25 11:14 BP 116/64 08/02/25 11:14 Pulse Ox 100 08/02/25 11:14 Oxygen Delivery Method Room Air 08/02/25 11:14 BMI result Body Mass Index 27.7 Assessment & Plan Assessment & Plan (1) History of gastric bypass: Code(s): Z98.84 - Bariatric surgery status Category: Medical (2) Overweight: Code(s): E66.3 - Overweight Category: Medical Plan Pt continues to lose weight on Mounjaro. We talked about the importance of an appropriate meal plan. She understands that a protein with more supplements (katherine if approved for additional surgery) is ideal with 1 meal a day instead of 2. She did not end up using the [employer] irene. She is experiencing issues of excess skin of thighs resulting in frequent painfl chafing unrelieved by OTC treatment. In addition she is experiencing limitations/discomfort in activities of daily living, including walking. The weight of the excess skin worsens her knee pain. Her issues have not been completely relieved by conservative measures. She would benefit from definitive treatment of panniculectomy. She is also experiencing issues of excess skin of arms resulting in frequent painful chafing unrelieved by OTC treatment. In addition she is experiencing limitations/discomfort in activities of daily living, including walking and lifting her arms over her head for typical daily activities. She requires the use of special clothing at all times to try to prevent discomfort but her issues have not been completely relieved by conservative measures. She would benefit from definitive treatment of panniculectomy. Will trial clotrimazole ointment. Photos taken today. Target weight 157lb prior to skin removal surgery. Medications: New clotrimazole 1% 1 appl topical BID 45 grams 3RF Refilled ondansetron 4 mg PO Q8H PRN 30 tabs 1RF nausea and vomiting
[2025-08-02 11:14] VITALS: BP 116/64; PULSE 96; TEMP 36.5; O2SAT 100; BMI 27.7
--- OUTSIDE RECORDS SUMMARY | 2025-08-02 14:27 | XMS_ITS | Clinical Summary ---
Author Organization [address] Address [address] [place] [phone] Phone Care Team Providers Care Letter Of Credit Document Examiner Name Role Phone Dmitri Armas DO Primary Care Provider Surgical History Surgery Date Site/Laterality Comments TOTAL KNEE ARTHROPLASTY Bilateral PROCEDURE:TOTAL KNEE ARTHROPLASTY BARIATRIC SURGERY 2017 PROCEDURE:BARIATRIC SURGERY;COMMENT:gastric bypass RHINOPLASTY 04/29/2022 Bilateral PROCEDURE:RHINOPLASTY;COMMENT:Proce dure: SECONDARY EXTERNAL RHINOPLASTY; Surgeon: Bryon Blevins MD; Location: [facility] MAIN OPERATING ROOM; Service: Plastics; Laterality: Bilateral; OTHER SURGICAL HISTORY 04/29/2022 Bilateral PROCEDURE:ABDOMINOPLASTY;COMMENT:Pr ocedure: ABDOMINOPLASTY, MONSPLASTY; Surgeon: Bryon Blevins MD; Location: [facility] MAIN OPERATING ROOM; Service: Plastics; Laterality: Bilateral; Medical History Medical History Date Comments Osteoporosis DX:Osteoporosis Prophylactic antibiotic DX:Proph ylactic antibiotic;COMMENT: knee replacement 2014 Hypertension DX:Hypertension Hyperlipidemia DX:Hyperlipidemi a Migraine headache DX:Migraine he adache Sleep apnea, obstructive DX:Slee p apnea, obstructive;COMMENT:tested but never treated Snores DX:Snores Diabetes mellitus, type II ( CMS/HCC V24, CMS/HCC V28) DX:Diabetes mellitus, type I I ([facility]) Social History Tobacco Use Types Packs/Day Years [...] this topic Medical Devices Implanted Type Area Marine Fuel Dock Attendant Device Identifier Shelf Expiration Date Model / Serial / Lot Sealant Fibrin Vistaseal 4ml [facility] [id number] Implanted:Qty : 2 on 04/29/2022 by Bryon Blevins MD Implants N/A: Abdomen [facility] [employer] 10/23/2023 VST04 / / [id number] Sealant Fibrin Vistaseal 4ml [employer] [id number] Implanted:Qty : 1 on 04/29/2022 by Bryon Blevins MD Implants N/A: Abdomen [employer] 10/16/2023 VST04 / / [id number] Insurance [employer] MEDICARE [address] Care Teams Letter Of Credit Document Examiner Relationship Specialty Start Date End Date Dmitri Armas DO [address] [place] [phone] PCP - General Internal Medicine 04/14/22
--- OUTSIDE RECORDS SUMMARY | 2025-08-02 14:27 | XMS_ITS | Clinical Summary ---
Author Organization [facility] Address [address] [place] [address] Phone Care Team Providers Care Stiff Neck Loader Name Role Phone Tr Norris MD Primary Care Provid er Encounters Date Type Department Care Team Description 05/12/2025 8:07 AM EDT - 05/12/2025 11:59 PM EDT Hospital Encounter [facility], [address] [address] Dewey Hicks, DO Discharge Disposition: Home or Self Care 04/11/2025 Procedure Pass [address] [id number] from Last 3 Months Social History Tobacco [...] Resul t from Last 3 Months Insurance [facility] POS [facility] POS Care Teams Stiff Neck Loader Relationship Specialty Start Date End Date Tr Norris MD [address] [place] [phone] PCP - General Internal Medicine 04/19/25 Additional Source Comments The information contained in this document represents components of the legal health record. It is not the complete legal health record.[facility]
--- OUTSIDE RECORDS SUMMARY | 2025-08-02 14:27 | XMS_ITS | Encounter Summary ---
Author Organization [facility] Address [address] [place] [address] Care Team Providers Care Casket Inspector Name Role Phone Dmitri Armas DO Primary Care Provider [phone] Encounter Details Date Type Department Care Team (Late st Contact Info) Description 10/19/2024 Lab Requisition [facility] - Main Lab [address] [facility] [place] [id number] Prince Fonseca MD [address] [facility] [address] [place], [place] [id number] Urinary tract infection, site not specified Social [...] ssp pneumoniae(A) CARYN 10/22/2024 11:44 AM EST [facility] ([facility]) [facility] Comment: The organism value for this result has been updated. These results have been appended to the previously preliminary verified report. This is an edited result. Previous organism was Gram negative bacilli on 10/21/2024 at 1418 EST. Urine Urine specimen obtained by clean catch procedure / Unknown 10/19/2024 10/19/2024 2:28 PM EST Narrative [place] ([facility]) [facility] - 10/22/2024 11:44 AM [...] Susceptible Prince Fonseca MD LAB MICROBIOLOGY - [facility] ORDERABLES Final [facility] ([facility]) [facility] [address] [place] [address], documented in this encounter Visit Diagnoses Diagnosis Urinary tract infection, site not specified documented in this encounter Care Teams Casket Inspector Relationship Specialty Start Date End Date Dmitri Armas DO [address] [place] [phone] PCP - General Internal Medicine 04/14/22 documented as of this encounter
--- OUTSIDE RECORDS SUMMARY | 2025-08-02 14:27 | XMS_ITS | Clinical Summary ---
Author Organization [employer] [facility] Prior to 01/14/[address] [place] [phone] Care Team Providers Care Clinical Trial Educator Name Role Phone Dmitri Armas DO Primary Care Provider [phone] Allergies No known active allergies Medications Medication [...] this topic Medical Devices Implanted Type Area Etl Analyst Developer Device Identifier Shelf Expiration Date Model / Serial / Lot Sealant Fibrin Vistaseal 4ml [facility] [id number] - [id number] Implanted:Qt y: 2 on 04/29/2022 by Bryon Blevins MD at [facility] and Med Hemostatic Agent N/A: Abdomen [facility] [employer] 10/23/2023 VST04 / / [id number] Sealant Fibrin Vistaseal 4ml [facility] [id number] - [id number] Implanted:Qt y: 1 on 04/29/2022 by Bryon Blevins MD at [facility] and Med Hemostatic Agent N/A: Abdomen [employer] 10/16/2023 VST04 / / [id number] Advance Directives For more information, please contact: [phone] Latest Code Status on File Code Status Date Activated Date Inactivated Comments Full Code 04/29/2022 7:32 PM 05/01/2022 1:25 AM This code status was ascertained in the following way: discussion with patient . Care Teams Clinical Trial Educator Relationship Specialty Start Date End Date Dmitri Armas DO [address] [place] [phone] PCP - General Internal Medicine 04/14/22
--- OUTSIDE RECORDS SUMMARY | 2025-08-02 14:27 | XMS_ITS | Encounter Summary ---
Author Organization [facility] Address [address] [place] [address] Phone Care Team Providers Care Waterworks Pump Station Operator Name Role Phone Tr Norris MD Primary Care Provid er Reason for Referral * MRI/CAT Scan - Closed Specialty Diagnoses / Procedures Referred By Florentin chino Referred To Contact Radiology Diagnoses Other chronic sinusitis Procedures CT Face CHG CT SCAN,MAXILLOFACIAL AREA,W/O CONTRAST CHG CT SCAN, FACE/JAW CONTRAST CHG CT SCANS FACE/JAW COMBO CO ALAN CT TISS CHARAC I&R W/CNCRNT CT EXAM Dewey Hicks DO [address] [facility], [facility] [address] [place] [address] Phone: tel: fax: mailto:[email or web address] Referral ID Status Reason Start Date Expiration Date Visits Re quested Visits Authorized [id number] Closed 04/20/2025 06/19/2025 1 1 Encounter Details Date Type Department Care Team (Latest Contact Info) Description 04/11/2025 Transcribe Orders Virtual Department [address] [place] [address] Dewey Hicks DO [address] [facility], [address] [place] [address] [email or web address] Other chronic sinusitis [...] sinusitis documented in this encounter Care Teams Waterworks Pump Station Operator Relationship Specialty Start Date End Date Tr Norris MD [address] [place] [address] PCP - General Internal Medicine 04/19/25 documented as of this encounter Additional Source Comments The information contained in this document represents components of the legal health record. It is not the complete legal health record.[facility]
--- OUTSIDE RECORDS SUMMARY | 2025-08-02 14:27 | XMS_ITS | Encounter Summary ---
Author Organization [facility] Address [address] [place] [address] Phone Care Team Providers Care Hand Bootmaker Name Role Phone Tr Norris MD Primary Care Provid er Encounter Details Date Type Department Care Team (Late st Contact Info) Description 04/11/2025 Procedure Pass [facility], Ct Scan - [address] [address] Social History Tobacco Use Types Packs/Day Years [...] on filedocumented in this encounter Care Teams Hand Bootmaker Relationship Specialty Start Date End Date Tr Norris MD [address] Justyn [address] [place] [phone] PCP - General Internal Medicine 04/19/25 documented as of this encounter Additional Source Comments The information contained in this document represents components of the legal health record. It is not the complete legal health record.[facility]
== END 2025-08-02 11:42 | disposition home or self-care (01) ==
LOC: HO.HBS 11:00
PROVIDERS: PCP Internal Medicine; Visit Provider Physician Assistant Surgical
DX: E66.3 Overweight (principal); Z68.27 Body mass index [BMI] 27.0-27.9, adult; M79.3 Panniculitis, unspecified; Z98.84 Bariatric surgery status
CPT/HCPCS: 99213

== ENCOUNTER 2025-08-04 09:31 | Outpatient (AMB) | payer OTHER, SELFPAY ==
[2025-08-04 09:35] VITALS: BP 97/54; PULSE 86; RESP 14; TEMP 36.4; O2SAT 98; BMI 28.1
--- NOTE | 2025-08-04 09:35 | A.OFFPC_ITS ---
Vital Signs 08/04/25 09:35 Height 5 ft 4.02 in Weight 164 lb BMI 28.1 BP 97/54 L Blood Pressure Location Rt brachial Position Sitting Respiration 14 Pulse 86 Pulse Source Pulse Oximeter Temp 97.6 F Temp Source Temporal Artery Scan Pulse Oximetry (%) 98 Oxygen Delivery Method Room Air Intake Visit Reasons: 3m Follow up Wheat Grower Required: No Accompanied by: Self / Same As Patient Allergies No Known Allergies (No Known Allergies*) Allergy (Verified 08/04/25 09:49) Medication List - Last Reconciled 08/04/25 by Graciela Goddard PA-C atorvastatin 20 mg PO DAILY cholecalciferol (vitamin D3) 50 mcg PO DAILY clotrimazole 1% 1 appl topical BID gabapentin 600 mg PO BEDTIME lisinopril 20 mg PO DAILY ondansetron 4 mg PO Q8H PRN pantoprazole 40 mg PO DAILY propranolol ER 60 mg PO BEDTIME rizatriptan take 1 tab at onset of headache; if no relief may repeat 1 tab after at least 2 hrs; max = 3 tabs/24 hr PO ropinirole 0.5 mg PO BEDTIME tirzepatide (Mounjaro) mg subcut QWEEK Tobacco use date assessed: 05/03/25 Dental Screening Dental Screen Date: 05/03/25 HPI HPI Comments History of Present Illness Details History of Present Illness The patient is a 60 year old female presenting for chronic disease management and follow-up. Her hemoglobin A1c is 6.0%. She is currently taking Mounjaro 7.5 mg and has experienced weight loss, with a current BMI of 28. She reports initial abdominal pain with the medication, which has since resolved. For hypertension, she is on lisinopril 20 mg. Her blood pressure has been low recently, though she notes it can fluctuate up to 140 at home. The patient reports persistent symptoms of a urinary tract infection, for which she was treated with Bactrim by her [employer] two weeks ago. She feels the antibiotic did not completely resolve the infection. Her medical history is notable for a cholecystectomy last year. She has a history of nosebleeds and is being followed by a specialist, with an MRI completed and a follow-up appointment scheduled for August. She had surgery for a trigger finger 7 to 10 years ago, and the condition has returned in her right pinky finger. Her daughter has a history of thyroid cancer requiring surgery. Current medications include atorvastatin 20 mg, vitamin D, gabapentin 600 mg at bedtime, ondansetron 4 mg as needed, pantoprazole 40 mg daily, propranolol ER 60 mg at bedtime, rizatriptan as needed, and ropinirole 0.5 mg at bedtime. Social History - Substance Use: The patient denies bein g a smoker. - Weight Management: The patient reports weight loss while on Mounjaro and follows with the [facility]. [facility] Medical History (Updated 08/04/25 @ 10:37 by Graciela Goddard PA-C) Healthcare maintenance UTI (urinary tract infection) Trigger finger, right Left thyroid nodule Influenza vaccine administered Chronic fatigue Intermittent chest pain Sacral nerve stimulator present Somnolence, daytime Restless leg syndrome Plantar fasciitis Osteoarthritis Migraine headache Mild hypercholesterolemia GERD (gastroesophageal reflux disease) History of mammogram (~12/19/21) Anemia Deviated septum General medical exam Asthma Neuropathy Gallstones RUQ pain Morbid obesity ARLEY (obstructive sleep apnea) Other and unspecified hyperlipidemia Essential hypertension Type 2 diabetes mellitus with unspecified complications Surgical History History of colonoscopy (~01/25/24) Hx laparoscopic cholecystectomy S/P panniculectomy Gastric bypass status for obesity History of bilateral knee replacement Family History Mother Asthma Father Hypertension Social History Housing: House Alcohol intake: current Alcohol intake frequency: holidays/special occasions only Patient Tobacco Use Status: Never used Tobacco service: Yes Current occupational status: retired Cognitive needs: No Hearing needs: Yes (b/l hearing aids) Vision needs: Yes (reading glasses) Questionnaire PHQ-9 Over the last 2 weeks, how often have you been bothered by any of the following problems? 1. Little interest or pleasure in doing things: not at all 2. Feeling down, depressed, or hopeless: not at all 3. Trouble falling or staying asleep, or sleeping too much: not at all 4. Feeling tired or having little energy: not at all 5. Poor appetite or overeating: not at all 6. Feeling bad about yourself - or that you are a failure or have let yourself or your family down: not at all 7. Trouble concentrating on things, such as reading the newspaper or watching television: not at all 8. Moving or speaking so slowly that other people could have noticed. Or the opposite - being so fidgety or restless that you have been moving around a lot more than usual: not at all 9. Thoughts that you would be better off or of hurting yourself in some way: not at all Total score: 0 Depression Screening Interpretation: Negative Depression Screening Done: Yes 52569 - PHQ-9 Billing: Yes Source: Developed by Drs. Dmitri Murcia, Melony Loco, Bandar Rodriguez and colleagues, with an educational thanh from [employer]. Thrive Questionnaire Date Thrive assessed: 05/03/25 I am a: Patient What is your living situation today?: I have a steady place to live Within the past 12 months, did the food you bought not last and you didn't have the money to get more?: Never true Within the past 12 months, did you worry whether your food would run out before you got money to buy more?: Never true Do you have trouble paying for medicines?: No Do you have trouble getting transportation to medical appointments?: No Do you have trouble paying your heating and electricity bill?: No Do you have trouble taking care of your child, family member or friend?: No Do you have trouble with day-to-day activities such as bathing, preparing meals, shopping, managing finances, etc.?: No Are you currently unemployed and looking for a job?: No Are you interested in more education?: No Please select the resources that you would like help with: None THRIVE Score: 0 AUDIT C Alcohol Use Questionnaire (AUDIT-C) 1. How often do you have a drink containing alcohol?: Monthly or less 2. How many drinks containing alcohol do you have on a typical day when you are drinking?: 1 or 2 3. How often do you have six or more drinks on one occasion?: Never Total Score: 1 Score Reviewed/Action Taken: No RADHA-7 AMB Questionnaire RADHA-7 Date RADHA - 7 assessed: 05/03/25 Feeling nervous, anxious, or on edge: 0 = Not at all Not being able to stop or control worryin = Not at all Worrying too much about different things: 0 = Not at all Trouble relaxin = Not at all Being so restless that it is hard to sit still: 0 = Not at all Becoming easily annoyed or irritable: 0 = Not at all Feeling afraid as if something awful might happen: 0 = Not at all Total RADHA-7 score (0-4 normal; 5-9 mild; 10-14 moderate; 15-21 severe): 0 Source: Developed by Drs. Dmitri Murcia, Melony Loco, Bandar Rodriguez and colleagues, with an educational thanh from [employer]. RADHA-7 Assessment Billing RADHA-7 Assessment Tool: RADHA-7 Assessment 21919 Review of Systems Narrative Review of Systems - Constitutional: Denies fever. - HEENT: Reports recurrent nosebleeds and difficulty breathing through one side of her nose. - Cardiovascular: Denies chest pain. Reports chest tightness that was recently evaluated. - Respiratory: Denies shortness of breath. - Gastrointestinal: Denies abdominal pain. - Genitourinary: Reports persistent symptoms of a urinary tract infection after a course of antibiotics. - Musculoskeletal: Reports locking of the right fifth digit, consistent with trigger finger. Denies pain over the kidneys. - Neurological: Uses rizatriptan for headaches. - General: Denies recent falls. Const All systems reviewed & are unremarkable except as noted in HPI and below Physical exam (Primary Care) Vital Signs: Last Vital Signs Temp 97.6 F 08/04/25 09:35 Pulse 86 08/04/25 09:35 Resp 14 08/04/25 09:35 BP 97/54 L 08/04/25 09:35 Pulse Ox 98 08/04/25 09:35 Oxygen Delivery Method Room Air 08/04/25 09:35 Care Plan Goal for BP management: <140/90 at Goal BMI result Body Mass Index 28.1 BMI Assessment/Plan discussion: High BMI High, discussed plan: lifestyle, weight reduction, dietary, physical activity, alcohol moderation and other Tobacco/Smoking Status: Tobacco use Status Tobacco use date assessed 05/03/25 08/04/25 09:37 Patient Tobacco Use Status Never used Tobacco 08/04/25 09:37 PHQ-9: PHQ-9 Score PHQ-9: Total score 0 08/04/25 09:50 Depression Screening Interpretation: Negative Thrive Assessment: Date of Thrive Assessment Date Thrive assessed 05/03/25 08/04/25 09:37 Narrative Physical Exam Appearance: Alert. Oriented X3. No acute distress. Head: Normal external exam. Normocephalic. Atraumatic. Eyes: Pupils are equal, round, and reactive to light. Extraocular movements intact. Conjunctiva and sclera normal. Eyelids normal. Ears: External auditory canal normal. Tympanic membranes normal. Throat: Pharynx normal. Uvula midline. Moist mucous membranes. Neck: Normal inspection. Neck supple. Full range of motion. No adenopathy. Thyroid Normal. No meningeal signs. No neck mass noted. Tenderness noted on the left side of the thyroid, possible nodule. Cardiovascular: Normal heart rate and rhythm. Heart sound normal. No murmurs noted. Pulses normal throughout. Respiratory: No respiratory distress. Painless inspiration. Breath sounds normal. No wheezes/rales/rhonchi noted. Chest nontender. No accessory muscle u sundeep noted or decreased air movement noted. Abdomen: Soft and nontender. No distention noted. No organomegaly noted. Back: No costovertebral angle tenderness. Full range of motion noted. Skin: Skin warm and dry. Normal skin color. Normal skin turgor. No rashes/lesions/lacerations noted. Extremities: No lower extremity edema. Extremities exhibit normal range of motion. Neuro: Oriented X 3. No motor deficit. No sensory deficit. Reflexes normal. Results AMB Hemoglobin A1c AMB Hemoglobin A1c 6.0 % Last Edit by BUFFY Villanueva on 08/04/25 09:47 Results Reviewed Results Reviewed: Laboratory Last Values Hgb A1c (Clinic) 6.0 % (4.0-6.0) 08/04/25 09:45 Results - Labs: - Hemoglobin A1c: 6.0%. - Lipid panel (November): Results were normal. Coding Level of Care Code Est Pt Level 4 (34661) Add On Problem Visit Only Diagnoses Type 2 diabetes mellitus with unspecified complications E11.8 Essential hypertension I10 UTI (urinary tract infection) N39.0 Left thyroid nodule E04.1 Trigger finger, right M65.30 Healthcare maintenance Z00.00 Additional Codes RADHA-7 Assessment Billing - RADHA-7 Assessment Tool: RADHA-7 Assessment 00015 ([id number]) PHQ-9 - 95009 - PHQ-9 Billing: Yes ([id number]) Time Spent (min) 60 Assessment & Plan Assessment & Plan (1) Type 2 diabetes mellitus with unspecified complications: Code(s): E11.8 - Type 2 diabetes mellitus with unspecified complications Category: Medical Plan: The patient's glycemic control is excellent with a hemoglobin A1c of 6.0% on Mounjaro 7.5 mg. She is tolerating the medication well and experiencing weight loss. The plan is to continue titrating the Mounjaro dose upwards to achieve further benefits. She will be increased to 10 mg, then 12.5 mg, and finally the maximum dose of 15 mg in the subsequent months. The patient has been instructed to request the next dose via phone call or portal message for her next refills. (2) Essential hypertension: Code(s): I10 - Essential (primary) hypertension Category: Medical Plan: The patient presented with a low blood pressure reading in the office while taking lisinopril 20 mg daily. Due to the risk of hypotension and syncope, she was advised to monitor her blood pressure at home. The plan is for her to split her lisinopril 20 mg tablet and take 10 mg, checking her blood pressure two to three hours later. If her blood pressure is above 140, she can take the other half; otherwise, she should hold the dose. If she finds that 10 mg daily is sufficient, she will contact the office to have her prescription dose lowered. (3) UTI (urinary tract infection): Code(s): N39.0 - Urinary tract infection, site not specified Category: Medical Plan: The patient reports persistent UTI symptoms despite a recent course of Bactrim from her [employer]. A urinalysis will be collected today. A prescription for Macrobid, to be taken twice daily for 5-7 days, has been sent to the pharmacy. A non-fasting comprehensive metabolic panel has been ordered to assess kidney function, which she can have drawn at any time. (4) Left thyroid nodule: Code(s): E04.1 - Nontoxic single thyroid nodule Category: Medical Plan: A tender nodule was palpated on the left side of the patient's thyroid gland. Given her significant family history of thyroid cancer in her daughter, further evaluation is warranted. A referral for a thyroid ultrasound has been placed, and the imaging center will contact her to schedule the appointment. (5) Trigger finger, right: Code(s): M65.30 - Trigger finger, unspecified finger Category: Medical Plan: The patient reports a recurrence of trigger finger in her right pinky, a condition for which she had surgery 7-10 years ago. A referral has been placed to Dr. Miguel, a hand surgeon, for evaluation and management. The patient can expect to be contacted for scheduling within a month. (6) Healthcare maintenance: Code(s): Z00.00 - Encounter for general adult medical examination without abnormal findings Category: Medical Plan: The patient is due for her annual physical exam. She will follow up in 4 months, in November, for a complete physical and fasting blood work, which will include a CBC, CMP, ESR, HbA1c, lipid panel, magnesium, urine creatinine, B12, vitamin D, iron profile, and TSH. A refill for her migraine medication, rizatriptan, was requested and sent to the pharmacy. A referral was also placed to the [facility]. Plan Plan Patient was informed and verbally consented to the use of an ambient scribe for clinic note documentation during this visit. 1. Type 2 Diabetes Mellitus The patient's glycemic control is excellent with a hemoglobin A1c of 6.0% on Mounjaro 7.5 mg. She is tolerating the medication well and experiencing weight loss. The plan is to continue titrating the Mounjaro dose upwards to achieve further benefits. She will be increased to 10 mg, then 12.5 mg, and finally the maximum dose of 15 mg in the subsequent months. The patient has been instructed to request the next dose via phone call or portal message for her next refills. 2. Essential Hypertension The patient presented with a low blood pressure reading in the office while taking lisinopril 20 mg daily. Due to the risk of hypotension and syncope, she was advised to monitor her blood pressure at home. The plan is for her to split her lisinopril 20 mg tablet and take 10 mg, checking her blood pressure two to three hours later. If her blood pressure is above 140, she can take the other half; otherwise, she should hold the dose. If she finds that 10 mg daily is sufficient, she will contact the office to have her prescription dose lowered. 3. Urinary Tract Infection The patient reports persistent UTI symptoms despite a recent course of Bactrim from her [employer]. A urinalysis will be collected today. A prescription for Macrobid, to be taken twice daily for 5-7 days, has been sent to the pharmacy. A non-fasting comprehensive metabolic panel has been ordered to assess kidney function, which she can have drawn at any time. 4. Thyroid Nodule A tender nodule was palpated on the left side of the patient's thyroid gland. Given her significant family history of thyroid cancer in her daughter, further evaluation is warranted. A referral for a thyroid ultrasound has been placed, and the imaging center will contact her to schedule the appointment. 5. Trigger Finger, Right Fifth Digit The patient reports a recurrence of trigger finger in her right pinky, a condition for which she had surgery 7-10 years ago. A referral has been placed to Dr. Miguel, a hand surgeon, for evaluation and management. The patient can expect to be contacted for scheduling within a month. 6. Health Maintenance The patient is due for her annual physical exam. She will follow up in 4 months, in November, for a complete physical and fasting blood work, which will include a CBC, CMP, ESR, HbA1c, lipid panel, magnesium, urine creatinine, B12, vitamin D, iron profile, and TSH. A refill for her migraine medication, rizatriptan, was requested and sent to the pharmacy. A referral was also placed to the [facility]. Discussion Notes I discussed with the patient her excellent A1c of 6.0 and our plan to gradually increase her Mounjaro dose to the maximum of 15 mg over the next couple of months for continued benefits in glycemic control and weight management. I educated her on the importance of this titration and instructed her to contact the office for each dose escalation. We addressed the low blood pressure reading noted today. I explained the risk of passing out and advised her to monitor her blood pressure at home, instructing her to take half of her lisinopril pill and only take the second half if her pressure rises above 140. I told her to inform me if a permanent dose reduction to 10 mg is needed. I informed the patient that I palpated a tender nodule on her thyroid. Given her daughter's history of thyroid cancer, I explained the need for further investigation and ordered a thyroid ultrasound. We also discussed the recurrence of her trigger finger, and I have placed a referral to a hand surgeon for consultation. Regarding her persistent UTI symptoms, we will obtain a urine sample today, and I have prescribed a different antibiotic, Macrobid. I also ordered blood work to check her kidney function. We scheduled her follow-up appointment for her annual physical in November, at which time we will do comprehensive labs. Orders: Orders C Reactive Protein Today Z00.00 - Encounter for general adult medical examination without abnormal findings Comprehensive [place]. Panel Fast Today Z00.00 - Encounter for general adult medical examination without abnormal findings Erythrocyte Sedimentation Rate Today Z00.00 - Encounter for general adult medical examination without abnormal findings Microalbumin, Random (w Creat) Today Z00.00 - Encounter for general adult medical examination without abnormal findings Vitamin B12 and Folate Today Z00.00 - Encounter for general adult medical examination without abnormal findings Vitamin D 25-OH Total Today Z00.00 - Encounter for general adult medical examination without abnormal findings UA CC w/rflx Micro + Cult Today Z00.00 - Encounter for general adult medical examination without abnormal findings IRON PROFILE Today D64.9 - Anemia, unspecified Complete Blood Count no Diff Today Z00.00 - Encounter for general adult medical examination without abnormal findings AMB Hemoglobin A1c Today E11.8 - Type 2 diabetes mellitus with unspecified complications Complete Blood Count Auto Diff Today Z00.00 - Encounter for general adult medical examination without abnormal findings Hemoglobin A1c Today Z00.00 - Encounter for general adult medical examination without abnormal findings Lipid Panel Today Z00.00 - Encounter for general adult medical examination without abnormal findings Magnesium Today Z00.00 - Encounter for general adult medical examination without abnormal findings TSH reflex Free T4 Today Z00.00 - Encounter for general adult medical examination without abnormal findings Ferritin Today D64.9 - Anemia, unspecified Comprehensive Met. Panel Today Z00.00 - Encounter for general adult medical examination without abnormal findings US thyroid Today E04.1 - Nontoxic single thyroid nodule Referrals Orthopedics Referral M65.30 - Trigger finger, unspecified finger Medical Weight Management Referral E11.8 - Type 2 diabetes mellitus with u nspecified complications, E66.01 - Morbid (severe) obesity due to excess calories, E66.3 - Overweight, Z98.84 - Bariatric surgery status Medications: New nitrofurantoin monohyd/m-cryst 100 mg (Macrobid) must administer with a meal/food 100 mg PO BID 10 caps 0RF 5 days rizatriptan take 1 tab at onset of headache; if no relief may repeat 1 tab after at least 2 hrs; max = 3 tabs/24 hr PO 90 tabs 3RF Changed From tirzepatide (Mounjaro) subcut QWEEK E11.8 - Type 2 diabetes mellitus with unspecified complications, E66.01 - Morbid (severe) obesity due to excess calories To tirzepatide 10 mg (0.5 mL) subcut QWEEK 2 mL 0RF E11.8 - Type 2 diabetes mellitus with unspecified complications, E66.01 - Morbid (severe) obesity due to excess calories Patient Instructions: Patient Instructions - For your diabetes, please contact the office next month to request an increase in your Mounjaro dose to 10 mg, and again the following month for an increase to 15 mg. - Your blood pressure is low. For now, cut your 20 mg lisinopril pill in half. Check your blood pressure a few hours after taking it. If your pressure is high (above 140), take the other half. If it remains good on just half a pill, let us know so we can lower your dose. - Provide a urine sample today to check for a urinary tract infection. I have sent a new antibiotic (Macrobid) to your pharmacy. Take it twice a day for 5 to 7 days. - Please go to the lab for blood work to check your kidney function. You do not need to fast for this test and can go anytime. - I have ordered an ultrasound of your thyroid gland. The imaging center will call you to schedule the appointment. - I have put in a referral to a hand specialist for your finger that gets stuck. Their office will call you within a month to schedule. - I refilled your migraine medicine (rizatriptan). - Your next follow-up appointment is in November for your yearly physical. We will do fasting blood work before that visit.
--- OUTSIDE RECORDS SUMMARY | 2025-08-04 10:13 | XMS_ITS | Clinical Summary ---
Author Organization [facility] Prior to 01/14/[address] [place] [id number] Care Team Providers Care Primary Care Provider Name Role Phone Dmitri Armas DO Primary Care Provider [phone] Allergies No known active allergies Medications Medication [...] this topic Medical Devices Implanted Type Area Hose Mender Device Identifier Shelf Expiration Date Model / Serial / Lot Sealant Fibrin Vistaseal 4ml [facility] [id number] - [id number] Implanted:Qt y: 2 on 04/29/2022 by Bryon Blevins MD at [facility] and Med Hemostatic Agent N/A: Abdomen [facility] [employer] 10/23/2023 [id number] / / [id number] Sealant Fibrin Vistaseal 4ml [facility] [id number] - [id number] Implanted:Qt y: 1 on 04/29/2022 by Bryon Blevins MD at [facility] and Med Hemostatic Agent N/A: Abdomen [employer] 10/16/2023 VST04 / / [id number] Advance Directives For more information, please contact: [phone] Latest Code Status on File Code Status Date Activated Date Inactivated Comments Full Code 04/29/2022 7:32 PM 05/01/2022 1:25 AM This code status was ascertained in the following way: discussion with patient . Care Teams Primary Care Provider Relationship Specialty Start Date End Date Dmitri Armas DO [address] [place] [id number] PCP - General Internal Medicine 04/14/22
--- OUTSIDE RECORDS SUMMARY | 2025-08-04 10:14 | XMS_ITS | Encounter Summary ---
Author Organization [facility] Address [address] [place] [address] Care Team Providers Care Jack Winder Name Role Phone Dmitri Armas DO Primary Care Provider Encounter Details Date Type Department Care Team (Late st Contact Info) Description 10/19/2024 Lab Requisition [facility] - Main Lab [address] [facility] [place] [phone] Prince Fonseca MD [address] [facility] [address] [place], [place] [phone] Urinary tract infection, site not specified Social [...] ssp pneumoniae(A) CARYN 10/22/2024 11:44 AM EST [facility] Comment: The organism value for this result has been updated. These results have been appended to the previously preliminary verified report. This is an edited result. Previous organism was Gram negative bacilli on 10/21/2024 at 1418 EST. Urine Urine specimen obtained by clean catch procedure / Unknown 10/19/2024 10/19/2024 2:28 PM EST Narrative [place] ([facility]) [facility] - 10/22/2024 11:44 AM EST Additional [...] Susceptible Prince Fonseca MD LAB MICROBIOLOGY - [facility] ORDERABLES Final Result [facility] [address] [place] [address], documented in this encounter Visit Diagnoses Diagnosis Urinary tract infection, site not specified documented in this encounter Care Teams Jack Winder Relationship Specialty Start Date End Date Dmitri Armas DO [address] [place] [phone] PCP - General Internal Medicine 04/14/22 documented as of this encounter
--- OUTSIDE RECORDS SUMMARY | 2025-08-04 10:14 | XMS_ITS | Data Portability ---
Author Organization [place] [facility], All[facility] Address [address] [place] [phone] Care Team Providers Care Mandarin Teacher Name Role Phone TR SOLIMAN Primary Care [...] Last Modified Time Details Appointments Test Results 2025 01:20P M SERAFIN REYNAGA MD Not available Not available Not available CT Scan 2025 09:00A M [facility] Not available Not available Not available Test Results 15 02/25/ 2026 10:00A M CLAIRE KIM PA-C Not available Not available Not available Lab None recorded. Referral None recorded. Procedures None recorded. Surgeries None recorded. Imaging CT, sinuses, w/o contrast 2024 025 [email or web address] [facility], [address] [facility], [place], [address], 04/20/2025 10:09:06 Medication Orders None recorded. Patient TargetsNo targets recorded. Patient InstructionsNo instructions recorded. Reason for Referral None Reported. Results Created Date Observation Date Name Description Value Unit Range Abnormal Flag Note LastModifiedBy Organization Detail LastModifiedTime 07/26/2005/12/2025 CT, face, w/wo contr ast No observ ation record ed. [email or web address] Not Available 07/17 15:22:59 Result Notes None recorded. Problems Name Problem SNOMED Code Status Onset Date Resolution Date Notes Provider Name and Address Organization Details Recorded Time Incompetence of nasal valve 747100226 Active 2024 [address] Hicks [address], [phone], [facility] 23:31:59 Nasal obstruction 799647412 Active 2024 Dewey Hicks [address], [phone], [facility] [place] 23:32:03 Chronic sinusitis 13305072 Active 2024 Dewey Hicks, [address] [place] [address], [phone], [facility] - [facility] 10:00:22 Problem Notes None recorded. Procedures Surgical History Date Name Laterality Status Provider Name and Address Organization Details Recorded Time 04/11/2025 Nasal Endo DDx_DHL completed Dewey Hicks DO [address] [facility],[address], [address], [facility] - [facility] 04/11/2025 09:58:13 Imaging Results None recorded. Procedure [...] berry [place] - [facility] 04/11/2025 09:22:33 How Many Years Have You Consumed Alcohol? 0 [email or web address] Information not available 04/11/2025 What Type Of Securities Vault Supervisor Do You Use? None [email or web address] Information not available 04/11/2025 How Many Alcoholic Drinks Do You Consume Per Day On Average? 0 [email or web address] Information not available 04/11/2025 Do You Have Any Pets? No [email or web address] Information not available 04/11/2025 Are You Passively Exposed To Smoke? No [email or web address] Information not available 04/11/2025 Are There Any Smokers In Your House? No [email or web address] Information not available 04/11/2025 Sex: Female Functional Status Question Answer Note LastModified by Organization Details LastModified Time How many times per week do you consume alcohol? Less than 1 time per week [email or web address] Inform ation not available 04/11/2025 Do you use any illicit or recreational drugs? No [email or web address] Information not available 04/11/2025 Do you or have you ever used any other forms of tobacco or nicotine? No [email or web address] Information not available 04/11/2025 What is your level of alcohol consumption? Occasional [email or web address] Information not available 04/11/2025 What type of noise exposure are you exposed to? noExposureToExcessiveNoise [email or web address] Infor mation not available 04/11/2025 Mental Status None recorded. Family History Nothing Reported. Medical History Condition Response Allergies/Hayfever N Heart Problems N Anxiety N Tonsil Infections N Emphysema N Migraines Y Thyroid Problems N COPD N Depression N Developmental Delay N Glaucoma N Nasal or Sinus Problems Y Anemia N Immune System Disorder N Anesthesia Complications N Heart Attack (AR) N Other Skin Condition N Diabetes Y [...] ICD10 Code Diagnosis IMO Codes Diagnosis Note 11703 Dewey Hicks, DO [facility] [address] [phone] 04/11/2025 09:07:06 04/11/2025 09:59:42 Incompetence of nasal valve 235101604 J34.311 [id number] Nasal obstruction 678487 000 J34.89 26449 Chronic sinusitis 129677 00 J32.8 06081 Health Concerns Section Related Observation LastModified by Organization Detai ls LastModified Time None Recorded Concern Status LastModified by Organization Details LastModified Time None Recorded Advance Directives Directive None Recorded Payers Insurance Date Sequence Insurance Name Policy Number Policy Nunez Covered Member ID Nunez Member ID Guarantor Name 04/11/2025 1 [facility] Marti Brunson [id number] Marti Gracia Notes Date Note Type Note Provider Name and Address Organization Details Recorded Time 04/11/2025 text/html ROS as noted in the HPI Ref: Tr Soliman MD Marti is a 60F presenting for evaluation of nasal obstruction. Prior surgery for deviated septum (Septorhinoplasty) in [place] a year ago. Since then had worsening [...] and fluticasone intermittently. Dewey Hicks, DO [address] [facility],[place] [address], [place], [phone], [facility] - [facility] 04/11/2025 10:01:08 OBGyn Episode No OBEpisode recorded.
--- OUTSIDE RECORDS SUMMARY | 2025-08-04 10:14 | XMS_ITS | Encounter Summary ---
Author Organization [facility] Address [address] [place] [address] Phone Care Team Providers Care Manager Water Wastewater Name Role Phone Tr Norris MD Primary Care Provid er Encounter Details Date Type Department Care Team (Late st Contact Info) Description 04/11/2025 Procedure Pass [facility], Ct Scan - [address] [address] Social History Tobacco Use Types Packs/Day Years [...] on filedocumented in this encounter Care Teams Manager Water Wastewater Relationship Specialty Start Date End Date Tr Nroris MD [address] Justyn [address] [place] [phone] PCP - General Internal Medicine 04/19/25 documented as of this encounter Additional Source Comments The information contained in this document represents components of the legal health record. It is not the complete legal health record.[facility]
--- OUTSIDE RECORDS SUMMARY | 2025-08-04 10:14 | XMS_ITS | Encounter Summary ---
Author Organization [facility] Address [address] [place] [address] Phone Care Team Providers Care Clinical Technologist Name Role Phone Tr Norris MD Primary Care Provid er Reason for Referral * MRI/CAT Scan - Closed Specialty Diagnoses / Procedures Referred By Florentin chino Referred To Contact Radiology Diagnoses Other chronic sinusitis Procedures CT Face CHG CT SCAN,MAXILLOFACIAL AREA,W/O CONTRAST CHG CT SCAN, FACE/JAW CONTRAST CHG CT SCANS FACE/JAW COMBO AZ ALAN CT TISS CHARAC I&R W/CNCRNT CT EXAM Dewey Hicks DO 100 [facility], [facility] [address] [place] [address] Phone: tel: fax: mailto:[email or web address] Referral ID Status Reason Start Date Expiration Date Visits Re quested Visits Authorized [id number] Closed 04/20/2025 06/19/2025 1 1 Encounter Details Date Type Department Care Team (Latest Contact Info) Description 04/11/2025 Transcribe Orders Virtual Department [address] [place] [address] Dewey Hicks DO [address] [facility], [address] [place] [address] [email or web address] Other chronic sinusitis (Primary Dx) Social History [...] sinusitis documented in this encounter Care Teams Clinical Technologist Relationship Specialty Start Date End Date Tr Norris MD [address] [place] [address] PCP - General Internal Medicine 04/19/25 documented as of this encounter Additional Source Comments The information contained in this document represents components of the legal health record. It is not the complete legal health record.[facility]
--- OUTSIDE RECORDS SUMMARY | 2025-08-04 10:14 | XMS_ITS | Clinical Summary ---
Author Organization [address] Address [address] [place] [phone] Phone Care Team Providers Care Mattress Renovator Name Role Phone Dmitri Armas DO Primary Care Provider [phone] Surgical History Surgery Date Site/Laterality Comments TOTAL KNEE ARTHROPLASTY Bilateral PROCEDURE:TOTAL KNEE ARTHROPLASTY BARIATRIC SURGERY 2017 PROCEDURE:BARIATRIC SURGERY;COMMENT:gastric bypass RHINOPLASTY 04/29/2022 Bilateral PROCEDURE:RHINOPLASTY;COMMENT:Proce dure: SECONDARY EXTERNAL RHINOPLASTY; Surgeon: Bryon Blevins MD; Location: [facility] MAIN OPERATING ROOM; Service: Plastics; Laterality: Bilateral; OTHER SURGICAL HISTORY 04/29/2022 Bilateral PROCEDURE:ABDOMINOPLASTY;COMMENT:Pr ocedure: ABDOMINOPLASTY, MONSPLASTY; Surgeon: Bryon Blevins MD; Location: [facility] MAIN OPERATING ROOM; Service: Plastics; Laterality: Bilateral; Medical History Medical History Date Comments Osteoporosis DX:Osteoporosis Prophylactic antibiotic DX:Proph ylactic antibiotic;COMMENT: knee replacement 2014 Hypertension DX:Hypertension Hyperlipidemia DX:Hyperlipidemi a Migraine headache DX:Migraine he adache Sleep apnea, obstructive DX:Slee p apnea, obstructive;COMMENT:tested but never treated Snores DX:Snores Diabetes mellitus, type II ( CMS/HCC V24, CMS/HCC V28) DX:Diabetes mellitus, type I I ([facility]) Social History Tobacco Use Types Packs/Day Years [...] this topic Medical Devices Implanted Type Area Director Operations Broadcast Device Identifier Shelf Expiration Date Model / Serial / Lot Sealant Fibrin Vistaseal 4ml [facility] [id number] Implanted:Qty : 2 on 04/29/2022 by Bryon Blevins MD Implants N/A: Abdomen [facility] [employer] 10/23/2023 VST04 / / [id number] 1 Sealant Fibrin Vistaseal 4ml Jnj[employer]Ethi [id number] Implanted:Qty : 1 on 04/29/2022 by Bryon Blevins MD Implants N/A: Abdomen [employer] 10/16/2023 VST04 / / [id number] Insurance [employer] [address] Care Teams Mattress Renovator Relationship Specialty Start Date End Date Dmitri Arams DO [address] [place] [phone] PCP - General Internal Medicine 04/14/22
--- OUTSIDE RECORDS SUMMARY | 2025-08-04 10:14 | XMS_ITS | Clinical Summary ---
Author Organization [facility] Address [address] [place] [address] Phone Care Team Providers Care Base Brander Name Role Phone Tr Norris MD Primary Care Provid er Encounters Date Type Department Care Team Description 05/12/2025 8:07 AM EDT - 05/12/2025 11:59 PM EDT Hospital Encounter [facility], [address] [address] Dewey Hicks, DO Discharge Disposition: Home or Self Care 04/11/2025 Procedure Pass [address] [address] from Last 3 Months Social History Tobacco [...] Resul t from Last 3 Months Insurance [facility] EX[facility]ER POS [facility] EX[facility] POS [facility] EXPL[employer]ER POS [facility] EXPLORER POS [facility] EXPL[employer]ER POS Care Teams Base Brander Relationship Specialty Start Date End Date Tr Norris MD [address] [place] [phone] PCP - General Internal Medicine 04/19/25 Additional Source Comments The information contained in this document represents components of the legal health record. It is not the complete legal health record.[facility]
== END 2025-08-04 10:11 | disposition home or self-care (01) ==
LOC: HO.HMCSH 09:31
PROVIDERS: PCP Physician Assistant Medical; Visit Provider Physician Assistant Medical
DX: E11.8 Type 2 diabetes mellitus with unspecified complications (principal); I10 Essential (primary) hypertension; N39.0 Urinary tract infection, site not specified; E04.1 Nontoxic single thyroid nodule; M65.30 Trigger finger, unspecified finger; Z00.00 Encounter for general adult medical examination without abnormal findings

== ENCOUNTER 2025-08-04 09:57 | Outpatient (REF) | payer OTHER, SELFPAY ==
[2025-08-04 16:08] LABS: Appearance Urine Turbid; Glucose Urine UA Negative (Negative); PH 5.5 (5.0-9.0); Specific Gravity - Urine >= 1.030 (1.005-1.025); UMIC TRIGGER UACC YES
[2025-08-04 16:24] LABS: UACC Culture Trigger YES
[2025-08-04 17:51] LABS: Microalbum/Creatinine Ratio Ur 122.3 ug/mg cr (<30)
== END 2025-08-04 09:58 | disposition home or self-care (01) ==
LOC: HO.LAB 09:57
PROVIDERS: Visit Provider Physician Assistant Medical
DX: Z00.00 Encounter for general adult medical examination without abnormal findings (principal)
CPT/HCPCS: 81001; 82043; 82570; 87086; 87088

== ENCOUNTER 2025-08-07 08:54 | Outpatient (REF) | payer OTHER, SELFPAY ==
[2025-08-07 09:09] LABS: MANUAL DIFF FLAG NO
--- OUTSIDE RECORDS SUMMARY | 2025-08-07 09:36 | XMS_ITS | Clinical Summary ---
Author Organization [facility] Prior to 01/14/[address] [place] [address] Care Team Providers Care Janitor Custodian Name Role Phone Dmitri Armas DO Primary Care Provider [phone] Allergies No known active allergies Medications Medication [...] this topic Medical Devices Implanted Type Area Kaitara [place] Device Identifier Shelf Expiration Date Model / Serial / Lot Sealant Fibrin Vistaseal 4ml [facility] [id number] - [id number] Implanted:Qt y: 2 on 04/29/2022 by Bryon Blevins MD at [facility] Hemostatic Agent N/A: Abdomen [facility] [employer] 10/23/2023 VST04 / / [id number] 1 Sealant Fibrin Vistaseal 4ml [facility] [id number] - [id number] Implanted:Qt y: 1 on 04/29/2022 by Bryon Blevins MD at [facility] Hemostatic Agent N/A: Abdomen [employer] 10/16/2023 VST04 / / [id number] 1 Advance Directives For more information, please contact: [phone] Latest Code Status on File Code Status Date Activated Date Inactivated Comments Full Code 04/29/2022 7:32 PM 05/01/2022 1:25 AM This code status was ascertained in the following way: discussion with patient . Care Teams Janitor Custodian Relationship Specialty Start Date End Date Dmitri Armas DO [address] [place] [phone] PCP - General Internal Medicine 04/14/22
--- OUTSIDE RECORDS SUMMARY | 2025-08-07 09:36 | XMS_ITS | Encounter Summary ---
Author Organization [facility] Address [address] [place] [address] Phone Care Team Providers Care Commercial Energy Auditor Name Role Phone Tr Norris MD Primary Care Provid er Reason for Referral * MRI/CAT Scan - Closed Specialty Diagnoses / Procedures Referred By Florentin chino Referred To Contact Radiology Diagnoses Other chronic sinusitis Procedures CT Face CHG CT SCAN,MAXILLOFACIAL AREA,W/O CONTRAST CHG CT SCAN, FACE/JAW CONTRAST CHG CT SCANS FACE/JAW COMBO OR ALAN CT TISS CHARAC I&R W/CNCRNT CT EXAM Dewey Hicks DO [address] [facility], [facility] [address] [place] [address] Phone: tel: fax: mailto:[email or web address] Referral ID Status Reason Start Date Expiration Date Visits Re quested Visits Authorized [id number] Closed 04/20/2025 06/19/2025 1 1 Encounter Details Date Type Department Care Team (Latest Contact Info) Description 04/11/2025 Transcribe Orders Virtual Department [address] [place] [address] Dewey Hicks DO [address] [facility], [address] [place] [address] [email or web address] Other chronic sinusitis (Primary Dx) Social History [...] sinusitis documented in this encounter Care Teams Commercial Energy Auditor Relationship Specialty Start Date End Date Tr Norris MD [address] [place] [address] PCP - General Internal Medicine 04/19/25 documented as of this encounter Additional Source Comments The information contained in this document represents components of the legal health record. It is not the complete legal health record.[facility]
--- OUTSIDE RECORDS SUMMARY | 2025-08-07 09:36 | XMS_ITS | Encounter Summary ---
Author Organization [facility] Address [address] [facility] [place] [address] Phone Care Team Providers Care Bus Steward Name Role Phone Tr Norris MD Primary Care Provid er Encounter Details Date Type Department Care Team (Late st Contact Info) Description 04/11/2025 Procedure Pass [facility], Ct Scan - [address] [address] Social History Tobacco Use Types Packs/Day Years [...] on filedocumented in this encounter Care Teams Bus Steward Relationship Specialty Start Date End Date Tr Norris MD [address] [place] [address] [place] [phone] PCP - General Internal Medicine 04/19/25 documented as of this encounter Additional Source Comments The information contained in this document represents components of the legal health record. It is not the complete legal health record.[facility]
--- OUTSIDE RECORDS SUMMARY | 2025-08-07 09:37 | XMS_ITS | Encounter Summary ---
Author Organization [facility] Address [address] [place] [address] Care Team Providers Care Button Puncher Name Role Phone Dmitri Armas DO Primary Care Provider [phone] Encounter Details Date Type Department Care Team (Late st Contact Info) Description 10/19/2024 Lab Requisition [facility] - Main Lab [address] [facility] [place] [phone] Prince Fonseca MD [address] [facility] 120 [place], [place] [phone] Urinary tract infection, site not specified Social [...] ssp pneumoniae(A) CARYN 10/22/2024 11:44 AM EST [facility] ([facility]) [facility] Comment: The organism value for this result has been updated. These results have been appended to the previously preliminary verified report. This is an edited result. Previous organism was Gram negative bacilli on 10/21/2024 at 1418 EST. Urine Urine specimen obtained by clean catch procedure / Unknown 10/19/2024 10/19/2024 2:28 PM EST Narrative [facility] ([facility]) [facility] - 10/22/2024 11:44 AM EST Additional [...] Susceptible Prince Fonseca MD LAB MICROBIOLOGY - [facility] ORDERABLES Final Result [facility] [address] [place] [address], documented in this encounter Visit Diagnoses Diagnosis Urinary tract infection, site not specified documented in this encounter Care Teams Button Puncher Relationship Specialty Start Date End Date Dmitri Armas DO [address] [place] [phone] PCP - General Internal Medicine 04/14/22 documented as of this encounter
--- OUTSIDE RECORDS SUMMARY | 2025-08-07 09:37 | XMS_ITS | Clinical Summary ---
Author Organization [facility] Address [address] [place] [address] Phone Care Team Providers Care Machine Spreader Name Role Phone Tr Norris MD Primary Care Provid er Encounters Date Type Department Care Team Description 05/12/2025 8:07 AM EDT - 05/12/2025 11:59 PM EDT Hospital Encounter [facility], [address] [address] Dewey Hicks, DO Discharge Disposition: Home or Self Care 04/11/2025 Procedure Pass [address] [address] from Last 3 Months Social History Tobacco [...] Resul t from Last 3 Months Insurance [facility] POS [facility] POS [facility] POS [facility] POS Care Teams Machine Spreader Relationship Specialty Start Date End Date Tr Norris MD [address] [place] [phone] PCP - General Internal Medicine 04/19/25 Additional Source Comments The information contained in this document represents components of the legal health record. It is not the complete legal health record.[facility]
--- OUTSIDE RECORDS SUMMARY | 2025-08-07 09:37 | XMS_ITS | Clinical Summary ---
Author Organization [address] Address [address] [place] [phone] Phone Care Team Providers Care Textile Worker Name Role Phone Dmitri Armas DO Primary Care Provider [phone] Surgical History Surgery Date Site/Laterality Comments TOTAL KNEE ARTHROPLASTY Bilateral PROCEDURE:TOTAL KNEE ARTHROPLASTY BARIATRIC SURGERY 2017 PROCEDURE:BARIATRIC SURGERY;COMMENT:gastric bypass RHINOPLASTY 04/29/2022 Bilateral PROCEDURE:RHINOPLASTY;COMMENT:Proce dure: SECONDARY EXTERNAL RHINOPLASTY; Surgeon: Bryon Blevins MD; Location: [facility] MAIN OPERATING ROOM; Service: Plastics; Laterality: Bilateral; OTHER SURGICAL HISTORY 04/29/2022 Bilateral PROCEDURE:ABDOMINOPLASTY;COMMENT:Pr ocedure: ABDOMINOPLASTY, MONSPLASTY; Surgeon: Bryon Blevins MD; Location: [facility] MAIN OPERATING ROOM; Service: Plastics; Laterality: Bilateral; Medical History Medical History Date Comments Osteoporosis DX:Osteoporosis Prophylactic antibiotic DX:Proph ylactic antibiotic;COMMENT: knee replacement 2014 Hypertension DX:Hypertension Hyperlipidemia DX:Hyperlipidemi a Migraine headache DX:Migraine he adache Sleep apnea, obstructive DX:Slee p apnea, obstructive;COMMENT:tested but never treated Snores DX:Snores Diabetes mellitus, type II ( CMS/HCC V24, CMS/HCC V28) DX:Diabetes mellitus, type I I ([facility]) Social History Tobacco Use Types Packs/Day [...] this topic Medical Devices Implanted Type Area Wireless Engineer Device Identifier Shelf Expiration Date Model / Serial / Lot Sealant Fibrin Vistaseal 4ml [facility] [id number] Implanted:Qty : 2 on 04/29/2022 by Bryon Blevins MD Implants N/A: Abdomen [facility] [employer] 10/23/2023 VST04 / / [id number] Sealant Fibrin Vistaseal 4ml [employer] [id number] Implanted:Qty : 1 on 04/29/2022 by Bryon Blevins MD Implants N/A: Abdomen [employer] 10/16/2023 VST04 / / [id number] Insurance [employer] [address] Care Teams Textile Worker Relationship Specialty Start Date End Date Dmitri Armas DO [address] [place] [phone] PCP - General Internal Medicine 04/14/22
--- OUTSIDE RECORDS SUMMARY | 2025-08-07 09:37 | XMS_ITS | Data Portability ---
Author Organization [place] [facility], All[facility] Address [address] [place] [phone] Care Team Providers Care Power Barker Operator Name Role Phone TR SOLIMAN Primary Care [...] Imaging CT, sinuses, w/o contrast 2024 025 [facility], [address] [facility], [place], [address], 04/20/2025 10:09:06 Medication Orders None recorded. Patient TargetsNo targets recorded. Patient InstructionsNo instructions recorded. Reason for Referral None Reported. Results Created Date Observation Date Name Description Value Unit Range Abnormal Flag Note LastModifiedBy Organization Detail LastModifiedTime 07/26/2005/12/2025 CT, face, w/wo contr ast No observ ation record ed. [email or web address] Not Available 07/17 15:22:59 Result Notes None recorded. 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 - [facility] 23:31:59 Nasal obstruction 230548900 Active 2024 Dewey Hicks [address], [phone], [facility] [place] 23:32:03 Chronic sinusitis 31986762 Active 2024 Dewey Hicks, [address] [place] [address], [phone], [facility] - [facility] 10:00:22 Problem Notes None recorded. Procedures Surgical History Date Name Laterality Status Provider Name and Address Organization Details Recorded Time 04/11/2025 Nasal Endo [id number] completed Dewey Hicks DO [address] [facility],[address], [address], [facility] - [facility] 04/11/2025 09:58:13 Imaging Results None recorded. [...] berry [place] - [facility] 04/11/2025 09:22:33 How Many Years Have You Consumed Alcohol? 0 [email or web address] Information not available 04/11/2025 What Type Of Conduit Installer Do You Use? None [email or web address] Information not available 04/11/2025 How Many Alcoholic Drinks Do You Consume Per Day On Average? 0 [email or web address] Information not available 04/11/2025 Do You Have Any Pets? No [email or web address] Information not available 04/11/2025 Are You Passively Exposed To Smoke? No [email or web address] Information not available 04/11/2025 Are There Any Smokers In Your House? No [email or web address] Information not available 04/11/2025 Sex: Female Functional Status Question Answer Note LastModified by Organization Details LastModified Time How many times per week do you consume alcohol? Less than 1 time per week [email or web address] Inform ation not available 04/11/2025 Do you use any illicit or recreational drugs? No [email or web address] Information not available 04/11/2025 Do you or have you ever used any other forms of tobacco or nicotine? No Information not available 04/11/2025 What is your level of alcohol consumption? Occasional [email or web address] Information not available 04/11/2025 What type of noise exposure are you exposed to? noExposureToExcessiveNoise [email or web address] Infor mation not available 04/11/2025 Mental Status None recorded. Family History Nothing Reported. Medical History Condition Response Allergies/Hayfever N Heart Problems N Anxiety N Tonsil Infections N Emphysema N Migraines Y Thyroid Problems N Glaucoma N Developmental Delay N Depression N COPD N Nasal or Sinus Problems Y Anemia N Immune System Disorder N Anesthesia Complications N Heart Attack ([place]) N Other Skin Condition N Diabetes Y [...] ICD10 Code Diagnosis IMO Codes Diagnosis Note 10383 Dewey Hicks, DO [facility] [address] [phone] 04/11/2025 09:07:06 04/11/2025 09:59:42 Incompetence of nasal valve 475134442 J34.261 [id number] Nasal obstruction 274046 000 J34.89 46866 Chronic sinusitis 104849 00 J32.8 [address] Health Concerns Section Related Observation LastModified by Organization Detai ls LastModified Time None Recorded Concern Status LastModified by Organization Details LastModified Time None Recorded Advance Directives Directive None Recorded Payers Insurance Date Sequence Insurance Name Policy Number Policy Nunez Covered Member ID Nunez Member ID Guarantor Name 04/11/2025 1 [facility] Marti Brunson [id number] Marti Gracia Notes Date Note Type Note Provider Name and Address Organization Details Recorded Time 04/11/2025 text/html ROS as noted in the HPI Ref: Tr Soliman MD Marti is a 60F presenting for evaluation of nasal obstruction. Prior surgery for deviated septum (Septorhinoplasty) in [place] a year ago. Since then had worsening [...] and fluticasone intermittently. Dewey Hicks, DO [address] [facility],[place] [address], [place], [phone], [facility] - [facility] 04/11/2025 10:01:08 OBGyn Episode No OBEpisode recorded.
[2025-08-07 09:46] LABS: Hematocrit 36.2 % (37.0-47.0); Hemoglobin 11.8 g/dl (12.0-16.0); Imm Gran Abs Auto 0.02 X10*3/uL (0.00-0.03); Imm Gran Pct Auto 0.4 % (0.0-0.4); Lymphocytes Absolute Auto 1.8 X10*3/uL (1.2-4.9); Mean Corpuscular HGB Conc 32.6 g/dl (31.0-35.0); Mean Corpuscular Hemoglobin 27.8 pg (27.0-33.0); Mean Corpuscular Volume 85.2 fL (80.0-98.0); NRBC Abs Auto 0.000 X10*3/uL (0.0-0.012); NRBC Pct Auto 0.0 /100WBC (0.0-0.2); Platelet Count 219 X10*3/uL (160-400); Red Blood Count 4.25 X10*6/uL (4.20-5.50); White Blood Count 5.5 X10*3/uL (4.8-10.8)
[2025-08-07 10:16] LABS: Appearance Urine Cloudy; Glucose Urine UA Negative (Negative); PH 5.5 (5.0-9.0); Specific Gravity - Urine 1.025 (1.005-1.025); UMIC TRIGGER UACC YES
[2025-08-07 10:37] LABS: UACC Culture Trigger YES
[2025-08-07 10:51] LABS: Alanine Aminotransferase 20 U/L (0-31); Albumin Level 4.2 g/dL (3.5-5.0); Alkaline Phosphatase 176 U/L (39-117); Anion Gap 12 (12-20); Aspartate Amino Transferase 23 U/L (5-31); Blood Urea Nitrogen 12 mg/dL (9-16); Calcium 9.5 mg/dL (8.4-10.2); Carbon Dioxide 26 mmol/L (22-29); Chloride 108 mmol/L (96-108); Cholesterol 126 mg/dL (<200); Estimated Glomerular Filt Rate > 60; HDL Cholesterol 47 mg/dL (>40); Iron 65 mcg/dL (30-160); Magnesium 1.8 mg/dL (1.6-2.6); Percent Iron Saturation 22 % (15-50); Potassium 3.8 mmol/L (3.3-5.1); Sodium 142 mmol/L (135-145); Total Iron Binding Capacity 294 mcg/dL (228-428); Total Protein 7.0 g/dL (6.5-8.0); Triglycerides 85 mg/dL (<150); Unsaturated Iron Binding 229 ug/dL
[2025-08-07 10:55] LABS: Ferritin 41 ng/mL (10-250)
[2025-08-07 11:19] LABS: Folate 9.5 ng/mL (> or = 4.0); Vitamin B12 443 pg/mL (200-900)
== END 2025-08-07 08:55 | disposition home or self-care (01) ==
LOC: HO.LAB 08:54
PROVIDERS: PCP Physician Assistant Medical; Visit Provider Physician Assistant Medical
DX: Z00.00 Encounter for general adult medical examination without abnormal findings (principal); G47.33 Obstructive sleep apnea (adult) (pediatric); D64.9 Anemia, unspecified; Z79.899 Other long term (current) drug therapy
CPT/HCPCS: 36415; 80053; 80061; 81001; 81003; 82306; 82607; 82728; 82746; 83036; 83540; 83735; 84443; 85025; 85652; 86140; 87086

== ENCOUNTER 2025-08-07 09:18 | Outpatient (AMB) | payer OTHER, SELFPAY ==
--- NOTE | 2025-08-07 09:28 | MHC.OFFVIS ---
Vital Signs 08/07/25 09:29 Height 5 ft 4 in Weight 164 lb 3.91 oz BMI 28.2 BP 104/70 Blood Pressure Location Lt brachial Position Sitting Pulse 92 Pulse Source Pulse Oximeter Pulse Oximetry (%) 99 Oxygen Delivery Method Room Air Intake Visit Reasons: Obstructive sleep apnea Intake Note: pt is here for follow up of sleep study and breathing is doing well Heel Sorter Required: No Lead Software Development Engineer: Lead Software Development Engineer offered & declined Allergies No Known Allergies (No Known Allergies*) Allergy (Verified 08/07/25 09:39) Medication List - Last Reconciled 08/07/25 by Raisa Regan MD atorvastatin 20 mg PO DAILY cholecalciferol (vitamin D3) 50 mcg PO DAILY clotrimazole 1% 1 appl topical BID fluconazole 150 mg PO Q3D 2 doses gabapentin 600 mg PO BEDTIME lisinopril 20 mg PO DAILY nitrofurantoin monohyd/m-cryst 100 mg (Macrobid) 100 mg PO BID 5 days ondansetron 4 mg PO Q8H PRN pantoprazole 40 mg PO DAILY propranolol ER 60 mg PO BEDTIME rizatriptan take 1 tab at onset of headache; if no relief may repeat 1 tab after at least 2 hrs; max = 3 tabs/24 hr PO ropinirole 0.5 mg PO BEDTIME tirzepatide (Mounjaro) 10 mg (0.5 mL) subcut QWEEK Do you need a note to return to daycare/school/sports/work: No HPI HPI Obstructive sleep apnea: Details: This 60 years old female comes for follow-up after home-based sleep study. She is sleeping mostly in supine position and propped up with a few pillows. She wakes up a few times during the night. Denies any excessive daytime sleepiness at this time . She has past history of sleep apnea but after losing significant weight she went without any symptoms and did not use the CPAP for many years. She denies history of asthma COPD but does have intermittent bouts of cough and wheeze especially after upper respiratory infection. [facility] Medical History Healthcare maintenance UTI (urinary tract infection) Trigger finger, right Left thyroid nodule Influenza vaccine administered Chronic fatigue Intermittent chest pain Sacral nerve stimulator present Somnolence, daytime Restless leg syndrome Plantar fasciitis Osteoarthritis Migraine headache Mild hypercholesterolemia GERD (gastroesophageal reflux disease) History of mammogram (~12/19/21) Anemia Deviated septum General medical exam Asthma Neuropathy Gallstones RUQ pain Morbid obesity ARLEY (obstructive sleep apnea) Other and unspecified hyperlipidemia Essential hypertension Type 2 diabetes mellitus with unspecified complications Surgical History History of colonoscopy (~01/25/24) Hx laparoscopic cholecystectomy S/P panniculectomy Gastric bypass status for obesity History of bilateral knee replacement Family History Mother Asthma Father Hypertension Social History Housing: House Alcohol intake: current Alcohol intake frequency: holidays/special occasions only Patient Tobacco Use Status: Never used Tobacco service: Yes Current occupational status: retired Cognitive needs: No Hearing needs: Yes (b/l hearing aids) Vision needs: Yes (reading glasses) Review of Systems Eyes Reports no additional complaints ENT Reports nasal congestion (MILD CONGESTION OF AND ON) and Reports other (HISTORY OF SEPTOPLASTY IN THE PAST) Card Denies chest pain, Denies syncope, Denies irregular heart rhythm and Denies leg edema Resp Reports as per HPI GI Reports no additional complaints Reports nocturia Musc Reports no additional complaints Skin/Breast Reports system reviewed and no additional complaints, except as documented Neuro Reports no additional complaints and Denies syncope Psych Reports no additional complaints Endo Reports other (BEING TREATED FOR DIABETES MELLITUS) Aller/Immun Reports no additional complaints Physical Exam Vital Signs: Last Vital Signs Pulse 92 08/07/25 09:29 BP 104/70 08/07/25 09:29 Pulse Ox 99 08/07/25 09:29 Oxygen Delivery Method Room Air 08/07/25 09:29 BMI result Body Mass Index 28.2 Const General: healthy appearing, comfortable, no acute distress, alert and awake Orientation/consciousness: patient oriented x3 HEENT Head: Yes normal to inspection General nose exam: No nasal polyps present and No nasal discharge present Face and sinus: Yes sinuses nontender Mouth: oropharynx abnormals (TONGUE BASE IS CONVEX ,MODERATE NARROWING AND CROWDING, MALLAMPATI -3) Teeth and gingiva: other (MILD DEGREE OF RETROGNATHIA OF THE LOWER JAW IS NOTED.) Throat: Yes posterior oropharynx normal Eyes General: appearance normal, both eyes and all related structures Neck Neck: Yes normal visual inspection, Yes no lymphadenopathy, Yes trachea midline and Yes no JVD Thyroid: Thyroid normal Chest Chest palpation & inspection: normal inspection of the chest, normal palpation of entire chest wall and no tenderness Resp Effort & Inspection: normal respiratory effort Auscultation: clear to auscultation bilaterally, no crackles, no rales and no wheezes Cardio Palpation: normal PMI Rate: regular rate Rhythm: regular rhythm Heart sounds: no gallops and no murmurs Peripheral pulses: Peripheral pulses 2+ throughout GI Palpation (GI): Soft to palpation, nontender, No hepatosplenomegaly present and no masses Auscultation: normal bowel sounds Back/Spine/Pelvis Thoracic/Lumbar Spine: thoracic and lumbar spine normal to inspection Skin General skin exam: no rashes or lesions noted Neuro General: patient oriented x3 and no focal motor deficits Cranial nerves: Yes CN's II-XII intact bilaterally Extrem General: Yes normal to inspection, Yes no clubbing, cyanosis or edema and Yes no calf tenderness Psych Appearance: grossly normal Speech and movement: Normal speech and movement present Results Reviewed Results Reviewed: Home-based sleep study shows that she has borderline ARLEY with total sleep time AHI 5.6. Most of the sleep was in propped up and supine position . Assessment & Plan Assessment & Plan (1) ARLEY (obstructive sleep apnea): Comment: SHE HAS HISTORY VERY MUCH SUGGESTIVE OF OBSTRUCTIVE SLEEP APNEA DIAGNOSED ABOUT 20 YEARS AGO. SHE LOST FOLLOW-UP FOR SLEEP APNEA, AND LOST HER CPAP DEVICE MANY YEARS AGO. SHE MAY HAVE OBSTRUCTIVE SLEEP APNEA ON BASIS OF MILD OBESITY AND ALSO CONTRIBUTED BY MILD DEGREE OF RETROGNATHIA OF THE LOWER JAW. Current home-based sleep study shows that she has only borderline ARLEY with total sleep time AHI 5.6. Code(s): G47.33 - Obstructive sleep apnea (adult) (pediatric) Category: Medical Plan: I discussed the results of sleep study with her. As her ARLEY is borderline or very mild., she wants to take care of it conservatively. There is no need to lose much weight. She is advised to try sleeping in lateral position, There is no need to use CPAP at this time. (2) Asthma: Comment: THERE IS A MENTION OF POSSIBLE ASTHMA THAT SHE MAY HAVE HAD IN THE PAST. BUT CURRENTLY SHE DENIES ANY COUGH OR WHEEZING, EXCEPT AFTER BOUTS OF UPPER RESPIRATORY CONGESTION OR INFECTION. Code(s): J45.909 - Unspecified asthma, uncomplicated Category: Medical Plan: SHE CAN HAVE ALBUTEROL HFA ON HAND AND USE 1 OR 2 PUFFS Q 6 HOURS ONLY P.R.N.. REVISIT Q 1 YEAR Medications: New albuterol sulfate 90 mcg/actuation (Ventolin HFA) 2 puffs inhalation Q4-6H PRN 6.7 grams 2RF shortness of breath or wheezing 30 days Coding Level of Care Code Est Pt Level 3 (73512) Diagnoses ARLEY (obstructive sleep apnea) G47.33 Asthma J45.909
[2025-08-07 09:29] VITALS: BP 104/70; PULSE 92; O2SAT 99; BMI 28.2
== END 2025-08-07 09:49 | disposition home or self-care (01) ==
LOC: HO.HPS 09:19
PROVIDERS: PCP Internal Medicine; Visit Provider Internal Medicine
DX: G47.33 Obstructive sleep apnea (adult) (pediatric) (principal); J45.909 Unspecified asthma, uncomplicated
CPT/HCPCS: 99213